=== PATIENT | female | born 1990 | race Caucasian/White ===

== ENCOUNTER 2018-12-12 14:26 | Inpatient (IN) | payer MEDICAID, OTHER ==
[~2018-12-12] VITALS: Ht 162.6 cm; Wt 91.7 kg
[~2018-12-12 14:26] MED LIST: NORG1TAB56 PO; OMEP-84 PO
[2018-12-12] MEDS ORDERED: ondansetron/PF 4mg/2ml inj IV ONE (14:35)
[2018-12-12] MEDS ORDERED: normal saline 1000ML IV soln IV ONE ×2 (14:35→15:45)
[2018-12-12] MEDS ORDERED: morphine 4 MG/ML inj SYRINge IV PRN ×2 (14:35→16:50)
[2018-12-12 15:11] LABS: BASOPHILS % (AUTO) 0.3 % (0-1); EOSINOPHILS % (AUTO) 0 % (0-6); HEMATOCRIT 51.3 % (35.0-45.0); HEMOGLOBIN 17.3 g/dl (12.0-16.0); LYMPHOCYTES # (AUTO) 0.9 X10'3 (1.1-4.8); MEAN CORPUSCULAR HEMOGLOBIN 34.2 PG (27.0-31.0); MEAN CORPUSCULAR HGB CONC 33.7 g/dL (33.0-36.5); MEAN CORPUSCULAR VOLUME 101.5 FL (78-98); MEAN PLATELET VOLUME 8.4 FL (7.4-10.4); MONOCYTES # (AUTO) 1.1 X10'3 (0-0.9); MONOCYTES % (AUTO) 9.3 % (2-12); NEUTROPHILS # (AUTO) 10.1 X10'3 (1.8-7.7); NEUTROPHILS % (AUTO) 83.4 % (42-75); PLATELET COUNT 253 X10'3 (140-440); RED BLOOD COUNT 5.06 X10'6 (4.20-5.60); RED CELL DISTRIBUTION WIDTH 13.9 % (11.5-14.5); WHITE BLOOD COUNT 12.1 X10'3 (4.5-11.0)
[2018-12-12 15:22] LABS: D-DIMER 2.23 MG/L FEU (0-0.50)
[2018-12-12 15:24] LABS: ALANINE AMINOTRANSFERASE 124 U/L (12-78); ALBUMIN/GLOBULIN RATIO 0.6 (1.1-1.5); ALKALINE PHOSPHATASE 102 IU/L (46-116); ANION GAP 31 (8-16); ASPARTATE AMINO TRANSFERASE 129 U/L (10-37); BILIRUBIN,TOTAL 2.3 MG/DL (0.1-1.0); BLOOD UREA NITROGEN 19 MG/DL (7-18); BUN/CREATININE RATIO 14.8 (6.6-38.0); CALCIUM 9.6 MG/DL (8.5-10.1); CHLORIDE 85 MMOL/L (99-107); CREATININE 1.28 MG/DL (0.40-0.90); GLUCOSE 392 MG/DL (70-104); MAGNESIUM 2.4 MG/DL (1.5-2.4); POTASSIUM 3.7 MMOL/L (3.5-5.1); SODIUM 123 MMOL/L (135-145); TOTAL PROTEIN 10.4 G/DL (6.4-8.2); eGFR 49 ML/MIN
[2018-12-12 15:26] LABS: TOTAL CARBON DIOXIDE 7.2 MMOL/L (24-32)
[2018-12-12] MEDS ORDERED: phenobarbital inj 260 MG in normal saline 100ml IV soln 99 ML IV STA (15:53)
[2018-12-12] MEDS ORDERED: thiamine 100mg tablet PO ONE (15:55)
[2018-12-12] MEDS ORDERED: magnesium oxide 400mg tablet PO ONE (15:55)
[2018-12-12] MEDS ORDERED: iohexol 350MG/ML 100ml bottle IV ONE (15:58)
[2018-12-12 16:13] LABS: ETHANOL < 0.010 GM/DL (0.0-0.010)
[2018-12-12 16:15] LABS: ABG BASE EXCESS -25.9 mmol/L (-2.0-3.0); ABG HCO3 2.7 mmol/L (22.0-26.0); ABG OXYGEN SATURATION 98.1 % (95-98); ABG PCO2 (T) 10.6 mmHg (32.0-45.0); ABG PH (T) 7.031 (7.350-7.450); ABG PO2 (T) 134.9 mmHg (83-108); ALLEN'S TEST Positive; FCOHb 0.9 % (0.5-1.5); FMetHb 0.3 % (0.3-1.12); FO2Hb 96.9 % (94-100); RESPIRATORY RATE (OBSERVED) 30 b/min; TOTAL HEMOGLOBIN 15.2 G/dl (12.0-16.0)
[2018-12-12] MEDS ORDERED: sodium bicarbonate (8.4%) inj. 150 MEQ in dextrose 5%-water 1,000 ML IV SCH (16:20)
[2018-12-12] MEDS ORDERED: sodium bicarbonate (8.4%) 1 mEq/ml syringe IV ONE (16:20)
[2018-12-12] MEDS ORDERED: NO HOME MEDS (16:21)
[2018-12-12 16:37] LABS: HEMOGLOBIN A1C 8.6 % (4.5-6.2)
[2018-12-12 16:38] LABS: PARTIAL THROMBOPLASTIN TIME 35 SECONDS (22-32)
[2018-12-12 16:47] LABS: URINE HCG NEGATIVE (NEG)
[2018-12-12] MEDS ORDERED: insulin regular, DKA only 100 UNIT in normal saline 100ml IV soln 99 ML IV SCH ×2 (16:47)
[2018-12-12 16:48] LABS: CLARITY,URINE SLIGHTLY CLOUDY (Clear); COLOR,URINE YELLOW (Yellow); GLUCOSE, URINE 500 mg/dl (Neg); KETONES,URINE >=80 mg/dl (Neg); LEUKOCYTE ESTERASE ,URINE NEGATIVE (Neg); NITRITES, URINE NEGATIVE (Neg); OCCULT BLOOD,URINE MODERATE (Neg); PROTEIN,URINE 100 mg/dl (Neg); UROBILINOGEN,URINE 0.2 E.U/dL (0.2-1.0)
[2018-12-12 16:50] LABS: UA COLLECTION TYPE CLN CATCH MIDSTREAM
[2018-12-12] MEDS ORDERED: acetaminophen 325mg tablet PO PRN ×2 (16:50)
[2018-12-12] MEDS ORDERED: potassium Cl 20 mEq SR tablet PO PRN ×4 (16:50)
[2018-12-12] MEDS ORDERED: potassium Cl 40MEQ/NS 500ml 500 ML IV PRN ×3 (16:50)
[2018-12-12] MEDS ORDERED: HYDROcodone/acetaminophen 10/325mg tab PO PRN (16:50)
[2018-12-12] MEDS ORDERED: ondansetron/PF 4mg/2ml inj IV PRN (16:50)
[2018-12-12 16:55] LABS: SQUAMOUS EPITHELIAL CELL,UR FEW /LPF (FEW)
[2018-12-12 16:57] LABS: BACTERIA,URINE FEW /HPF (Neg); RBC,URINE 0-2 /HPF (0-2); WBC,URINE NONE SEEN /HPF (0-4)
[2018-12-12 16:58] LABS: COARSE GRANULAR CAST 0-3 /LPF (NEGATIVE); YEAST FEW /HPF (NEGATIVE)
[2018-12-12 17:28] LABS: OSMOLALITY 312 MOSM/K (280-300)
[2018-12-12] MEDS ORDERED: chlordiazePOXIDE 25mg capsule PO PRN (17:35)
[2018-12-12] MEDS: multivitamins, therapeutics tablet PO SCH (18:09)
[2018-12-12] MEDS: folic acid 1mg tablet PO SCH (18:09)
[2018-12-12] MEDS: thiamine 100mg tablet PO SCH (19:16)
[2018-12-12] MEDS: normal saline 1000ml 1,000 ML IV SCH (19:16)
[2018-12-12] MEDS: morphine 2 MG/ML inj. syringe IV PRN (20:24)
[2018-12-12] MEDS: docusate sod 100mg capsule PO SCH (20:25)
[2018-12-12] MEDS: heparin, porcine 5000 units/ml vial SQ SCH (20:26)
--- NOTE | 2018-12-12 21:10 | NUR ---
I have received report from Jose LAMBERT in ED, and had the opportunity to ask questions and assume patient care.
[2018-12-12 21:44] LABS: ALBUMIN 3.5 G/DL (3.4-5.0); BLOOD UREA NITROGEN 13 MG/DL (7-18); BUN/CREATININE RATIO 15.3 (6.6-38.0); CALCIUM 7.9 MG/DL (8.5-10.1); CHLORIDE 95 MMOL/L (99-107); CREATININE 0.85 MG/DL (0.40-0.90); GLUCOSE 204 MG/DL (70-104); POTASSIUM 3.3 MMOL/L (3.5-5.1); SODIUM 129 MMOL/L (135-145); eGFR 79 ML/MIN
[2018-12-12 21:50] LABS: ANION GAP 26 (8-16)
[2018-12-12 21:52] LABS: TOTAL CARBON DIOXIDE 8.3 MMOL/L (24-32)
[2018-12-12 22:00] VITALS: BP 173/91
--- NOTE | 2018-12-12 22:00 | NUR ---
PT arrived ER via gurney. PT transferred self to bed. Connected to bedside monitor.VSS. NS is running @ 125ml/hr. PT is on DKA protocol. Insulin gtt running @ 5units/hr, blood sugars trending down. PT denies pain at this time. Bed is locked and low. Call light is within reach. Will continue to monitor.
[2018-12-12] MEDS: potassium CL 20mEq in D5-1/2NS 1,000 ML IV PRN (22:57)
[2018-12-12 23:00] VITALS: BP 164/80
--- NOTE | 2018-12-12 23:00 | NUR ---
IVF switched from NS to D5 1/2NS with 20meq of K based on blood sugars and protocol. Will continue to monitor.
[2018-12-13] VITALS (24 sets, daily range): BP systolic 138–178; BP diastolic 74–122
[2018-12-13] MEDS: normal saline 1000ml 1,000 ML IV SCH ×3 (00:47→20:13)
--- NOTE | 2018-12-13 03:00 | NUR ---
PT resting with no s/s of distress noted at this time. VSS. Bed is locked and low. Call light is within reach. Will continue to monitor.
[2018-12-13] MEDS: potassium CL 20mEq in D5-1/2NS 1,000 ML IV PRN (03:08)
[2018-12-13] MEDS: morphine 2 MG/ML inj. syringe IV PRN ×3 (05:25→18:52)
[2018-12-13 05:50] LABS: BASOPHILS % (AUTO) 0.3 % (0-1); EOSINOPHILS % (AUTO) 0 % (0-6); HEMATOCRIT 43.3 % (35.0-45.0); LYMPHOCYTES % (AUTO) 12.4 % (21-51); MEAN CORPUSCULAR HGB CONC 34.8 g/dL (33.0-36.5); MEAN CORPUSCULAR VOLUME 100.6 FL (78-98); MEAN PLATELET VOLUME 8.3 FL (7.4-10.4); MONOCYTES # (AUTO) 0.8 X10'3 (0-0.9); MONOCYTES % (AUTO) 9.9 % (2-12); NEUTROPHILS # (AUTO) 6.3 X10'3 (1.8-7.7); NEUTROPHILS % (AUTO) 77.4 % (42-75); PLATELET COUNT 142 X10'3 (140-440); RED CELL DISTRIBUTION WIDTH 13.6 % (11.5-14.5); WHITE BLOOD COUNT 8.1 X10'3 (4.5-11.0)
[2018-12-13 05:52] LABS: ALANINE AMINOTRANSFERASE 97 U/L (12-78); ALBUMIN/GLOBULIN RATIO 0.6 (1.1-1.5); ALKALINE PHOSPHATASE 66 IU/L (46-116); ANION GAP 21 (8-16); ASPARTATE AMINO TRANSFERASE 126 U/L (10-37); BILIRUBIN,TOTAL 1.7 MG/DL (0.1-1.0); BLOOD UREA NITROGEN 12 MG/DL (7-18); BUN/CREATININE RATIO 14.5 (6.6-38.0); CALCIUM 7.7 MG/DL (8.5-10.1); CHLORIDE 100 MMOL/L (99-107); CREATININE 0.83 MG/DL (0.40-0.90); GLUCOSE 111 MG/DL (70-104); MAGNESIUM 1.7 MG/DL (1.5-2.4); SODIUM 131 MMOL/L (135-145); TOTAL PROTEIN 7.7 G/DL (6.4-8.2); eGFR 81 ML/MIN
[2018-12-13] MEDS: Potassium Cl inj 20 MEQ in DEXTROSE 10 % AND 0.45 % NACL 990 ML IV SCH ×3 (06:00→20:44)
--- NOTE | 2018-12-13 06:00 | NUR ---
IVF changed to D10 1/2NS with 20meq K based on blood sugars and protocol. Will continue to monitor.
[2018-12-13 06:14] LABS: PHOSPHORUS 0.8 MG/DL (2.3-4.5)
[2018-12-13] MEDS ORDERED: sodium phosphate inj. 15 MMOL in dextrose 5%-water 150 ML IV PRN (06:15)
[2018-12-13] MEDS ORDERED: Neutra Phos packet PO PRN (06:15)
--- NOTE | 2018-12-13 06:35 | NUR ---
Problems reprioritized. Patient report given, questions answered & plan of care reviewed with Tamela LAMBERT.
[2018-12-13] MEDS: potassium Cl 40MEQ/NS 500ml 500 ML IV PRN ×4 (07:54→23:28)
[2018-12-13] MEDS: sodium phosphate inj. 30 MMOL in dextrose 5%-water 250 ML IV PRN ×2 (07:55→08:08)
[2018-12-13] MEDS: K and/or MAG REPLACEMENT MC SCH (08:00)
[2018-12-13] MEDS: docusate sod 100mg capsule PO SCH ×2 (08:00→20:00)
[2018-12-13] MEDS: multivitamins, therapeutics tablet PO SCH (08:08)
[2018-12-13] MEDS: folic acid 1mg tablet PO SCH (08:08)
[2018-12-13] MEDS: thiamine 100mg tablet PO SCH (08:08)
[2018-12-13 09:54] LABS: AMYLASE 277 U/L (25-115)
[2018-12-13 10:03] LABS: LIPASE 3272 U/L (73-393)
[2018-12-13] MEDS ORDERED: NO HOME MEDS (10:15)
[2018-12-13] MEDS ORDERED: dextrose 50%-water 50ml dispensing syringe IV PRN (10:45)
[2018-12-13] MEDS: heparin, porcine 5000 units/ml vial SQ SCH ×2 (11:18→20:15)
--- NOTE | 2018-12-13 11:48 | NUR ---
DM Consult: A1C 8.6. Pt admit w/ abdominal pain hx etoh drinks 8 shots of whiskey daily but stopped past 3 days. DX DKA new DM and pancreatitis w/ lipase 4031 likely r/t etoh hx. On thiamin/MVI/folic for etoh. Pending specific DM labs workup per CDE recs to determine which type DM pt has per RN. On insulin drip w/ electrolyte replacements running; Phos .8. Pt resting/tired and not appropriate for ed at this time. Will need DM ed once stable prior to d/c. Advanced to carb controlled diet. Rec: 1. continue carb controlled diet 2. monitor for ONS needs 3. wt per rx 4. DM ed once clinically stable prior to d/c Addendum: 12/13/18 at [address] Amended: Links added.
[2018-12-13] MEDS: insulin regular, human 100 UNIT in normal saline 100ml IV soln 99 ML IV SCH ×4 (12:21→23:29)
[2018-12-13 12:22] LABS: ALBUMIN 2.6 G/DL (3.4-5.0); AMYLASE 257 U/L (25-115); ANION GAP 17 (8-16); BLOOD UREA NITROGEN 9 MG/DL (7-18); BUN/CREATININE RATIO 11.4 (6.6-38.0); CALCIUM 7.8 MG/DL (8.5-10.1); CHLORIDE 103 MMOL/L (99-107); CREATININE 0.79 MG/DL (0.40-0.90); GLUCOSE 197 MG/DL (70-104); POTASSIUM 3.2 MMOL/L (3.5-5.1); SODIUM 129 MMOL/L (135-145); eGFR 85 ML/MIN
[2018-12-13 12:37] LABS: LIPASE 2499 U/L (73-393); TOTAL CARBON DIOXIDE 9.5 MMOL/L (24-32)
--- NOTE | 2018-12-13 18:42 | NUR ---
Patient in room CICU 2008. I have received report from FAUSTO Rapp, and had the opportunity to ask questions and assume patient care.
--- NOTE | 2018-12-13 18:52 | NUR ---
Pt sitting up in chair, c/o 7/10 upper ABD pain. Given 2 mg morphine and served dinner tray. Pt's mother arrived to visit at bedside. BG assessed, 185. Insulin gtt increased (see IV spreadsheet). Orders placed for pt to receive lab draw.
[2018-12-13 20:08] LABS: ALBUMIN 2.8 G/DL (3.4-5.0); AMYLASE 230 U/L (25-115); ANION GAP 13 (8-16); BLOOD UREA NITROGEN 7 MG/DL (7-18); BUN/CREATININE RATIO 9.2 (6.6-38.0); CALCIUM 8.7 MG/DL (8.5-10.1); CHLORIDE 105 MMOL/L (99-107); CREATININE 0.76 MG/DL (0.40-0.90); GLUCOSE 149 MG/DL (70-104); SODIUM 133 MMOL/L (135-145); eGFR 89 ML/MIN
[2018-12-13 20:11] LABS: POTASSIUM 2.7 MMOL/L (3.5-5.1)
[2018-12-13 20:12] LABS: TOTAL CARBON DIOXIDE 14.8 MMOL/L (24-32)
[2018-12-13 20:13] LABS: PHOSPHORUS 0.5 MG/DL (2.3-4.5)
[2018-12-13] MEDS: lisinopril 5mg tablet PO SCH (20:14)
[2018-12-13 20:15] LABS: LIPASE 1681 U/L (73-393)
[2018-12-13] MEDS ORDERED: sodium phosphate inj. 30 MMOL in dextrose 5%-water 250 ML IV ONE (20:50)
[2018-12-14] VITALS (24 sets, daily range): BP systolic 107–181; BP diastolic 67–130
[2018-12-14] MEDS: normal saline 1000ml 1,000 ML IV SCH ×4 (00:33→23:51)
[2018-12-14] MEDS: Potassium Cl inj 20 MEQ in DEXTROSE 10 % AND 0.45 % NACL 990 ML IV SCH ×3 (01:53→10:57)
[2018-12-14] MEDS: morphine 2 MG/ML inj. syringe IV PRN ×3 (01:53→21:29)
[2018-12-14 02:14] LABS: BASOPHILS % (AUTO) 0.7 % (0-1); EOSINOPHILS % (AUTO) 0.6 % (0-6); HEMATOCRIT 46.1 % (35.0-45.0); HEMOGLOBIN 16.3 g/dl (12.0-16.0); LYMPHOCYTES # (AUTO) 0.8 X10'3 (1.1-4.8); LYMPHOCYTES % (AUTO) 18.8 % (21-51); MEAN CORPUSCULAR HEMOGLOBIN 34.6 PG (27.0-31.0); MEAN CORPUSCULAR HGB CONC 35.3 g/dL (33.0-36.5); MEAN PLATELET VOLUME 8.3 FL (7.4-10.4); MONOCYTES # (AUTO) 0.4 X10'3 (0-0.9); MONOCYTES % (AUTO) 8.3 % (2-12); NEUTROPHILS # (AUTO) 3.2 X10'3 (1.8-7.7); NEUTROPHILS % (AUTO) 71.6 % (42-75); PLATELET COUNT 179 X10'3 (140-440); RED CELL DISTRIBUTION WIDTH 13.8 % (11.5-14.5); WHITE BLOOD COUNT 4.4 X10'3 (4.5-11.0)
[2018-12-14 02:30] LABS: ALANINE AMINOTRANSFERASE 120 U/L (12-78); ALBUMIN 3.2 G/DL (3.4-5.0); ALBUMIN/GLOBULIN RATIO 0.6 (1.1-1.5); ALKALINE PHOSPHATASE 82 IU/L (46-116); AMYLASE 221 U/L (25-115); ANION GAP 17 (8-16); ASPARTATE AMINO TRANSFERASE 164 U/L (10-37); BLOOD UREA NITROGEN 6 MG/DL (7-18); BUN/CREATININE RATIO 7.9 (6.6-38.0); CALCIUM 9.1 MG/DL (8.5-10.1); CHLORIDE 104 MMOL/L (99-107); CREATININE 0.76 MG/DL (0.40-0.90); GLUCOSE 152 MG/DL (70-104); MAGNESIUM 1.8 MG/DL (1.5-2.4); SODIUM 136 MMOL/L (135-145); TOTAL CARBON DIOXIDE 15.1 MMOL/L (24-32); TOTAL PROTEIN 8.6 G/DL (6.4-8.2); eGFR 89 ML/MIN
[2018-12-14 02:36] LABS: LIPASE 2016 U/L (73-393)
[2018-12-14 02:42] LABS: PHOSPHORUS 0.7 MG/DL (2.3-4.5); POTASSIUM 2.3 MMOL/L (3.5-5.1)
--- NOTE | 2018-12-14 04:46 | NUR ---
Pt standing in room, occasionally leaning over bed. States ABD pain is radiating to back, currently 8/10. Pt declining Alba, states that it makes her "dizzy without relieving the pain". Next dose of morphine available in one hour. JEFFERSON Davis, notified, one-time order received for morphine to give now.
[2018-12-14] MEDS ORDERED: morphine 2 MG/ML inj. syringe IV ONE (04:50)
--- NOTE | 2018-12-14 06:25 | NUR ---
Problems reprioritized. Patient report given, questions answered & plan of care reviewed with FAUSTO Rapp.
--- NOTE | 2018-12-14 06:30 | NUR ---
Patient in room CICU 2007. I have received report from Nolvia shift coordinator nurse and had the opportunity to ask questions and assume patient care.
[2018-12-14] MEDS: insulin regular, human 100 UNIT in normal saline 100ml IV soln 99 ML IV SCH ×4 (06:34→16:33)
[2018-12-14] MEDS: K and/or MAG REPLACEMENT MC SCH (08:00)
--- NOTE | 2018-12-14 08:00 | NUR ---
doing better today, states feels better, up with minimal assist to chair, review of plan of care, and goals with patient , review of insulin and managment of blood sugars done. questions answered.
[2018-12-14] MEDS: thiamine 100mg tablet PO SCH (08:45)
[2018-12-14] MEDS: lisinopril 5mg tablet PO SCH (08:45)
[2018-12-14] MEDS: multivitamins, therapeutics tablet PO SCH (08:45)
[2018-12-14] MEDS: heparin, porcine 5000 units/ml vial SQ SCH ×2 (08:46→19:24)
[2018-12-14] MEDS: docusate sod 100mg capsule PO SCH ×2 (08:46→19:23)
[2018-12-14] MEDS: folic acid 1mg tablet PO SCH (08:49)
[2018-12-14 08:55] LABS: ALBUMIN 2.6 G/DL (3.4-5.0); AMYLASE 132 U/L (25-115); ANION GAP 16 (8-16); BLOOD UREA NITROGEN 5 MG/DL (7-18); BUN/CREATININE RATIO 7.1 (6.6-38.0); CALCIUM 8.6 MG/DL (8.5-10.1); CHLORIDE 105 MMOL/L (99-107); GLUCOSE 131 MG/DL (70-104); LIPASE 1207 U/L (73-393); SODIUM 137 MMOL/L (135-145); TOTAL CARBON DIOXIDE 16.1 MMOL/L (24-32); eGFR > 90 ML/MIN
[2018-12-14 08:58] LABS: POTASSIUM 2.6 MMOL/L (3.5-5.1)
[2018-12-14] MEDS: potassium Cl 40MEQ/NS 500ml 500 ML IV PRN ×2 (10:57→15:08)
[2018-12-14 11:26] LABS: MAGNESIUM 1.5 MG/DL (1.5-2.4)
[2018-12-14 11:31] LABS: PHOSPHORUS 0.9 MG/DL (2.3-4.5)
[2018-12-14] MEDS: sodium phosphate inj. 30 MMOL in dextrose 5%-water 250 ML IV PRN (12:18)
[2018-12-14 15:34] LABS: ALBUMIN 2.5 G/DL (3.4-5.0); AMYLASE 106 U/L (25-115); ANION GAP 15 (8-16); BLOOD UREA NITROGEN 4 MG/DL (7-18); CALCIUM 8.8 MG/DL (8.5-10.1); CHLORIDE 105 MMOL/L (99-107); CREATININE 0.67 MG/DL (0.40-0.90); GLUCOSE 169 MG/DL (70-104); LIPASE 1228 U/L (73-393); MAGNESIUM 1.5 MG/DL (1.5-2.4); PHOSPHORUS 1.4 MG/DL (2.3-4.5); SODIUM 134 MMOL/L (135-145); eGFR > 90 ML/MIN
[2018-12-14 15:40] LABS: POTASSIUM 2.9 MMOL/L (3.5-5.1)
--- NOTE | 2018-12-14 16:43 | NUR ---
F/u for DM consult: Pt seen at bedside with SO present given written and verbal DM ed with referral to outpatient DM class and RD contact information. Pt was able to perform teachback method and appeared to have a good understanding of nutrition therapy for DM by the end of education considering this is a new dx this visit. RD encouraged pt to attend outpatient class with CDEs and look into finding an research administrator. Malnutrition consult received. Pt reports losing 15# over several months with UBW of 200#, current documented wt is 198# using bed scale. Pt with no edema or documented decrease in muscle strength. No visible fat/muscle wasting noted at the time of RD visit. Pt currently does not meet criteria for malnutrition. Pt reports poor PO intake r/t pain however states family will be bringing in some food to her later, RN approved of food. Pt states she will get an itchy throat if consumes pineapple, dietary informed. Will continue to follow. Rec: 1. continue carb controlled diet 2. monitor for ONS needs 3. Continue Thiamine, Folic acid, and MVI given Etoh abuse 4. wt per rx Addendum: 12/14/18 at [address] Amended: Links added.
--- NOTE | 2018-12-14 18:30 | NUR ---
Patient in room CICU 2008. I have received report from FAUSTO Rapp, and had the opportunity to ask questions and assume patient care.
[2018-12-14 20:21] LABS: ALBUMIN 2.4 G/DL (3.4-5.0); AMYLASE 101 U/L (25-115); ANION GAP 13 (8-16); BLOOD UREA NITROGEN 4 MG/DL (7-18); BUN/CREATININE RATIO 6.8 (6.6-38.0); CALCIUM 8.5 MG/DL (8.5-10.1); CHLORIDE 106 MMOL/L (99-107); CREATININE 0.59 MG/DL (0.40-0.90); GLUCOSE 132 MG/DL (70-104); LIPASE 1215 U/L (73-393); MAGNESIUM 1.4 MG/DL (1.5-2.4); PHOSPHORUS 1.9 MG/DL (2.3-4.5); POTASSIUM 3.2 MMOL/L (3.5-5.1); SODIUM 136 MMOL/L (135-145); TOTAL CARBON DIOXIDE 17.1 MMOL/L (24-32); eGFR > 90 ML/MIN
--- NOTE | 2018-12-14 20:45 | NUR ---
Pt ambulated steadily in halls with 2-person standby assist. Pt tolerated activity well, no dizziness or changes in VS's. Returned to room and assisted with evening care.
--- NOTE | 2018-12-14 21:30 | NUR ---
Pt assisted back to bed. Pt states that something "feels wet" around LAC IV site. Scant leaking noted around LAC IV site, able to flush and draw back blood. Area reinforced and water wing in place.
--- NOTE | 2018-12-14 23:45 | NUR ---
Pt states that IV is leaking. Increased leaking from IV site without tenderness or swelling. 20 g placed to right wrist x2 attempts, able to flush with NS and aspirate blood. Site secured with tegaderm and plastic tape. IVF infusing through this site. Old IV dc'ed, cannula intact. Site covered with sterile gauze and coban.
[2018-12-15] VITALS (18 sets, daily range): BP systolic 103–155; BP diastolic 69–104
[2018-12-15] MEDS ORDERED: LIDOcaine 1% 30ml vial 5 ML in potassium Cl 40MEQ/NS 500ml 500 ML IV ONE (00:05)
[2018-12-15] MEDS: Potassium Cl inj 20 MEQ in DEXTROSE 10 % AND 0.45 % NACL 990 ML IV SCH ×2 (01:42→10:17)
[2018-12-15] MEDS: morphine 2 MG/ML inj. syringe IV PRN ×5 (02:20→23:15)
[2018-12-15] MEDS: insulin regular, human 100 UNIT in normal saline 100ml IV soln 99 ML IV SCH ×2 (02:26)
[2018-12-15 02:54] LABS: BASOPHILS # (AUTO) 0.1 X10'3 (0-0.2); BASOPHILS % (AUTO) 1.1 % (0-1); EOSINOPHILS # (AUTO) 0.1 X10'3 (0-0.9); EOSINOPHILS % (AUTO) 1.8 % (0-6); HEMATOCRIT 40.1 % (35.0-45.0); LYMPHOCYTES # (AUTO) 1.7 X10'3 (1.1-4.8); LYMPHOCYTES % (AUTO) 34.3 % (21-51); MEAN CORPUSCULAR HGB CONC 34.8 g/dL (33.0-36.5); MEAN CORPUSCULAR VOLUME 97.7 FL (78-98); MEAN PLATELET VOLUME 8.7 FL (7.4-10.4); MONOCYTES # (AUTO) 0.5 X10'3 (0-0.9); MONOCYTES % (AUTO) 9.4 % (2-12); NEUTROPHILS # (AUTO) 2.6 X10'3 (1.8-7.7); NEUTROPHILS % (AUTO) 53.4 % (42-75); PLATELET COUNT 212 X10'3 (140-440); RED BLOOD COUNT 4.11 X10'6 (4.20-5.60); RED CELL DISTRIBUTION WIDTH 13.8 % (11.5-14.5); WHITE BLOOD COUNT 4.8 X10'3 (4.5-11.0)
[2018-12-15 03:03] LABS: ALANINE AMINOTRANSFERASE 194 U/L (12-78); ALBUMIN 2.6 G/DL (3.4-5.0); ALBUMIN/GLOBULIN RATIO 0.6 (1.1-1.5); ALKALINE PHOSPHATASE 89 IU/L (46-116); AMYLASE 95 U/L (25-115); ANION GAP 16 (8-16); ASPARTATE AMINO TRANSFERASE 311 U/L (10-37); BLOOD UREA NITROGEN 4 MG/DL (7-18); CALCIUM 9.2 MG/DL (8.5-10.1); CHLORIDE 107 MMOL/L (99-107); CREATININE 0.57 MG/DL (0.40-0.90); GLUCOSE 122 MG/DL (70-104); LIPASE 1195 U/L (73-393); MAGNESIUM 1.5 MG/DL (1.5-2.4); PHOSPHORUS 2.1 MG/DL (2.3-4.5); SODIUM 141 MMOL/L (135-145); TOTAL CARBON DIOXIDE 17.7 MMOL/L (24-32); eGFR > 90 ML/MIN
[2018-12-15 03:09] LABS: POTASSIUM 2.9 MMOL/L (3.5-5.1)
--- NOTE | 2018-12-15 06:30 | NUR ---
Patient in room CICU 2008. I have received report from rico peralta rn and had the opportunity to ask questions and assume patient care.
[2018-12-15] MEDS: lisinopril 5mg tablet PO SCH (07:42)
[2018-12-15] MEDS: thiamine 100mg tablet PO SCH (07:43)
[2018-12-15] MEDS: folic acid 1mg tablet PO SCH (07:43)
[2018-12-15] MEDS: docusate sod 100mg capsule PO SCH ×2 (07:43→19:46)
[2018-12-15] MEDS: multivitamins, therapeutics tablet PO SCH (07:43)
[2018-12-15] MEDS: heparin, porcine 5000 units/ml vial SQ SCH ×2 (07:44→19:45)
[2018-12-15] MEDS: K and/or MAG REPLACEMENT MC SCH (08:00)
[2018-12-15 08:29] LABS: ALBUMIN 2.4 G/DL (3.4-5.0); ANION GAP 15 (8-16); BLOOD UREA NITROGEN 3 MG/DL (7-18); BUN/CREATININE RATIO 5.3 (6.6-38.0); CALCIUM 8.7 MG/DL (8.5-10.1); CHLORIDE 107 MMOL/L (99-107); CREATININE 0.57 MG/DL (0.40-0.90); GLUCOSE 110 MG/DL (70-104); SODIUM 140 MMOL/L (135-145); eGFR > 90 ML/MIN
[2018-12-15 08:30] LABS: AMYLASE 73 U/L (25-115); LIPASE 1100 U/L (73-393)
[2018-12-15 08:32] LABS: POTASSIUM 2.9 MMOL/L (3.5-5.1)
[2018-12-15] MEDS: potassium Cl oral solution 20 MEQ/15 ML PO PRN ×2 (08:37→14:32)
--- NOTE | 2018-12-15 09:00 | NUR ---
up to chair for am care and breakfast, goals of plan of care reviewed with patient, blood sugar conrol with insulin gtt continues, possible plan to move to sub cutaneous pending discussion with MD. 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
[2018-12-15] MEDS ORDERED: pneumococcal 23-VAL P-sac vacc 25 mcg/0.5ml vial IMVAC ONE (10:00)
[2018-12-15] MEDS ORDERED: dextrose ORAL solution 15 GM/59 ML bottle PO PRN ×2 (12:35)
[2018-12-15] MEDS ORDERED: dextrose 50%-water 50ml dispensing syringe IV PRN ×2 (12:35)
[2018-12-15] MEDS ORDERED: glucagon, human recombinant 1mg kit SUBCUT PRN (12:35)
[2018-12-15 13:32] LABS: ALBUMIN 2.2 G/DL (3.4-5.0); ANION GAP 10 (8-16); BLOOD UREA NITROGEN 3 MG/DL (7-18); BUN/CREATININE RATIO 4.9 (6.6-38.0); CALCIUM 8.9 MG/DL (8.5-10.1); CHLORIDE 109 MMOL/L (99-107); CREATININE 0.61 MG/DL (0.40-0.90); GLUCOSE 100 MG/DL (70-104); POTASSIUM 3.2 MMOL/L (3.5-5.1); SODIUM 141 MMOL/L (135-145); TOTAL CARBON DIOXIDE 22.1 MMOL/L (24-32); eGFR > 90 ML/MIN
[2018-12-15] MEDS: insulin Lispro (HumaLOG) vial - multi-dose SQ SCH ×2 (13:51→19:40)
--- NOTE | 2018-12-15 14:15 | NUR ---
insulin ggt off, sub cutaneous insulin started, pt education given for diabetes survival skills, sign and symptoms reviewed with patient of low blood sugar and high blood sugar.
--- NOTE | 2018-12-15 16:01 | NUR ---
transfered to pcu with all belonging, ambulated 400 ft plus without problems.
[2018-12-15 19:09] LABS: ALBUMIN 2.6 G/DL (3.4-5.0); ANION GAP 12 (8-16); BLOOD UREA NITROGEN 4 MG/DL (7-18); BUN/CREATININE RATIO 6.2 (6.6-38.0); CALCIUM 8.9 MG/DL (8.5-10.1); CHLORIDE 103 MMOL/L (99-107); CREATININE 0.65 MG/DL (0.40-0.90); GLUCOSE 268 MG/DL (70-104); POTASSIUM 3.8 MMOL/L (3.5-5.1); SODIUM 133 MMOL/L (135-145); TOTAL CARBON DIOXIDE 18.4 MMOL/L (24-32); eGFR > 90 ML/MIN
--- NOTE | 2018-12-15 19:25 | NUR ---
Patient in room PCU 3021. I have received report from FAUSTO New and had the opportunity to ask questions and assume patient care.
[2018-12-15] MEDS: insulin glargine (Lantus) pen - multi-dose SQ SCH (21:50)
[2018-12-16 03:00] VITALS: BP 150/96
[2018-12-16] MEDS: morphine 2 MG/ML inj. syringe IV PRN ×3 (05:54→18:52)
[2018-12-16 06:00] VITALS: BP 147/111
[2018-12-16 06:08] LABS: BASOPHILS # (AUTO) 0.1 X10'3 (0-0.2); BASOPHILS % (AUTO) 1.6 % (0-1); EOSINOPHILS # (AUTO) 0.1 X10'3 (0-0.9); EOSINOPHILS % (AUTO) 2.3 % (0-6); HEMATOCRIT 37.5 % (35.0-45.0); HEMOGLOBIN 13.2 g/dl (12.0-16.0); LYMPHOCYTES # (AUTO) 1.4 X10'3 (1.1-4.8); LYMPHOCYTES % (AUTO) 33.2 % (21-51); MEAN CORPUSCULAR HEMOGLOBIN 34.7 PG (27.0-31.0); MEAN CORPUSCULAR HGB CONC 35.1 g/dL (33.0-36.5); MEAN CORPUSCULAR VOLUME 98.8 FL (78-98); MEAN PLATELET VOLUME 8.4 FL (7.4-10.4); MONOCYTES # (AUTO) 0.5 X10'3 (0-0.9); MONOCYTES % (AUTO) 11.7 % (2-12); NEUTROPHILS # (AUTO) 2.1 X10'3 (1.8-7.7); NEUTROPHILS % (AUTO) 51.2 % (42-75); PLATELET COUNT 231 X10'3 (140-440); RED CELL DISTRIBUTION WIDTH 13.9 % (11.5-14.5); WHITE BLOOD COUNT 4.2 X10'3 (4.5-11.0)
[2018-12-16 06:33] LABS: ALANINE AMINOTRANSFERASE 204 U/L (12-78); ALBUMIN 2.4 G/DL (3.4-5.0); ALBUMIN/GLOBULIN RATIO 0.6 (1.1-1.5); ALKALINE PHOSPHATASE 88 IU/L (46-116); AMYLASE 96 U/L (25-115); ANION GAP 9 (8-16); ASPARTATE AMINO TRANSFERASE 159 U/L (10-37); BILIRUBIN,TOTAL 1.6 MG/DL (0.1-1.0); BLOOD UREA NITROGEN 5 MG/DL (7-18); BUN/CREATININE RATIO 7.7 (6.6-38.0); CHLORIDE 104 MMOL/L (99-107); CREATININE 0.65 MG/DL (0.40-0.90); GLUCOSE 213 MG/DL (70-104); MAGNESIUM 1.6 MG/DL (1.5-2.4); PHOSPHORUS 3.5 MG/DL (2.3-4.5); POTASSIUM 3.3 MMOL/L (3.5-5.1); SODIUM 138 MMOL/L (135-145); TOTAL CARBON DIOXIDE 24.9 MMOL/L (24-32); TOTAL PROTEIN 6.5 G/DL (6.4-8.2); eGFR > 90 ML/MIN
--- NOTE | 2018-12-16 06:45 | NUR ---
Problems reprioritized. Patient report given, questions answered & plan of care reviewed with FAUSTO Iglesias.
[2018-12-16 06:48] LABS: CALCIUM 9.6 MG/DL (8.5-10.1)
[2018-12-16 06:52] LABS: LIPASE 2141 U/L (73-393)
--- NOTE | 2018-12-16 07:23 | NUR ---
Patient in room PCU 3021. I have received report from Komal LAMBERT and had the opportunity to ask questions and assume patient care. Addendum: 12/16/18 at 7124 by Kelsie Gil RN Amended: Links added.
[2018-12-16] MEDS: K and/or MAG REPLACEMENT MC SCH (07:49)
[2018-12-16] MEDS: lisinopril 5mg tablet PO SCH ×2 (07:51→19:59)
[2018-12-16] MEDS: folic acid 1mg tablet PO SCH (07:51)
[2018-12-16] MEDS: thiamine 100mg tablet PO SCH (07:51)
[2018-12-16] MEDS: docusate sod 100mg capsule PO SCH ×2 (07:51→20:00)
[2018-12-16] MEDS: multivitamins, therapeutics tablet PO SCH (07:51)
[2018-12-16] MEDS: heparin, porcine 5000 units/ml vial SQ SCH ×2 (07:52→20:00)
[2018-12-16] MEDS: insulin Lispro (HumaLOG) vial - multi-dose SQ SCH ×3 (08:33→18:57)
[2018-12-16 11:00] VITALS: BP 141/100
[2018-12-16 12:20] LABS: ALBUMIN 2.5 G/DL (3.4-5.0); AMYLASE 102 U/L (25-115); ANION GAP 11 (8-16); BLOOD UREA NITROGEN 6 MG/DL (7-18); BUN/CREATININE RATIO 9.4 (6.6-38.0); CALCIUM 9.8 MG/DL (8.5-10.1); CHLORIDE 102 MMOL/L (99-107); CREATININE 0.64 MG/DL (0.40-0.90); GLUCOSE 256 MG/DL (70-104); POTASSIUM 3.3 MMOL/L (3.5-5.1); SODIUM 136 MMOL/L (135-145); TOTAL CARBON DIOXIDE 23.5 MMOL/L (24-32); eGFR > 90 ML/MIN
[2018-12-16 12:31] LABS: LIPASE 2962 U/L (73-393)
[2018-12-16 15:00] VITALS: BP 139/92
[2018-12-16 18:00] VITALS: BP 130/95
--- NOTE | 2018-12-16 18:18 | NUR ---
Problems reprioritized. Patient report given, questions answered & plan of care reviewed with Haley Saldana RN.
--- NOTE | 2018-12-16 18:30 | NUR ---
Patient in room PCU 3021. I have received report from Kelsie LAMBERT and had the opportunity to ask questions and assume patient care.
[2018-12-16 18:50] LABS: ALBUMIN 2.6 G/DL (3.4-5.0); ANION GAP 11 (8-16); BLOOD UREA NITROGEN 6 MG/DL (7-18); BUN/CREATININE RATIO 9.7 (6.6-38.0); CHLORIDE 100 MMOL/L (99-107); CREATININE 0.62 MG/DL (0.40-0.90); GLUCOSE 218 MG/DL (70-104); POTASSIUM 3.5 MMOL/L (3.5-5.1); SODIUM 136 MMOL/L (135-145); TOTAL CARBON DIOXIDE 24.8 MMOL/L (24-32); eGFR > 90 ML/MIN
[2018-12-16] MEDS: insulin glargine (Lantus) pen - multi-dose SQ SCH (21:19)
[2018-12-16 22:00] VITALS: BP 132/88
[2018-12-17] VITALS (7 sets, daily range): BP systolic 119–148; BP diastolic 80–96
[2018-12-17] MEDS: morphine 2 MG/ML inj. syringe IV PRN ×4 (01:16→16:45)
[2018-12-17 05:24] LABS: BASOPHILS # (AUTO) 0.1 X10'3 (0-0.2); EOSINOPHILS # (AUTO) 0.1 X10'3 (0-0.9); EOSINOPHILS % (AUTO) 2.6 % (0-6); HEMATOCRIT 36.7 % (35.0-45.0); HEMOGLOBIN 12.8 g/dl (12.0-16.0); LYMPHOCYTES # (AUTO) 1.7 X10'3 (1.1-4.8); LYMPHOCYTES % (AUTO) 30.7 % (21-51); MEAN CORPUSCULAR HEMOGLOBIN 34.3 PG (27.0-31.0); MEAN CORPUSCULAR HGB CONC 34.8 g/dL (33.0-36.5); MEAN CORPUSCULAR VOLUME 98.6 FL (78-98); MEAN PLATELET VOLUME 8.3 FL (7.4-10.4); MONOCYTES # (AUTO) 0.7 X10'3 (0-0.9); MONOCYTES % (AUTO) 12.3 % (2-12); NEUTROPHILS # (AUTO) 2.9 X10'3 (1.8-7.7); NEUTROPHILS % (AUTO) 53.4 % (42-75); PLATELET COUNT 265 X10'3 (140-440); RED BLOOD COUNT 3.72 X10'6 (4.20-5.60); RED CELL DISTRIBUTION WIDTH 13.7 % (11.5-14.5); WHITE BLOOD COUNT 5.4 X10'3 (4.5-11.0)
[2018-12-17 05:42] LABS: ALANINE AMINOTRANSFERASE 176 U/L (12-78); ALBUMIN 2.5 G/DL (3.4-5.0); ALBUMIN/GLOBULIN RATIO 0.6 (1.1-1.5); ALKALINE PHOSPHATASE 95 IU/L (46-116); AMYLASE 81 U/L (25-115); ANION GAP 13 (8-16); ASPARTATE AMINO TRANSFERASE 107 U/L (10-37); BILIRUBIN,TOTAL 1.5 MG/DL (0.1-1.0); BLOOD UREA NITROGEN 6 MG/DL (7-18); BUN/CREATININE RATIO 9.2 (6.6-38.0); CALCIUM 9.8 MG/DL (8.5-10.1); CHLORIDE 101 MMOL/L (99-107); CREATININE 0.65 MG/DL (0.40-0.90); GLUCOSE 203 MG/DL (70-104); MAGNESIUM 1.8 MG/DL (1.5-2.4); PHOSPHORUS 4.8 MG/DL (2.3-4.5); SODIUM 139 MMOL/L (135-145); TOTAL CARBON DIOXIDE 25.3 MMOL/L (24-32); TOTAL PROTEIN 6.8 G/DL (6.4-8.2); eGFR > 90 ML/MIN
[2018-12-17] MEDS: potassium Cl oral solution 20 MEQ/15 ML PO PRN ×3 (05:49→14:02)
--- NOTE | 2018-12-17 06:24 | NUR ---
Problems reprioritized. Patient report given, questions answered & plan of care reviewed with Dennis RN.
[2018-12-17 06:28] LABS: LIPASE 1933 U/L (73-393)
--- NOTE | 2018-12-17 06:48 | NUR ---
Patient in room PCU 3021. I have received report from FAUSTO GONZALEZ and had the opportunity to ask questions and assume patient care.
[2018-12-17] MEDS: docusate sod 100mg capsule PO SCH ×2 (07:27→21:00)
[2018-12-17] MEDS: folic acid 1mg tablet PO SCH (07:27)
[2018-12-17] MEDS: thiamine 100mg tablet PO SCH (07:28)
[2018-12-17] MEDS: multivitamins, therapeutics tablet PO SCH (07:28)
[2018-12-17] MEDS: lisinopril 5mg tablet PO SCH (07:29)
[2018-12-17] MEDS: heparin, porcine 5000 units/ml vial SQ SCH ×2 (07:30→21:00)
[2018-12-17] MEDS: K and/or MAG REPLACEMENT MC SCH (08:00)
[2018-12-17] MEDS: insulin Lispro (HumaLOG) vial - multi-dose SQ SCH ×3 (08:54→19:07)
[2018-12-17] MEDS ORDERED: lisinopril 10 MG tablet PO SCH (09:15)
[2018-12-17] MEDS ORDERED: lisinopril 5mg tablet PO ONE (09:40)
--- NOTE | 2018-12-17 12:11 | NUR ---
reassessment: Pt PO 75-100% meals meeting needs. Lipase down to 1933 down from 2962 previous. GLU 220 on protocol. Will need insulin home use ed prior to d/c per note. LBM 12/15. Will continue to monitor. Rec: 1. continue carb controlled diet 2. Continue Thiamine, Folic acid, and MVI given Etoh abuse 3. wt per rx Addendum: 12/17/18 at [address] Amended: Links added.
--- NOTE | 2018-12-17 14:17 | NUR ---
ALLERGIC TO PINEAPPLE.RECEIVED PINEAPPLE WITH LUNCH. DID NOT EAT. CALL TO PALLAVI IN DIETARY, STATES "I WILL TALK TO J LUIS PRIETO ABOUT IT AND DO EVERYTHING I CAN TO HIGHLIGHT THAT ALLERGY".
--- NOTE | 2018-12-17 16:21 | NUR ---
CHANDAN MARTE IN FOR DIABETIC EDUCATION. STATES "NEED TO ASK DR. HENRIQUEZ TO PRESCRIBE FREESTYLE LITE GLUCOMETER, 200 STRIPS FOR FREESTYLE LITE GLUCOMETER, 200 LANCETS FOR FREESTYLE LITE. NEED RX FOR INSURANCE". Addendum: 12/17/18 at 1628 by Raj Neri RN DR. HENRIQUEZ NOTIFIED OF ABOVE.
--- NOTE | 2018-12-17 18:37 | NUR ---
Problems reprioritized. Patient report given, questions answered & plan of care reviewed with phyllis dupont.
--- NOTE | 2018-12-17 18:41 | NUR ---
Patient in room PCU 3021. I have received report from FREDA LAMBERT and had the opportunity to ask questions and assume patient care.
[2018-12-17] MEDS ORDERED: insulin glargine (Lantus) pen - multi-dose SQ SCH (21:00)
[2018-12-17] MEDS: acetaminophen w/codeine (30MG) #3 tablet PO PRN (21:01)
[2018-12-18 03:00] VITALS: BP 108/75
[2018-12-18 05:25] LABS: BASOPHILS # (AUTO) 0.1 X10'3 (0-0.2); BASOPHILS % (AUTO) 1.9 % (0-1); EOSINOPHILS # (AUTO) 0.2 X10'3 (0-0.9); EOSINOPHILS % (AUTO) 3.7 % (0-6); HEMATOCRIT 39.5 % (35.0-45.0); HEMOGLOBIN 13.6 g/dl (12.0-16.0); LYMPHOCYTES # (AUTO) 1.6 X10'3 (1.1-4.8); LYMPHOCYTES % (AUTO) 36.3 % (21-51); MEAN CORPUSCULAR HEMOGLOBIN 34.7 PG (27.0-31.0); MEAN CORPUSCULAR HGB CONC 34.4 g/dL (33.0-36.5); MEAN CORPUSCULAR VOLUME 100.9 FL (78-98); MEAN PLATELET VOLUME 8.5 FL (7.4-10.4); MONOCYTES # (AUTO) 0.6 X10'3 (0-0.9); MONOCYTES % (AUTO) 14.5 % (2-12); NEUTROPHILS # (AUTO) 1.9 X10'3 (1.8-7.7); NEUTROPHILS % (AUTO) 43.6 % (42-75); PLATELET COUNT 296 X10'3 (140-440); RED BLOOD COUNT 3.91 X10'6 (4.20-5.60); RED CELL DISTRIBUTION WIDTH 14.1 % (11.5-14.5); WHITE BLOOD COUNT 4.4 X10'3 (4.5-11.0)
[2018-12-18 05:35] LABS: ALANINE AMINOTRANSFERASE 166 U/L (12-78); ALBUMIN 2.5 G/DL (3.4-5.0); ALBUMIN/GLOBULIN RATIO 0.5 (1.1-1.5); ALKALINE PHOSPHATASE 117 IU/L (46-116); ANION GAP 7 (8-16); ASPARTATE AMINO TRANSFERASE 142 U/L (10-37); BILIRUBIN,TOTAL 1.3 MG/DL (0.1-1.0); BLOOD UREA NITROGEN 4 MG/DL (7-18); BUN/CREATININE RATIO 5.8 (6.6-38.0); CHLORIDE 101 MMOL/L (99-107); CREATININE 0.69 MG/DL (0.40-0.90); GLUCOSE 174 MG/DL (70-104); MAGNESIUM 1.9 MG/DL (1.5-2.4); PHOSPHORUS 6.1 MG/DL (2.3-4.5); POTASSIUM 3.9 MMOL/L (3.5-5.1); SODIUM 136 MMOL/L (135-145); TOTAL CARBON DIOXIDE 28.1 MMOL/L (24-32); TOTAL PROTEIN 7.1 G/DL (6.4-8.2); eGFR > 90 ML/MIN
[2018-12-18 06:00] VITALS: BP 118/81
--- NOTE | 2018-12-18 06:14 | NUR ---
Problems reprioritized. Patient report given, questions answered & plan of care reviewed with FREDA RN.
--- NOTE | 2018-12-18 06:18 | NUR ---
Patient in room PCU 3021. I have received report from phyllis dupont and had the opportunity to ask questions and assume patient care.
[2018-12-18] MEDS: acetaminophen w/codeine (30MG) #3 tablet PO PRN (07:22)
[2018-12-18] MEDS: docusate sod 100mg capsule PO SCH (07:30)
[2018-12-18] MEDS: folic acid 1mg tablet PO SCH (07:30)
[2018-12-18] MEDS: thiamine 100mg tablet PO SCH (07:31)
[2018-12-18] MEDS: multivitamins, therapeutics tablet PO SCH (07:31)
[2018-12-18] MEDS: heparin, porcine 5000 units/ml vial SQ SCH (07:32)
[2018-12-18] MEDS ORDERED: lisinopril 10 MG tablet PO SCH (08:00)
[2018-12-18] MEDS: K and/or MAG REPLACEMENT MC SCH (08:00)
[2018-12-18] MEDS: insulin Lispro (HumaLOG) vial - multi-dose SQ SCH ×2 (09:04→12:47)
[2018-12-18] MEDS ORDERED: INSU100I31 SQ (13:47)
[2018-12-18] MEDS ORDERED: lancet (13:47)
[2018-12-18] MEDS ORDERED: ACET-1 PO (13:47)
[2018-12-18] MEDS ORDERED: LISI10TA4 PO (13:47)
[2018-12-18] MEDS ORDERED: INSU200I SQ (13:47)
[2018-12-18] MEDS ORDERED: BLOO-1084 TOP (13:47)
[2018-12-18] MEDS ORDERED: FREESTYLE (13:47)
[2018-12-18 13:49] LABS: GAD-65 AUTOANTIBODY <5.0 U/mL (0.0-5.0)
[2018-12-18 15:00] VITALS: BP 115/69
[2018-12-19 13:11] LABS: C-PEPTIDE, SERUM 0.7 ng/mL (1.1-4.4)
[2018-12-19 17:09] LABS: INSULIN 6.6 uIU/mL (2.6-24.9)
== END 2018-12-18 16:30 | disposition home or self-care (01) | DRG 469 ==
LOC: ER 14:26 → ICU 2S 16:54 → EDBEDREQ 21:17 → CICU 2S 21:25 → CMPBEDREQ 12-13 01:49 → PCU 3S 12-15 16:00
PROVIDERS: ADMIT Internal Medicine Critical Care Medicine; ATTEND Internal Medicine Critical Care Medicine
PROC: BW201ZZ Computerized Tomography (CT Scan) of Abdomen using Low Osmolar Contrast (ICD-10-PCS; 2018-12-12)
PROC: 3E02340 Introduction of Influenza Vaccine into Muscle, Percutaneous Approach (ICD-10-PCS; principal; 2018-12-15)
PROC: 3E0234Z Introduction of Serum, Toxoid and Vaccine into Muscle, Percutaneous Approach (ICD-10-PCS; 2018-12-15)
DX: N17.9 Acute kidney failure, unspecified (principal); K85.20 Alcohol induced acute pancreatitis without necrosis or infection; E10.10 Type 1 diabetes mellitus with ketoacidosis without coma; E87.1 Hypo-osmolality and hyponatremia; D25.9 Leiomyoma of uterus, unspecified; K76.0 Fatty (change of) liver, not elsewhere classified; E66.9 Obesity, unspecified; F10.20 Alcohol dependence, uncomplicated; I10 Essential (primary) hypertension; Z79.4 Long term (current) use of insulin; Z90.49 Acquired absence of other specified parts of digestive tract; Z23 Encounter for immunization
CPT/HCPCS: 36415; 36600; 71045; 71275; 74177; 80048; 80053; 80320; 81001; 81025; 82140; 82150; 82803; 82948; 83036; 83525; 83605; 83690; 83735; 83930; 84100; 84132; 84145; 84443; 84681; 85018; 85025; 85379; 85610; 85730; 87040; 87070; 93005; 96361; 96374; 96375; 97116; 97161; 97530; 99291; G0378; J1644; J1815; J2270; J2405; J2560; J3480; J3490; J7030; J7060; Q9967

== ENCOUNTER 2019-01-09 01:25 | Outpatient (CLI) | payer MEDICAID ==
[~2019-01-09 01:25] MED LIST changes: +ACET-1 PO; +BLOO-1084 TOP; +FREESTYLE; +INSU100I31 SQ; +INSU200I SQ; +LISI10TA4 PO; +NO HOME MEDS; -NORG1TAB56 PO; -OMEP-84 PO; +lancet
== END 2019-01-09 23:59 | disposition home or self-care (01) ==
LOC: DIABETIC 01:25
PROVIDERS: ATTEND Family Medicine
DX: E11.9 Type 2 diabetes mellitus without complications (principal); Z79.4 Long term (current) use of insulin; Z79.899 Other long term (current) drug therapy
CPT/HCPCS: G0108

== ENCOUNTER 2019-05-07 02:00 | Outpatient (CLI) | payer MEDICAID | END 2019-05-07 23:59 | disposition home or self-care (01) | LOC: DIABETIC 02:00 | PROVIDERS: ATTEND Family Medicine | DX: E11.9 Type 2 diabetes mellitus without complications (principal); Z79.4 Long term (current) use of insulin; Z79.84 Long term (current) use of oral hypoglycemic drugs; Z79.899 Other long term (current) drug therapy | CPT/HCPCS: G0108 ==

== ENCOUNTER 2019-09-26 00:45 | Outpatient (CLI) | payer OTHER, MEDICAID | END 2019-09-26 23:59 | disposition home or self-care (01) | LOC: DIABETIC 00:45 | PROVIDERS: ATTEND Family Medicine | DX: E11.9 Type 2 diabetes mellitus without complications (principal) | CPT/HCPCS: G0108 ==

== ENCOUNTER 2020-08-10 07:57 | Inpatient (IN) | payer BC, MEDICAID, OTHER ==
[2020-08-10] VITALS (15 sets, daily range): BP systolic 129–178; BP diastolic 82–111
[~2020-08-10] VITALS: Ht 160 cm; Wt 100.0 kg
[2020-08-10] MEDS ORDERED: normal saline 1000ML IV soln IVB ONE ×2 (08:20→09:50)
[2020-08-10] MEDS ORDERED: ondansetron/PF 4mg/2ml inj IV ONE (08:20)
[2020-08-10] MEDS: morphine 4 MG/ML inj SYRINge IV PRN ×4 (09:09→23:31)
--- NOTE | 2020-08-10 09:23 | NUR ---
PAIN HAS GONE FROM AN 8 TO A 4/10 AFTER RECEIVING PAIN MEDICATION.
[2020-08-10 09:27] LABS: BASOPHILS # (AUTO) 0.1 X10'3 (0-0.2); BASOPHILS % (AUTO) 0.8 % (0-1); EOSINOPHILS % (AUTO) 0.7 % (0-6); HEMATOCRIT 42.2 % (35.0-45.0); LYMPHOCYTES # (AUTO) 1.1 X10'3 (1.1-4.8); LYMPHOCYTES % (AUTO) 15.7 % (21-51); MEAN CORPUSCULAR HEMOGLOBIN 36.6 PG (27.0-31.0); MEAN CORPUSCULAR HGB CONC 35.5 g/dL (33.0-36.5); MEAN CORPUSCULAR VOLUME 103.2 FL (78-98); MEAN PLATELET VOLUME 8.6 FL (7.4-10.4); MONOCYTES # (AUTO) 0.5 X10'3 (0-0.9); MONOCYTES % (AUTO) 7.3 % (2-12); NEUTROPHILS # (AUTO) 5.5 X10'3 (1.8-7.7); NEUTROPHILS % (AUTO) 75.5 % (42-75); PLATELET COUNT 175 X10'3 (140-440); RED BLOOD COUNT 4.09 X10'6 (4.20-5.60); RED CELL DISTRIBUTION WIDTH 12.7 % (11.5-14.5); WHITE BLOOD COUNT 7.3 X10'3 (4.5-11.0)
[2020-08-10 09:36] LABS: ALANINE AMINOTRANSFERASE 192 U/L (12-78); ALBUMIN 3.6 G/DL (3.4-5.0); ALBUMIN/GLOBULIN RATIO 0.9 (1.1-1.5); ALKALINE PHOSPHATASE 43 IU/L (46-116); ANION GAP 14 (8-16); ASPARTATE AMINO TRANSFERASE 161 U/L (10-37); BILIRUBIN,TOTAL 2.6 MG/DL (0.1-1.0); BLOOD UREA NITROGEN 6 MG/DL (7-18); BUN/CREATININE RATIO 5.6 (6.6-38.0); CALCIUM 9.5 MG/DL (8.5-10.1); CHLORIDE 98 MMOL/L (99-107); CREATININE 1.08 MG/DL (0.40-0.90); GLUCOSE 199 MG/DL (70-104); POTASSIUM 3.3 MMOL/L (3.5-5.1); SODIUM 137 MMOL/L (135-145); TOTAL PROTEIN 7.4 G/DL (6.4-8.2); eGFR 59 ML/MIN
[2020-08-10 09:37] LABS: LIPASE 1758 U/L (73-393)
[2020-08-10] MEDS ORDERED: ketorolac trometh. 30mg/ml inj. IV ONE (09:50)
[2020-08-10 09:56] LABS: HCG SERUM QL NEGATIVE
[2020-08-10] MEDS ORDERED: metoclopramide 5 mg/ml inj IV PRN (10:15)
[2020-08-10] MEDS ORDERED: magnesium 2GM in 50ml NS 50 ML IV PRN (10:15)
[2020-08-10] MEDS ORDERED: acetaminophen 325mg tablet PO PRN ×2 (10:15)
[2020-08-10] MEDS ORDERED: bisacodyl 10mg suppository rectal RC PRN (10:15)
[2020-08-10] MEDS ORDERED: potassium CL 10mEq/100ml bag 100 ML IV PRN ×2 (10:15)
[2020-08-10] MEDS ORDERED: potassium Cl 20 mEq SR tablet PO PRN ×2 (10:15)
[2020-08-10] MEDS ORDERED: ondansetron/PF 4mg/2ml inj IV PRN ×2 (10:15→16:40)
[2020-08-10] MEDS ORDERED: magnesium 4gm in 100ml NS 100 ML IV PRN (10:15)
[2020-08-10] MEDS ORDERED: HYDROmorphone inj. 0.5 MG/0.5 ML DISP.SYRIN IV PRN (10:15)
[2020-08-10] MEDS ORDERED: magnesium Cl slow-release 64mg tablet PO PRN (10:15)
[2020-08-10] MEDS ORDERED: HYDROcodone/acetaminophen 5mg/325mg tablet PO PRN (10:15)
[2020-08-10] MEDS ORDERED: mag hydrox/Alum hydrox/simeth 30ml oral suspension PO PRN (10:15)
[2020-08-10 10:25] LABS: PARTIAL THROMBOPLASTIN TIME 22 SECONDS (22-32)
--- NOTE | 2020-08-10 10:34 | NUR ---
PT REPORTS PAIN IS COMING BACK. ADMIN PAIN MEDS ORDERED.
[2020-08-10] MEDS ORDERED: LEVO100C4 PO (10:38)
[2020-08-10] MEDS ORDERED: MULT-1085 PO (10:38)
[2020-08-10] MEDS ORDERED: METF-436 PO (10:38)
--- NOTE | 2020-08-10 10:49 | NUR ---
CALLED TO GIVE REPORT, EMILIANO ON PHONE WITH DOCTOR, WILL CALL BACK.
--- NOTE | 2020-08-10 11:26 | NUR ---
VERIFY WITH PT THAT SHE TAKES METFORMIN ER 1500MG ONCE DAILY.
[2020-08-10] MEDS: normal saline 1000ml 1,000 ML IV SCH ×2 (11:32→19:12)
--- NOTE | 2020-08-10 11:39 | NUR ---
BS 148. PT TAKEN TO THE FLOOR VIA W/C BY TECH
--- NOTE | 2020-08-10 12:30 | NUR ---
Patient in room [facility]DR[facility] 349. I have received report from Mel LAMBERT and had the opportunity to ask questions and assume patient care.
[2020-08-10] MEDS ORDERED: morphine 4 MG/ML inj SYRINge IV ONE (15:05)
[2020-08-10] MEDS ORDERED: sevoflurane 250ml liquid IH ONE (15:20)
[2020-08-10] MEDS ORDERED: BUPIVAcaine/PF 2.5 mg/ml (0.25%) 30ml vial ONE (15:21)
[2020-08-10] MEDS ORDERED: famotidine/PF 10 mg/ml inj IV ONE (15:27)
[2020-08-10] MEDS ORDERED: midazolam 2 mg/2 ml injection ONE (15:29)
[2020-08-10] MEDS ORDERED: LIDOcaine 2% 5ml jelly ONE (15:32)
[2020-08-10] MEDS ORDERED: fentaNYL /PF 50mcg/ml 5ml ampule ONE (15:32)
[2020-08-10] MEDS ORDERED: rocuronium 10mg/ml inj IV ONE (15:49)
[2020-08-10] MEDS ORDERED: labetalol 20mg/4ml (5mg/ml) syringe IV ONE (15:49)
[2020-08-10] MEDS ORDERED: LIDOcaine 2% (20mg/ml) 5ml vial ONE (15:49)
[2020-08-10] MEDS ORDERED: propofol inj 20 ML IV ONE (15:49)
[2020-08-10] MEDS ORDERED: ondansetron/PF 4mg/2ml inj ONE (15:49)
[2020-08-10] MEDS ORDERED: dexamethasone sod phosphate 4mg/ml inj. ONE (15:49)
[2020-08-10] MEDS ORDERED: ceFOXitin 1000 MG inj ONE ×2 (15:49)
[2020-08-10] MEDS ORDERED: neostigmine methylsulfate 1 MG/ML 10ml vial ONE (16:28)
[2020-08-10] MEDS ORDERED: glycopyrrolate 0.2mg/ml inj ONE (16:28)
--- NOTE | 2020-08-10 16:33 | NUR ---
Received from OR via , accompanied by Anesthesiologist DR ANTONIO and report given by Anesthesiolgist.AWAKENS TO VOICE. VITALS STABLE. DRESSINGS DI. CORY PAIN. ABD SOFT.
[2020-08-10] MEDS ORDERED: morphine 2 MG/ML inj. syringe IV PRN (16:40)
[2020-08-10] MEDS ORDERED: meperidine/PF 25mg/ml syringe IV PRN ×3 (16:40)
[2020-08-10] MEDS ORDERED: morphine 4 MG/ML inj SYRINge IV PRN (16:40)
[2020-08-10] MEDS ORDERED: hydrALAZINE 20mg/ml inj. IV PRN (16:40)
[2020-08-10] MEDS ORDERED: ringers solution, lacted 1,000 ML IV SCH (16:40)
[2020-08-10] MEDS ORDERED: proCHLORperazine 10 MG/2 ml inj IV PRN (16:40)
[2020-08-10] MEDS ORDERED: labetalol 20mg/4ml (5mg/ml) syringe IV PRN (16:40)
[2020-08-10] MEDS ORDERED: acetaminophen 1,000mg/100ml IV 100 ML IV PRN (16:40)
--- NOTE | 2020-08-10 17:10 | NUR ---
Patient in room MAHENDRA 349. I have received report from Johnathan LAMBERT and had the opportunity to ask questions and assume patient care.
--- NOTE | 2020-08-10 17:23 | NUR ---
Report called to receiving nurse. Transferred via [facility]ongings . Special Issues communicated to receiving nurse. AWAKE AND ORIENTED. VITALS STABLE. DRESSINGS DI. CORY PIN. TO SURGICAL RM 349A AT THIS TIME.
--- NOTE | 2020-08-10 18:44 | NUR ---
Problems reprioritized. Patient report given, questions answered & plan of care reviewed with Regina.
[2020-08-10] MEDS: K and/or MAG REPLACEMENT MC SCH (19:58)
[2020-08-10] MEDS: temazepam 15mg capsule PO PRN (20:49)
[2020-08-10] MEDS: HYDROcodone/acetaminophen 10/325mg tab PO PRN (20:50)
[2020-08-10] MEDS ORDERED: enalaprilat dihydrate 2.5mg/2ml vial IV SCH (22:57)
[2020-08-10] MEDS: enalaprilat dihydrate 2.5mg/2ml vial IV PRN (23:30)
[2020-08-11] VITALS: BP 167/113
[2020-08-11] MEDS: morphine 4 MG/ML inj SYRINge IV PRN ×5 (03:29→21:21)
[2020-08-11] MEDS: normal saline 1000ml 1,000 ML IV SCH ×3 (03:33→19:30)
[2020-08-11 04:45] VITALS: BP 177/102
[2020-08-11] MEDS: enalaprilat dihydrate 2.5mg/2ml vial IV PRN (05:32)
--- NOTE | 2020-08-11 06:45 | NUR ---
Problems reprioritized. Patient report given, questions answered & plan of care reviewed with FAUSTO Lema.
[2020-08-11 07:09] LABS: BASOPHILS % (AUTO) 0.2 % (0-1); EOSINOPHILS % (AUTO) 0.1 % (0-6); HEMATOCRIT 42.6 % (35.0-45.0); LYMPHOCYTES # (AUTO) 0.8 X10'3 (1.1-4.8); LYMPHOCYTES % (AUTO) 10.1 % (21-51); MEAN CORPUSCULAR HEMOGLOBIN 37.3 PG (27.0-31.0); MEAN CORPUSCULAR HGB CONC 35.2 g/dL (33.0-36.5); MEAN CORPUSCULAR VOLUME 106.1 FL (78-98); MEAN PLATELET VOLUME 9.2 FL (7.4-10.4); MONOCYTES # (AUTO) 0.8 X10'3 (0-0.9); MONOCYTES % (AUTO) 9.3 % (2-12); NEUTROPHILS # (AUTO) 6.7 X10'3 (1.8-7.7); NEUTROPHILS % (AUTO) 80.3 % (42-75); PLATELET COUNT 168 X10'3 (140-440); RED BLOOD COUNT 4.02 X10'6 (4.20-5.60); RED CELL DISTRIBUTION WIDTH 12.8 % (11.5-14.5); WHITE BLOOD COUNT 8.3 X10'3 (4.5-11.0)
[2020-08-11 07:12] LABS: PARTIAL THROMBOPLASTIN TIME 23 SECONDS (22-32)
[2020-08-11] MEDS: levoTHYROXINE 100mcg tablet PO SCH (07:25)
[2020-08-11] MEDS: K and/or MAG REPLACEMENT MC SCH ×2 (07:30→20:00)
[2020-08-11 07:46] LABS: ALANINE AMINOTRANSFERASE 283 U/L (12-78); ALBUMIN 3.5 G/DL (3.4-5.0); ALBUMIN/GLOBULIN RATIO 0.9 (1.1-1.5); ALKALINE PHOSPHATASE 53 IU/L (46-116); ANION GAP 16 (8-16); ASPARTATE AMINO TRANSFERASE 273 U/L (10-37); BILIRUBIN,TOTAL 3.9 MG/DL (0.1-1.0); BLOOD UREA NITROGEN 5 MG/DL (7-18); BUN/CREATININE RATIO 6.2 (6.6-38.0); CALCIUM 8.3 MG/DL (8.5-10.1); CHLORIDE 97 MMOL/L (99-107); CREATININE 0.81 MG/DL (0.40-0.90); GLUCOSE 239 MG/DL (70-104); POTASSIUM 3.6 MMOL/L (3.5-5.1); SODIUM 135 MMOL/L (135-145); TOTAL CARBON DIOXIDE 22.3 MMOL/L (24-32); TOTAL PROTEIN 7.6 G/DL (6.4-8.2); eGFR 82 ML/MIN
[2020-08-11 07:50] VITALS: BP 178/97
[2020-08-11 07:52] LABS: MAGNESIUM 0.9 MG/DL (1.5-2.4)
[2020-08-11 08:14] LABS: HEMOGLOBIN A1C 6.2 % (4.5-6.2)
--- NOTE | 2020-08-11 08:17 | NUR ---
PAGER ID: [phone] MESSAGE: Amanuel MccollumA: NATHALY critical magnesium level 0.9. protocol started. thanks, nidhi! [id number]
[2020-08-11 09:01] LABS: LIPASE 6362 U/L (73-393)
--- NOTE | 2020-08-11 09:25 | NUR ---
reported lipase 8295 and bili 3[address] Dalton
[2020-08-11] MEDS: ketorolac tromethamine 15mg/ml inj. IV PRN ×3 (09:27→23:23)
[2020-08-11] MEDS: HYDROcodone/acetaminophen 10/325mg tab PO PRN ×3 (09:31→19:27)
[2020-08-11] MEDS ORDERED: dextrose ORAL solution 15 GM/59 ML bottle PO PRN ×2 (10:30)
[2020-08-11] MEDS ORDERED: dextrose 50%-water 50ml dispensing syringe IV PRN ×2 (10:30)
[2020-08-11] MEDS ORDERED: MESSAGE TO PHARMACY PO ONE (10:30)
[2020-08-11] MEDS ORDERED: glucagon, human recombinant 1mg kit SUBCUT PRN (10:30)
[2020-08-11 12:41] VITALS: BP 134/100
[2020-08-11] MEDS: insulin Lispro (HumaLOG) vial - multi-dose SQ SCH (13:56)
--- NOTE | 2020-08-11 15:52 | NUR ---
Nutrition consult re: no new A1c however A1c from this admission 6.2%. Pt s/p cholecystectomy. Will follow per policy. Addendum: 08/11/20 at [address] Amended: Links added.
--- NOTE | 2020-08-11 18:00 | NUR ---
Patient in room MAHENDRA 351. I have received report from Tamara LAMBERT and had the opportunity to ask questions and assume patient care.
--- NOTE | 2020-08-11 18:20 | NUR ---
Problems reprioritized. Patient report given, questions answered & plan of care reviewed with FAUSTO Hawkins.
--- NOTE | 2020-08-11 19:09 | NUR ---
Patient in room MAH[facility]DRA 351. I have received report from Pita LAMBERT and had the opportunity to ask questions and assume patient care.
[2020-08-11 20:00] VITALS: BP 152/102
[2020-08-11] MEDS: insulin glargine (Lantus) pen - multi-dose SQ SCH (21:50)
[2020-08-12] VITALS: BP 145/81
[2020-08-12] MEDS: HYDROcodone/acetaminophen 10/325mg tab PO PRN ×4 (00:46→23:07)
[2020-08-12] MEDS: morphine 4 MG/ML inj SYRINge IV PRN ×5 (02:34→21:10)
[2020-08-12] MEDS: ketorolac tromethamine 15mg/ml inj. IV PRN ×3 (05:48→19:26)
--- NOTE | 2020-08-12 06:33 | NUR ---
Problems reprioritized. Patient report given, questions answered & plan of care reviewed with Pita LAMBERT.
[2020-08-12 06:51] LABS: BASOPHILS % (AUTO) 0.1 % (0-1); EOSINOPHILS % (AUTO) 0.3 % (0-6); HEMATOCRIT 41.5 % (35.0-45.0); HEMOGLOBIN 14.5 g/dl (12.0-16.0); LYMPHOCYTES # (AUTO) 0.7 X10'3 (1.1-4.8); LYMPHOCYTES % (AUTO) 7.9 % (21-51); MEAN CORPUSCULAR HEMOGLOBIN 37.1 PG (27.0-31.0); MEAN CORPUSCULAR VOLUME 105.9 FL (78-98); MEAN PLATELET VOLUME 9.1 FL (7.4-10.4); NEUTROPHILS # (AUTO) 7.2 X10'3 (1.8-7.7); NEUTROPHILS % (AUTO) 80.7 % (42-75); PLATELET COUNT 130 X10'3 (140-440); RED BLOOD COUNT 3.92 X10'6 (4.20-5.60); RED CELL DISTRIBUTION WIDTH 12.7 % (11.5-14.5); WHITE BLOOD COUNT 8.9 X10'3 (4.5-11.0)
[2020-08-12 06:56] LABS: PARTIAL THROMBOPLASTIN TIME 24 SECONDS (22-32)
[2020-08-12 07:12] LABS: ALANINE AMINOTRANSFERASE 216 U/L (12-78); ALBUMIN 2.7 G/DL (3.4-5.0); ALKALINE PHOSPHATASE 54 IU/L (46-116); ANION GAP 12 (8-16); ASPARTATE AMINO TRANSFERASE 223 U/L (10-37); BILIRUBIN,TOTAL 4.4 MG/DL (0.1-1.0); BLOOD UREA NITROGEN 5 MG/DL (7-18); BUN/CREATININE RATIO 7.5 (6.6-38.0); CALCIUM 7.5 MG/DL (8.5-10.1); CHLORIDE 100 MMOL/L (99-107); CREATININE 0.67 MG/DL (0.40-0.90); GLUCOSE 193 MG/DL (70-104); MAGNESIUM 2.1 MG/DL (1.5-2.4); POTASSIUM 3.5 MMOL/L (3.5-5.1); SODIUM 137 MMOL/L (135-145); TOTAL CARBON DIOXIDE 24.8 MMOL/L (24-32); eGFR > 90 ML/MIN
[2020-08-12] MEDS: levoTHYROXINE 100mcg tablet PO SCH (07:21)
[2020-08-12] MEDS: insulin Lispro (HumaLOG) vial - multi-dose SQ SCH ×3 (07:30→18:50)
[2020-08-12 07:32] LABS: ALBUMIN/GLOBULIN RATIO 0.7 (1.1-1.5); TOTAL PROTEIN 6.6 G/DL (6.4-8.2)
[2020-08-12 07:33] LABS: LIPASE 2053 U/L (73-393)
[2020-08-12 07:35] VITALS: BP 103/76
[2020-08-12] MEDS: K and/or MAG REPLACEMENT MC SCH ×2 (08:00→20:00)
[2020-08-12 12:00] VITALS: BP 138/83
[2020-08-12] MEDS: normal saline 1000ml 1,000 ML IV SCH ×2 (12:15→16:02)
[2020-08-12 18:00] VITALS: BP 147/87
--- NOTE | 2020-08-12 18:00 | NUR ---
Patient in room MAHENDRA 351. I have received report from Tamara LAMBERT and had the opportunity to ask questions and assume patient care.
--- NOTE | 2020-08-12 18:02 | NUR ---
Problems reprioritized. Patient report given, questions answered & plan of care reviewed with FAUSTO Hawkins.
--- NOTE | 2020-08-12 18:44 | NUR ---
Patient in room MAH[facility]DRA 351. I have received report from Pita LAMBERT and had the opportunity to ask questions and assume patient care.
[2020-08-12] MEDS: insulin glargine (Lantus) pen - multi-dose SQ SCH (21:23)
[2020-08-12 23:18] VITALS: BP 132/69
[2020-08-13] VITALS (14 sets, daily range): BP systolic 114–175; BP diastolic 79–114
[2020-08-13] MEDS: morphine 4 MG/ML inj SYRINge IV PRN ×5 (01:31→23:47)
[2020-08-13] MEDS: ketorolac tromethamine 15mg/ml inj. IV PRN ×2 (04:21→10:32)
[2020-08-13] MEDS: HYDROcodone/acetaminophen 10/325mg tab PO PRN ×2 (05:22→14:18)
[2020-08-13 06:30] LABS: BASOPHILS % (AUTO) 0.4 % (0-1); EOSINOPHILS # (AUTO) 0.2 X10'3 (0-0.9); EOSINOPHILS % (AUTO) 1.9 % (0-6); HEMATOCRIT 36.8 % (35.0-45.0); HEMOGLOBIN 12.7 g/dl (12.0-16.0); LYMPHOCYTES # (AUTO) 1.1 X10'3 (1.1-4.8); LYMPHOCYTES % (AUTO) 14.1 % (21-51); MEAN CORPUSCULAR HEMOGLOBIN 36.9 PG (27.0-31.0); MEAN CORPUSCULAR HGB CONC 34.5 g/dL (33.0-36.5); MEAN CORPUSCULAR VOLUME 107.1 FL (78-98); MEAN PLATELET VOLUME 9.2 FL (7.4-10.4); MONOCYTES % (AUTO) 12.8 % (2-12); NEUTROPHILS # (AUTO) 5.6 X10'3 (1.8-7.7); NEUTROPHILS % (AUTO) 70.8 % (42-75); PLATELET COUNT 138 X10'3 (140-440); RED BLOOD COUNT 3.44 X10'6 (4.20-5.60); RED CELL DISTRIBUTION WIDTH 12.9 % (11.5-14.5)
--- NOTE | 2020-08-13 06:30 | NUR ---
Problems reprioritized. Patient report given, questions answered & plan of care reviewed with MUSTAPHA LAMBERT.
--- NOTE | 2020-08-13 06:33 | NUR ---
Problems reprioritized. Patient report given, questions answered & plan of care reviewed with Basil LAMBERT.
[2020-08-13 06:38] LABS: PARTIAL THROMBOPLASTIN TIME 26 SECONDS (22-32)
--- NOTE | 2020-08-13 06:38 | NUR ---
Patient in room MAEHNDRA 351. I have received report from FAUSTO Hawkins and Camille LAMBERT and had the opportunity to ask questions and assume patient care.
[2020-08-13 06:57] LABS: ALANINE AMINOTRANSFERASE 276 U/L (12-78); ALBUMIN 2.3 G/DL (3.4-5.0); ALKALINE PHOSPHATASE 96 IU/L (46-116); ANION GAP 12 (8-16); ASPARTATE AMINO TRANSFERASE 272 U/L (10-37); BILIRUBIN,TOTAL 5.4 MG/DL (0.1-1.0); BLOOD UREA NITROGEN 10 MG/DL (7-18); BUN/CREATININE RATIO 14.7 (6.6-38.0); CALCIUM 7.4 MG/DL (8.5-10.1); CHLORIDE 102 MMOL/L (99-107); CREATININE 0.68 MG/DL (0.40-0.90); GLUCOSE 107 MG/DL (70-104); LIPASE 396 U/L (73-393); MAGNESIUM 1.9 MG/DL (1.5-2.4); POTASSIUM 3.2 MMOL/L (3.5-5.1); SODIUM 138 MMOL/L (135-145); TOTAL CARBON DIOXIDE 23.9 MMOL/L (24-32); eGFR > 90 ML/MIN
[2020-08-13 06:59] LABS: ALBUMIN/GLOBULIN RATIO 0.6 (1.1-1.5)
[2020-08-13] MEDS: levoTHYROXINE 100mcg tablet PO SCH (07:44)
[2020-08-13] MEDS: K and/or MAG REPLACEMENT MC SCH ×3 (08:00→20:03)
[2020-08-13] MEDS ORDERED: POTASSIUM BICARB 20meq eff tab 20 MEQ TABLET.EFF PO PRN ×3 (08:03→11:48)
[2020-08-13] MEDS: normal saline 1000ml 1,000 ML IV SCH ×2 (08:15→11:52)
[2020-08-13] MEDS ORDERED: magnesium 4gm in 100ml NS 100 ML IV PRN (11:45)
[2020-08-13] MEDS ORDERED: potassium Cl 20 mEq SR tablet PO PRN ×2 (11:45)
[2020-08-13] MEDS ORDERED: potassium Cl 40MEQ/1/2NS 520ml 520 ML IV PRN (11:45)
[2020-08-13] MEDS ORDERED: magnesium Cl slow-release 64mg tablet PO PRN (11:45)
--- NOTE | 2020-08-13 15:34 | NUR ---
Patient down to GI lab.
[2020-08-13] MEDS ORDERED: fentaNYL/PF 50MCG/1 ML 2ML syringe ONE ×2 (15:41→17:25)
[2020-08-13] MEDS ORDERED: levoFLOXACIN-Levaquin 500mg/D5 100 ML IV ONE (15:42)
[2020-08-13] MEDS ORDERED: glucagon, human recombinant 1mg kit ONE (15:42)
[2020-08-13] MEDS ORDERED: diphenhydrAMINE 50 mg/ml inj ONE (15:42)
[2020-08-13] MEDS ORDERED: MIDAZolam 5mg/5ml vial ONE (15:42)
[2020-08-13] MEDS ORDERED: LIDOcaine Viscous 15ml cup ONE (15:42)
[2020-08-13] MEDS ORDERED: iohexol 300 MG/1 ML 50ml polymer ONE (15:43)
--- NOTE | 2020-08-13 18:23 | NUR ---
Problems reprioritized. Patient report given, questions answered & plan of care reviewed with FAUSTO Johnson.
[2020-08-13] MEDS ORDERED: sincalide inj 2 MCG in normal saline 50ml IV soln 50 ML IV PRN (19:25)
[2020-08-13] MEDS: POTASSIUM BICARB 20meq eff tab 20 MEQ TABLET.EFF PO PRN (20:01)
[2020-08-13] MEDS: insulin glargine (Lantus) pen - multi-dose SQ SCH (21:00)
[2020-08-14] VITALS: BP 185/103
[2020-08-14] MEDS: ketorolac tromethamine 15mg/ml inj. IV PRN ×2 (00:52→07:17)
[2020-08-14 04:00] VITALS: BP 146/87
[2020-08-14] MEDS: normal saline 1000ml 1,000 ML IV SCH ×2 (04:15→15:03)
--- NOTE | 2020-08-14 06:49 | NUR ---
Patient in room [facility]DRA 351. I have received report from FAUSTO Johnson and had the opportunity to ask questions and assume patient care.
[2020-08-14] MEDS ORDERED: LORazepam 1 MG tablet PO ONE (07:35)
[2020-08-14 07:50] LABS: BASOPHILS % (AUTO) 0.7 % (0-1); EOSINOPHILS # (AUTO) 0.2 X10'3 (0-0.9); EOSINOPHILS % (AUTO) 2.2 % (0-6); HEMATOCRIT 38.9 % (35.0-45.0); HEMOGLOBIN 13.4 g/dl (12.0-16.0); LYMPHOCYTES # (AUTO) 1.1 X10'3 (1.1-4.8); LYMPHOCYTES % (AUTO) 15.7 % (21-51); MEAN CORPUSCULAR HEMOGLOBIN 36.8 PG (27.0-31.0); MEAN CORPUSCULAR HGB CONC 34.3 g/dL (33.0-36.5); MEAN CORPUSCULAR VOLUME 107.2 FL (78-98); MEAN PLATELET VOLUME 9.1 FL (7.4-10.4); MONOCYTES # (AUTO) 0.7 X10'3 (0-0.9); MONOCYTES % (AUTO) 10.1 % (2-12); NEUTROPHILS % (AUTO) 71.3 % (42-75); PLATELET COUNT 194 X10'3 (140-440); RED BLOOD COUNT 3.63 X10'6 (4.20-5.60); RED CELL DISTRIBUTION WIDTH 12.6 % (11.5-14.5)
[2020-08-14 08:00] VITALS: BP 164/87
[2020-08-14] MEDS: K and/or MAG REPLACEMENT MC SCH ×2 (08:00→20:00)
[2020-08-14] MEDS: levoTHYROXINE 100mcg tablet PO SCH (08:00)
[2020-08-14 08:10] LABS: ALANINE AMINOTRANSFERASE 221 U/L (12-78); ALBUMIN 2.1 G/DL (3.4-5.0); ALKALINE PHOSPHATASE 110 IU/L (46-116); ANION GAP 17 (8-16); ASPARTATE AMINO TRANSFERASE 132 U/L (10-37); BILIRUBIN,TOTAL 4.2 MG/DL (0.1-1.0); BLOOD UREA NITROGEN 7 MG/DL (7-18); BUN/CREATININE RATIO 11.7 (6.6-38.0); CALCIUM 7.3 MG/DL (8.5-10.1); CHLORIDE 102 MMOL/L (99-107); GLUCOSE 111 MG/DL (70-104); LIPASE 437 U/L (73-393); MAGNESIUM 1.6 MG/DL (1.5-2.4); POTASSIUM 3.7 MMOL/L (3.5-5.1); SODIUM 138 MMOL/L (135-145); TOTAL CARBON DIOXIDE 18.7 MMOL/L (24-32); eGFR > 90 ML/MIN
[2020-08-14 08:14] LABS: ALBUMIN/GLOBULIN RATIO 0.5 (1.1-1.5); TOTAL PROTEIN 6.2 G/DL (6.4-8.2)
[2020-08-14] MEDS ORDERED: famotidine/PF 10 mg/ml inj IV ONE (08:20)
--- NOTE | 2020-08-14 10:28 | NUR ---
Called GI Lab. OK to give morphine for pain to pt.
[2020-08-14] MEDS: morphine 4 MG/ML inj SYRINge IV PRN ×3 (10:33→18:49)
[2020-08-14] MEDS ORDERED: iohexol 300mg/ml 100ml inj. ONE (11:53)
[2020-08-14 12:00] VITALS: BP 160/90
[2020-08-14] MEDS: diatr meglu/diatrizoate 30ml oral sol.-(3 dose) bottle PO SCH ×3 (12:00→18:00)
[2020-08-14] MEDS: HYDROcodone/acetaminophen 10/325mg tab PO PRN ×2 (13:07→19:58)
--- NOTE | 2020-08-14 13:16 | NUR ---
Radiology office call wanting to talk to Dr. Kolb. PAGER ID: [phone] MESSAGE: Swathi Med/surg. [id number]. Pt: Chun. 351. Pls call Dr. You, Radiologist . thanks
[2020-08-14 15:09] VITALS: BP 160/98
--- NOTE | 2020-08-14 16:59 | NUR ---
GI Lab called. Pt will have the procedure Monday morning at 0800 instead of this afternoon as planned.
[2020-08-14] MEDS ORDERED: hydrALAZINE 20mg/ml inj. IV PRN (18:25)
--- NOTE | 2020-08-14 18:27 | NUR ---
Problems reprioritized. Patient report given, questions answered & plan of care reviewed with FAUSTO Johnson.
[2020-08-14] MEDS: insulin glargine (Lantus) pen - multi-dose SQ SCH (21:55)
[2020-08-14] MEDS ORDERED: morphine 4 MG/ML inj SYRINge IV PRN (23:00)
[2020-08-14] MEDS: morphine 10mg/ml inj. IV PRN (23:10)
[2020-08-15 00:11] VITALS: BP 180/89
[2020-08-15] MEDS: morphine 10mg/ml inj. IV PRN ×5 (01:03→09:47)
[2020-08-15] MEDS: normal saline 1000ml 1,000 ML IV SCH (01:05)
[2020-08-15 06:22] LABS: BASOPHILS # (AUTO) 0.1 X10'3 (0-0.2); EOSINOPHILS # (AUTO) 0.1 X10'3 (0-0.9); EOSINOPHILS % (AUTO) 1.3 % (0-6); HEMOGLOBIN 13.3 g/dl (12.0-16.0); LYMPHOCYTES # (AUTO) 0.9 X10'3 (1.1-4.8); LYMPHOCYTES % (AUTO) 11.5 % (21-51); MEAN CORPUSCULAR HEMOGLOBIN 36.7 PG (27.0-31.0); MEAN CORPUSCULAR HGB CONC 34.2 g/dL (33.0-36.5); MEAN CORPUSCULAR VOLUME 107.2 FL (78-98); MEAN PLATELET VOLUME 8.6 FL (7.4-10.4); MONOCYTES # (AUTO) 0.9 X10'3 (0-0.9); MONOCYTES % (AUTO) 11.8 % (2-12); NEUTROPHILS # (AUTO) 5.5 X10'3 (1.8-7.7); NEUTROPHILS % (AUTO) 74.4 % (42-75); PLATELET COUNT 236 X10'3 (140-440); RED BLOOD COUNT 3.64 X10'6 (4.20-5.60); RED CELL DISTRIBUTION WIDTH 12.5 % (11.5-14.5); WHITE BLOOD COUNT 7.4 X10'3 (4.5-11.0)
--- NOTE | 2020-08-15 07:00 | NUR ---
Patient in room [facility]HENDRA 351. I have received report from amanda ferguson and had the opportunity to ask questions and assume patient care.
[2020-08-15 07:06] LABS: ALANINE AMINOTRANSFERASE 137 U/L (12-78); ALBUMIN/GLOBULIN RATIO 0.5 (1.1-1.5); ALKALINE PHOSPHATASE 113 IU/L (46-116); ANION GAP 20 (8-16); ASPARTATE AMINO TRANSFERASE 52 U/L (10-37); BILIRUBIN,TOTAL 3.8 MG/DL (0.1-1.0); BLOOD UREA NITROGEN 5 MG/DL (7-18); BUN/CREATININE RATIO 7.5 (6.6-38.0); CALCIUM 7.4 MG/DL (8.5-10.1); CHLORIDE 103 MMOL/L (99-107); CREATININE 0.67 MG/DL (0.40-0.90); GLUCOSE 143 MG/DL (70-104); LIPASE 282 U/L (73-393); MAGNESIUM 1.5 MG/DL (1.5-2.4); POTASSIUM 3.4 MMOL/L (3.5-5.1); SODIUM 135 MMOL/L (135-145); eGFR > 90 ML/MIN
[2020-08-15 07:17] LABS: TOTAL CARBON DIOXIDE 12.2 MMOL/L (24-32)
--- NOTE | 2020-08-15 07:23 | NUR ---
PAGED DESI RE: PAGER ID: [phone] MESSAGE: ADITYA BRAY. CRITICAL C02 12.2 BP 177/96. SURGICAL CHELSEA [id number]
[2020-08-15] MEDS: levoTHYROXINE 100mcg tablet PO SCH (07:43)
[2020-08-15] MEDS: POTASSIUM BICARB 20meq eff tab 20 MEQ TABLET.EFF PO PRN ×3 (07:43→21:29)
[2020-08-15] MEDS: K and/or MAG REPLACEMENT MC SCH ×2 (07:43→20:00)
[2020-08-15 08:00] VITALS: BP 177/96
[2020-08-15] MEDS ORDERED: morphine/NS 5 mg/ml CADD 50 ML IV SCH ×3 (08:05→13:35)
[2020-08-15] MEDS: HYDROcodone/acetaminophen 10/325mg tab PO PRN ×2 (08:22→09:48)
[2020-08-15] MEDS ORDERED: CADD PCA waste documentation MC PRN ×2 (09:25→13:35)
[2020-08-15] MEDS ORDERED: naloxone 0.4 mg/ml inj IV PRN ×2 (09:25→13:35)
[2020-08-15] MEDS: sodium bicarbonate (8.4%) inj. 100 MEQ in dextrose 5%-water 1,000 ML IV SCH ×2 (09:29→21:29)
[2020-08-15 09:30] VITALS: BP 108/68
[2020-08-15] MEDS: atenolol 50mg tablet PO SCH (09:31)
[2020-08-15 12:06] VITALS: BP 134/75
[2020-08-15] MEDS: simethicone 80mg chew tab PO SCH ×2 (13:04→21:28)
[2020-08-15] MEDS: insulin Lispro (HumaLOG) vial - multi-dose SQ SCH ×2 (13:09→19:24)
[2020-08-15 14:40] LABS: ALANINE AMINOTRANSFERASE 124 U/L (12-78); ALBUMIN 2.1 G/DL (3.4-5.0); ALBUMIN/GLOBULIN RATIO 0.5 (1.1-1.5); ALKALINE PHOSPHATASE 128 IU/L (46-116); ANION GAP 12 (8-16); ASPARTATE AMINO TRANSFERASE 48 U/L (10-37); BILIRUBIN,TOTAL 4.1 MG/DL (0.1-1.0); BLOOD UREA NITROGEN 3 MG/DL (7-18); BUN/CREATININE RATIO 4.5 (6.6-38.0); CALCIUM 7.4 MG/DL (8.5-10.1); CHLORIDE 102 MMOL/L (99-107); CREATININE 0.66 MG/DL (0.40-0.90); GLUCOSE 188 MG/DL (70-104); POTASSIUM 3.4 MMOL/L (3.5-5.1); SODIUM 132 MMOL/L (135-145); TOTAL CARBON DIOXIDE 17.7 MMOL/L (24-32); TOTAL PROTEIN 6.4 G/DL (6.4-8.2); eGFR > 90 ML/MIN
--- NOTE | 2020-08-15 15:18 | NUR ---
Initial: Pt admit for acute cholecystitis and mild pancreatitis. Pt now s/p lap cholecystectomy POD # 5. Pt continues with c/o abdominal pain. CT scan of the abdomen and pelvis demonstrated acute necrotizing pancreatitis per physician notes. Pending ERCP tomorrow (08/16) to assess for choledocholithiasis per physician note. Lipase WNL today. Patient's diet has just been advanced to clear liquids from NPO. LBM 08/10. Constipation may also be contributing to abdominal pain. Pt with multiple PRN bowel care medications available. Limited nutrition interventions at this time given current diet order. Will continue to follow closely. Recommendations: 1) Advance to low fat diet as medically indicated 2) Monitor need for ONS 3) Routine bowel care 4) Scaled weights per rx Addendum: 08/15/20 at [address] Amended: Links added.
--- NOTE | 2020-08-15 18:19 | NUR ---
Problems reprioritized. Patient report given, questions answered & plan of care reviewed with ADITYA LAMBERT.
--- NOTE | 2020-08-15 18:56 | NUR ---
I have received report from Leia LAMBERT and had the opportunity to ask questions and assume patient care.
[2020-08-15] MEDS: morphine/NS 5 mg/ml CADD 50 ML IV SCH ×3 (19:00→23:00)
[2020-08-15 20:00] VITALS: BP 146/82
[2020-08-15] MEDS: insulin glargine (Lantus) pen - multi-dose SQ SCH (21:26)
[2020-08-16] VITALS (21 sets, daily range): BP systolic 112–147; BP diastolic 63–96
[2020-08-16] MEDS: morphine/NS 5 mg/ml CADD 50 ML IV SCH ×12 (01:00→23:00)
[2020-08-16] MEDS: sodium bicarbonate (8.4%) inj. 100 MEQ in dextrose 5%-water 1,000 ML IV SCH ×3 (05:55→23:11)
--- NOTE | 2020-08-16 06:33 | NUR ---
Problems reprioritized. Patient report given, questions answered & plan of care reviewed with Kyara LAMBERT
--- NOTE | 2020-08-16 06:50 | NUR ---
Patient in room MAHENDRA 351. I have received report from vladimir LAMBERT and had the opportunity to ask questions and assume patient care.
[2020-08-16 07:01] LABS: MAGNESIUM 1.7 MG/DL (1.5-2.4); POTASSIUM 3.4 MMOL/L (3.5-5.1)
[2020-08-16] MEDS ORDERED: iohexol 300 MG/1 ML 50ml polymer ONE (07:03)
[2020-08-16] MEDS ORDERED: glucagon, human recombinant 1mg kit ONE (07:03)
--- NOTE | 2020-08-16 07:36 | NUR ---
patient prepared for ERCP in OR. Taken for procedure 0730hrs.
[2020-08-16] MEDS ORDERED: levoFLOXACIN-Levaquin 500mg/D5 100 ML IV ONE (07:47)
[2020-08-16] MEDS: K and/or MAG REPLACEMENT MC SCH ×2 (08:00→20:00)
[2020-08-16] MEDS ORDERED: midazolam 2 mg/2 ml injection ONE (08:07)
[2020-08-16] MEDS ORDERED: fentaNYL/PF 50MCG/1 ML 2ML syringe ONE (08:07)
[2020-08-16] MEDS ORDERED: ondansetron/PF 4mg/2ml inj ONE (08:41)
[2020-08-16] MEDS ORDERED: LIDOcaine 2% (20mg/ml) 5ml vial ONE (08:52)
[2020-08-16] MEDS ORDERED: propofol inj 20 ML IV ONE (08:52)
[2020-08-16] MEDS ORDERED: morphine 4 MG/ML inj SYRINge IV PRN (09:00)
[2020-08-16] MEDS ORDERED: proCHLORperazine 10 MG/2 ml inj IV PRN (09:00)
[2020-08-16] MEDS ORDERED: morphine 2 MG/ML inj. syringe IV PRN (09:00)
[2020-08-16] MEDS ORDERED: meperidine/PF 25mg/ml syringe IV PRN ×2 (09:00)
[2020-08-16] MEDS ORDERED: ringers solution, lacted 1,000 ML IV SCH (09:00)
[2020-08-16] MEDS ORDERED: ondansetron/PF 4mg/2ml inj IV PRN (09:00)
--- NOTE | 2020-08-16 09:00 | NUR ---
Received from OR via , accompanied by Anesthesiologist DR DUENAS and report given by Anesthesiolgist. PT ARRIVED IN THE PACU WAKING TO VOICE, SKIN WARM AND PINK, VSS, NO C/O PAIN, MOVING EXT X 4.
--- NOTE | 2020-08-16 09:33 | NUR ---
Report called to receiving nurse. Transferred via [facility] . Special Issues communicated to receiving nurse DONA LAMBERT. PT IS AWAKE, ALERT, MOVING EXT, NO C/O PAIN, REQUIRED NC TO MAINTAIN O2 SATS ABOVE 93%. PT MEETS DISCHARGE CRITERA.
[2020-08-16] MEDS: meperidine/PF 25mg/ml syringe IV PRN ×2 (09:44→09:55)
--- NOTE | 2020-08-16 10:00 | NUR ---
patient arrived back on floor CBI in place reddish urine observed. will monitor. Addendum: 08/16/20 at 1324 by Kyara New RN wrong patient
[2020-08-16] MEDS: levoTHYROXINE 100mcg tablet PO SCH (11:29)
[2020-08-16] MEDS: atenolol 50mg tablet PO SCH (11:30)
[2020-08-16] MEDS: simethicone 80mg chew tab PO SCH ×3 (11:30→21:29)
[2020-08-16 14:10] LABS: ALANINE AMINOTRANSFERASE 93 U/L (12-78); ALBUMIN 2.4 G/DL (3.4-5.0); ALKALINE PHOSPHATASE 175 IU/L (46-116); ANION GAP 14 (8-16); ASPARTATE AMINO TRANSFERASE 32 U/L (10-37); BILIRUBIN,TOTAL 4.3 MG/DL (0.1-1.0); BLOOD UREA NITROGEN 3 MG/DL (7-18); BUN/CREATININE RATIO 4.9 (6.6-38.0); CALCIUM 8.2 MG/DL (8.5-10.1); CHLORIDE 99 MMOL/L (99-107); CREATININE 0.61 MG/DL (0.40-0.90); GLUCOSE 246 MG/DL (70-104); POTASSIUM 3.8 MMOL/L (3.5-5.1); SODIUM 134 MMOL/L (135-145); TOTAL CARBON DIOXIDE 20.8 MMOL/L (24-32); eGFR > 90 ML/MIN
[2020-08-16 14:11] LABS: ALBUMIN/GLOBULIN RATIO 0.5 (1.1-1.5); TOTAL PROTEIN 7.3 G/DL (6.4-8.2)
[2020-08-16] MEDS: insulin Lispro (HumaLOG) vial - multi-dose SQ SCH ×2 (14:19→19:59)
--- NOTE | 2020-08-16 16:59 | NUR ---
I have received report from Kyara LAMBERT and had the opportunity to ask questions and assume patient care.
--- NOTE | 2020-08-16 17:32 | NUR ---
Patient returned from ERCP in stable condition. Yessenia LAMBERT gave report. No Stone observed see chart. VSS, still using morphine Cadd with effect. seen by Dr crow. diet advanced to full lqd, carb count , low fat. kitchen notified. Tolerated well. Mother present in room. patient ambulated x4 in hallway. Report given to Shruthi LAMBERT
[2020-08-16] MEDS: magnesium hydroxide 30ml (MOM) UD suspension PO PRN (19:57)
[2020-08-16] MEDS: insulin glargine (Lantus) pen - multi-dose SQ SCH (21:28)
[2020-08-17] VITALS: BP 117/75
[2020-08-17 00:53] VITALS: BP 117/75
[2020-08-17] MEDS: morphine/NS 5 mg/ml CADD 50 ML IV SCH ×6 (01:00→10:20)
--- NOTE | 2020-08-17 06:35 | NUR ---
Patient in room MAHENDRA 351. I have received report from FAUSTO Buchanan and had the opportunity to ask questions and assume patient care.
--- NOTE | 2020-08-17 06:35 | NUR ---
Problems reprioritized. Patient report given, questions answered & plan of care reviewed with Carmen LAMBERT
[2020-08-17 07:00] VITALS: BP 105/61
[2020-08-17 07:01] LABS: ALANINE AMINOTRANSFERASE 71 U/L (12-78); ALBUMIN 2.2 G/DL (3.4-5.0); ALBUMIN/GLOBULIN RATIO 0.5 (1.1-1.5); ALKALINE PHOSPHATASE 163 IU/L (46-116); ANION GAP 6 (8-16); ASPARTATE AMINO TRANSFERASE 22 U/L (10-37); BILIRUBIN,TOTAL 2.6 MG/DL (0.1-1.0); BLOOD UREA NITROGEN 3 MG/DL (7-18); BUN/CREATININE RATIO 4.8 (6.6-38.0); CALCIUM 8.7 MG/DL (8.5-10.1); CHLORIDE 102 MMOL/L (99-107); CREATININE 0.62 MG/DL (0.40-0.90); GLUCOSE 155 MG/DL (70-104); MAGNESIUM 1.8 MG/DL (1.5-2.4); SODIUM 139 MMOL/L (135-145); TOTAL CARBON DIOXIDE 30.9 MMOL/L (24-32); TOTAL PROTEIN 6.8 G/DL (6.4-8.2); eGFR > 90 ML/MIN
[2020-08-17 07:02] LABS: BASOPHILS # (AUTO) 0.1 X10'3 (0-0.2); EOSINOPHILS # (AUTO) 0.1 X10'3 (0-0.9); EOSINOPHILS % (AUTO) 0.9 % (0-6); HEMATOCRIT 40.7 % (35.0-45.0); HEMOGLOBIN 14.1 g/dl (12.0-16.0); LYMPHOCYTES % (AUTO) 30.4 % (21-51); MEAN CORPUSCULAR HEMOGLOBIN 36.6 PG (27.0-31.0); MEAN CORPUSCULAR HGB CONC 34.5 g/dL (33.0-36.5); MEAN CORPUSCULAR VOLUME 105.9 FL (78-98); MEAN PLATELET VOLUME 9.1 FL (7.4-10.4); MONOCYTES # (AUTO) 0.6 X10'3 (0-0.9); MONOCYTES % (AUTO) 9.3 % (2-12); NEUTROPHILS # (AUTO) 3.9 X10'3 (1.8-7.7); NEUTROPHILS % (AUTO) 58.4 % (42-75); PLATELET COUNT 328 X10'3 (140-440); RED BLOOD COUNT 3.85 X10'6 (4.20-5.60); RED CELL DISTRIBUTION WIDTH 12.8 % (11.5-14.5); WHITE BLOOD COUNT 6.7 X10'3 (4.5-11.0)
[2020-08-17] MEDS: simethicone 80mg chew tab PO SCH ×3 (07:45→21:00)
[2020-08-17] MEDS: levoTHYROXINE 100mcg tablet PO SCH (07:45)
[2020-08-17] MEDS: magnesium hydroxide 30ml (MOM) UD suspension PO PRN (07:51)
[2020-08-17] MEDS: K and/or MAG REPLACEMENT MC SCH ×2 (08:00→20:00)
[2020-08-17] MEDS: atenolol 50mg tablet PO SCH (08:00)
[2020-08-17] MEDS ORDERED: magnesium 2GM in 50ml NS 50 ML IV PRN (08:20)
[2020-08-17] MEDS ORDERED: potassium Cl 40MEQ/1/2NS 520ml 520 ML IV PRN (08:20)
[2020-08-17] MEDS ORDERED: magnesium 4gm in 100ml NS 100 ML IV PRN (08:20)
[2020-08-17] MEDS ORDERED: potassium Cl 20 mEq SR tablet PO PRN ×2 (08:20)
[2020-08-17] MEDS ORDERED: magnesium Cl slow-release 64mg tablet PO PRN (08:20)
[2020-08-17] MEDS ORDERED: HYDROmorphone inj. 0.5 MG/0.5 ML DISP.SYRIN IV PRN (08:45)
[2020-08-17] MEDS ORDERED: HYDROmorphone 1 mg/ml syringe IV PRN (08:45)
[2020-08-17] MEDS: insulin Lispro (HumaLOG) vial - multi-dose SQ SCH ×3 (09:11→19:11)
[2020-08-17] MEDS ORDERED: POTASSIUM BICARB 20meq eff tab 20 MEQ TABLET.EFF PO PRN (09:12)
[2020-08-17] MEDS: POTASSIUM BICARB 20meq eff tab 20 MEQ TABLET.EFF PO PRN ×2 (10:09→14:23)
[2020-08-17] MEDS: oxyCODONE IR 5mg (immed. release) tablet PO PRN ×4 (10:13→23:00)
[2020-08-17] MEDS: sodium bicarbonate (8.4%) inj. 100 MEQ in dextrose 5%-water 1,000 ML IV SCH (10:14)
[2020-08-17 11:00] VITALS: BP 118/62
[2020-08-17] MEDS ORDERED: morphine 2 MG/ML inj. syringe IV PRN (11:15)
[2020-08-17] MEDS ORDERED: morphine 4 MG/ML inj SYRINge IV PRN (11:15)
[2020-08-17 18:00] VITALS: BP 143/86
--- NOTE | 2020-08-17 18:20 | NUR ---
Problems reprioritized. Patient report given, questions answered & plan of care reviewed with FAUSTO Loya.
--- NOTE | 2020-08-17 18:23 | NUR ---
Patient in room MAHENDRA 351. I have received report from LELO LAMBERT and had the opportunity to ask questions and assume patient care. Addendum: 08/17/20 at 1824 by Shalini Medel RN Amended: Links added.
--- NOTE | 2020-08-17 19:00 | NUR ---
pt up ambulating in the villavicencio. tolerated well.
--- NOTE | 2020-08-17 21:00 | NUR ---
pt blood sugar covered had c/o pain after oxy ir given and medicated with iv morphine. had been up to brp and had 2 bm's loose. pt stated 5 in total for the day. she feels better ambulated in the villavicencio 3 more times. tolerated well. bowel sounds active,
--- NOTE | 2020-08-17 21:10 | NUR ---
noticed later that medications given at this time did not save in the computer including the morphine, noted computer was acting up and later when trying to give the restoril it shut down and updated itself.
[2020-08-17] MEDS: insulin glargine (Lantus) pen - multi-dose SQ SCH (22:25)
--- NOTE | 2020-08-17 22:40 | NUR ---
pt requested restoril and medicated for sleep per request.
[2020-08-17] MEDS: temazepam 15mg capsule PO PRN (22:53)
[2020-08-18] VITALS: BP 130/83
--- NOTE | 2020-08-18 | NUR ---
resting without changes.
--- NOTE | 2020-08-18 02:00 | NUR ---
pt resting without s&s of distress at this time.
[2020-08-18] MEDS: oxyCODONE IR 5mg (immed. release) tablet PO PRN ×3 (03:47→13:50)
--- NOTE | 2020-08-18 04:00 | NUR ---
resting without changes at this time.
[2020-08-18 06:03] LABS: BASOPHILS % (AUTO) 0.6 % (0-1); EOSINOPHILS # (AUTO) 0.1 X10'3 (0-0.9); EOSINOPHILS % (AUTO) 1.3 % (0-6); HEMATOCRIT 37.8 % (35.0-45.0); HEMOGLOBIN 13.2 g/dl (12.0-16.0); LYMPHOCYTES # (AUTO) 1.5 X10'3 (1.1-4.8); LYMPHOCYTES % (AUTO) 23.8 % (21-51); MEAN CORPUSCULAR HEMOGLOBIN 37.2 PG (27.0-31.0); MEAN CORPUSCULAR VOLUME 106.1 FL (78-98); MEAN PLATELET VOLUME 8.5 FL (7.4-10.4); MONOCYTES # (AUTO) 0.5 X10'3 (0-0.9); MONOCYTES % (AUTO) 8.5 % (2-12); NEUTROPHILS # (AUTO) 4.3 X10'3 (1.8-7.7); NEUTROPHILS % (AUTO) 65.8 % (42-75); PLATELET COUNT 317 X10'3 (140-440); RED BLOOD COUNT 3.56 X10'6 (4.20-5.60); WHITE BLOOD COUNT 6.5 X10'3 (4.5-11.0)
--- NOTE | 2020-08-18 06:05 | NUR ---
Problems reprioritized. Patient report given, questions answered & plan of care reviewed with BHUPINDER LAMBERT. Addendum: 08/18/20 at 0606 by Shalini Medel RN Amended: Links added.
--- NOTE | 2020-08-18 06:13 | NUR ---
Problems reprioritized. Patient report given, questions answered & plan of care reviewed with BHUPINDER LAMBERT. Addendum: 08/18/20 at 0613 by Shalini Medel RN Amended: Links added.
[2020-08-18 06:20] LABS: ALANINE AMINOTRANSFERASE 52 U/L (12-78); ALBUMIN 2.1 G/DL (3.4-5.0); ALBUMIN/GLOBULIN RATIO 0.5 (1.1-1.5); ALKALINE PHOSPHATASE 142 IU/L (46-116); ANION GAP 5 (8-16); ASPARTATE AMINO TRANSFERASE 19 U/L (10-37); BILIRUBIN,TOTAL 1.8 MG/DL (0.1-1.0); BLOOD UREA NITROGEN 3 MG/DL (7-18); BUN/CREATININE RATIO 4.5 (6.6-38.0); CALCIUM 9.3 MG/DL (8.5-10.1); CHLORIDE 102 MMOL/L (99-107); CREATININE 0.66 MG/DL (0.40-0.90); GLUCOSE 162 MG/DL (70-104); POTASSIUM 3.9 MMOL/L (3.5-5.1); SODIUM 139 MMOL/L (135-145); TOTAL CARBON DIOXIDE 31.7 MMOL/L (24-32); TOTAL PROTEIN 6.3 G/DL (6.4-8.2); eGFR > 90 ML/MIN
--- NOTE | 2020-08-18 06:29 | NUR ---
Patient in room MAHENDRA 351. I have received report from Shalini LAMBERT and had the opportunity to ask questions and assume patient care.
--- NOTE | 2020-08-18 06:41 | NUR ---
Problems reprioritized. Patient report given, questions answered & plan of care reviewed with KARY LAMBERT. Addendum: 08/18/20 at 0641 by Shalini Medel RN Amended: Links added. Addendum: 08/18/20 at 0642 by Shalini Medel RN REPOORT TO BHUPINDER PRESTON
[2020-08-18 07:00] VITALS: BP 140/80
[2020-08-18] MEDS: K and/or MAG REPLACEMENT MC SCH (08:00)
[2020-08-18] MEDS: levoTHYROXINE 100mcg tablet PO SCH (08:58)
[2020-08-18] MEDS: simethicone 80mg chew tab PO SCH ×2 (08:58→13:46)
[2020-08-18] MEDS: insulin Lispro (HumaLOG) vial - multi-dose SQ SCH ×2 (09:05→13:56)
--- NOTE | 2020-08-18 11:43 | NUR ---
PAGER ID: [phone] MESSAGE: re: 351, Shruthi Lopez pt states she was told by Dr Dalton that he does not want her going home on Metformin because it's hard on the liver. Other d/c med? thank you, Shannon Med/Surg [phone]
[2020-08-18] MEDS ORDERED: OXYC10TA47 PO (11:45)
[2020-08-18] MEDS ORDERED: POTA20TA34 PO (11:45)
[2020-08-18 12:00] VITALS: BP 134/90
--- NOTE | 2020-08-18 13:03 | NUR ---
PAGER ID: [phone] MESSAGE: RE: 351, Shruthi Lopez 2nd page Pt states she was told by Dr Dalton that he doesnt want her going home on Metformin due to hard on the liver. Other d/c med? Also pt states she needs supplies. Please call Shannon [phone] thank you, Shannon
--- NOTE | 2020-08-18 14:30 | NUR ---
Pt stable and appropriate for d/c. PIV d/c'd, cannula intact. Reviewed with pt all d/c instructions/meds and incision care, post op restrictions, s/sx infection, with pt given opportunity to ask questions, answers provided and pt verbalizing understanding. Prescriptions escripted to pharmacy of choice with triplicate given to pt. Pt to call MD/surgeon with any questions/concerns or s/sx of complications or return to nearest ED. Pt escorted to front lobby by staff member via w/c with all personal belongings. D/c'd home in private vehicle driven by friend.
--- NOTE | 2020-08-19 10:59 | NUR ---
CASE MANAGEMENT DISCHARGE FOLLOW UP: Telephoned pt, no answer, left voicemail requesting call back.
== END 2020-08-18 16:25 | disposition home or self-care (01) | DRG 417 ==
LOC: ER 07:58 → ED HOLD 10:15 → SUR 3N 11:40 → PACU 15:44 → SUR 3N 17:27
PROVIDERS: ADMIT Family Medicine; ATTEND Family Medicine
PROC: 0FT44ZZ Resection of Gallbladder, Percutaneous Endoscopic Approach (ICD-10-PCS; principal; 2020-08-10 15:26)
PROC: 0F7D8DZ Dilation of Pancreatic Duct with Intraluminal Device, Via Natural or Artificial Opening Endoscopic (ICD-10-PCS; 2020-08-14)
PROC: BF111ZZ Fluoroscopy of Biliary and Pancreatic Ducts using Low Osmolar Contrast (ICD-10-PCS; 2020-08-14)
DX: K80.01 Calculus of gallbladder with acute cholecystitis with obstruction (principal); K85.11 Biliary acute pancreatitis with uninfected necrosis; E87.2 Acidosis; E03.9 Hypothyroidism, unspecified; E11.9 Type 2 diabetes mellitus without complications; F41.1 Generalized anxiety disorder; I10 Essential (primary) hypertension; Z20.828 Contact with and (suspected) exposure to other viral communicable diseases; E87.6 Hypokalemia; F17.210 Nicotine dependence, cigarettes, uncomplicated; Z97.5 Presence of (intrauterine) contraceptive device
CPT/HCPCS: 43262; 43274; 96374; 99285; Z7506; Z7508; 36415; 74177; 74181; 76700; 78226; 80053; 82948; 83036; 83690; 83735; 84132; 84443; 84703; 85025; 85610; 85730; 87081; 87635; 99152; 99153; A4215; A4618; A4620; A7000; A9537; C1769; C2617; G0378; J0694; J1100; J1170; J1200; J1610; J1815; J1885; J1956; J2001; J2175; J2250; J2270; J2405; J2704; J2710; J3010; J3475; J3490; J7030; J7040; J7120; Q9963; Q9967

== ENCOUNTER 2020-08-25 06:21 | Day surgery (SDC) | payer BC ==
[~2020-08-25] VITALS: Ht 160 cm; Wt 87.3 kg
[~2020-08-25 06:21] MED LIST changes: -ACET-1 PO; -BLOO-1084 TOP; -FREESTYLE; -INSU100I31 SQ; -INSU200I SQ; +LEVO100C4 PO; -LISI10TA4 PO; +METF-436 PO; +MULT-1085 PO; -NO HOME MEDS; +OXYC10TA47 PO; +POTA20TA34 PO; -lancet
[2020-08-25 06:30] VITALS: BP 115/85
[2020-08-25] MEDS ORDERED: OXYC10TA47 PO (06:35)
[2020-08-25] MEDS ORDERED: POTA-82 PO (06:35)
[2020-08-25] MEDS ORDERED: diphenhydrAMINE 50 mg/ml inj ONE (06:50)
[2020-08-25] MEDS ORDERED: fentaNYL/PF 50MCG/1 ML 2ML syringe ONE (06:50)
[2020-08-25] MEDS ORDERED: LIDOcaine Viscous 15ml cup ONE (06:50)
[2020-08-25] MEDS ORDERED: MIDAZolam 5mg/5ml vial ONE (06:50)
[2020-08-25 08:15] VITALS: BP 138/76
[2020-08-25 08:24] VITALS: BP 122/75
[2020-08-25 08:34] VITALS: BP 116/63
[2020-08-25 08:44] VITALS: BP 134/65
[2020-08-31 14:59] LABS: ABG BASE EXCESS -6.5 mmol/L (-2.0-2.0); ABG HCO3 15.9 mmol/L (22.0-26.0); ABG OXYGEN SATURATION 94.3 % (94-97); ABG PCO2 (T) 23.6 mmHg (32.0-45.0); ABG PO2 (T) 71.5 mmHg (75.0-100.0); FCOHb 0.9 % (0.0-3.9); FMetHb 0.1 % (0.0-1.5); FO2Hb 93.4 % (94-97); TOTAL HEMOGLOBIN 12.2 G/dl (12.0-16.0)
== END 2020-08-25 08:50 | disposition home or self-care (01) ==
LOC: GI LAB 06:21
PROVIDERS: ATTEND Internal Medicine Gastroenterology
DX: Z46.59 Encounter for fitting and adjustment of other gastrointestinal appliance and device (principal); K83.1 Obstruction of bile duct; F17.200 Nicotine dependence, unspecified, uncomplicated
CPT/HCPCS: 43247; J1200; J2250; J3010; J7040; 36600; 82803; 85018; 99152; A4620

== ENCOUNTER 2020-08-28 20:07 | Inpatient (IN) | payer BC ==
[~2020-08-28] VITALS: Ht 160 cm; Wt 87.3 kg
[~2020-08-28 20:07] MED LIST changes: +POTA-82 PO; -POTA20TA34 PO
[2020-08-28 21:33] LABS: COLOR,URINE YELLOW (Yellow); GLUCOSE, URINE 500 mg/dl (Neg); KETONES,URINE >=80 mg/dl (Neg); LEUKOCYTE ESTERASE ,URINE NEGATIVE (Neg); OCCULT BLOOD,URINE TRACE-INTACT (Neg); PH,URINE 5.5 (4.8-8.0); PROTEIN,URINE >=300 mg/dl (Neg)
[2020-08-28 21:35] LABS: BASOPHILS % (AUTO) 0.3 % (0-1); EOSINOPHILS % (AUTO) 0.1 % (0-6); HEMATOCRIT 37.5 % (35.0-45.0); LYMPHOCYTES # (AUTO) 0.9 X10'3 (1.1-4.8); LYMPHOCYTES % (AUTO) 8.2 % (21-51); MEAN CORPUSCULAR HEMOGLOBIN 35.5 PG (27.0-31.0); MEAN CORPUSCULAR HGB CONC 34.8 g/dL (33.0-36.5); MEAN PLATELET VOLUME 8.7 FL (7.4-10.4); MONOCYTES # (AUTO) 0.7 X10'3 (0-0.9); MONOCYTES % (AUTO) 7.1 % (2-12); NEUTROPHILS # (AUTO) 8.7 X10'3 (1.8-7.7); NEUTROPHILS % (AUTO) 84.3 % (42-75); PLATELET COUNT 451 X10'3 (140-440); RED BLOOD COUNT 3.67 X10'6 (4.20-5.60); RED CELL DISTRIBUTION WIDTH 14.4 % (11.5-14.5); WHITE BLOOD COUNT 10.4 X10'3 (4.5-11.0)
[2020-08-28 21:47] LABS: NITRITES, URINE NEGATIVE (Neg); UA COLLECTION TYPE CLN CATCH MIDSTREAM
[2020-08-28 21:48] LABS: BACTERIA,URINE FEW /HPF (Neg); CLARITY,URINE Slightly Cloudy (Clear); MUCUS STRANDS MODERATE /LPF (Neg); RBC,URINE 0-2 /HPF (0-2); SQUAMOUS EPITHELIAL CELL,UR FEW /LPF (FEW); WBC,URINE 0-4 /HPF (0-4)
[2020-08-28 21:50] LABS: ALANINE AMINOTRANSFERASE 55 U/L (12-78); ALBUMIN 2.6 G/DL (3.4-5.0); ALBUMIN/GLOBULIN RATIO 0.4 (1.1-1.5); ALKALINE PHOSPHATASE 198 IU/L (46-116); ANION GAP 17 (8-16); ASPARTATE AMINO TRANSFERASE 36 U/L (10-37); BILIRUBIN,TOTAL 2.7 MG/DL (0.1-1.0); BLOOD UREA NITROGEN 8 MG/DL (7-18); BUN/CREATININE RATIO 9.6 (6.6-38.0); CALCIUM 10.4 MG/DL (8.5-10.1); CHLORIDE 90 MMOL/L (99-107); CREATININE 0.83 MG/DL (0.40-0.90); GLUCOSE 356 MG/DL (70-104); LIPASE 341 U/L (73-393); SODIUM 129 MMOL/L (135-145); TOTAL CARBON DIOXIDE 22.1 MMOL/L (24-32); TOTAL PROTEIN 9.7 G/DL (6.4-8.2); eGFR 80 ML/MIN
[2020-08-28] MEDS ORDERED: normal saline 1000ML IV soln IVB ONE (22:30)
[2020-08-28] MEDS ORDERED: insulin regular, human 10 units/0.1 ml syringe IV ONE (22:30)
[2020-08-28] MEDS ORDERED: ondansetron/PF 4mg/2ml inj IV ONE (22:30)
[2020-08-28] MEDS ORDERED: morphine 4 MG/ML inj SYRINge IV ONE (22:30)
[2020-08-28 23:10] LABS: URINE HCG NEGATIVE (NEG)
[2020-08-29] MEDS ORDERED: iohexol 300mg/ml 100ml inj. ONE (00:17)
[2020-08-29] MEDS ORDERED: piperacillin/tazo 4.5gm/100ml 100 ML IV ONE (01:25)
[2020-08-29] MEDS ORDERED: magnesium 4gm in 100ml NS 100 ML IV PRN (01:30)
[2020-08-29] MEDS ORDERED: magnesium hydroxide 30ml (MOM) UD suspension PO PRN (01:30)
[2020-08-29] MEDS ORDERED: potassium Cl 20 mEq SR tablet PO PRN ×2 (01:30)
[2020-08-29] MEDS ORDERED: magnesium 2GM in 50ml NS 50 ML IV PRN (01:30)
[2020-08-29] MEDS ORDERED: potassium Cl 40MEQ/1/2NS 520ml 520 ML IV PRN ×2 (01:30)
[2020-08-29] MEDS ORDERED: mag hydrox/Alum hydrox/simeth 30ml oral suspension PO PRN (01:30)
[2020-08-29] MEDS ORDERED: magnesium Cl slow-release 64mg tablet PO PRN (01:30)
[2020-08-29] MEDS ORDERED: LANTUS SQ (01:43)
[2020-08-29] MEDS ORDERED: PIOG15TA67 PO (01:43)
[2020-08-29] MEDS: morphine 2 MG/ML inj. syringe IV PRN ×6 (03:21→23:45)
[2020-08-29] MEDS: normal saline 1000ml 1,000 ML IV SCH ×3 (04:05→14:34)
[2020-08-29] MEDS ORDERED: dextrose ORAL solution 15 GM/59 ML bottle PO PRN ×2 (06:30)
[2020-08-29] MEDS ORDERED: glucagon, human recombinant 1mg kit SUBCUT PRN (06:30)
[2020-08-29] MEDS ORDERED: dextrose 50%-water 50ml dispensing syringe IV PRN ×2 (06:30)
[2020-08-29] MEDS ORDERED: MESSAGE TO PHARMACY PO ONE (06:30)
[2020-08-29] MEDS ORDERED: levoTHYROXINE 100mcg tablet PO SCH (07:00)
[2020-08-29] MEDS: K and/or MAG REPLACEMENT MC SCH ×2 (08:00→20:00)
[2020-08-29] MEDS ORDERED: levoTHYROXINE sod inj. 100mcg/5 ml vial IV SCH (08:55)
[2020-08-29] MEDS: piperacillin/tazo 4.5gm/100ml 100 ML IV SCH ×3 (09:04→23:11)
[2020-08-29] MEDS: insulin Lispro (HumaLOG) vial - multi-dose SQ SCH ×2 (10:00→21:00)
[2020-08-29] MEDS: levoTHYROXINE sod inj. 100mcg/5 ml vial IV SCH (10:04)
--- NOTE | 2020-08-29 13:52 | NUR ---
CALLED FOR REPORT, RN UNAVAILABLE AT THIS TIME
--- NOTE | 2020-08-29 14:02 | NUR ---
Patient in room ED 6. I have received report from KATH LAMBERT and had the opportunity to ask questions and assume patient care.
[2020-08-29] MEDS: acetaminophen 325mg tablet PO PRN (16:00)
[2020-08-29 16:12] VITALS: BP 140/71
--- NOTE | 2020-08-29 16:49 | NUR ---
IR NOTE: Per Dr Robles, angio will drain abscess tomorrow as discussed with Mike. Pending rapid covid test results. Primary RN Leia notified.
[2020-08-29 18:00] VITALS: BP 127/77
--- NOTE | 2020-08-29 18:00 | NUR ---
Patient in room PCU 3022. I have received report from Leia LAMBERT and had the opportunity to ask questions and assume patient care.
--- NOTE | 2020-08-29 18:29 | NUR ---
Problems reprioritized. Patient report given, questions answered & plan of care reviewed with KEVIN LAMBERT.
--- NOTE | 2020-08-29 19:22 | NUR ---
PAGER ID: [phone] MESSAGE: [phone] Chanel Mccollum: Pt here for pancreatitis with fluid and abscess in abdomen. Morphine 2mg Q4h and patient states it is not enough, can we give her something more or something else on top? Avani LAMBERT [phone]
[2020-08-29] MEDS ORDERED: HYDROmorphone 1 mg/ml syringe IV PRN (19:25)
--- NOTE | 2020-08-29 19:30 | NUR ---
PAGER ID: [phone] MESSAGE: [phone] Shruthi Griffiths: Patient just stated that dilaudid only gives her headaches and nothing for pain, willing to take [place] 10 with Morphine. Can we get that changed? Sorry. Avani LAMBERT [phone]
[2020-08-29] MEDS: insulin glargine (Lantus) pen - multi-dose SQ SCH (20:59)
[2020-08-29] MEDS: HYDROcodone/acetaminophen 10/325mg tab PO PRN (21:16)
[2020-08-29 22:00] VITALS: BP 139/77
[2020-08-30] VITALS (15 sets, daily range): BP systolic 99–145; BP diastolic 50–88
[2020-08-30] MEDS: morphine 2 MG/ML inj. syringe IV PRN ×4 (02:13→21:53)
[2020-08-30] MEDS: HYDROcodone/acetaminophen 10/325mg tab PO PRN ×4 (03:06→23:55)
--- NOTE | 2020-08-30 05:33 | NUR ---
End noc note Patient's pain was better managed tonight with the addition to [place] 10. Patient was swabbed for COVID and is negative. NPO since midnight. Will continue to monitor.
--- NOTE | 2020-08-30 06:18 | NUR ---
Problems reprioritized. Patient report given, questions answered & plan of care reviewed with Gerald RN.
[2020-08-30 07:05] LABS: BASOPHILS % (AUTO) 0.3 % (0-1); EOSINOPHILS % (AUTO) 0.3 % (0-6); HEMATOCRIT 33.6 % (35.0-45.0); HEMOGLOBIN 11.4 g/dl (12.0-16.0); LYMPHOCYTES # (AUTO) 0.9 X10'3 (1.1-4.8); LYMPHOCYTES % (AUTO) 11.1 % (21-51); MEAN CORPUSCULAR HEMOGLOBIN 34.5 PG (27.0-31.0); MEAN CORPUSCULAR HGB CONC 34.1 g/dL (33.0-36.5); MEAN CORPUSCULAR VOLUME 101.2 FL (78-98); MEAN PLATELET VOLUME 8.9 FL (7.4-10.4); MONOCYTES # (AUTO) 0.6 X10'3 (0-0.9); MONOCYTES % (AUTO) 6.8 % (2-12); NEUTROPHILS # (AUTO) 6.7 X10'3 (1.8-7.7); NEUTROPHILS % (AUTO) 81.5 % (42-75); PLATELET COUNT 377 X10'3 (140-440); RED BLOOD COUNT 3.32 X10'6 (4.20-5.60); RED CELL DISTRIBUTION WIDTH 14.5 % (11.5-14.5); WHITE BLOOD COUNT 8.3 X10'3 (4.5-11.0)
[2020-08-30 07:19] LABS: ALANINE AMINOTRANSFERASE 79 U/L (12-78); ALBUMIN 1.9 G/DL (3.4-5.0); ALBUMIN/GLOBULIN RATIO 0.3 (1.1-1.5); ALKALINE PHOSPHATASE 182 IU/L (46-116); ANION GAP 12 (8-16); ASPARTATE AMINO TRANSFERASE 82 U/L (10-37); BILIRUBIN,TOTAL 2.5 MG/DL (0.1-1.0); BLOOD UREA NITROGEN 3 MG/DL (7-18); CALCIUM 9.2 MG/DL (8.5-10.1); CHLORIDE 98 MMOL/L (99-107); CREATININE 0.75 MG/DL (0.40-0.90); GLUCOSE 248 MG/DL (70-104); MAGNESIUM 1.6 MG/DL (1.5-2.4); POTASSIUM 3.6 MMOL/L (3.5-5.1); SODIUM 133 MMOL/L (135-145); TOTAL CARBON DIOXIDE 23.2 MMOL/L (24-32); TOTAL PROTEIN 7.7 G/DL (6.4-8.2); eGFR 90 ML/MIN
[2020-08-30] MEDS: K and/or MAG REPLACEMENT MC SCH ×2 (08:00→19:54)
[2020-08-30] MEDS: piperacillin/tazo 4.5gm/100ml 100 ML IV SCH ×3 (08:01→23:00)
[2020-08-30] MEDS: normal saline 1000ml 1,000 ML IV SCH ×2 (08:01→16:33)
[2020-08-30] MEDS ORDERED: fentaNYL/PF 50MCG/1 ML 2ML syringe ONE ×2 (09:07→09:37)
[2020-08-30] MEDS ORDERED: midazolam 2 mg/2 ml injection ONE ×2 (09:07→09:37)
[2020-08-30] MEDS: levoTHYROXINE sod inj. 100mcg/5 ml vial IV SCH (10:56)
[2020-08-30] MEDS: ondansetron/PF 4mg/2ml inj IV PRN ×2 (11:14→16:49)
[2020-08-30] MEDS: acetaminophen 325mg tablet PO PRN (12:26)
[2020-08-30 13:27] LABS: BASOPHILS % (AUTO) 0.1 % (0-1); EOSINOPHILS % (AUTO) 0.2 % (0-6); HEMATOCRIT 34.7 % (35.0-45.0); HEMOGLOBIN 11.7 g/dl (12.0-16.0); LYMPHOCYTES # (AUTO) 0.2 X10'3 (1.1-4.8); MEAN CORPUSCULAR HEMOGLOBIN 34.1 PG (27.0-31.0); MEAN CORPUSCULAR HGB CONC 33.6 g/dL (33.0-36.5); MEAN CORPUSCULAR VOLUME 101.7 FL (78-98); MEAN PLATELET VOLUME 8.6 FL (7.4-10.4); MONOCYTES # (AUTO) 0.1 X10'3 (0-0.9); NEUTROPHILS # (AUTO) 6.1 X10'3 (1.8-7.7); NEUTROPHILS % (AUTO) 95.7 % (42-75); PLATELET COUNT 328 X10'3 (140-440); RED BLOOD COUNT 3.41 X10'6 (4.20-5.60); RED CELL DISTRIBUTION WIDTH 15.3 % (11.5-14.5); WHITE BLOOD COUNT 6.4 X10'3 (4.5-11.0)
--- NOTE | 2020-08-30 14:17 | NUR ---
DM Consult: Pt admit DX biloma vs abscess following recent cholecystectomy 08/10 admit as well as mild persistent pancreatitis per MD note. A1C less than 7 08/10 admit w/ updated A1C 7.1 at this time. 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 Takes 1500 metformin BID at home per ER note. 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 Pt currently NPO; to f/u 09/03 for initial assessment. Addendum: 08/30/20 at [address] Amended: Links added.
--- NOTE | 2020-08-30 15:14 | NUR ---
LAB VALUE TAKEN FROM LAB, REPORTED TO PRIMARY RN, MESSAGE PAGED TO .
--- NOTE | 2020-08-30 15:14 | NUR ---
PAGER ID: [phone] MESSAGE: Hay yanes nurse in pcu at [phone], lab results for 22A MAY WHITE BLOOD CELL, GRAM +, rods, grams _ rods, gram + cocci clusters. thx
[2020-08-30 15:29] LABS: LIPASE 180 U/L (73-393)
--- NOTE | 2020-08-30 18:26 | NUR ---
Patient in room PCU 3022. I have received report from Elaine LAMBERT and had the opportunity to ask questions and assume patient care.
--- NOTE | 2020-08-30 19:18 | NUR ---
RECEIVED REPORT FROM SILVER SOLUTION MIXER RN. PATIENT ALERT AN D ORIENTED. REQUESTED PAIN MEDICATION FOR ABDOMINAL PAIN. MEDICATION GIVEN. AFTER PROCUDURE DONE SBP PRESSURE DROPS 250 ML OF BOLUS GIVEN. BLOOD PRESSURE GET BETTER. KUB ORDERED. AND LABS. PATIENT REFUSED TO EAT DURING DAY, REFUSED INSULIN. MD AWARE O0
--- NOTE | 2020-08-30 19:23 | NUR ---
PAGED WITH RESULT OF CULTURE
[2020-08-30] MEDS: lactobacillus rhamnosus 10,000 MMU CELLS/CAPSULE PO SCH (19:54)
[2020-08-30] MEDS: insulin glargine (Lantus) pen - multi-dose SQ SCH (20:57)
[2020-08-31] MEDS: morphine 2 MG/ML inj. syringe IV PRN ×5 (01:57→20:46)
[2020-08-31] MEDS: normal saline 1000ml 1,000 ML IV SCH ×3 (03:24→23:51)
[2020-08-31] MEDS: HYDROcodone/acetaminophen 10/325mg tab PO PRN ×5 (03:49→22:55)
--- NOTE | 2020-08-31 05:30 | NUR ---
END NOC NOTE Patient has had some relief with pain medication tonight, blood pressure has been stable. Patient had a sudden attack of shivers and sweating, Temperature was normal at 98.5 and Blood sugar was stable at 306. MD Santana was notified and was ordered to draw Lactic Acid this morning; 1.7 was the result. CHRISTOPHER Drain's had a large output tonight, 200ml. Will continue to monitor.
--- NOTE | 2020-08-31 06:09 | NUR ---
Problems reprioritized. Patient report given, questions answered & plan of care reviewed with Elaine LAMBERT.
[2020-08-31 07:06] LABS: BASOPHILS % (AUTO) 0.3 % (0-1); EOSINOPHILS % (AUTO) 0.2 % (0-6); HEMATOCRIT 30.8 % (35.0-45.0); HEMOGLOBIN 10.2 g/dl (12.0-16.0); LYMPHOCYTES # (AUTO) 1.5 X10'3 (1.1-4.8); LYMPHOCYTES % (AUTO) 8.3 % (21-51); MEAN CORPUSCULAR HEMOGLOBIN 34.1 PG (27.0-31.0); MEAN CORPUSCULAR VOLUME 103.3 FL (78-98); MONOCYTES # (AUTO) 0.5 X10'3 (0-0.9); NEUTROPHILS # (AUTO) 15.8 X10'3 (1.8-7.7); NEUTROPHILS % (AUTO) 88.2 % (42-75); PLATELET COUNT 306 X10'3 (140-440); RED BLOOD COUNT 2.98 X10'6 (4.20-5.60); RED CELL DISTRIBUTION WIDTH 14.7 % (11.5-14.5); WHITE BLOOD COUNT 17.9 X10'3 (4.5-11.0)
[2020-08-31 07:28] LABS: ALANINE AMINOTRANSFERASE 68 U/L (12-78); ALBUMIN 1.6 G/DL (3.4-5.0); ALBUMIN/GLOBULIN RATIO 0.3 (1.1-1.5); ALKALINE PHOSPHATASE 187 IU/L (46-116); ANION GAP 12 (8-16); ASPARTATE AMINO TRANSFERASE 38 U/L (10-37); BILIRUBIN,TOTAL 1.5 MG/DL (0.1-1.0); BLOOD UREA NITROGEN 7 MG/DL (7-18); BUN/CREATININE RATIO 7.5 (6.6-38.0); CALCIUM 8.5 MG/DL (8.5-10.1); CHLORIDE 101 MMOL/L (99-107); CREATININE 0.93 MG/DL (0.40-0.90); GLUCOSE 265 MG/DL (70-104); MAGNESIUM 1.6 MG/DL (1.5-2.4); POTASSIUM 4.1 MMOL/L (3.5-5.1); SODIUM 138 MMOL/L (135-145); TOTAL CARBON DIOXIDE 24.7 MMOL/L (24-32); TOTAL PROTEIN 6.9 G/DL (6.4-8.2); eGFR 70 ML/MIN
[2020-08-31] MEDS: K and/or MAG REPLACEMENT MC SCH ×2 (08:00→20:00)
[2020-08-31] MEDS: levoTHYROXINE sod inj. 100mcg/5 ml vial IV SCH (08:38)
[2020-08-31] MEDS: piperacillin/tazo 4.5gm/100ml 100 ML IV SCH ×2 (08:38→17:15)
[2020-08-31] MEDS: lactobacillus rhamnosus 10,000 MMU CELLS/CAPSULE PO SCH ×2 (08:38→19:46)
[2020-08-31] MEDS: insulin Lispro (HumaLOG) vial - multi-dose SQ SCH (10:55)
[2020-08-31 18:00] VITALS: BP 120/72
--- NOTE | 2020-08-31 18:00 | NUR ---
Patient in room PCU 3022. I have received report from Elaine LAMBERT and had the opportunity to ask questions and assume patient care.
--- NOTE | 2020-08-31 18:47 | NUR ---
report given to night nurse. pt alert and oriented. requested pain medication gor abdominal pain
[2020-08-31] MEDS: insulin glargine (Lantus) pen - multi-dose SQ SCH (20:54)
[2020-08-31 22:00] VITALS: BP 114/69
[2020-09-01] MEDS: piperacillin/tazo 4.5gm/100ml 100 ML IV SCH ×3 (00:13→16:19)
[2020-09-01] MEDS: morphine 2 MG/ML inj. syringe IV PRN ×6 (01:01→22:13)
[2020-09-01 02:00] VITALS: BP 112/65
[2020-09-01] MEDS: HYDROcodone/acetaminophen 10/325mg tab PO PRN ×5 (02:58→20:16)
--- NOTE | 2020-09-01 06:25 | NUR ---
Problems reprioritized. Patient report given, questions answered & plan of care reviewed with Xiomara LAMBERT.
--- NOTE | 2020-09-01 06:30 | NUR ---
Patient in room PCU 3022. I have received report from Shabana LAMBERT and had the opportunity to ask questions and assume patient care. Patient awake in bed and resting. Offers no complaints. Assessed moris drain in place.
[2020-09-01 06:49] LABS: BASOPHILS # (AUTO) 0.1 X10'3 (0-0.2); BASOPHILS % (AUTO) 0.7 % (0-1); EOSINOPHILS # (AUTO) 0.3 X10'3 (0-0.9); EOSINOPHILS % (AUTO) 3.3 % (0-6); HEMATOCRIT 31.3 % (35.0-45.0); HEMOGLOBIN 10.5 g/dl (12.0-16.0); LYMPHOCYTES # (AUTO) 1.7 X10'3 (1.1-4.8); LYMPHOCYTES % (AUTO) 21.5 % (21-51); MEAN CORPUSCULAR HEMOGLOBIN 34.1 PG (27.0-31.0); MEAN CORPUSCULAR HGB CONC 33.6 g/dL (33.0-36.5); MEAN CORPUSCULAR VOLUME 101.5 FL (78-98); MEAN PLATELET VOLUME 8.6 FL (7.4-10.4); MONOCYTES # (AUTO) 0.3 X10'3 (0-0.9); MONOCYTES % (AUTO) 3.4 % (2-12); NEUTROPHILS # (AUTO) 5.5 X10'3 (1.8-7.7); NEUTROPHILS % (AUTO) 71.1 % (42-75); PLATELET COUNT 312 X10'3 (140-440); RED BLOOD COUNT 3.08 X10'6 (4.20-5.60); WHITE BLOOD COUNT 7.8 X10'3 (4.5-11.0)
[2020-09-01 07:00] VITALS: BP 118/76
--- NOTE | 2020-09-01 07:01 | NUR ---
Patient in room PCU 3022. I have received report from Ana LAMBERT and had the opportunity to ask questions and assume patient care.
[2020-09-01 07:10] LABS: ALANINE AMINOTRANSFERASE 42 U/L (12-78); ALBUMIN 1.5 G/DL (3.4-5.0); ALBUMIN/GLOBULIN RATIO 0.3 (1.1-1.5); ALKALINE PHOSPHATASE 143 IU/L (46-116); ANION GAP 7 (8-16); ASPARTATE AMINO TRANSFERASE 17 U/L (10-37); BILIRUBIN,TOTAL 0.8 MG/DL (0.1-1.0); BLOOD UREA NITROGEN 4 MG/DL (7-18); BUN/CREATININE RATIO 5.4 (6.6-38.0); CALCIUM 8.9 MG/DL (8.5-10.1); CHLORIDE 106 MMOL/L (99-107); CREATININE 0.74 MG/DL (0.40-0.90); GLUCOSE 169 MG/DL (70-104); MAGNESIUM 1.8 MG/DL (1.5-2.4); POTASSIUM 3.5 MMOL/L (3.5-5.1); SODIUM 141 MMOL/L (135-145); TOTAL CARBON DIOXIDE 28.1 MMOL/L (24-32); TOTAL PROTEIN 6.6 G/DL (6.4-8.2); eGFR > 90 ML/MIN
[2020-09-01] MEDS: lactobacillus rhamnosus 10,000 MMU CELLS/CAPSULE PO SCH ×2 (07:28→18:44)
[2020-09-01] MEDS: levoTHYROXINE sod inj. 100mcg/5 ml vial IV SCH (07:28)
[2020-09-01] MEDS: K and/or MAG REPLACEMENT MC SCH ×2 (08:00→19:47)
[2020-09-01] MEDS: insulin Lispro (HumaLOG) vial - multi-dose SQ SCH ×2 (09:23→18:45)
[2020-09-01 11:00] VITALS: BP 135/77
[2020-09-01] MEDS: normal saline 1000ml 1,000 ML IV SCH ×2 (11:56→19:30)
[2020-09-01 15:00] VITALS: BP 136/89
[2020-09-01 18:00] VITALS: BP 134/91
--- NOTE | 2020-09-01 18:07 | NUR ---
Problems reprioritized. Patient report given, questions answered & plan of care reviewed with Shabana LAMBERT. Patient stable at transfer of care.
--- NOTE | 2020-09-01 18:08 | NUR ---
Problems reprioritized. Patient report given, questions answered & plan of care reviewed with Sharda LAMBERT.
--- NOTE | 2020-09-01 18:15 | NUR ---
Patient in room PCU 3022. I have received report from Xiomara LAMBERT and Kaylene LAMBERT and had the opportunity to ask questions and assume patient care.
[2020-09-01] MEDS: insulin glargine (Lantus) pen - multi-dose SQ SCH (21:22)
[2020-09-01 22:00] VITALS: BP 140/77
[2020-09-02] MEDS: HYDROcodone/acetaminophen 10/325mg tab PO PRN ×4 (00:21→13:21)
[2020-09-02] MEDS: piperacillin/tazo 4.5gm/100ml 100 ML IV SCH ×2 (00:21→08:17)
[2020-09-02 02:00] VITALS: BP 134/91
[2020-09-02] MEDS: morphine 2 MG/ML inj. syringe IV PRN ×3 (02:08→10:03)
[2020-09-02] MEDS: normal saline 1000ml 1,000 ML IV SCH ×2 (05:38→10:34)
[2020-09-02 06:23] LABS: BASOPHILS # (AUTO) 0.1 X10'3 (0-0.2); BASOPHILS % (AUTO) 1.1 % (0-1); EOSINOPHILS # (AUTO) 0.2 X10'3 (0-0.9); EOSINOPHILS % (AUTO) 3.2 % (0-6); HEMATOCRIT 29.2 % (35.0-45.0); HEMOGLOBIN 10.1 g/dl (12.0-16.0); LYMPHOCYTES # (AUTO) 1.9 X10'3 (1.1-4.8); LYMPHOCYTES % (AUTO) 28.7 % (21-51); MEAN CORPUSCULAR HEMOGLOBIN 34.8 PG (27.0-31.0); MEAN CORPUSCULAR HGB CONC 34.6 g/dL (33.0-36.5); MEAN CORPUSCULAR VOLUME 100.5 FL (78-98); MEAN PLATELET VOLUME 8.1 FL (7.4-10.4); MONOCYTES # (AUTO) 0.3 X10'3 (0-0.9); MONOCYTES % (AUTO) 5.1 % (2-12); NEUTROPHILS % (AUTO) 61.9 % (42-75); PLATELET COUNT 351 X10'3 (140-440); RED BLOOD COUNT 2.91 X10'6 (4.20-5.60); RED CELL DISTRIBUTION WIDTH 14.6 % (11.5-14.5); WHITE BLOOD COUNT 6.5 X10'3 (4.5-11.0)
--- NOTE | 2020-09-02 06:26 | NUR ---
Patient in room PCU 3022. I have received report from FAUSTO Donald and had the opportunity to ask questions and assume patient care. Patient in bed and resting. Offers no complaints. All immediate needs met at this time.
--- NOTE | 2020-09-02 06:27 | NUR ---
Patient in room PCU 3022. I have received report from Sharda LAMBERT and had the opportunity to ask questions and assume patient care.
--- NOTE | 2020-09-02 06:36 | NUR ---
[place]rientee documentation: I have reviewed and agree with all interventions, assessments performed and medication administered and documented by Carmen LAMBERT .
--- NOTE | 2020-09-02 06:36 | NUR ---
Problems reprioritized. Patient report given, questions answered & plan of care reviewed with Xiomara LAMBERT.
[2020-09-02 06:59] LABS: ALANINE AMINOTRANSFERASE 33 U/L (12-78); ALBUMIN 1.5 G/DL (3.4-5.0); ALBUMIN/GLOBULIN RATIO 0.3 (1.1-1.5); ALKALINE PHOSPHATASE 129 IU/L (46-116); ANION GAP 8 (8-16); ASPARTATE AMINO TRANSFERASE 16 U/L (10-37); BILIRUBIN,TOTAL 0.7 MG/DL (0.1-1.0); BLOOD UREA NITROGEN 2 MG/DL (7-18); CALCIUM 9.4 MG/DL (8.5-10.1); CHLORIDE 107 MMOL/L (99-107); CREATININE 0.66 MG/DL (0.40-0.90); GLUCOSE 107 MG/DL (70-104); MAGNESIUM 1.5 MG/DL (1.5-2.4); SODIUM 143 MMOL/L (135-145); TOTAL CARBON DIOXIDE 28.3 MMOL/L (24-32); TOTAL PROTEIN 6.3 G/DL (6.4-8.2); eGFR > 90 ML/MIN
[2020-09-02 07:00] VITALS: BP 110/63
[2020-09-02 07:02] LABS: POTASSIUM 2.9 MMOL/L (3.5-5.1)
[2020-09-02] MEDS: K and/or MAG REPLACEMENT MC SCH (08:00)
--- NOTE | 2020-09-02 08:02 | NUR ---
Paged Dr. Mixon: PAGER ID: [phone] MESSAGE: RE: Chanel Mccollum 3022. Potassium 2.9. No protocol ordered. Thank you. Xiomara [phone]
[2020-09-02] MEDS: levoTHYROXINE sod inj. 100mcg/5 ml vial IV SCH (08:17)
[2020-09-02] MEDS: lactobacillus rhamnosus 10,000 MMU CELLS/CAPSULE PO SCH (08:17)
[2020-09-02] MEDS ORDERED: magnesium 4gm in 100ml NS 100 ML IV PRN (09:25)
[2020-09-02] MEDS ORDERED: magnesium Cl slow-release 64mg tablet PO PRN (09:25)
[2020-09-02] MEDS ORDERED: potassium Cl 20 mEq SR tablet PO PRN ×2 (09:25)
[2020-09-02] MEDS ORDERED: potassium Cl 40MEQ/1/2NS 520ml 520 ML IV PRN (09:25)
[2020-09-02] MEDS: insulin Lispro (HumaLOG) vial - multi-dose SQ SCH (10:05)
--- NOTE | 2020-09-02 10:52 | NUR ---
Paged Dr. Mixon: PAGER ID: [phone] MESSAGE: RE: Chanel Mccollum [phone]. Patient unable to swallow potassium pills. Can I order effer k? Xiomara [phone]
[2020-09-02 11:00] VITALS: BP 146/92
[2020-09-02] MEDS ORDERED: POTASSIUM BICARB 20meq eff tab 20 MEQ TABLET.EFF PO PRN (11:22)
[2020-09-02] MEDS ORDERED: POTASSIUM BICARB 20meq eff tab 20 MEQ TABLET.EFF PO SCH (12:00)
[2020-09-02] MEDS: POTASSIUM BICARB 20meq eff tab 20 MEQ TABLET.EFF PO PRN ×2 (12:16→14:15)
[2020-09-02] MEDS ORDERED: magnesium oxide 400mg tablet PO ONE (14:05)
[2020-09-02] MEDS ORDERED: MAGN400C PO (14:12)
[2020-09-02] MEDS ORDERED: AMOX-580 PO (14:12)
[2020-09-02] MEDS ORDERED: METF-950 PO (14:12)
[2020-09-02] MEDS ORDERED: LACT1CAP26 PO (14:12)
[2020-09-02] MEDS ORDERED: LISI2.5T2 PO (14:12)
[2020-09-02] MEDS ORDERED: HYDR-4353 PO (14:16)
[2020-09-02 15:00] VITALS: BP 138/90
[2020-09-02 15:40] LABS: MAGNESIUM 1.5 MG/DL (1.5-2.4); POTASSIUM 3.7 MMOL/L (3.5-5.1)
--- NOTE | 2020-09-02 15:45 | NUR ---
Paged Dr. Mixon: PAGER ID: [phone] MESSAGE: RE: Chanel Mccollum [phone]. FYI Potassium 3.7 Mag 1.5. Discharging patient now. Thank you. Xiomara [phone]
--- NOTE | 2020-09-02 17:13 | NUR ---
Patient is stable for discharge per MD orders. All discharge instructions reviewed with patient and all questions answered. Educated patient on CHRISTOPHER, CHRISTOPHER drainage, and CHRISTOPHER care and self care with a CHRISTOPHER. PIV discontinued cannula intact. shelter monitor discontinued. Belongings sent with patient. Wheeled to lobby. Left with mother in vehicle.
--- NOTE | 2020-09-02 17:35 | NUR ---
[place]rientee documentation: I have reviewed and agree with all interventions, assessments performed and documented by FAUSTO Staley. [place] Medication Administration: For this medication-pass time frame, all medication were reviewed, dispensed, administered and documented per hospital policy by FAUSTO Staley .
[2020-09-02] MEDS ORDERED: K and/or MAG REPLACEMENT MC SCH (20:00)
== END 2020-09-02 17:03 | disposition home health service (06) | DRG 862 ==
LOC: EEVIPCON 20:11 → ER 20:11 → ED HOLD 08-29 01:27 → PCU 3S 08-29 14:11
PROVIDERS: ADMIT Family Medicine; ATTEND Internal Medicine
DX: T81.41XA Infection following a procedure, superficial incisional surgical site, initial encounter (principal); K85.90 Acute pancreatitis without necrosis or infection, unspecified; L02.211 Cutaneous abscess of abdominal wall; E03.9 Hypothyroidism, unspecified; E11.9 Type 2 diabetes mellitus without complications; F17.210 Nicotine dependence, cigarettes, uncomplicated; I10 Essential (primary) hypertension; Z90.49 Acquired absence of other specified parts of digestive tract; Z20.828 Contact with and (suspected) exposure to other viral communicable diseases
CPT/HCPCS: 36415; 49406; 74018; 74177; 80053; 81001; 81025; 82948; 83036; 83605; 83690; 83735; 84132; 84145; 85025; 87070; 87077; 87081; 87186; 87635; 96374; 96375; 99152; 99153; 99285; G0378; J1815; J2250; J2270; J2405; J2543; J3010; J7030; Q9967

== ENCOUNTER 2020-09-30 11:55 | Day surgery (SDC) | payer BC ==
[2020-09-25 10:32] LABS: BASOPHILS # (AUTO) 0.1 X10'3 (0-0.2); BASOPHILS % (AUTO) 0.8 % (0-1); EOSINOPHILS # (AUTO) 0.2 X10'3 (0-0.9); EOSINOPHILS % (AUTO) 1.9 % (0-6); LYMPHOCYTES # (AUTO) 2.5 X10'3 (1.1-4.8); LYMPHOCYTES % (AUTO) 31.8 % (21-51); MEAN CORPUSCULAR HEMOGLOBIN 33.1 PG (27.0-31.0); MEAN CORPUSCULAR HGB CONC 33.8 g/dL (33.0-36.5); MEAN PLATELET VOLUME 8.4 FL (7.4-10.4); MONOCYTES # (AUTO) 0.5 X10'3 (0-0.9); NEUTROPHILS # (AUTO) 4.7 X10'3 (1.8-7.7); NEUTROPHILS % (AUTO) 59.5 % (42-75); PRE OP HEMATOCRIT 41.4 % (35.0-45.0); PRE OP PLATELET COUNT 252 X10'3 (140-440); RED BLOOD COUNT 4.23 X10'6 (4.20-5.60); RED CELL DISTRIBUTION WIDTH 16.1 % (11.5-14.5)
[2020-09-25 10:54] LABS: ALBUMIN 3.4 G/DL (3.4-5.0); ALBUMIN/GLOBULIN RATIO 0.7 (1.1-1.5); ALKALINE PHOSPHATASE 68 IU/L (46-116); BLOOD UREA NITROGEN 9 MG/DL (7-18); BUN/CREATININE RATIO 10.6 (6.6-38.0); CALCIUM 9.8 MG/DL (8.5-10.1); CHLORIDE 100 MMOL/L (99-107); CREATININE 0.85 MG/DL (0.40-0.90); PRE OP ALT 37 U/L (30-65); PRE OP ANION GAP 6 (8-16); PRE OP AST 25 U/L (10-37); PRE OP BILIRUB, TOTAL 1.2 MG/DL (0.0-1.0); PRE OP SODIUM 133 MMOL/L (135-145); TOTAL CARBON DIOXIDE 26.9 MMOL/L (24-32); eGFR 78 ML/MIN
[2020-09-25 10:57] LABS: PRE OP GLUCOSE 261 MG/DL (70-104)
[2020-09-25 11:03] LABS: HCG SERUM QL NEGATIVE
[2020-09-30] VITALS (7 sets, daily range): BP systolic 123–129; BP diastolic 63–89
[~2020-09-30] VITALS: Ht 160 cm; Wt 81.6 kg
[~2020-09-30 11:55] MED LIST changes: +AMOX-580 PO; +LACT1CAP26 PO; +LANTUS SQ; +LISI2.5T2 PO; +MAGN500C16 PO; -METF-436 PO; +METF-900 PO; -MULT-1085 PO; -OXYC10TA47 PO; -POTA-82 PO; +famotidine 20mg tablet PO ONE; +ringers solution, lacted 1,000 ML IV SCH
--- NOTE | 2020-09-30 15:10 | NUR ---
[facility], accompanied by Anesthesiologist Harjeet and report given by Anesthesiolgist. Pt responsive and answering questions, all VS stable. No pain at this time. IVF LR at 100cc/hr. No surgical sites.
--- NOTE | 2020-09-30 16:28 | NUR ---
Pt discharged to vehicle without incident after IV DC'd. Reviewed all DC instructions with her and mother Nicol LAMBERT on phone both verbalized understanding. Pt states her pain is tolerable at 3/10 and will take tylenol at home if still present in a couple of hours. Her CHRISTOPHER drain remains intact. Dr Dalton visited her room prior to discharge and re-confirmed he would like her to come into the office and have her drain taken out in the office. This was relayed to the mother. All belongings including cell phone returned to patient.
== END 2020-09-30 16:28 | disposition home or self-care (01) ==
LOC: PAS 11:55
PROVIDERS: ATTEND Internal Medicine Gastroenterology
DX: Z46.59 Encounter for fitting and adjustment of other gastrointestinal appliance and device (principal); K86.89 Other specified diseases of pancreas; K82.9 Disease of gallbladder, unspecified; Z20.822 Contact with and (suspected) exposure to COVID-19; Z01.810 Encounter for preprocedural cardiovascular examination; E66.9 Obesity, unspecified; E11.9 Type 2 diabetes mellitus without complications; F17.210 Nicotine dependence, cigarettes, uncomplicated
CPT/HCPCS: 36415; 43262; 80053; 82948; 84703; 85025; 87635; 93005; C1769; C9399; J1100; J1610; J2001; J2250; J2405; J2704; J3010; Q9967; A4618; J7120

== ENCOUNTER 2021-05-27 08:12 | Inpatient (IN) | payer BC, OTHER ==
[~2021-05-27] VITALS: Ht 160 cm; Wt 79.0 kg
[~2021-05-27 08:12] MED LIST changes: +LISI2.5T14 PO; -LISI2.5T2 PO; -famotidine 20mg tablet PO ONE; -ringers solution, lacted 1,000 ML IV SCH; +verapamil SR 120mg (sust. release) tab PO ONE
[2021-05-27 09:17] LABS: BASOPHILS % (AUTO) 0.3 % (0-1); EOSINOPHILS % (AUTO) 0.1 % (0-6); HEMATOCRIT 43.8 % (35.0-45.0); LYMPHOCYTES # (AUTO) 0.5 X10'3 (1.1-4.8); LYMPHOCYTES % (AUTO) 4.2 % (21-51); MEAN CORPUSCULAR HEMOGLOBIN 35.7 PG (27.0-31.0); MEAN CORPUSCULAR HGB CONC 34.3 g/dL (33.0-36.5); MEAN CORPUSCULAR VOLUME 104.2 FL (78-98); MEAN PLATELET VOLUME 7.9 FL (7.4-10.4); MONOCYTES # (AUTO) 0.7 X10'3 (0-0.9); MONOCYTES % (AUTO) 6.7 % (2-12); NEUTROPHILS # (AUTO) 9.7 X10'3 (1.8-7.7); NEUTROPHILS % (AUTO) 88.7 % (42-75); PLATELET COUNT 290 X10'3 (140-440); RED BLOOD COUNT 4.21 X10'6 (4.20-5.60); RED CELL DISTRIBUTION WIDTH 13.9 % (11.5-14.5); WHITE BLOOD COUNT 10.9 X10'3 (4.5-11.0)
[2021-05-27] MEDS ORDERED: HYDROcodone/acetaminophen 5mg/325mg tablet PO ONE (09:25)
[2021-05-27] MEDS ORDERED: ondansetron 4mg/5ml UD cup PO ONE (09:25)
[2021-05-27] MEDS ORDERED: ondansetron 4mg rapidly disintigrating tab PO ONE (09:35)
[2021-05-27 09:41] LABS: ALANINE AMINOTRANSFERASE 92 U/L (12-78); ALBUMIN 3.7 G/DL (3.4-5.0); ALBUMIN/GLOBULIN RATIO 0.8 (1.1-1.5); ALKALINE PHOSPHATASE 100 IU/L (46-116); ANION GAP 24 (8-16); ASPARTATE AMINO TRANSFERASE 84 U/L (10-37); BILIRUBIN,TOTAL 2.3 MG/DL (0.1-1.0); BLOOD UREA NITROGEN 4 MG/DL (7-18); BUN/CREATININE RATIO 5.7 (6.6-38.0); CALCIUM 10.8 MG/DL (8.5-10.1); CHLORIDE 95 MMOL/L (99-107); GLUCOSE 201 MG/DL (70-104); POTASSIUM 4.1 MMOL/L (3.5-5.1); SODIUM 139 MMOL/L (135-145); TOTAL CARBON DIOXIDE 20.3 MMOL/L (24-32); TOTAL PROTEIN 8.4 G/DL (6.4-8.2); eGFR > 90 ML/MIN
[2021-05-27 09:43] LABS: LIPASE 1625 U/L (73-393)
[2021-05-27] MEDS ORDERED: ondansetron/PF 4mg/2ml inj IV ONE ×2 (11:20→13:00)
[2021-05-27] MEDS ORDERED: normal saline 1000ML IV soln IVB ONE ×2 (11:20→13:05)
[2021-05-27] MEDS: morphine 4 MG/ML inj SYRINge IV PRN ×4 (11:45→15:16)
[2021-05-27] MEDS ORDERED: normal saline 1000ml 1,000 ML IV ONE (12:50)
[2021-05-27] MEDS ORDERED: [UNRECOGNIZED DRUG - CODE] PO (13:36)
[2021-05-27] MEDS ORDERED: PANT20TA18 PO (13:36)
[2021-05-27] MEDS ORDERED: LISI-790 PO (13:36)
[2021-05-27] MEDS ORDERED: SERT-433 PO (14:12)
[2021-05-27] MEDS ORDERED: glucagon, human recombinant 1mg kit SUBCUT PRN (14:30)
[2021-05-27] MEDS ORDERED: magnesium hydroxide 30ml (MOM) UD suspension PO PRN (14:30)
[2021-05-27] MEDS ORDERED: HYDROcodone/acetaminophen 10/325mg tab PO PRN (14:30)
[2021-05-27] MEDS ORDERED: insulin Lispro (HumaLOG) vial - multi-dose SQ SCH (14:30)
[2021-05-27] MEDS ORDERED: dextrose 50%-water 50ml dispensing syringe IV PRN ×2 (14:30)
[2021-05-27] MEDS ORDERED: MESSAGE TO PHARMACY PO ONE (14:30)
[2021-05-27] MEDS ORDERED: HYDROmorphone inj. 0.5 MG/0.5 ML DISP.SYRIN IV PRN (14:30)
[2021-05-27] MEDS ORDERED: dextrose ORAL solution 15 GM/59 ML bottle PO PRN ×2 (14:30)
[2021-05-27] MEDS ORDERED: mag hydrox/Alum hydrox/simeth 30ml oral suspension PO PRN (14:30)
[2021-05-27] MEDS ORDERED: acetaminophen 325mg tablet PO PRN ×2 (14:30)
[2021-05-27 14:43] LABS: URINE HCG NEGATIVE (NEG)
[2021-05-27] MEDS ORDERED: iohexol 300mg/ml 100ml inj. ONE (14:53)
[2021-05-27 14:54] LABS: COLOR,URINE YELLOW (Yellow); UA COLLECTION TYPE CLN CATCH MIDSTREAM
[2021-05-27 14:55] LABS: CLARITY,URINE CLEAR (Clear); GLUCOSE, URINE NEGATIVE (Neg); KETONES,URINE >=80 mg/dl (Neg); LEUKOCYTE ESTERASE ,URINE NEGATIVE (Neg); NITRITES, URINE NEGATIVE (Neg); OCCULT BLOOD,URINE NEGATIVE (Neg); PROTEIN,URINE TRACE mg/dl (Neg); UROBILINOGEN,URINE 0.2 E.U/dL (0.2-1.0)
[2021-05-27 14:59] LABS: BACTERIA,URINE 2+ /HPF (Neg); RBC,URINE NONE SEEN /HPF (0-2); SQUAMOUS EPITHELIAL CELL,UR MODERATE /LPF (FEW); WBC,URINE 0-4 /HPF (0-4); YEAST FEW /HPF (NEGATIVE)
[2021-05-27 15:00] LABS: COARSE GRANULAR CAST 0-3 /LPF (NEGATIVE); HYALINE CASTS 0-3 /LPF (NEGATIVE)
[2021-05-27 15:01] LABS: MUCUS STRANDS MODERATE /LPF (Neg)
[2021-05-27 15:11] LABS: HEMOGLOBIN A1C 5.4 % (4.5-6.2)
--- NOTE | 2021-05-27 15:31 | NUR ---
CALLED ER FOR REPORT AWAITING CALL BACK
--- NOTE | 2021-05-27 15:37 | NUR ---
Patient in room . I have received report from WENDI LAMBERT and had the opportunity to ask questions and assume patient care.
[2021-05-27] MEDS: normal saline 1000ml 1,000 ML IV SCH (16:08)
[2021-05-27 16:15] VITALS: BP 150/99
--- NOTE | 2021-05-27 16:17 | NUR ---
PAGER ID: [phone] MESSAGE: YAMIL LAMBERT [phone] RE: ADITYA BRAY 351. PT C/0 06/06 PAIN. REQUESTING MORTASIA LARSON & OXY. THANK YOU
[2021-05-27] MEDS ORDERED: naloxone 0.4 mg/ml inj IV PRN (16:45)
[2021-05-27] MEDS ORDERED: morphine 4 MG/ML inj SYRINge IV ONE (17:35)
[2021-05-27 19:00] VITALS: BP 169/101
[2021-05-27] MEDS: morphine/NS 1 mg/ml 50ml CADD 50 ML IV SCH ×4 (19:00→23:00)
[2021-05-27] MEDS: MESSAGE TO NURSING PO SCH (19:09)
[2021-05-27] MEDS: magnesium oxide 400mg tablet PO SCH (19:57)
[2021-05-27] MEDS: docusate sod 100mg capsule PO SCH (19:58)
[2021-05-27] MEDS ORDERED: insulin glargine (Lantus) pen - multi-dose SQ SCH (21:00)
--- NOTE | 2021-05-27 21:00 | NUR ---
Blood sugar 214, pt just vomited approx 500ml light green and has chosen not to receive Lantus at this time. Pt states that she has woken up shakey and her blood sugar was in the 40s, taking 3 hrs to get to normal. Will continue to monitor and treat as ordered. Addendum: 05/27/21 at 2224 by Rebeka Espitia RN Amended: Links added.
[2021-05-27] MEDS ORDERED: lisinopril 5mg tablet PO ONE (23:45)
[2021-05-28] VITALS: BP 166/105
[2021-05-28] MEDS ORDERED: verapamil SR 120mg (sust. release) tab PO ONE (00:20)
[2021-05-28] MEDS: normal saline 1000ml 1,000 ML IV SCH ×4 (00:30→23:29)
[2021-05-28] MEDS: morphine/NS 1 mg/ml 50ml CADD 50 ML IV SCH ×12 (01:00→23:00)
[2021-05-28] MEDS ORDERED: CefTRIAXone/D5W-Rocephin 1gm 50 ML IV ONE (02:30)
[2021-05-28] MEDS: ondansetron/PF 4mg/2ml inj IV PRN ×2 (05:51→14:20)
[2021-05-28 07:00] LABS: ANION GAP 16 (8-16); BLOOD UREA NITROGEN 2 MG/DL (7-18); BUN/CREATININE RATIO 3.4 (6.6-38.0); CHLORIDE 92 MMOL/L (99-107); CREATININE 0.58 MG/DL (0.40-0.90); GLUCOSE 205 MG/DL (70-104); POTASSIUM 3.7 MMOL/L (3.5-5.1); SODIUM 131 MMOL/L (135-145)
[2021-05-28 07:01] LABS: ALANINE AMINOTRANSFERASE 63 U/L (12-78); ALBUMIN 3.1 G/DL (3.4-5.0); ALBUMIN/GLOBULIN RATIO 0.7 (1.1-1.5); ALKALINE PHOSPHATASE 91 IU/L (46-116); ASPARTATE AMINO TRANSFERASE 42 U/L (10-37); BILIRUBIN,TOTAL 1.4 MG/DL (0.1-1.0); CALCIUM 8.8 MG/DL (8.5-10.1); TOTAL PROTEIN 7.8 G/DL (6.4-8.2); eGFR > 90 ML/MIN
[2021-05-28] MEDS: magnesium oxide 400mg tablet PO SCH ×2 (07:02→22:33)
[2021-05-28] MEDS: docusate sod 100mg capsule PO SCH ×2 (07:02→22:35)
[2021-05-28] MEDS: levoTHYROXINE 100mcg tablet PO SCH (07:02)
[2021-05-28] MEDS: sertraline 50mg tablet PO SCH (07:03)
[2021-05-28] MEDS: pantoprazole 40mg Tablet.DR PO SCH (07:03)
[2021-05-28] MEDS: metoclopramide 5 mg/ml inj IV PRN ×2 (07:59→16:58)
[2021-05-28] MEDS: MESSAGE TO NURSING PO SCH (10:00)
[2021-05-28 10:53] LABS: BASOPHILS % (AUTO) 0.5 % (0-1); EOSINOPHILS % (AUTO) 0.2 % (0-6); HEMATOCRIT 42.8 % (35.0-45.0); HEMOGLOBIN 14.9 g/dl (12.0-16.0); LYMPHOCYTES # (AUTO) 0.7 X10'3 (1.1-4.8); LYMPHOCYTES % (AUTO) 8.9 % (21-51); MEAN CORPUSCULAR HEMOGLOBIN 36.1 PG (27.0-31.0); MEAN CORPUSCULAR HGB CONC 34.9 g/dL (33.0-36.5); MEAN CORPUSCULAR VOLUME 103.5 FL (78-98); MEAN PLATELET VOLUME 7.6 FL (7.4-10.4); MONOCYTES # (AUTO) 0.4 X10'3 (0-0.9); MONOCYTES % (AUTO) 5.7 % (2-12); NEUTROPHILS # (AUTO) 6.5 X10'3 (1.8-7.7); NEUTROPHILS % (AUTO) 84.7 % (42-75); PLATELET COUNT 243 X10'3 (140-440); RED BLOOD COUNT 4.13 X10'6 (4.20-5.60); RED CELL DISTRIBUTION WIDTH 13.7 % (11.5-14.5); WHITE BLOOD COUNT 7.7 X10'3 (4.5-11.0)
[2021-05-28 11:30] VITALS: BP 141/84
[2021-05-28 11:57] VITALS: BP 149/96
[2021-05-28] MEDS: piperacillin/tazo 3.375gm/50ml 50 ML IV SCH (16:58)
[2021-05-28 18:00] VITALS: BP 140/80
[2021-05-28 18:44] LABS: CHOL/HDL RATIO 1.6 (0.00-4.99); CHOLESTEROL 204 MG/DL (0-200); HDL CHOLESTEROL 125 MG/DL (35-60); LDL CHOLESTEROL 48 MG/DL (50-100); LIPASE 988 U/L (73-393); TRIGLYCERIDES 65 MG/DL (20-135)
[2021-05-28] MEDS ORDERED: CefTRIAXone/D5W-Rocephin 1gm 50 ML IV SCH (21:00)
[2021-05-28] MEDS ORDERED: lisinopril 5mg tablet PO SCH (21:00)
[2021-05-28] MEDS: lactobacillus rhamnosus 10,000 MMU CELLS/CAPSULE PO SCH (22:33)
[2021-05-28] MEDS: verapamil SR 120mg (sust. release) tab PO SCH (22:34)
[2021-05-28] MEDS: polyethylene glycol 3350 17gm powd pack PO SCH (22:34)
--- NOTE | 2021-05-28 23:34 | NUR ---
Patient in room MAHENDRA 351. I have received report from Daisy LAMBERT and had the opportunity to ask questions and assume patient care.
[2021-05-29] VITALS: BP 165/113
[2021-05-29] MEDS: piperacillin/tazo 3.375gm/50ml 50 ML IV SCH ×4 (00:56→23:35)
[2021-05-29] MEDS: morphine/NS 1 mg/ml 50ml CADD 50 ML IV SCH ×12 (01:00→23:00)
[2021-05-29] MEDS: normal saline 1000ml 1,000 ML IV SCH ×3 (02:07→14:00)
[2021-05-29 06:10] LABS: BASOPHILS % (AUTO) 0.6 % (0-1); EOSINOPHILS % (AUTO) 0.4 % (0-6); HEMATOCRIT 42.7 % (35.0-45.0); LYMPHOCYTES # (AUTO) 0.8 X10'3 (1.1-4.8); LYMPHOCYTES % (AUTO) 10.2 % (21-51); MEAN CORPUSCULAR HEMOGLOBIN 36.2 PG (27.0-31.0); MEAN CORPUSCULAR VOLUME 103.2 FL (78-98); MEAN PLATELET VOLUME 8.3 FL (7.4-10.4); MONOCYTES # (AUTO) 0.5 X10'3 (0-0.9); MONOCYTES % (AUTO) 6.1 % (2-12); NEUTROPHILS # (AUTO) 6.4 X10'3 (1.8-7.7); NEUTROPHILS % (AUTO) 82.7 % (42-75); PLATELET COUNT 238 X10'3 (140-440); RED BLOOD COUNT 4.14 X10'6 (4.20-5.60); RED CELL DISTRIBUTION WIDTH 13.5 % (11.5-14.5); WHITE BLOOD COUNT 7.7 X10'3 (4.5-11.0)
[2021-05-29 06:19] LABS: ALANINE AMINOTRANSFERASE 60 U/L (12-78); ALBUMIN 2.5 G/DL (3.4-5.0); ALBUMIN/GLOBULIN RATIO 0.5 (1.1-1.5); ALKALINE PHOSPHATASE 103 IU/L (46-116); ANION GAP 15 (8-16); ASPARTATE AMINO TRANSFERASE 81 U/L (10-37); BILIRUBIN,TOTAL 1.2 MG/DL (0.1-1.0); BLOOD UREA NITROGEN 2 MG/DL (7-18); BUN/CREATININE RATIO 3.1 (6.6-38.0); CALCIUM 8.2 MG/DL (8.5-10.1); CHLORIDE 97 MMOL/L (99-107); CREATININE 0.64 MG/DL (0.40-0.90); GLUCOSE 195 MG/DL (70-104); POTASSIUM 3.5 MMOL/L (3.5-5.1); SODIUM 135 MMOL/L (135-145); TOTAL CARBON DIOXIDE 22.7 MMOL/L (24-32); TOTAL PROTEIN 7.2 G/DL (6.4-8.2); eGFR > 90 ML/MIN
--- NOTE | 2021-05-29 06:32 | NUR ---
Problems reprioritized. Patient report given, questions answered & plan of care reviewed with Carlota LAMBERT.
[2021-05-29] MEDS: CADD PCA waste documentation MC PRN (06:41)
[2021-05-29] MEDS: docusate sod 100mg capsule PO SCH ×2 (07:43→20:00)
[2021-05-29] MEDS: pantoprazole 40mg Tablet.DR PO SCH (07:43)
[2021-05-29] MEDS: lactobacillus rhamnosus 10,000 MMU CELLS/CAPSULE PO SCH ×2 (07:43→21:16)
[2021-05-29] MEDS: magnesium oxide 400mg tablet PO SCH ×2 (07:43→21:19)
[2021-05-29] MEDS: levoTHYROXINE 100mcg tablet PO SCH (07:43)
[2021-05-29] MEDS: sertraline 50mg tablet PO SCH (07:45)
[2021-05-29 08:00] VITALS: BP 127/83
[2021-05-29] MEDS: ondansetron/PF 4mg/2ml inj IV PRN (08:57)
[2021-05-29] MEDS ORDERED: lisinopril 10 MG tablet PO SCH (09:25)
[2021-05-29] MEDS: MESSAGE TO NURSING PO SCH (10:00)
[2021-05-29 10:02] LABS: LIPASE 99 U/L (73-393)
[2021-05-29 11:00] VITALS: BP 116/74
[2021-05-29] MEDS ORDERED: furosemide 40mg/4ml inj IV ONE (11:55)
[2021-05-29] MEDS ORDERED: dextrose 50%-water 50ml dispensing syringe IV PRN ×2 (11:55)
[2021-05-29] MEDS ORDERED: MESSAGE TO PHARMACY PO ONE (11:55)
[2021-05-29] MEDS ORDERED: dextrose ORAL solution 15 GM/59 ML bottle PO PRN ×2 (11:55)
[2021-05-29] MEDS ORDERED: glucagon, human recombinant 1mg kit SUBCUT PRN (11:55)
[2021-05-29 12:35] LABS: ABG BASE EXCESS -2.1 mmol/L (-2.0-2.0); ABG HCO3 21.6 mmol/L (22.0-26.0); ABG OXYGEN SATURATION 86.3 % (94-97); ABG PCO2 (T) 34.3 mmHg (32.0-45.0); ABG PO2 (T) 49.9 mmHg (75.0-100.0); ALLEN'S TEST POSITIVE; FCOHb 0.9 % (0.0-3.9); FLOW 3 L/min; FMetHb 0.1 % (0.0-1.5); FO2Hb 85.4 % (94-97)
--- NOTE | 2021-05-29 12:44 | NUR ---
Pt ABG with critical PO2 of 49.9. Dr Saba paged. RT has turned up 02 to 6L for now. Lasix given. No obvious signs of distress. Will continue to monitor oxygen and output. NS turned down to 100ML/HR. CXR pending. Fine crackles on RT assessment noted.
[2021-05-29] MEDS: insulin Lispro (HumaLOG) vial - multi-dose SQ SCH (13:32)
--- NOTE | 2021-05-29 18:00 | NUR ---
Report given to BEATRIZ RN, pt doing well but still requiring oxygen. Less pain for now. JT to resume care
[2021-05-29 19:00] VITALS: BP 128/78
[2021-05-29] MEDS: insulin glargine (Lantus) pen - multi-dose SQ SCH (21:14)
[2021-05-29] MEDS: polyethylene glycol 3350 17gm powd pack PO SCH (21:15)
[2021-05-29] MEDS: lisinopril 5mg tablet PO SCH (21:16)
[2021-05-29] MEDS: verapamil SR 120mg (sust. release) tab PO SCH (21:19)
[2021-05-30] VITALS: BP 118/81
[2021-05-30] MEDS: morphine/NS 1 mg/ml 50ml CADD 50 ML IV SCH ×12 (01:00→23:00)
[2021-05-30] MEDS: normal saline 1000ml 1,000 ML IV SCH ×2 (05:14→16:48)
--- NOTE | 2021-05-30 05:28 | NUR ---
Patient in room MAHENDRA 351. I have received report from Carlota LAMBERT and had the opportunity to ask questions and assume patient care.
--- NOTE | 2021-05-30 06:07 | NUR ---
Problems reprioritized. Patient report given, questions answered & plan of care reviewed with Carlota LAMBERT.
[2021-05-30 06:39] LABS: BASOPHILS % (AUTO) 0.9 % (0-1); EOSINOPHILS # (AUTO) 0.1 X10'3 (0-0.9); HEMATOCRIT 43.2 % (35.0-45.0); HEMOGLOBIN 14.6 g/dl (12.0-16.0); LYMPHOCYTES # (AUTO) 1.1 X10'3 (1.1-4.8); LYMPHOCYTES % (AUTO) 19.1 % (21-51); MEAN CORPUSCULAR HEMOGLOBIN 35.6 PG (27.0-31.0); MEAN CORPUSCULAR HGB CONC 33.9 g/dL (33.0-36.5); MEAN CORPUSCULAR VOLUME 105.1 FL (78-98); MEAN PLATELET VOLUME 8.6 FL (7.4-10.4); MONOCYTES # (AUTO) 0.6 X10'3 (0-0.9); MONOCYTES % (AUTO) 10.1 % (2-12); NEUTROPHILS # (AUTO) 3.8 X10'3 (1.8-7.7); NEUTROPHILS % (AUTO) 67.9 % (42-75); PLATELET COUNT 237 X10'3 (140-440); RED BLOOD COUNT 4.11 X10'6 (4.20-5.60); RED CELL DISTRIBUTION WIDTH 13.6 % (11.5-14.5); WHITE BLOOD COUNT 5.6 X10'3 (4.5-11.0)
[2021-05-30 07:05] LABS: ALANINE AMINOTRANSFERASE 60 U/L (12-78); ALBUMIN 2.6 G/DL (3.4-5.0); ALBUMIN/GLOBULIN RATIO 0.5 (1.1-1.5); ALKALINE PHOSPHATASE 106 IU/L (46-116); ANION GAP 15 (8-16); ASPARTATE AMINO TRANSFERASE 51 U/L (10-37); BILIRUBIN,TOTAL 1.3 MG/DL (0.1-1.0); BLOOD UREA NITROGEN 4 MG/DL (7-18); CHLORIDE 95 MMOL/L (99-107); CREATININE 0.57 MG/DL (0.40-0.90); GLUCOSE 126 MG/DL (70-104); SODIUM 134 MMOL/L (135-145); TOTAL CARBON DIOXIDE 24.2 MMOL/L (24-32); TOTAL PROTEIN 7.6 G/DL (6.4-8.2); eGFR > 90 ML/MIN
[2021-05-30] MEDS: CADD PCA waste documentation MC PRN (07:17)
[2021-05-30] MEDS: piperacillin/tazo 3.375gm/50ml 50 ML IV SCH (07:24)
[2021-05-30 07:30] VITALS: BP 113/87
[2021-05-30] MEDS ORDERED: potassium Cl 20 mEq SR tablet PO PRN ×2 (07:30)
[2021-05-30] MEDS ORDERED: potassium Cl 40MEQ/1/2NS 520ml 520 ML IV PRN (07:30)
[2021-05-30] MEDS ORDERED: magnesium 4gm in 100ml NS 100 ML IV PRN (07:30)
[2021-05-30] MEDS ORDERED: magnesium Cl slow-release 64mg tablet PO PRN (07:30)
[2021-05-30] MEDS: pantoprazole 40mg Tablet.DR PO SCH (07:32)
[2021-05-30] MEDS: lactobacillus rhamnosus 10,000 MMU CELLS/CAPSULE PO SCH ×2 (07:32→20:54)
[2021-05-30] MEDS: levoTHYROXINE 100mcg tablet PO SCH (07:33)
[2021-05-30] MEDS: docusate sod 100mg capsule PO SCH ×2 (07:33→20:00)
[2021-05-30] MEDS: magnesium oxide 400mg tablet PO SCH ×2 (07:34→20:54)
--- NOTE | 2021-05-30 07:43 | NUR ---
POTASSIUM 3.0, DR ALBERT PAGED. WILL REPLACE PER PROTOCOL
[2021-05-30] MEDS ORDERED: POTASSIUM BICARB 20meq eff tab 20 MEQ TABLET.EFF PO PRN (07:45)
[2021-05-30] MEDS: sertraline 50mg tablet PO SCH (08:00)
[2021-05-30] MEDS: K and/or MAG REPLACEMENT MC SCH ×2 (08:44→20:00)
[2021-05-30] MEDS: POTASSIUM BICARB 20meq eff tab 20 MEQ TABLET.EFF PO PRN ×3 (08:45→16:48)
[2021-05-30 11:00] VITALS: BP 130/86
[2021-05-30] MEDS: levoFLOXACIN-Levaquin 500mg/D5 100 ML IV SCH (12:03)
--- NOTE | 2021-05-30 17:54 | NUR ---
Chetna Rn and student to take over this pt. pt awake in bed, doing well, no distress.
--- NOTE | 2021-05-30 18:30 | NUR ---
Patient in room MAHENDRA 351. I have received report from HAWK and had the opportunity to ask questions and assume patient care.
[2021-05-30 19:00] VITALS: BP 127/83
[2021-05-30] MEDS: verapamil SR 120mg (sust. release) tab PO SCH (20:53)
[2021-05-30] MEDS: lisinopril 5mg tablet PO SCH (20:53)
[2021-05-30] MEDS: polyethylene glycol 3350 17gm powd pack PO SCH (20:54)
[2021-05-30] MEDS: insulin glargine (Lantus) pen - multi-dose SQ SCH (20:55)
[2021-05-30 23:00] VITALS: BP 100/59
[2021-05-31] MEDS: normal saline 1000ml 1,000 ML IV SCH ×2 (00:40→10:22)
[2021-05-31] MEDS: morphine/NS 1 mg/ml 50ml CADD 50 ML IV SCH ×6 (01:00→09:58)
[2021-05-31 06:05] LABS: BASOPHILS % (AUTO) 1.1 % (0-1); EOSINOPHILS # (AUTO) 0.1 X10'3 (0-0.9); EOSINOPHILS % (AUTO) 2.1 % (0-6); HEMATOCRIT 38.6 % (35.0-45.0); HEMOGLOBIN 13.3 g/dl (12.0-16.0); LYMPHOCYTES # (AUTO) 0.8 X10'3 (1.1-4.8); LYMPHOCYTES % (AUTO) 20.7 % (21-51); MEAN CORPUSCULAR HEMOGLOBIN 35.8 PG (27.0-31.0); MEAN CORPUSCULAR HGB CONC 34.5 g/dL (33.0-36.5); MEAN CORPUSCULAR VOLUME 103.8 FL (78-98); MEAN PLATELET VOLUME 7.6 FL (7.4-10.4); MONOCYTES # (AUTO) 0.5 X10'3 (0-0.9); MONOCYTES % (AUTO) 12.6 % (2-12); NEUTROPHILS # (AUTO) 2.6 X10'3 (1.8-7.7); NEUTROPHILS % (AUTO) 63.5 % (42-75); PLATELET COUNT 206 X10'3 (140-440); RED BLOOD COUNT 3.72 X10'6 (4.20-5.60); RED CELL DISTRIBUTION WIDTH 13.2 % (11.5-14.5); WHITE BLOOD COUNT 4.1 X10'3 (4.5-11.0)
[2021-05-31 06:33] LABS: ALANINE AMINOTRANSFERASE 50 U/L (12-78); ALBUMIN 2.4 G/DL (3.4-5.0); ALBUMIN/GLOBULIN RATIO 0.5 (1.1-1.5); ALKALINE PHOSPHATASE 102 IU/L (46-116); ANION GAP 13 (8-16); ASPARTATE AMINO TRANSFERASE 45 U/L (10-37); BLOOD UREA NITROGEN 2 MG/DL (7-18); BUN/CREATININE RATIO 3.4 (6.6-38.0); CALCIUM 8.6 MG/DL (8.5-10.1); CHLORIDE 102 MMOL/L (99-107); CREATININE 0.58 MG/DL (0.40-0.90); GLUCOSE 161 MG/DL (70-104); POTASSIUM 4.2 MMOL/L (3.5-5.1); SODIUM 140 MMOL/L (135-145); TOTAL CARBON DIOXIDE 25.4 MMOL/L (24-32); TOTAL PROTEIN 6.9 G/DL (6.4-8.2); eGFR > 90 ML/MIN
--- NOTE | 2021-05-31 06:40 | NUR ---
Problems reprioritized. Patient report given, questions answered & plan of care reviewed with HAO.
--- NOTE | 2021-05-31 06:42 | NUR ---
Patient in room MAHENDRA 351. I have received report from Chetna LAMBERT and had the opportunity to ask questions and assume patient care.
[2021-05-31] MEDS: lactobacillus rhamnosus 10,000 MMU CELLS/CAPSULE PO SCH ×2 (07:26→21:08)
[2021-05-31] MEDS: pantoprazole 40mg Tablet.DR PO SCH (07:26)
[2021-05-31] MEDS: levoTHYROXINE 100mcg tablet PO SCH (07:26)
[2021-05-31] MEDS: docusate sod 100mg capsule PO SCH ×2 (07:27→21:08)
[2021-05-31] MEDS: sertraline 50mg tablet PO SCH (07:27)
[2021-05-31] MEDS: magnesium oxide 400mg tablet PO SCH ×2 (07:27→21:08)
[2021-05-31 08:00] VITALS: BP 118/81
[2021-05-31] MEDS ORDERED: levoFLOXACIN-Levaquin 500mg/D5 100 ML IV SCH (08:00)
[2021-05-31] MEDS: K and/or MAG REPLACEMENT MC SCH ×2 (08:00→20:00)
--- NOTE | 2021-05-31 10:08 | NUR ---
pt CADD morphine was all out, there was nothing to waste, disposed in the sharps container. started a new canister and set up and cosigned with Daisy LAMBERT.
[2021-05-31 11:00] VITALS: BP 135/90
[2021-05-31] MEDS: CADD PCA waste documentation MC PRN (11:14)
--- NOTE | 2021-05-31 11:27 | NUR ---
Page Sent PAGER ID: [phone] MESSAGE: [phone] Carriero, can I advance pts diet to CC, she is stating that she is hungry. thanks corey [phone]
[2021-05-31] MEDS: ipratropium/albuterol 3ml nebule NEB PRN (11:30)
[2021-05-31] MEDS: levoFLOXACIN-Levaquin 500mg/D5 100 ML IV SCH (12:16)
[2021-05-31] MEDS: HYDROcodone/acetaminophen 5mg/325mg tablet PO PRN ×2 (12:50→17:42)
--- NOTE | 2021-05-31 18:35 | NUR ---
Problems reprioritized. Patient report given, questions answered & plan of care reviewed with Chetna Fernandes.
[2021-05-31 19:00] VITALS: BP 163/93
[2021-05-31] MEDS: insulin Lispro (HumaLOG) vial - multi-dose SQ SCH (19:14)
[2021-05-31] MEDS: insulin glargine (Lantus) pen - multi-dose SQ SCH (21:04)
[2021-05-31] MEDS: verapamil SR 120mg (sust. release) tab PO SCH (21:07)
[2021-05-31] MEDS: lisinopril 5mg tablet PO SCH (21:07)
[2021-05-31] MEDS: polyethylene glycol 3350 17gm powd pack PO SCH (21:07)
[2021-05-31] MEDS: oxyCODONE/APAP 5-325mg tablet PO PRN (21:47)
[2021-05-31 23:00] VITALS: BP 134/89
[2021-06-01] MEDS: oxyCODONE/APAP 5-325mg tablet PO PRN ×6 (02:24→23:59)
--- NOTE | 2021-06-01 06:30 | NUR ---
Problems reprioritized. Patient report given, questions answered & plan of care reviewed with
[2021-06-01 06:34] LABS: BASOPHILS % (AUTO) 0.7 % (0-1); EOSINOPHILS # (AUTO) 0.1 X10'3 (0-0.9); EOSINOPHILS % (AUTO) 1.7 % (0-6); HEMATOCRIT 40.1 % (35.0-45.0); HEMOGLOBIN 13.4 g/dl (12.0-16.0); LYMPHOCYTES % (AUTO) 28.2 % (21-51); MEAN CORPUSCULAR HEMOGLOBIN 35.1 PG (27.0-31.0); MEAN CORPUSCULAR HGB CONC 33.5 g/dL (33.0-36.5); MEAN CORPUSCULAR VOLUME 104.8 FL (78-98); MEAN PLATELET VOLUME 8.2 FL (7.4-10.4); MONOCYTES # (AUTO) 0.5 X10'3 (0-0.9); MONOCYTES % (AUTO) 14.5 % (2-12); NEUTROPHILS # (AUTO) 1.9 X10'3 (1.8-7.7); NEUTROPHILS % (AUTO) 54.9 % (42-75); PLATELET COUNT 227 X10'3 (140-440); RED BLOOD COUNT 3.83 X10'6 (4.20-5.60); WHITE BLOOD COUNT 3.5 X10'3 (4.5-11.0)
[2021-06-01 07:00] VITALS: BP 134/80
[2021-06-01 07:00] LABS: ALANINE AMINOTRANSFERASE 52 U/L (12-78); ALBUMIN 2.1 G/DL (3.4-5.0); ALBUMIN/GLOBULIN RATIO 0.5 (1.1-1.5); ALKALINE PHOSPHATASE 98 IU/L (46-116); ANION GAP 11 (8-16); ASPARTATE AMINO TRANSFERASE 48 U/L (10-37); BILIRUBIN,TOTAL 0.7 MG/DL (0.1-1.0); BLOOD UREA NITROGEN 4 MG/DL (7-18); BUN/CREATININE RATIO 7.1 (6.6-38.0); CALCIUM 9.4 MG/DL (8.5-10.1); CHLORIDE 105 MMOL/L (99-107); CREATININE 0.56 MG/DL (0.40-0.90); GLUCOSE 221 MG/DL (70-104); MAGNESIUM 1.5 MG/DL (1.5-2.4); PHOSPHORUS 3.4 MG/DL (2.3-4.5); POTASSIUM 4.2 MMOL/L (3.5-5.1); SODIUM 142 MMOL/L (135-145); TOTAL CARBON DIOXIDE 25.9 MMOL/L (24-32); TOTAL PROTEIN 6.4 G/DL (6.4-8.2); eGFR > 90 ML/MIN
[2021-06-01] MEDS: levoTHYROXINE 100mcg tablet PO SCH (07:02)
[2021-06-01] MEDS: K and/or MAG REPLACEMENT MC SCH ×2 (08:00→20:00)
[2021-06-01] MEDS: sertraline 50mg tablet PO SCH (08:00)
[2021-06-01] MEDS: docusate sod 100mg capsule PO SCH ×2 (08:00→19:49)
[2021-06-01] MEDS: ipratropium/albuterol 3ml nebule NEB PRN (08:52)
[2021-06-01] MEDS ORDERED: FLU VACC QS2021-22(6MOS UP)/PF 60 MCG/0.5 ML SYRINGE IM ONE (10:00)
[2021-06-01] MEDS: insulin Lispro (HumaLOG) vial - multi-dose SQ SCH ×4 (10:01→21:21)
[2021-06-01] MEDS: levoFLOXACIN-Levaquin 500mg/D5 100 ML IV SCH (10:02)
[2021-06-01] MEDS: lactobacillus rhamnosus 10,000 MMU CELLS/CAPSULE PO SCH ×2 (10:03→19:51)
[2021-06-01] MEDS: pantoprazole 40mg Tablet.DR PO SCH (10:06)
[2021-06-01] MEDS: magnesium oxide 400mg tablet PO SCH ×2 (10:06→19:51)
[2021-06-01 11:00] VITALS: BP 141/99
--- NOTE | 2021-06-01 14:42 | NUR ---
Initial: Pt admit for acute pancreatitis. CT abdomen showed signs of chronic splenic vein thrombosis and possible 3.3 cm pseudocyst in the head of the pancreas per MD note. Pt initially NPO and diet was slowly advanced to CHO controlled 05/31. Pt documented with average 50% PO intake not meeting estimated nutrient needs, pending documentation of PO intake for today. Noted pt with c/o 03/06 abdominal pain, possibly interfering with appetite/PO intake. LBM 05/31. Will continue to follow closely and make recommendations as appropriate pending further trends in PO intake. Recommendations: 1) Continue CHO controlled diet; monitor BG levels and possibility for diet advancement to regular or low fat given A1c 5.4% 2) Monitor need for ONS 3) Routine bowel care 4) Scaled weight this admit; weekly scaled weights thereafter Addendum: 06/01/21 at [address] Amended: Links added.
[2021-06-01] MEDS ORDERED: iohexol 350MG/ML 100ml bottle IV ONE (15:41)
--- NOTE | 2021-06-01 18:45 | NUR ---
Patient in room MAHENDRA 351. I have received report from HAWK LAMBERT and had the opportunity to ask questions and assume patient care.
--- NOTE | 2021-06-01 19:00 | NUR ---
Report given to Miriam Pineda RN. All questions answered. Pt still desats at times into high 80's but recovers into 90's quickly. No current concerns at this time.
--- NOTE | 2021-06-01 19:30 | NUR ---
Patient in room MAHENDRA 351. I have received report from FAUSTO Barber and had the opportunity to ask questions and assume patient care.
--- NOTE | 2021-06-01 19:30 | NUR ---
Patient report given, questions answered & plan of care reviewed with ITZEL LAMBERT.
--- NOTE | 2021-06-01 19:32 | NUR ---
Patient in room MAHENDRA 351. I have received report from Miriam Pineda RN and had the opportunity to ask questions and assume patient care.
[2021-06-01 21:12] VITALS: BP 149/107
[2021-06-01] MEDS: verapamil SR 120mg (sust. release) tab PO SCH (21:12)
[2021-06-01] MEDS: polyethylene glycol 3350 17gm powd pack PO SCH (21:19)
[2021-06-01] MEDS: lisinopril 5mg tablet PO SCH (21:19)
[2021-06-01] MEDS: insulin glargine (Lantus) pen - multi-dose SQ SCH (21:26)
[2021-06-02] VITALS: BP 126/79
[2021-06-02] MEDS: oxyCODONE/APAP 5-325mg tablet PO PRN ×2 (04:40→08:39)
--- NOTE | 2021-06-02 06:30 | NUR ---
Patient in room MAHENDRA 351. I have received report from Massiel LAMBERT and had the opportunity to ask questions and assume patient care.
--- NOTE | 2021-06-02 06:51 | NUR ---
Problems reprioritized. Patient report given, questions answered & plan of care reviewed with FAUSTO Medeiros.
--- NOTE | 2021-06-02 06:52 | NUR ---
Problems reprioritized. Patient report given, questions answered & plan of care reviewed with Yazmin LAMBERT.
[2021-06-02 08:00] VITALS: BP 137/95
[2021-06-02] MEDS: K and/or MAG REPLACEMENT MC SCH (08:00)
[2021-06-02 08:12] LABS: MAGNESIUM 1.3 MG/DL (1.5-2.4); PHOSPHORUS 5.3 MG/DL (2.3-4.5)
[2021-06-02] MEDS: sertraline 50mg tablet PO SCH ×2 (08:37→09:01)
[2021-06-02] MEDS: lactobacillus rhamnosus 10,000 MMU CELLS/CAPSULE PO SCH (08:37)
[2021-06-02] MEDS: docusate sod 100mg capsule PO SCH (08:37)
[2021-06-02] MEDS: levoTHYROXINE 100mcg tablet PO SCH (08:38)
[2021-06-02] MEDS: pantoprazole 40mg Tablet.DR PO SCH (08:40)
[2021-06-02] MEDS: magnesium oxide 400mg tablet PO SCH (08:40)
[2021-06-02] MEDS: heparin, porcine 5000 units/ml vial SQ SCH ×2 (08:49)
[2021-06-02] MEDS: insulin Lispro (HumaLOG) vial - multi-dose SQ SCH (09:14)
--- NOTE | 2021-06-02 09:16 | NUR ---
Patient refused sertraline after its been open, meds wasted. Addendum: 06/02/21 at 1325 by Yazmin QUINN RN Rosemarie LAMBERT witness waste
[2021-06-02] MEDS ORDERED: calcium acetate 667mg (PhosLO) capsule PO SCH (10:05)
[2021-06-02] MEDS ORDERED: LISI-790 PO (10:10)
[2021-06-02] MEDS ORDERED: LACT1CAP26 PO (10:10)
[2021-06-02] MEDS ORDERED: LEVO750T46 PO (10:10)
[2021-06-02] MEDS ORDERED: METF-950 PO (10:10)
[2021-06-02] MEDS ORDERED: PHO667C PO (10:10)
[2021-06-02] MEDS ORDERED: HYDR-3965 PO (10:10)
[2021-06-02] MEDS ORDERED: levoFLOXACIN 750MG TABLET PO ONE (10:55)
[2021-06-02 11:00] VITALS: BP 138/97
--- NOTE | 2021-06-02 13:23 | NUR ---
Patient stable at the time of discharge. IV was discontinue, patient belongs given to patient. Discharge instruction given to patient. Patient verbalized understanding of instruction given.Patient taken out of unit at 1305 using a wheelchair, patient left hospital with family member in a private car
== END 2021-06-02 13:00 | disposition home or self-care (01) | DRG 871 ==
LOC: ER 08:12 → ED HOLD 14:31 → SUR 3N 15:47
PROVIDERS: ADMIT Internal Medicine; ATTEND Internal Medicine
PROC: BW211ZZ Computerized Tomography (CT Scan) of Abdomen and Pelvis using Low Osmolar Contrast (ICD-10-PCS; 2021-05-27)
PROC: 3E02340 Introduction of Influenza Vaccine into Muscle, Percutaneous Approach (ICD-10-PCS; principal; 2021-06-01)
PROC: B32T1ZZ Computerized Tomography (CT Scan) of Left Pulmonary Artery using Low Osmolar Contrast (ICD-10-PCS; 2021-06-01)
PROC: B3201ZZ Computerized Tomography (CT Scan) of Thoracic Aorta using Low Osmolar Contrast (ICD-10-PCS; 2021-06-01)
PROC: B32S1ZZ Computerized Tomography (CT Scan) of Right Pulmonary Artery using Low Osmolar Contrast (ICD-10-PCS; 2021-06-01)
DX: A41.59 Other Gram-negative sepsis (principal); J96.00 Acute respiratory failure, unspecified whether with hypoxia or hypercapnia; K85.20 Alcohol induced acute pancreatitis without necrosis or infection; J69.0 Pneumonitis due to inhalation of food and vomit; J90 Pleural effusion, not elsewhere classified; K86.3 Pseudocyst of pancreas; B96.1 Klebsiella pneumoniae [K. pneumoniae] as the cause of diseases classified elsewhere; E83.52 Hypercalcemia; E86.0 Dehydration; D73.5 Infarction of spleen; E11.65 Type 2 diabetes mellitus with hyperglycemia; M54.9 Dorsalgia, unspecified; R74.01 Elevation of levels of liver transaminase levels; E66.9 Obesity, unspecified; F17.210 Nicotine dependence, cigarettes, uncomplicated; F41.8 Other specified anxiety disorders; I10 Essential (primary) hypertension; Z20.822 Contact with and (suspected) exposure to COVID-19; Z83.3 Family history of diabetes mellitus; Z90.49 Acquired absence of other specified parts of digestive tract; Z23 Encounter for immunization; Z91.018 Allergy to other foods; Z79.899 Other long term (current) drug therapy; Z79.4 Long term (current) use of insulin; E87.6 Hypokalemia; Z68.30 Body mass index [BMI] 30.0-30.9, adult; Z72.89 Other problems related to lifestyle; Z71.6 Tobacco abuse counseling
CPT/HCPCS: 36415; 36600; 71045; 71275; 74177; 76856; 80053; 80061; 81001; 81025; 82009; 82800; 82803; 82948; 83036; 83605; 83690; 83735; 83880; 84100; 84132; 84145; 84443; 85018; 85025; 87040; 87077; 87186; 87635; 93976; 94640; 94760; 96361; 96374; 96375; 96376; 99285; G0378; J0696; J1644; J1815; J1940; J1956; J2270; J2405; J2543; J2765; J7030; Q9967

== ENCOUNTER 2021-07-12 03:59 | Emergency (ER) | payer BC ==
[~2021-07-12] VITALS: Ht 157.5 cm; Wt 81.8 kg
[~2021-07-12 03:59] MED LIST changes: -AMOX-580 PO; -LISI2.5T14 PO; +LISI5TAB22 PO; -METF-900 PO; +PANT20TA18 PO; +PHO667C PO; +SERT-433 PO; +VERA120T86 PO; -verapamil SR 120mg (sust. release) tab PO ONE
[2021-07-12] MEDS ORDERED: normal saline 1000ml 1,000 ML IV ONE (04:10)
[2021-07-12] MEDS ORDERED: LORazepam 2 mg/ml vial IV ONE ×2 (04:15→04:55)
[2021-07-12] MEDS ORDERED: ondansetron/PF 4mg/2ml inj IV ONE (04:25)
[2021-07-12 04:32] LABS: BASOPHILS # (AUTO) 0.1 X10'3 (0-0.2); BASOPHILS % (AUTO) 1.1 % (0-1); EOSINOPHILS % (AUTO) 0.5 % (0-6); HEMATOCRIT 44.9 % (35.0-45.0); HEMOGLOBIN 15.9 g/dl (12.0-16.0); LYMPHOCYTES # (AUTO) 1.4 X10'3 (1.1-4.8); LYMPHOCYTES % (AUTO) 24.5 % (21-51); MEAN CORPUSCULAR HEMOGLOBIN 36.3 PG (27.0-31.0); MEAN CORPUSCULAR HGB CONC 35.3 g/dL (33.0-36.5); MEAN CORPUSCULAR VOLUME 102.6 FL (78-98); MEAN PLATELET VOLUME 7.6 FL (7.4-10.4); MONOCYTES # (AUTO) 0.5 X10'3 (0-0.9); MONOCYTES % (AUTO) 8.7 % (2-12); NEUTROPHILS # (AUTO) 3.6 X10'3 (1.8-7.7); NEUTROPHILS % (AUTO) 65.2 % (42-75); PLATELET COUNT 297 X10'3 (140-440); RED BLOOD COUNT 4.38 X10'6 (4.20-5.60); RED CELL DISTRIBUTION WIDTH 14.9 % (11.5-14.5); WHITE BLOOD COUNT 5.5 X10'3 (4.5-11.0)
[2021-07-12 05:05] LABS: ANION GAP 19 (8-16); BLOOD UREA NITROGEN 4 MG/DL (7-18); BUN/CREATININE RATIO 4.7 (6.6-38.0); CHLORIDE 94 MMOL/L (99-107); CREATININE 0.86 MG/DL (0.40-0.90); GLUCOSE 185 MG/DL (70-104); POTASSIUM 3.3 MMOL/L (3.5-5.1); SODIUM 136 MMOL/L (135-145); TOTAL CARBON DIOXIDE 23.5 MMOL/L (24-32)
[2021-07-12 05:06] LABS: ALANINE AMINOTRANSFERASE 106 U/L (12-78); ALBUMIN 3.5 G/DL (3.4-5.0); ALBUMIN/GLOBULIN RATIO 0.9 (1.1-1.5); ALKALINE PHOSPHATASE 60 IU/L (46-116); ASPARTATE AMINO TRANSFERASE 203 U/L (10-37); BILIRUBIN,DIRECT 0.7 MG/DL (0-0.3); CALCIUM 9.3 MG/DL (8.5-10.1); LIPASE 160 U/L (73-393); TOTAL PROTEIN 7.3 G/DL (6.4-8.2); eGFR 76 ML/MIN
[2021-07-12] MEDS ORDERED: CHLO25CA10 PO (05:49)
[2021-07-12 05:55] VITALS: BP 124/72
== END 2021-07-12 06:13 | disposition home or self-care (01) ==
LOC: ER 04:00
DX: F10.239 Alcohol dependence with withdrawal, unspecified (principal); R10.10 Upper abdominal pain, unspecified; R11.0 Nausea; R10.13 Epigastric pain; Z90.89 Acquired absence of other organs; Z72.89 Other problems related to lifestyle; Z91.018 Allergy to other foods; Z79.4 Long term (current) use of insulin; Z79.899 Other long term (current) drug therapy; Y90.9 Presence of alcohol in blood, level not specified
CPT/HCPCS: 36415; 80048; 80076; 83690; 85025; 96361; 96374; 96375; 96376; 99284; J2060; J2405; J7030

== ENCOUNTER 2021-08-06 13:19 | Inpatient (IN) | payer BC ==
[~2021-08-06] VITALS: Ht 160 cm; Wt 82.8 kg
[~2021-08-06 13:19] MED LIST changes: +CHLO25CA10 PO
[2021-08-06] MEDS ORDERED: famotidine/PF 10 mg/ml inj IV ONE (13:45)
[2021-08-06] MEDS ORDERED: normal saline 1000ML IV soln IVB ONE (13:45)
[2021-08-06] MEDS ORDERED: metoclopramide 5 mg/ml inj IV ONE (13:45)
[2021-08-06] MEDS ORDERED: LORazepam 2 mg/ml vial IV ONE (13:45)
[2021-08-06 14:12] LABS: BASOPHILS # (AUTO) 0.1 X10'3 (0-0.2); BASOPHILS % (AUTO) 0.7 % (0-1); EOSINOPHILS % (AUTO) 0 % (0-6); HEMATOCRIT 47.9 % (35.0-45.0); HEMOGLOBIN 15.7 g/dl (12.0-16.0); LYMPHOCYTES # (AUTO) 0.7 X10'3 (1.1-4.8); LYMPHOCYTES % (AUTO) 5.2 % (21-51); MEAN CORPUSCULAR HEMOGLOBIN 36.4 PG (27.0-31.0); MEAN CORPUSCULAR HGB CONC 32.8 g/dL (33.0-36.5); MONOCYTES # (AUTO) 1.3 X10'3 (0-0.9); MONOCYTES % (AUTO) 8.7 % (2-12); NEUTROPHILS # (AUTO) 12.3 X10'3 (1.8-7.7); NEUTROPHILS % (AUTO) 85.4 % (42-75); PLATELET COUNT 326 X10'3 (140-440); RED BLOOD COUNT 4.32 X10'6 (4.20-5.60); RED CELL DISTRIBUTION WIDTH 15.8 % (11.5-14.5); WHITE BLOOD COUNT 14.4 X10'3 (4.5-11.0)
[2021-08-06 14:14] LABS: ABG HCO3 2.5 mmol/L (22.0-26.0); ABG OXYGEN SATURATION 97.4 % (94-97); ABG PCO2 (T) 10.1 mmHg (32.0-45.0); ALLEN'S TEST POSITIVE; FCOHb 0.3 % (0.0-3.9); FMetHb 0.5 % (0.0-1.5); FO2Hb 96.6 % (94-97); PATIENT TEMPERATURE 36.4; TOTAL HEMOGLOBIN 16.1 G/dl (12.0-16.0)
[2021-08-06] MEDS ORDERED: sodium bicarbonate (8.4%) inj. 150 MEQ in dextrose 5%-water 1,000 ML IV SCH ×2 (14:15→21:40)
[2021-08-06] MEDS ORDERED: sodium bicarbonate (8.4%) 1 mEq/ml syringe IV ONE ×2 (14:15)
[2021-08-06 14:33] LABS: ALANINE AMINOTRANSFERASE 94 U/L (12-78); ALBUMIN 4.4 G/DL (3.4-5.0); ALBUMIN/GLOBULIN RATIO 0.8 (1.1-1.5); ALKALINE PHOSPHATASE 83 IU/L (46-116); ANION GAP 37 (8-16); ASPARTATE AMINO TRANSFERASE 253 U/L (10-37); BILIRUBIN,TOTAL 1.4 MG/DL (0.1-1.0); BLOOD UREA NITROGEN 13 MG/DL (7-18); BUN/CREATININE RATIO 4.8 (6.6-38.0); CALCIUM 9.3 MG/DL (8.5-10.1); CHLORIDE 86 MMOL/L (99-107); CREATININE 2.73 MG/DL (0.40-0.90); ETHANOL 0.143 GM/DL (0.0-0.010); GLUCOSE 184 MG/DL (70-104); POTASSIUM 4.4 MMOL/L (3.5-5.1); SODIUM 130 MMOL/L (135-145); TOTAL PROTEIN 9.8 G/DL (6.4-8.2); eGFR 20 ML/MIN
[2021-08-06 14:41] LABS: LIPASE 1418 U/L (73-393)
[2021-08-06 14:44] LABS: TOTAL CARBON DIOXIDE 6.6 MMOL/L (24-32)
[2021-08-06] MEDS ORDERED: magnesium 4gm in 100ml NS 100 ML IV PRN (15:05)
[2021-08-06] MEDS ORDERED: dextrose 50%-water 50ml dispensing syringe IV PRN (15:05)
[2021-08-06] MEDS ORDERED: haloperidol lactate 5mg/ml inj IM PRN (15:05)
[2021-08-06] MEDS ORDERED: sodium phosphate inj. 30 MMOL in dextrose 5%-water 250 ML IV PRN (15:05)
[2021-08-06] MEDS ORDERED: magnesium 2GM in 50ml NS 50 ML IV PRN (15:05)
[2021-08-06] MEDS ORDERED: morphine 2 MG/ML inj. syringe IV PRN (15:05)
[2021-08-06] MEDS ORDERED: haloperidol 5mg tablet PO PRN (15:05)
[2021-08-06] MEDS ORDERED: potassium Cl 20 mEq SR tablet PO PRN ×2 (15:05)
[2021-08-06] MEDS ORDERED: sodium phosphate inj. 15 MMOL in dextrose 5%-water 250 ML IV PRN (15:05)
[2021-08-06] MEDS ORDERED: magnesium hydroxide 30ml (MOM) UD suspension PO PRN (15:05)
[2021-08-06] MEDS ORDERED: Neutra Phos packet PO PRN (15:05)
[2021-08-06] MEDS ORDERED: ipratropium/albuterol 3ml nebule NEB PRN (15:05)
[2021-08-06] MEDS ORDERED: LIDOcaine 2% 10ml TOPICAL JELLY (Urojet) TP ONE (15:05)
[2021-08-06] MEDS ORDERED: acetaminophen 325mg tablet PO PRN (15:05)
[2021-08-06] MEDS ORDERED: CefTRIAXone 2gm/D5W 50ml BAG 50 ML IV ONE (15:15)
[2021-08-06] MEDS ORDERED: FOLI0.4T14 PO (15:16)
[2021-08-06] MEDS ORDERED: PANT-47 PO (15:16)
[2021-08-06] MEDS ORDERED: MECO10005 PO (15:16)
[2021-08-06] MEDS ORDERED: MAGN400T56 PO (15:16)
[2021-08-06] MEDS ORDERED: THIA100T70 PO (15:16)
[2021-08-06 15:17] LABS: NUCLEATED RED BLOOD CELLS 2 /100WBC (0-0); PLATELET ESTIMATE NORMAL; TOTAL CELLS COUNTED 100
[2021-08-06 15:32] LABS: OSMOLALITY 334 MOSM/K (280-300)
[2021-08-06] MEDS: ondansetron/PF 4mg/2ml inj IV PRN ×2 (15:50→22:05)
[2021-08-06 16:24] LABS: ABG BASE EXCESS -22.6 mmol/L (-2.0-2.0); ABG HCO3 3.9 mmol/L (22.0-26.0); ABG OXYGEN SATURATION 97.6 % (94-97); ABG PCO2 (T) 11.6 mmHg (32.0-45.0); ABG PO2 (T) 113.1 mmHg (75.0-100.0); ALLEN'S TEST POSITIVE; FCOHb 0.5 % (0.0-3.9); FMetHb 0.2 % (0.0-1.5); FO2Hb 96.9 % (94-97); TOTAL HEMOGLOBIN 14.4 G/dl (12.0-16.0)
[2021-08-06] MEDS: LORazepam 2 mg/ml vial IV PRN ×2 (16:30→18:27)
[2021-08-06] MEDS ORDERED: dextrose 5%-normal saline 1,000 ML IV SCH (16:55)
[2021-08-06 16:56] LABS: CLARITY,URINE CLOUDY (Clear); COLOR,URINE YELLOW (Yellow); GLUCOSE, URINE 100 mg/dl (Neg); KETONES,URINE 40 mg/dl (Neg); LEUKOCYTE ESTERASE ,URINE NEGATIVE (Neg); NITRITES, URINE NEGATIVE (Neg); OCCULT BLOOD,URINE MODERATE (Neg); PROTEIN,URINE >=300 mg/dl (Neg); UROBILINOGEN,URINE 0.2 E.U/dL (0.2-1.0)
[2021-08-06 16:57] LABS: UA COLLECTION TYPE FOLEY CATH; URINE HCG NEGATIVE (NEG)
[2021-08-06 17:08] LABS: SQUAMOUS EPITHELIAL CELL,UR MANY /LPF (FEW)
[2021-08-06 17:09] LABS: MUCUS STRANDS FEW /LPF (Neg)
[2021-08-06 17:11] LABS: AMORPHOUS URATES 2+; BACTERIA,URINE 2+ /HPF (Neg); RBC,URINE 0-2 /HPF (0-2)
[2021-08-06 17:15] LABS: WBC CLUMPS,URINE FEW /HPF (NEGATIVE); WBC,URINE 30-50 /HPF (0-4)
[2021-08-06 17:20] LABS: CELLULAR CAST 0-4 /LPF (NEGATIVE)
--- NOTE | 2021-08-06 18:31 | NUR ---
RECIEVED CRITICAL RESULT OF LACTIC. DR SUAZO AWARE.
[2021-08-06 18:42] LABS: ALBUMIN 3.1 G/DL (3.4-5.0); ANION GAP 31 (8-16); BLOOD UREA NITROGEN 13 MG/DL (7-18); BUN/CREATININE RATIO 6.8 (6.6-38.0); CALCIUM 7.1 MG/DL (8.5-10.1); CHLORIDE 97 MMOL/L (99-107); CREATININE 1.91 MG/DL (0.40-0.90); GLUCOSE 187 MG/DL (70-104); PHOSPHORUS 6.3 MG/DL (2.3-4.5); POTASSIUM 4.3 MMOL/L (3.5-5.1); SODIUM 139 MMOL/L (135-145); eGFR 30 ML/MIN
[2021-08-06 18:58] LABS: TOTAL CARBON DIOXIDE 10.7 MMOL/L (24-32)
[2021-08-06 20:00] VITALS: BP 129/69
[2021-08-06 21:00] VITALS: BP 129/70
[2021-08-06] MEDS: thiamine 100mg/ml 2ml inj. IV SCH (21:00)
[2021-08-06] MEDS ORDERED: thiamine 100mg/ml 2ml inj. IV SCH (21:00)
[2021-08-06 22:00] VITALS: BP 143/78
[2021-08-06] MEDS: morphine 4 MG/ML inj SYRINge IV PRN (22:08)
[2021-08-06] MEDS: heparin, porcine 5000 units/ml vial SQ SCH (22:40)
[2021-08-06 23:00] VITALS: BP 136/83
[2021-08-06 23:34] LABS: ABG BASE EXCESS -3.5 mmol/L (-2.0-2.0); ABG OXYGEN SATURATION 95.7 % (94-97); ABG PCO2 (T) 28.9 mmHg (32.0-45.0); ABG PO2 (T) 78.4 mmHg (75.0-100.0); FCOHb 0.3 % (0.0-3.9); FMetHb 0.4 % (0.0-1.5); TOTAL HEMOGLOBIN 13.4 G/dl (12.0-16.0)
[2021-08-07] VITALS (18 sets, daily range): BP systolic 109–166; BP diastolic 53–97
[2021-08-07 00:22] LABS: ALANINE AMINOTRANSFERASE 60 U/L (12-78); ALBUMIN 2.8 G/DL (3.4-5.0); ALBUMIN/GLOBULIN RATIO 0.8 (1.1-1.5); ALKALINE PHOSPHATASE 49 IU/L (46-116); ANION GAP 17 (8-16); ASPARTATE AMINO TRANSFERASE 141 U/L (10-37); BILIRUBIN,TOTAL 1.9 MG/DL (0.1-1.0); BLOOD UREA NITROGEN 14 MG/DL (7-18); BUN/CREATININE RATIO 9.5 (6.6-38.0); CHLORIDE 96 MMOL/L (99-107); CREATININE 1.47 MG/DL (0.40-0.90); GLUCOSE 301 MG/DL (70-104); POTASSIUM 4.4 MMOL/L (3.5-5.1); SODIUM 134 MMOL/L (135-145); TOTAL CARBON DIOXIDE 21.2 MMOL/L (24-32); TOTAL PROTEIN 6.5 G/DL (6.4-8.2); eGFR 41 ML/MIN
[2021-08-07 00:29] LABS: BILIRUBIN,DIRECT 0.6 MG/DL (0-0.3); LIPASE 1460 U/L (73-393); MAGNESIUM 1.1 MG/DL (1.5-2.4); PHOSPHORUS 2.3 MG/DL (2.3-4.5)
[2021-08-07] MEDS: morphine 4 MG/ML inj SYRINge IV PRN ×2 (01:57→07:53)
[2021-08-07] MEDS ORDERED: dextrose ORAL solution 15 GM/59 ML bottle PO PRN ×2 (02:50)
[2021-08-07] MEDS ORDERED: glucagon, human recombinant 1mg kit SUBCUT PRN (02:50)
[2021-08-07] MEDS ORDERED: dextrose 50%-water 50ml dispensing syringe IV PRN ×2 (02:50)
[2021-08-07] MEDS ORDERED: MESSAGE TO PHARMACY PO ONE (02:50)
[2021-08-07] MEDS ORDERED: ringers solution, lactated 500ml IV solution IV ONE (02:55)
[2021-08-07] MEDS: insulin Lispro (HumaLOG) vial - multi-dose SQ SCH ×3 (03:59→13:56)
[2021-08-07 04:33] LABS: BASOPHILS % (AUTO) 0.4 % (0-1); EOSINOPHILS % (AUTO) 0.2 % (0-6); HEMATOCRIT 35.7 % (35.0-45.0); HEMOGLOBIN 12.4 g/dl (12.0-16.0); LYMPHOCYTES # (AUTO) 0.7 X10'3 (1.1-4.8); LYMPHOCYTES % (AUTO) 15.2 % (21-51); MEAN CORPUSCULAR HEMOGLOBIN 36.7 PG (27.0-31.0); MEAN CORPUSCULAR HGB CONC 34.8 g/dL (33.0-36.5); MEAN CORPUSCULAR VOLUME 105.5 FL (78-98); MEAN PLATELET VOLUME 7.7 FL (7.4-10.4); MONOCYTES # (AUTO) 0.4 X10'3 (0-0.9); MONOCYTES % (AUTO) 7.9 % (2-12); NEUTROPHILS # (AUTO) 3.7 X10'3 (1.8-7.7); NEUTROPHILS % (AUTO) 76.3 % (42-75); PLATELET COUNT 109 X10'3 (140-440); RED BLOOD COUNT 3.39 X10'6 (4.20-5.60); RED CELL DISTRIBUTION WIDTH 15.7 % (11.5-14.5); WHITE BLOOD COUNT 4.9 X10'3 (4.5-11.0)
[2021-08-07 04:52] LABS: ALANINE AMINOTRANSFERASE 54 U/L (12-78); ALBUMIN 2.8 G/DL (3.4-5.0); ALBUMIN/GLOBULIN RATIO 0.7 (1.1-1.5); ALKALINE PHOSPHATASE 47 IU/L (46-116); ANION GAP 14 (8-16); ASPARTATE AMINO TRANSFERASE 96 U/L (10-37); BILIRUBIN,TOTAL 2.2 MG/DL (0.1-1.0); BLOOD UREA NITROGEN 14 MG/DL (7-18); BUN/CREATININE RATIO 10.7 (6.6-38.0); CALCIUM 6.9 MG/DL (8.5-10.1); CHLORIDE 97 MMOL/L (99-107); CREATININE 1.31 MG/DL (0.40-0.90); GLUCOSE 292 MG/DL (70-104); MAGNESIUM 1.2 MG/DL (1.5-2.4); PHOSPHORUS 1.8 MG/DL (2.3-4.5); POTASSIUM 3.7 MMOL/L (3.5-5.1); SODIUM 137 MMOL/L (135-145); TOTAL CARBON DIOXIDE 25.7 MMOL/L (24-32); TOTAL PROTEIN 6.6 G/DL (6.4-8.2); eGFR 47 ML/MIN
[2021-08-07 05:09] LABS: HEMOGLOBIN A1C 6.3 % (4.5-6.2)
[2021-08-07] MEDS: heparin, porcine 5000 units/ml vial SQ SCH ×2 (07:54→21:21)
[2021-08-07] MEDS: magnesium Cl slow-release 64mg tablet PO PRN ×2 (07:54→21:22)
[2021-08-07] MEDS: multivitamins, therapeutics tablet PO SCH (07:54)
[2021-08-07] MEDS: K and/or MAG REPLACEMENT MC SCH (08:00)
[2021-08-07] MEDS ORDERED: folic acid 1mg/0.2ml inj IV SCH ×2 (08:00)
[2021-08-07] MEDS ORDERED: pantoprazole 40MG/NS 100ML BAG 100 ML IV SCH (08:00)
[2021-08-07] MEDS: thiamine 100mg/ml 2ml inj. IV SCH (08:08)
[2021-08-07 08:59] LABS: ALBUMIN 2.8 G/DL (3.4-5.0); AMYLASE 68 U/L (25-115); ANION GAP 13 (8-16); BLOOD UREA NITROGEN 14 MG/DL (7-18); BUN/CREATININE RATIO 13.2 (6.6-38.0); CALCIUM 7.2 MG/DL (8.5-10.1); CHLORIDE 97 MMOL/L (99-107); CREATININE 1.06 MG/DL (0.40-0.90); GLUCOSE 158 MG/DL (70-104); LIPASE 620 U/L (73-393); PHOSPHORUS 1.4 MG/DL (2.3-4.5); POTASSIUM 3.4 MMOL/L (3.5-5.1); SODIUM 137 MMOL/L (135-145); TOTAL CARBON DIOXIDE 27.4 MMOL/L (24-32); TRIGLYCERIDES 227 MG/DL (20-135); eGFR 60 ML/MIN
--- NOTE | 2021-08-07 09:32 | NUR ---
Pt admit for alcoholic ketoacidosis, dehydration, OANH, hyponatremia, and acute pancreatitis. Currently receiving routine Thiamine, Folic acid, and MVI. Pt with h/o DM, well controlled with A1c 6.3%. DM education not warranted at this time. Will continue to follow and make recommendations as appropriate. Addendum: 08/07/21 at [address] Amended: Links added.
[2021-08-07 12:16] LABS: ALBUMIN 2.7 G/DL (3.4-5.0); ANION GAP 11 (8-16); BLOOD UREA NITROGEN 12 MG/DL (7-18); BUN/CREATININE RATIO 12.6 (6.6-38.0); CALCIUM 7.2 MG/DL (8.5-10.1); CHLORIDE 97 MMOL/L (99-107); CREATININE 0.95 MG/DL (0.40-0.90); GLUCOSE 230 MG/DL (70-104); PHOSPHORUS 1.4 MG/DL (2.3-4.5); POTASSIUM 3.4 MMOL/L (3.5-5.1); SODIUM 135 MMOL/L (135-145); TOTAL CARBON DIOXIDE 27.2 MMOL/L (24-32); eGFR 68 ML/MIN
--- NOTE | 2021-08-07 13:45 | NUR ---
Pt advised she is not ready for carb controlled diet. Wants to go back to full liquid.
[2021-08-07] MEDS: acetaminophen 325mg tablet PO PRN ×2 (13:53→21:23)
--- NOTE | 2021-08-07 14:19 | NUR ---
Problems reprioritized. Patient report given, questions answered & plan of care reviewed with FAUSTO Van.
[2021-08-07] MEDS ORDERED: POTASSIUM BICARB 20meq eff tab 20 MEQ TABLET.EFF PO PRN (14:45)
[2021-08-07] MEDS: POTASSIUM BICARB 20meq eff tab 20 MEQ TABLET.EFF PO PRN ×2 (16:07→21:22)
[2021-08-07] MEDS: chlordiazePOXIDE 25mg capsule PO PRN (17:58)
[2021-08-07 18:17] LABS: ALBUMIN 2.6 G/DL (3.4-5.0); ANION GAP 10 (8-16); BLOOD UREA NITROGEN 10 MG/DL (7-18); BUN/CREATININE RATIO 11.6 (6.6-38.0); CALCIUM 7.4 MG/DL (8.5-10.1); CHLORIDE 98 MMOL/L (99-107); CREATININE 0.86 MG/DL (0.40-0.90); GLUCOSE 95 MG/DL (70-104); PHOSPHORUS 1.3 MG/DL (2.3-4.5); SODIUM 133 MMOL/L (135-145); TOTAL CARBON DIOXIDE 24.6 MMOL/L (24-32); eGFR 76 ML/MIN
[2021-08-07 18:21] LABS: POTASSIUM 3.5 MMOL/L (3.5-5.1)
--- NOTE | 2021-08-07 18:47 | NUR ---
Report given to James LAMBERT. Pt awake in bed, ate some dinner with some increased abdominal pain. James to monitor.
--- NOTE | 2021-08-07 18:58 | NUR ---
Patient in room MED 314. I have received report from Carlota LAMBERT and had the opportunity to ask questions and assume patient care.
[2021-08-07] MEDS: ondansetron/PF 4mg/2ml inj IV PRN (21:21)
[2021-08-07] MEDS: insulin glargine (Lantus) pen - multi-dose SQ SCH (21:47)
[2021-08-08 02:00] VITALS: BP 134/94
[2021-08-08] MEDS: morphine 2 MG/ML inj. syringe IV PRN ×4 (02:15→16:34)
[2021-08-08] MEDS: ondansetron/PF 4mg/2ml inj IV PRN (06:00)
--- NOTE | 2021-08-08 06:15 | NUR ---
Patient in room MED 314. I have received report from James LAMBERT and had the opportunity to ask questions and assume patient care.
[2021-08-08 06:25] LABS: EOSINOPHILS # (AUTO) 0.1 X10'3 (0-0.9); HEMOGLOBIN 12.3 g/dl (12.0-16.0); MEAN CORPUSCULAR VOLUME 104.9 FL (78-98); MONOCYTES # (AUTO) 0.2 X10'3 (0-0.9); RED CELL DISTRIBUTION WIDTH 15.5 % (11.5-14.5)
[2021-08-08 06:27] LABS: BASOPHILS % (AUTO) 0.7 % (0-1); EOSINOPHILS % (AUTO) 2.4 % (0-6); HEMATOCRIT 34.8 % (35.0-45.0); LYMPHOCYTES # (AUTO) 1.6 X10'3 (1.1-4.8); MEAN CORPUSCULAR HGB CONC 35.3 g/dL (33.0-36.5); MEAN PLATELET VOLUME 7.8 FL (7.4-10.4); NEUTROPHILS # (AUTO) 1.6 X10'3 (1.8-7.7); NEUTROPHILS % (AUTO) 45.9 % (42-75); PLATELET COUNT 103 X10'3 (140-440); RED BLOOD COUNT 3.32 X10'6 (4.20-5.60); WHITE BLOOD COUNT 3.6 X10'3 (4.5-11.0)
[2021-08-08 06:37] LABS: ALANINE AMINOTRANSFERASE 49 U/L (12-78); ALBUMIN 2.8 G/DL (3.4-5.0); ALBUMIN/GLOBULIN RATIO 0.7 (1.1-1.5); ALKALINE PHOSPHATASE 50 IU/L (46-116); AMYLASE 35 U/L (25-115); ANION GAP 12 (8-16); ASPARTATE AMINO TRANSFERASE 113 U/L (10-37); BILIRUBIN,TOTAL 1.2 MG/DL (0.1-1.0); BLOOD UREA NITROGEN 8 MG/DL (7-18); BUN/CREATININE RATIO 11.1 (6.6-38.0); CALCIUM 7.5 MG/DL (8.5-10.1); CHLORIDE 97 MMOL/L (99-107); CREATININE 0.72 MG/DL (0.40-0.90); GLUCOSE 167 MG/DL (70-104); LIPASE 312 U/L (73-393); MAGNESIUM 1.5 MG/DL (1.5-2.4); PHOSPHORUS 1.7 MG/DL (2.3-4.5); POTASSIUM 3.3 MMOL/L (3.5-5.1); SODIUM 136 MMOL/L (135-145); TOTAL CARBON DIOXIDE 26.9 MMOL/L (24-32); TOTAL PROTEIN 6.6 G/DL (6.4-8.2); eGFR > 90 ML/MIN
--- NOTE | 2021-08-08 06:49 | NUR ---
Problems reprioritized. Patient report given, questions answered & plan of care reviewed with Angela LAMBERT.
[2021-08-08] MEDS: heparin, porcine 5000 units/ml vial SQ SCH ×2 (07:45→21:55)
[2021-08-08] MEDS: multivitamins, therapeutics tablet PO SCH (07:45)
[2021-08-08] MEDS: K and/or MAG REPLACEMENT MC SCH (08:00)
[2021-08-08 11:00] VITALS: BP 128/84
[2021-08-08 12:44] LABS: ALBUMIN 3.1 G/DL (3.4-5.0); ANION GAP 12 (8-16); BLOOD UREA NITROGEN 7 MG/DL (7-18); BUN/CREATININE RATIO 9.5 (6.6-38.0); CALCIUM 8.1 MG/DL (8.5-10.1); CHLORIDE 95 MMOL/L (99-107); CREATININE 0.74 MG/DL (0.40-0.90); GLUCOSE 238 MG/DL (70-104); PHOSPHORUS 1.8 MG/DL (2.3-4.5); POTASSIUM 3.6 MMOL/L (3.5-5.1); SODIUM 133 MMOL/L (135-145); TOTAL CARBON DIOXIDE 25.8 MMOL/L (24-32); eGFR 90 ML/MIN
[2021-08-08] MEDS: POTASSIUM BICARB 20meq eff tab 20 MEQ TABLET.EFF PO PRN (13:59)
[2021-08-08] MEDS: folic acid 1mg tablet PO SCH (14:01)
[2021-08-08] MEDS: insulin Lispro (HumaLOG) vial - multi-dose SQ SCH (14:06)
[2021-08-08 15:00] VITALS: BP 136/86
[2021-08-08] MEDS ORDERED: LORazepam 2 mg/ml vial IV PRN (15:05)
[2021-08-08] MEDS ORDERED: bisacodyl 10mg suppository rectal RC PRN (15:05)
[2021-08-08] MEDS ORDERED: lactulose 20gm/30ml cup PO PRN (15:05)
[2021-08-08] MEDS ORDERED: LORazepam 1 MG tablet PO PRN (15:05)
[2021-08-08] MEDS: thiamine 100mg tablet PO SCH (16:33)
[2021-08-08 18:00] VITALS: BP 139/99
[2021-08-08 18:25] LABS: ALBUMIN 3.4 G/DL (3.4-5.0); ANION GAP 12 (8-16); BLOOD UREA NITROGEN 7 MG/DL (7-18); BUN/CREATININE RATIO 8.4 (6.6-38.0); CALCIUM 8.8 MG/DL (8.5-10.1); CHLORIDE 97 MMOL/L (99-107); CREATININE 0.83 MG/DL (0.40-0.90); GLUCOSE 127 MG/DL (70-104); PHOSPHORUS 1.5 MG/DL (2.3-4.5); POTASSIUM 3.5 MMOL/L (3.5-5.1); SODIUM 138 MMOL/L (135-145); TOTAL CARBON DIOXIDE 29.2 MMOL/L (24-32); eGFR 79 ML/MIN
--- NOTE | 2021-08-08 18:51 | NUR ---
Problems reprioritized. Patient report given, questions answered & plan of care reviewed with Pamela LAMBERT.
[2021-08-08] MEDS ORDERED: morphine 2 MG/ML inj. syringe IV STA (21:09)
[2021-08-08] MEDS ORDERED: mag hydrox/Alum hydrox/simeth 30ml oral suspension PO ONE (21:10)
[2021-08-08 22:00] VITALS: BP 140/93
[2021-08-08] MEDS: insulin glargine (Lantus) pen - multi-dose SQ SCH (22:09)
[2021-08-08] MEDS: chlordiazePOXIDE 25mg capsule PO PRN (23:56)
[2021-08-09] VITALS (7 sets, daily range): BP systolic 124–152; BP diastolic 70–104
[2021-08-09] MEDS: acetaminophen 325mg tablet PO PRN (05:02)
[2021-08-09 06:45] LABS: EOSINOPHILS # (AUTO) 0.1 X10'3 (0-0.9); MEAN PLATELET VOLUME 8.1 FL (7.4-10.4); MONOCYTES # (AUTO) 0.2 X10'3 (0-0.9); WHITE BLOOD COUNT 2.9 X10'3 (4.5-11.0)
[2021-08-09 06:48] LABS: BASOPHILS % (AUTO) 1.6 % (0-1); EOSINOPHILS % (AUTO) 2.5 % (0-6); HEMATOCRIT 36.2 % (35.0-45.0); LYMPHOCYTES # (AUTO) 1.5 X10'3 (1.1-4.8); MEAN CORPUSCULAR HEMOGLOBIN 37.2 PG (27.0-31.0); MEAN CORPUSCULAR HGB CONC 35.9 g/dL (33.0-36.5); MEAN CORPUSCULAR VOLUME 103.8 FL (78-98); MONOCYTES % (AUTO) 5.7 % (2-12); NEUTROPHILS # (AUTO) 1.1 X10'3 (1.8-7.7); NEUTROPHILS % (AUTO) 38.2 % (42-75); PLATELET COUNT 113 X10'3 (140-440); RED BLOOD COUNT 3.49 X10'6 (4.20-5.60); RED CELL DISTRIBUTION WIDTH 15.4 % (11.5-14.5)
[2021-08-09 06:49] LABS: ALANINE AMINOTRANSFERASE 80 U/L (12-78); ALBUMIN 2.9 G/DL (3.4-5.0); ALBUMIN/GLOBULIN RATIO 0.7 (1.1-1.5); ALKALINE PHOSPHATASE 68 IU/L (46-116); AMYLASE 41 U/L (25-115); ANION GAP 11 (8-16); ASPARTATE AMINO TRANSFERASE 243 U/L (10-37); BILIRUBIN,TOTAL 1.5 MG/DL (0.1-1.0); BLOOD UREA NITROGEN 7 MG/DL (7-18); BUN/CREATININE RATIO 10.8 (6.6-38.0); CALCIUM 8.7 MG/DL (8.5-10.1); CHLORIDE 101 MMOL/L (99-107); CREATININE 0.65 MG/DL (0.40-0.90); GLUCOSE 172 MG/DL (70-104); LIPASE 509 U/L (73-393); MAGNESIUM 1.7 MG/DL (1.5-2.4); PHOSPHORUS 2.6 MG/DL (2.3-4.5); POTASSIUM 3.5 MMOL/L (3.5-5.1); SODIUM 139 MMOL/L (135-145); TOTAL CARBON DIOXIDE 27.2 MMOL/L (24-32); TOTAL PROTEIN 6.9 G/DL (6.4-8.2); eGFR > 90 ML/MIN
--- NOTE | 2021-08-09 06:56 | NUR ---
Patient in room MED 314. I have received report from FAUSTO MIR, and had the opportunity to ask questions and assume patient care.
[2021-08-09] MEDS: K and/or MAG REPLACEMENT MC SCH (07:11)
[2021-08-09] MEDS: multivitamins, therapeutics tablet PO SCH (09:07)
[2021-08-09] MEDS: folic acid 1mg tablet PO SCH (09:07)
[2021-08-09] MEDS: thiamine 100mg tablet PO SCH (09:08)
[2021-08-09] MEDS: heparin, porcine 5000 units/ml vial SQ SCH ×2 (09:08→19:44)
[2021-08-09] MEDS: insulin Lispro (HumaLOG) vial - multi-dose SQ SCH ×3 (09:15→19:41)
[2021-08-09 10:10] LABS: PLATELET ESTIMATE DECREASED; TOTAL CELLS COUNTED 100
--- NOTE | 2021-08-09 11:29 | NUR ---
Met with patient in regards to alcohol use and to see if patient was interested in treatment options. Patient would like to get established with a counselor. Patient has filled out paperwork already for [facility] and is planning on turning them in after she is discharged. Patient is also going to make an appt with her primary doctor and ask for medication to help her with her cravings and withdrawals. I gave patient my card to call me at any time if she decides that she wants to do a inpatient treatment facility.
[2021-08-09] MEDS ORDERED: verapamil SR 120mg (sust. release) tab PO SCH (11:34)
[2021-08-09] MEDS: HYDROcodone/acetaminophen 10/325mg tab PO PRN ×3 (11:58→22:31)
[2021-08-09] MEDS: pantoprazole 40mg Tablet.DR PO SCH (11:58)
[2021-08-09] MEDS: sertraline 50mg tablet PO SCH ×2 (11:59→12:02)
--- NOTE | 2021-08-09 12:02 | NUR ---
PT REPORTS THAT SHE HASN'T TAKEN ZOLOFT AND DOSEN'T WANT TO START TODAY.
[2021-08-09] MEDS: levoTHYROXINE 100mcg tablet PO SCH (14:14)
--- NOTE | 2021-08-09 14:45 | NUR ---
NOTIFIED MD THAT RT RECOMMENDED DISCONTINUING TREATMENTS PT NO LONGER NEEDED TREATMENTS. MD ORDERED A CARB CONTROL DIET.
--- NOTE | 2021-08-09 18:32 | NUR ---
Problems reprioritized. Patient report given, questions answered & plan of care reviewed with FAUSTO JAMES.
[2021-08-09] MEDS: insulin glargine (Lantus) pen - multi-dose SQ SCH (20:58)
[2021-08-09] MEDS: chlordiazePOXIDE 25mg capsule PO PRN (22:31)
[2021-08-10 02:00] VITALS: BP 140/84
[2021-08-10 06:00] VITALS: BP 165/92
[2021-08-10 06:38] LABS: ALANINE AMINOTRANSFERASE 141 U/L (12-78); ALBUMIN 3.2 G/DL (3.4-5.0); ALBUMIN/GLOBULIN RATIO 0.7 (1.1-1.5); ALKALINE PHOSPHATASE 98 IU/L (46-116); AMYLASE 45 U/L (25-115); ANION GAP 13 (8-16); ASPARTATE AMINO TRANSFERASE 286 U/L (10-37); BILIRUBIN,TOTAL 1.4 MG/DL (0.1-1.0); BLOOD UREA NITROGEN 8 MG/DL (7-18); BUN/CREATININE RATIO 11.4 (6.6-38.0); CALCIUM 9.7 MG/DL (8.5-10.1); CHLORIDE 102 MMOL/L (99-107); GLUCOSE 145 MG/DL (70-104); LIPASE 388 U/L (73-393); MAGNESIUM 1.8 MG/DL (1.5-2.4); PHOSPHORUS 4.6 MG/DL (2.3-4.5); POTASSIUM 3.7 MMOL/L (3.5-5.1); SODIUM 142 MMOL/L (135-145); TOTAL CARBON DIOXIDE 26.9 MMOL/L (24-32); TOTAL PROTEIN 7.6 G/DL (6.4-8.2); eGFR > 90 ML/MIN
[2021-08-10] MEDS: levoTHYROXINE 100mcg tablet PO SCH (07:19)
[2021-08-10] MEDS: pantoprazole 40mg Tablet.DR PO SCH (07:19)
[2021-08-10] MEDS: folic acid 1mg tablet PO SCH (07:19)
[2021-08-10] MEDS: thiamine 100mg tablet PO SCH (07:19)
[2021-08-10] MEDS: acetaminophen 325mg tablet PO PRN (07:19)
[2021-08-10] MEDS: multivitamins, therapeutics tablet PO SCH (07:19)
[2021-08-10] MEDS: heparin, porcine 5000 units/ml vial SQ SCH ×2 (07:21→19:37)
[2021-08-10] MEDS: chlordiazePOXIDE 25mg capsule PO PRN ×2 (07:37→21:44)
[2021-08-10] MEDS: insulin Lispro (HumaLOG) vial - multi-dose SQ SCH ×3 (08:25→18:48)
[2021-08-10 09:03] LABS: BASOPHILS % (AUTO) 1.5 % (0-1); EOSINOPHILS # (AUTO) 0.1 X10'3 (0-0.9); EOSINOPHILS % (AUTO) 3.1 % (0-6); HEMATOCRIT 44.5 % (35.0-45.0); HEMOGLOBIN 15.1 g/dl (12.0-16.0); LYMPHOCYTES # (AUTO) 1.2 X10'3 (1.1-4.8); LYMPHOCYTES % (AUTO) 36.6 % (21-51); MEAN CORPUSCULAR HGB CONC 33.9 g/dL (33.0-36.5); MEAN CORPUSCULAR VOLUME 106.1 FL (78-98); MONOCYTES # (AUTO) 0.2 X10'3 (0-0.9); MONOCYTES % (AUTO) 6.6 % (2-12); NEUTROPHILS # (AUTO) 1.7 X10'3 (1.8-7.7); NEUTROPHILS % (AUTO) 52.2 % (42-75); PLATELET COUNT 145 X10'3 (140-440); RED BLOOD COUNT 4.19 X10'6 (4.20-5.60); RED CELL DISTRIBUTION WIDTH 15.3 % (11.5-14.5); WHITE BLOOD COUNT 3.2 X10'3 (4.5-11.0)
[2021-08-10] MEDS: HYDROcodone/acetaminophen 10/325mg tab PO PRN ×2 (11:50→18:45)
[2021-08-10] MEDS ORDERED: LORazepam 1 MG tablet PO PRN (15:05)
[2021-08-10] MEDS ORDERED: LORazepam 2 mg/ml vial IV PRN (15:05)
[2021-08-10 16:10] VITALS: BP 140/91
[2021-08-10 18:00] VITALS: BP 144/91
--- NOTE | 2021-08-10 18:27 | NUR ---
Patient in room MED 314. I have received report from Daisy LAMBERT and had the opportunity to ask questions and assume patient care.
[2021-08-10] MEDS: insulin glargine (Lantus) pen - multi-dose SQ SCH (21:43)
[2021-08-10 22:00] VITALS: BP 180/84
[2021-08-10] MEDS: lisinopril 20mg tablet PO SCH (22:06)
[2021-08-11 02:00] VITALS: BP 149/72
[2021-08-11 06:00] VITALS: BP 120/71
--- NOTE | 2021-08-11 06:05 | NUR ---
Patient in room MED 314. I have received report from Jessica LAMBERT and had the opportunity to ask questions and assume patient care.
[2021-08-11] MEDS: pantoprazole 40mg Tablet.DR PO SCH (07:08)
[2021-08-11] MEDS: folic acid 1mg tablet PO SCH (07:08)
[2021-08-11] MEDS: levoTHYROXINE 100mcg tablet PO SCH (07:09)
[2021-08-11] MEDS: multivitamins, therapeutics tablet PO SCH (07:09)
[2021-08-11] MEDS: thiamine 100mg tablet PO SCH (07:09)
[2021-08-11] MEDS: heparin, porcine 5000 units/ml vial SQ SCH ×2 (07:10→21:33)
[2021-08-11] MEDS: sertraline 50mg tablet PO SCH (07:13)
[2021-08-11] MEDS: chlordiazePOXIDE 25mg capsule PO PRN ×2 (07:13→17:44)
[2021-08-11] MEDS: insulin Lispro (HumaLOG) vial - multi-dose SQ SCH ×3 (08:26→21:38)
[2021-08-11] MEDS: HYDROcodone/acetaminophen 10/325mg tab PO PRN ×3 (08:30→21:50)
[2021-08-11 08:56] LABS: EOSINOPHILS # (AUTO) 0.1 X10'3 (0-0.9); EOSINOPHILS % (AUTO) 3.3 % (0-6); HEMATOCRIT 41.6 % (35.0-45.0); HEMOGLOBIN 14.2 g/dl (12.0-16.0); LYMPHOCYTES # (AUTO) 1.3 X10'3 (1.1-4.8); MEAN CORPUSCULAR HEMOGLOBIN 36.2 PG (27.0-31.0); MEAN CORPUSCULAR HGB CONC 34.1 g/dL (33.0-36.5); MEAN CORPUSCULAR VOLUME 105.9 FL (78-98); MEAN PLATELET VOLUME 8.3 FL (7.4-10.4); MONOCYTES # (AUTO) 0.2 X10'3 (0-0.9); MONOCYTES % (AUTO) 7.9 % (2-12); NEUTROPHILS # (AUTO) 1.4 X10'3 (1.8-7.7); NEUTROPHILS % (AUTO) 45.8 % (42-75); PLATELET COUNT 163 X10'3 (140-440); RED BLOOD COUNT 3.93 X10'6 (4.20-5.60); RED CELL DISTRIBUTION WIDTH 15.5 % (11.5-14.5); WHITE BLOOD COUNT 3.1 X10'3 (4.5-11.0)
[2021-08-11 09:19] LABS: ALANINE AMINOTRANSFERASE 124 U/L (12-78); ALBUMIN/GLOBULIN RATIO 0.7 (1.1-1.5); ALKALINE PHOSPHATASE 92 IU/L (46-116); AMYLASE 55 U/L (25-115); ANION GAP 15 (8-16); ASPARTATE AMINO TRANSFERASE 150 U/L (10-37); BILIRUBIN,TOTAL 1.2 MG/DL (0.1-1.0); BLOOD UREA NITROGEN 10 MG/DL (7-18); BUN/CREATININE RATIO 14.1 (6.6-38.0); CALCIUM 10.7 MG/DL (8.5-10.1); CHLORIDE 102 MMOL/L (99-107); CREATININE 0.71 MG/DL (0.40-0.90); GLUCOSE 218 MG/DL (70-104); LIPASE 371 U/L (73-393); MAGNESIUM 1.4 MG/DL (1.5-2.4); PHOSPHORUS 5.2 MG/DL (2.3-4.5); POTASSIUM 3.8 MMOL/L (3.5-5.1); SODIUM 142 MMOL/L (135-145); TOTAL CARBON DIOXIDE 25.2 MMOL/L (24-32); TOTAL PROTEIN 7.2 G/DL (6.4-8.2); eGFR > 90 ML/MIN
[2021-08-11 10:00] VITALS: BP 114/64
[2021-08-11] MEDS ORDERED: mag hydrox/Alum hydrox/simeth 30ml oral suspension PO PRN (10:15)
--- NOTE | 2021-08-11 10:22 | NUR ---
Initial: Pt admit for alcoholic ketoacidosis, dehydration, OANH, hyponatremia, and acute pancreatitis. Per MD notes most admitting dx are resolved and noted amylase and lipase are WNL though pt continues with c/o abdominal pain. Patient's diet order fluctuates from liquids to solids, currently on a CHO controlled diet and eating well with 75-100% PO intake. Noted PO intake fluctuated with different diet orders. Pt continues receiving routine Thiamine, Folic acid, and MVI for EtOH hx. LB 08/09, with PRN bowel care available. No nutrition intervention implemented at this time. Will continue to follow and make recommendations as appropriate. Recommendations: 1) Continue CHO controlled diet given elevated BG levels; liberalize to regular as medically indicated given T2DM well controlled with A1c 6.3% 2) Continue routine Thiamine, Folic acid, and MVI for EtOH hx 3) Bowel care PRN; consider routine bowel care 4) Weekly scaled weights Addendum: 08/11/21 at [address] Amended: Links added.
[2021-08-11] MEDS ORDERED: hyoscyamine 0.125mg TAB.SUBL SL PRN (13:40)
[2021-08-11] MEDS ORDERED: naltrexone 50mg tablet PO SCH (13:40)
[2021-08-11 15:00] VITALS: BP 137/91
[2021-08-11 18:00] VITALS: BP 153/90
--- NOTE | 2021-08-11 18:54 | NUR ---
Problems reprioritized. Patient report given, questions answered & plan of care reviewed with Bibiana LAMBERT.
[2021-08-11] MEDS: lisinopril 20mg tablet PO SCH (21:32)
[2021-08-11] MEDS: insulin glargine (Lantus) pen - multi-dose SQ SCH (21:48)
[2021-08-11 22:00] VITALS: BP 144/93
[2021-08-12 02:00] VITALS: BP 136/66
[2021-08-12] MEDS: chlordiazePOXIDE 25mg capsule PO PRN (05:50)
[2021-08-12] MEDS: HYDROcodone/acetaminophen 10/325mg tab PO PRN (05:50)
[2021-08-12 05:56] LABS: BASOPHILS # (AUTO) 0.1 X10'3 (0-0.2); EOSINOPHILS # (AUTO) 0.1 X10'3 (0-0.9); LYMPHOCYTES # (AUTO) 1.5 X10'3 (1.1-4.8); MEAN CORPUSCULAR HGB CONC 34.1 g/dL (33.0-36.5); MONOCYTES # (AUTO) 0.4 X10'3 (0-0.9); NEUTROPHILS # (AUTO) 1.5 X10'3 (1.8-7.7); WHITE BLOOD COUNT 3.6 X10'3 (4.5-11.0)
[2021-08-12 05:58] LABS: BASOPHILS % (AUTO) 1.4 % (0-1); EOSINOPHILS % (AUTO) 2.2 % (0-6); HEMOGLOBIN 14.3 g/dl (12.0-16.0); LYMPHOCYTES % (AUTO) 42.9 % (21-51); MEAN CORPUSCULAR HEMOGLOBIN 36.4 PG (27.0-31.0); MONOCYTES % (AUTO) 10.9 % (2-12); NEUTROPHILS % (AUTO) 42.6 % (42-75); PLATELET COUNT 182 X10'3 (140-440); RED BLOOD COUNT 3.92 X10'6 (4.20-5.60); RED CELL DISTRIBUTION WIDTH 15.7 % (11.5-14.5)
[2021-08-12 06:10] LABS: ALANINE AMINOTRANSFERASE 104 U/L (12-78); ALBUMIN 2.8 G/DL (3.4-5.0); ALBUMIN/GLOBULIN RATIO 0.7 (1.1-1.5); ALKALINE PHOSPHATASE 89 IU/L (46-116); AMYLASE 53 U/L (25-115); ANION GAP 13 (8-16); BILIRUBIN,TOTAL 0.9 MG/DL (0.1-1.0); BLOOD UREA NITROGEN 10 MG/DL (7-18); BUN/CREATININE RATIO 14.1 (6.6-38.0); CALCIUM 10.2 MG/DL (8.5-10.1); CHLORIDE 103 MMOL/L (99-107); CREATININE 0.71 MG/DL (0.40-0.90); GLUCOSE 257 MG/DL (70-104); MAGNESIUM 1.4 MG/DL (1.5-2.4); SODIUM 140 MMOL/L (135-145); TOTAL CARBON DIOXIDE 23.9 MMOL/L (24-32); TOTAL PROTEIN 6.9 G/DL (6.4-8.2); eGFR > 90 ML/MIN
[2021-08-12 06:14] LABS: ASPARTATE AMINO TRANSFERASE 100 U/L (10-37); POTASSIUM 4.3 MMOL/L (3.5-5.1)
--- NOTE | 2021-08-12 06:22 | NUR ---
Problems reprioritized. Patient report given, questions answered & plan of care reviewed with Darshan.
--- NOTE | 2021-08-12 06:55 | NUR ---
Patient in room MED 314. I have received report from Bhanu LAMBERT and had the opportunity to ask questions and assume patient care.
[2021-08-12] MEDS ORDERED: CITALOpram 10mg tablet PO SCH (08:00)
[2021-08-12] MEDS: lisinopril 20mg tablet PO SCH (08:00)
[2021-08-12] MEDS: multivitamins, therapeutics tablet PO SCH (08:49)
[2021-08-12] MEDS: thiamine 100mg tablet PO SCH (08:49)
[2021-08-12] MEDS: folic acid 1mg tablet PO SCH (08:49)
[2021-08-12] MEDS: magnesium Cl slow-release 64mg tablet PO PRN (08:49)
[2021-08-12] MEDS: pantoprazole 40mg Tablet.DR PO SCH (08:50)
[2021-08-12] MEDS: levoTHYROXINE 100mcg tablet PO SCH (08:51)
[2021-08-12] MEDS: heparin, porcine 5000 units/ml vial SQ SCH (08:52)
[2021-08-12] MEDS: insulin Lispro (HumaLOG) vial - multi-dose SQ SCH (09:06)
[2021-08-12] MEDS ORDERED: LISI20TA28 PO (11:23)
[2021-08-12] MEDS ORDERED: CHLO25CA10 PO ×4 (11:23→12:23)
[2021-08-12] MEDS ORDERED: ACET-1008 PO (11:23)
[2021-08-12] MEDS ORDERED: MAGN400T56 PO (11:23)
[2021-08-12] MEDS ORDERED: MULT-25 PO (11:23)
[2021-08-12] MEDS ORDERED: LOPE1TAB46 PO (11:23)
--- NOTE | 2021-08-12 12:10 | NUR ---
PAGER ID: [phone] MESSAGE: Josh Acce [phone] re: 314 Carriero Patient needs to have the hardcopy of the Librium Rx, I can call all the other medications in. Thanks josh.
--- NOTE | 2021-08-12 14:59 | NUR ---
IV taken out at the time of discharge, minimal bleeding at this time. Patient left with all belonging at time of discharge and left with resources in the community for [place]. Patient expressed verbal understanding of new medications that were added to home medications. Patient left walked out after discharge teaching.
--- NOTE | 2021-08-12 18:11 | NUR ---
Received a phone call from Dr. Saba to follow up with patient about two medications first being the stoppage of her Verapamil, the medications was meant to stop upon discharge but somehow still showed continued patient expressed verbal understanding of the medication change. 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 Patient expressed verbal understanding of these changes.
== END 2021-08-12 14:00 | disposition home or self-care (01) | DRG 637 ==
LOC: EEVIPCON 13:20 → ER 13:20 → ED HOLD 15:23 → CICU 2S 20:20 → MED 3N 08-07 14:00
PROVIDERS: ADMIT Internal Medicine Critical Care Medicine; ATTEND Internal Medicine Critical Care Medicine
DX: E11.10 Type 2 diabetes mellitus with ketoacidosis without coma (principal); K85.20 Alcohol induced acute pancreatitis without necrosis or infection; E87.1 Hypo-osmolality and hyponatremia; N17.9 Acute kidney failure, unspecified; N39.0 Urinary tract infection, site not specified; E83.42 Hypomagnesemia; R74.01 Elevation of levels of liver transaminase levels; K58.9 Irritable bowel syndrome, unspecified; E86.0 Dehydration; F10.20 Alcohol dependence, uncomplicated; E87.6 Hypokalemia; E83.51 Hypocalcemia; F32.A Depression, unspecified; Z90.49 Acquired absence of other specified parts of digestive tract; Z91.018 Allergy to other foods; Z79.4 Long term (current) use of insulin; Z79.899 Other long term (current) drug therapy
CPT/HCPCS: 36415; 36600; 71045; 74176; 80053; 80069; 80076; 80320; 81001; 81025; 82009; 82150; 82803; 82948; 83036; 83605; 83690; 83735; 83930; 84100; 84145; 84443; 84478; 85007; 85018; 85025; 87040; 87081; 87088; 93005; 94760; 96361; 96374; 96375; 97116; 97161; 99291; C9113; G0378; J0696; J1644; J1815; J2060; J2270; J2405; J2765; J3411; J3490; J7030; J7042; J7070; J7120

== ENCOUNTER 2021-09-12 13:33 | Emergency (ER) | payer BC ==
[~2021-09-12] VITALS: Ht 160 cm; Wt 81.8 kg
[~2021-09-12 13:33] MED LIST changes: +ACET-1008 PO; +FOLI0.4T14 PO; -LACT1CAP26 PO; +LISI20TA28 PO; -LISI5TAB22 PO; +LOPE1TAB46 PO; +MAGN400T56 PO; -MAGN500C16 PO; +MECO10005 PO; +MULT-25 PO; +PANT-47 PO; -PANT20TA18 PO; -PHO667C PO; +THIA100T70 PO; -VERA120T86 PO
[2021-09-12 15:08] LABS: BASOPHILS % (AUTO) 0.6 % (0-1); EOSINOPHILS % (AUTO) 0.1 % (0-6); HEMATOCRIT 42.5 % (35.0-45.0); HEMOGLOBIN 14.9 g/dl (12.0-16.0); LYMPHOCYTES # (AUTO) 0.6 X10'3 (1.1-4.8); LYMPHOCYTES % (AUTO) 10.1 % (21-51); MEAN CORPUSCULAR HGB CONC 35.1 g/dL (33.0-36.5); MEAN CORPUSCULAR VOLUME 105.5 FL (78-98); MEAN PLATELET VOLUME 7.7 FL (7.4-10.4); MONOCYTES # (AUTO) 0.4 X10'3 (0-0.9); MONOCYTES % (AUTO) 6.6 % (2-12); NEUTROPHILS # (AUTO) 4.9 X10'3 (1.8-7.7); NEUTROPHILS % (AUTO) 82.6 % (42-75); PLATELET COUNT 186 X10'3 (140-440); RED BLOOD COUNT 4.03 X10'6 (4.20-5.60)
[2021-09-12 15:16] LABS: HCG SERUM QL NEGATIVE
[2021-09-12 15:22] LABS: ALANINE AMINOTRANSFERASE 114 U/L (12-78); ALBUMIN 3.8 G/DL (3.4-5.0); ALBUMIN/GLOBULIN RATIO 0.8 (1.1-1.5); ALKALINE PHOSPHATASE 82 IU/L (46-116); ANION GAP 19 (8-16); ASPARTATE AMINO TRANSFERASE 116 U/L (10-37); BILIRUBIN,TOTAL 4.1 MG/DL (0.1-1.0); BLOOD UREA NITROGEN 5 MG/DL (7-18); BUN/CREATININE RATIO 6.6 (6.6-38.0); CALCIUM 9.2 MG/DL (8.5-10.1); CHLORIDE 87 MMOL/L (99-107); CREATININE 0.76 MG/DL (0.40-0.90); GLUCOSE 248 MG/DL (70-104); POTASSIUM 4.3 MMOL/L (3.5-5.1); SODIUM 127 MMOL/L (135-145); TOTAL CARBON DIOXIDE 20.8 MMOL/L (24-32); TOTAL PROTEIN 8.4 G/DL (6.4-8.2); eGFR 88 ML/MIN
[2021-09-12] MEDS ORDERED: morphine 4 MG/ML inj SYRINge IV ONE ×2 (15:30→20:20)
[2021-09-12] MEDS ORDERED: ondansetron/PF 4mg/2ml inj IM ONE (15:30)
[2021-09-12] MEDS ORDERED: normal saline 1000ML IV soln IVB ONE (15:30)
[2021-09-12 16:03] LABS: LIPASE 1735 U/L (73-393)
[2021-09-12] MEDS ORDERED: iohexol 300mg/ml 100ml inj. ONE (16:43)
[2021-09-12 17:21] LABS: CLARITY,URINE CLEAR (Clear); COLOR,URINE AMBER (Yellow); GLUCOSE, URINE 250 mg/dl (Neg); KETONES,URINE >=80 mg/dl (Neg); LEUKOCYTE ESTERASE ,URINE NEGATIVE (Neg); NITRITES, URINE NEGATIVE (Neg); OCCULT BLOOD,URINE SMALL (Neg); PROTEIN,URINE >=300 mg/dl (Neg); UA COLLECTION TYPE CLN CATCH MIDSTREAM
[2021-09-12 17:29] LABS: BACTERIA,URINE 1+ /HPF (Neg); MUCUS STRANDS NONE SEEN /LPF (Neg); RENAL CELLS, URINE FEW /HPF; SQUAMOUS EPITHELIAL CELL,UR NONE SEEN /LPF (FEW); WBC,URINE 0-4 /HPF (0-4)
[2021-09-12] MEDS ORDERED: LORazepam 2 mg/ml vial IV ONE (17:55)
[2021-09-12] MEDS ORDERED: ondansetron/PF 4mg/2ml inj IV ONE (18:10)
[2021-09-12] MEDS ORDERED: ketamine 10mg/ml 20ml inj 25 MG in normal saline 100ml IV soln 97.5 ML IV ONE (18:50)
--- NOTE | 2021-09-12 19:00 | NUR ---
patient became upset and reporting 8/10 pain when nurse entered the room. pt reported she never recieved any pain, anxiety and nause medication during day shift despite there being documentation stating that patient recieved zofran, ativan and morphine. JEFFERSON sanders at bedasi
[2021-09-12 19:26] VITALS: BP 186/120
[2021-09-12] MEDS ORDERED: ONDA8TAB13 PO (20:39)
[2021-09-12] MEDS ORDERED: HYDR-3964 PO (20:42)
[2021-09-12] MEDS ORDERED: PER5325T PO (20:48)
== END 2021-09-12 21:04 | disposition home or self-care (01) ==
LOC: ER 13:34
DX: K85.20 Alcohol induced acute pancreatitis without necrosis or infection (principal); R10.12 Left upper quadrant pain; K85.90 Acute pancreatitis without necrosis or infection, unspecified; E11.9 Type 2 diabetes mellitus without complications; Z90.89 Acquired absence of other organs; Z90.49 Acquired absence of other specified parts of digestive tract; Z72.89 Other problems related to lifestyle; Z91.018 Allergy to other foods; Z79.4 Long term (current) use of insulin; Z79.899 Other long term (current) drug therapy
CPT/HCPCS: 36415; 80053; 81001; 82948; 83690; 84703; 85025; 93005; 96361; 96374; 96375; 96376; 99285; J2060; J2270; J2405; J3490; J7030; Q9967

== ENCOUNTER 2021-09-13 20:08 | Emergency (ER) | payer BC ==
[~2021-09-13] VITALS: Ht 160 cm; Wt 81.8 kg
[~2021-09-13 20:08] MED LIST changes: +HYDR-3964 PO; +ONDA8TAB13 PO; +PER5325T PO
[2021-09-13 20:43] LABS: URINE HCG NEGATIVE (NEG)
[2021-09-13 20:45] LABS: CLARITY,URINE SLIGHTLY CLOUDY (Clear); COLOR,URINE YELLOW (Yellow); GLUCOSE, URINE 500 mg/dl (Neg); KETONES,URINE >=80 mg/dl (Neg); LEUKOCYTE ESTERASE ,URINE NEGATIVE (Neg); NITRITES, URINE NEGATIVE (Neg); OCCULT BLOOD,URINE SMALL (Neg); PROTEIN,URINE 100 mg/dl (Neg)
[2021-09-13 20:52] LABS: BASOPHILS # (AUTO) 0.1 X10'3 (0-0.2); BASOPHILS % (AUTO) 0.9 % (0-1); EOSINOPHILS % (AUTO) 0.5 % (0-6); HEMATOCRIT 40.3 % (35.0-45.0); HEMOGLOBIN 14.1 g/dl (12.0-16.0); LYMPHOCYTES # (AUTO) 0.8 X10'3 (1.1-4.8); LYMPHOCYTES % (AUTO) 11.7 % (21-51); MEAN CORPUSCULAR HEMOGLOBIN 37.1 PG (27.0-31.0); MEAN CORPUSCULAR HGB CONC 34.9 g/dL (33.0-36.5); MEAN CORPUSCULAR VOLUME 106.1 FL (78-98); MEAN PLATELET VOLUME 8.2 FL (7.4-10.4); MONOCYTES # (AUTO) 0.4 X10'3 (0-0.9); MONOCYTES % (AUTO) 6.3 % (2-12); NEUTROPHILS # (AUTO) 5.7 X10'3 (1.8-7.7); NEUTROPHILS % (AUTO) 80.6 % (42-75); PLATELET COUNT 162 X10'3 (140-440); RED CELL DISTRIBUTION WIDTH 14.3 % (11.5-14.5)
[2021-09-13 20:55] LABS: UA COLLECTION TYPE CLN CATCH MIDSTREAM
[2021-09-13 20:58] LABS: BACTERIA,URINE FEW /HPF (Neg); MUCUS STRANDS FEW /LPF (Neg); SQUAMOUS EPITHELIAL CELL,UR MANY /LPF (FEW); TRANSITIONAL EPI CELLS,URINE FEW /HPF; WBC,URINE 0-4 /HPF (0-4)
[2021-09-13 21:00] LABS: ALANINE AMINOTRANSFERASE 64 U/L (12-78); ALBUMIN 3.4 G/DL (3.4-5.0); ALBUMIN/GLOBULIN RATIO 0.7 (1.1-1.5); ALKALINE PHOSPHATASE 76 IU/L (46-116); ANION GAP 20 (8-16); ASPARTATE AMINO TRANSFERASE 72 U/L (10-37); BILIRUBIN,TOTAL 3.4 MG/DL (0.1-1.0); BLOOD UREA NITROGEN 5 MG/DL (7-18); BUN/CREATININE RATIO 6.7 (6.6-38.0); CHLORIDE 88 MMOL/L (99-107); CREATININE 0.75 MG/DL (0.40-0.90); GLUCOSE 219 MG/DL (70-104); LIPASE 494 U/L (73-393); POTASSIUM 3.5 MMOL/L (3.5-5.1); SODIUM 129 MMOL/L (135-145); TOTAL CARBON DIOXIDE 20.7 MMOL/L (24-32); TOTAL PROTEIN 8.3 G/DL (6.4-8.2); eGFR 89 ML/MIN
[2021-09-14 01:40] LABS: ETHANOL < 0.010 GM/DL (0.0-0.010); MAGNESIUM 1.5 MG/DL (1.5-2.4)
[2021-09-14] MEDS ORDERED: normal saline 1000ML IV soln IVB ONE ×4 (02:05→08:50)
[2021-09-14] MEDS ORDERED: normal saline 1000ml 1,000 ML IV ONE (02:05)
[2021-09-14] MEDS: morphine 2 MG/ML inj. syringe IV PRN ×5 (02:55→09:38)
[2021-09-14] MEDS ORDERED: D5-1/2NS w/20 mEq potassium per 1000ml IV ONE (03:25)
[2021-09-14] MEDS ORDERED: ondansetron/PF 4mg/2ml inj IV ONE (03:25)
[2021-09-14] MEDS ORDERED: LORazepam 2 mg/ml vial IV ONE (03:25)
[2021-09-14] MEDS ORDERED: magnesium 2GM in 50ml NS 50 ML IV ONE (03:25)
[2021-09-14] MEDS ORDERED: thiamine inj. 100 MG in normal saline 100ml IV soln 100 ML IV ONE (03:25)
[2021-09-14] MEDS ORDERED: iohexol 300mg/ml 100ml inj. ONE (03:35)
[2021-09-14] MEDS ORDERED: thiamine 100mg/ml 2ml inj. IV ONE (03:35)
[2021-09-14 09:56] VITALS: BP 145/95
== END 2021-09-14 10:11 | disposition home or self-care (01) ==
LOC: ER 20:09
DX: K85.20 Alcohol induced acute pancreatitis without necrosis or infection (principal); R10.84 Generalized abdominal pain; E87.1 Hypo-osmolality and hyponatremia; E87.2 Acidosis; E80.6 Other disorders of bilirubin metabolism; F17.200 Nicotine dependence, unspecified, uncomplicated; Z90.89 Acquired absence of other organs; Z90.49 Acquired absence of other specified parts of digestive tract; Z72.89 Other problems related to lifestyle; Z91.018 Allergy to other foods; Z79.4 Long term (current) use of insulin; Z79.899 Other long term (current) drug therapy
CPT/HCPCS: 36415; 74177; 80053; 80320; 81001; 81025; 83690; 83735; 85025; 93005; 96361; 96365; 96366; 96375; 96376; 99285; J2060; J2270; J2405; J3411; J3475; J3480; J7030; Q9967

== ENCOUNTER 2022-03-06 12:27 | Inpatient (IN) | payer BC, MEDICAID ==
[~2022-03-06] VITALS: Ht 160 cm; Wt 79.5 kg
[~2022-03-06 12:27] MED LIST changes: -ACET-1008 PO; -HYDR-3964 PO; -PER5325T PO
[2022-03-06 13:22] LABS: BASOPHILS # (AUTO) 0.1 X10'3 (0-0.2); BASOPHILS % (AUTO) 0.7 % (0-1); EOSINOPHILS % (AUTO) 0.1 % (0-6); HEMATOCRIT 45.9 % (35.0-45.0); HEMOGLOBIN 15.8 g/dl (12.0-16.0); LYMPHOCYTES # (AUTO) 1.5 X10'3 (1.1-4.8); LYMPHOCYTES % (AUTO) 19.1 % (21-51); MEAN CORPUSCULAR HEMOGLOBIN 35.3 PG (27.0-31.0); MEAN CORPUSCULAR HGB CONC 34.5 g/dL (33.0-36.5); MEAN CORPUSCULAR VOLUME 102.1 FL (78-98); MEAN PLATELET VOLUME 7.8 FL (7.4-10.4); MONOCYTES # (AUTO) 0.4 X10'3 (0-0.9); NEUTROPHILS % (AUTO) 75.1 % (42-75); PLATELET COUNT 220 X10'3 (140-440); RED CELL DISTRIBUTION WIDTH 14.6 % (11.5-14.5)
[2022-03-06 13:25] LABS: ALANINE AMINOTRANSFERASE 336 U/L (12-78); ALBUMIN 3.8 G/DL (3.4-5.0); ALBUMIN/GLOBULIN RATIO 0.7 (1.1-1.5); ALKALINE PHOSPHATASE 95 IU/L (46-116); ANION GAP 27 (8-16); ASPARTATE AMINO TRANSFERASE 572 U/L (10-37); BILIRUBIN,TOTAL 2.5 MG/DL (0.1-1.0); BLOOD UREA NITROGEN 8 MG/DL (7-18); BUN/CREATININE RATIO 10.4 (6.6-38.0); CHLORIDE 93 MMOL/L (99-107); CREATININE 0.77 MG/DL (0.40-0.90); GLUCOSE 176 MG/DL (70-104); POTASSIUM 4.3 MMOL/L (3.5-5.1); SODIUM 136 MMOL/L (135-145); TOTAL CARBON DIOXIDE 15.7 MMOL/L (24-32); eGFR 86 ML/MIN
[2022-03-06 13:35] LABS: LIPASE 5140 U/L (73-393)
[2022-03-06] MEDS ORDERED: normal saline 1000ML IV soln IV ONE (14:25)
[2022-03-06] MEDS ORDERED: dextrose 5%-water 1,000 ML IV ONE (14:25)
[2022-03-06] MEDS ORDERED: morphine 4 MG/ML inj SYRINge IV ONE ×3 (14:40→18:40)
[2022-03-06] MEDS ORDERED: LORazepam 2 mg/ml vial IV ONE ×4 (14:50→22:40)
[2022-03-06] MEDS ORDERED: iohexol 300mg/ml 100ml inj. ONE (16:14)
[2022-03-06 16:21] LABS: HCG SERUM QL NEGATIVE
[2022-03-06] MEDS ORDERED: METF-517 PO (17:25)
[2022-03-06] MEDS ORDERED: MULT-1085 PO (17:25)
[2022-03-06] MEDS ORDERED: ALPR-623 PO (17:25)
[2022-03-06] MEDS ORDERED: VERA120T2 PO (17:25)
[2022-03-06] MEDS ORDERED: LISI5TAB22 PO (17:25)
[2022-03-06 17:59] LABS: ABG BASE EXCESS -8.6 mmol/L (-2.0-2.0); ABG HCO3 15.2 mmol/L (22.0-26.0); ABG OXYGEN SATURATION 96.3 % (94-97); ABG PCO2 (T) 27.4 mmHg (32.0-45.0); ALLEN'S TEST POSITIVE; FCOHb 0.8 % (0.0-3.9); FMetHb 0.3 % (0.0-1.5); FO2Hb 95.2 % (94-97); TOTAL HEMOGLOBIN 14.5 G/dl (12.0-16.0)
[2022-03-06] MEDS ORDERED: ondansetron/PF 4mg/2ml inj IV ONE (18:55)
[2022-03-06 19:51] LABS: CLARITY,URINE CLEAR (Clear); COLOR,URINE YELLOW (Yellow); GLUCOSE, URINE >=1000 mg/dl (Neg); KETONES,URINE >=80 mg/dl (Neg); LEUKOCYTE ESTERASE ,URINE NEGATIVE (Neg); NITRITES, URINE NEGATIVE (Neg); OCCULT BLOOD,URINE SMALL (Neg); PH,URINE 5.5 (4.8-8.0); PROTEIN,URINE TRACE mg/dl (Neg); UROBILINOGEN,URINE 0.2 E.U/dL (0.2-1.0)
[2022-03-06 19:58] LABS: UA COLLECTION TYPE FOLEY CATH
[2022-03-06 20:02] LABS: HYALINE CASTS 0-3 /LPF (NEGATIVE)
[2022-03-06 20:03] LABS: BACTERIA,URINE FEW /HPF (Neg); RBC,URINE 0-2 /HPF (0-2); SQUAMOUS EPITHELIAL CELL,UR FEW /LPF (FEW); WBC,URINE 0-4 /HPF (0-4)
[2022-03-06 20:04] LABS: MUCUS STRANDS NONE SEEN /LPF (Neg); YEAST FEW /HPF (NEGATIVE)
[2022-03-06] MEDS: HYDROmorphone 1 mg/ml syringe IV PRN (20:57)
[2022-03-06 23:04] LABS: URINE AMPHETAMINE SCREEN NEGATIVE (Neg); URINE BARBITUATE SCREEN NEGATIVE (Neg); URINE BENZODIAZEPINES SCREEN NEGATIVE (Neg); URINE CANNABINOID SCREEN NEGATIVE (Neg); URINE COCAINE SCREEN NEGATIVE (Neg); URINE METHADONE SCREEN NEGATIVE (Neg); URINE OPIATE SCREEN POSITIVE (Neg); URINE PHENCYCLIDINE SCREEN NEGATIVE (Neg)
[2022-03-07] MEDS ORDERED: HYDROcodone/acetaminophen 5mg/325mg tablet PO PRN (01:00)
[2022-03-07] MEDS ORDERED: acetaminophen 325mg tablet PO PRN ×2 (01:00)
[2022-03-07] MEDS ORDERED: HYDROcodone/acetaminophen 10/325mg tab PO PRN (01:00)
[2022-03-07] MEDS ORDERED: dextrose 50%-water 50ml dispensing syringe IV PRN ×3 (01:00→01:05)
[2022-03-07] MEDS ORDERED: mag hydrox/Alum hydrox/simeth 30ml oral suspension PO PRN (01:00)
[2022-03-07] MEDS ORDERED: haloperidol lactate 5mg/ml inj IM PRN (01:00)
[2022-03-07] MEDS ORDERED: bisacodyl 10mg suppository rectal RC PRN (01:00)
[2022-03-07] MEDS ORDERED: acetaminophen 650mg rectal suppository RC PRN (01:00)
[2022-03-07] MEDS ORDERED: metoclopramide 5 mg/ml inj IV PRN (01:00)
[2022-03-07] MEDS ORDERED: ondansetron 4mg rapidly disintigrating tab PO PRN (01:00)
[2022-03-07] MEDS ORDERED: diphenhydrAMINE 50 mg/ml inj IV PRN (01:00)
[2022-03-07] MEDS ORDERED: diphenhydrAMINE 25mg capsule PO PRN (01:00)
[2022-03-07] MEDS ORDERED: haloperidol 5mg tablet PO PRN (01:00)
[2022-03-07] MEDS ORDERED: HYDROmorphone inj. 0.5 MG/0.5 ML DISP.SYRIN IV PRN (01:00)
[2022-03-07] MEDS ORDERED: ondansetron/PF 4mg/2ml inj IV PRN (01:00)
[2022-03-07] MEDS ORDERED: morphine 2 MG/ML inj. syringe IV PRN (01:00)
[2022-03-07] MEDS ORDERED: glucagon, human recombinant 1mg kit SUBCUT PRN (01:05)
[2022-03-07] MEDS ORDERED: DEXTROSE 15 GM of carb/4 tabs (each vial/BOTTLE has 4 tablets) PO PRN ×2 (01:05)
[2022-03-07] MEDS ORDERED: MESSAGE TO PHARMACY PO ONE (01:05)
[2022-03-07] MEDS: HYDROmorphone 1 mg/ml syringe IV PRN ×5 (01:20→21:07)
[2022-03-07] MEDS: normal saline 1000ml 1,000 ML IV SCH ×3 (02:00→17:00)
[2022-03-07] MEDS: morphine 2 MG/ML inj. syringe IV PRN (03:38)
[2022-03-07] MEDS: LORazepam 2 mg/ml vial IV PRN ×3 (04:25→22:09)
[2022-03-07] MEDS ORDERED: hydrALAZINE 20mg/ml inj. IV PRN (04:50)
[2022-03-07 06:00] VITALS: BP 171/107
--- NOTE | 2022-03-07 07:00 | NUR ---
Problems reprioritized. Patient report given, questions answered & plan of care reviewed with MERLE. Addendum: 03/07/22 at 0700 by Gera Marie RN Amended: Links added.
[2022-03-07 07:19] LABS: APTT 28 SECONDS (22-32)
[2022-03-07 07:30] LABS: CREATINE KINASE 41 U/L (26-192); ETHANOL < 0.010 GM/DL (0.0-0.010); PHOSPHORUS 3.2 MG/DL (2.3-4.5)
[2022-03-07 07:37] LABS: HEMOGLOBIN A1C 6.5 % (4.5-6.2)
--- NOTE | 2022-03-07 07:38 | NUR ---
reported critical lab value to primary RN
--- NOTE | 2022-03-07 07:52 | NUR ---
Diabetes consult: Noted pt w/ hx of DM A1c 6.5 well controlled and appropriate. DM ed not indicated at this time. Will continue to monitor. Addendum: 03/07/22 at [address] Amended: Links added.
[2022-03-07] MEDS: folic acid 1mg/0.2ml inj IV SCH (08:00)
[2022-03-07] MEDS: pantoprazole 40MG/NS 100ML BAG 100 ML IV SCH (09:05)
[2022-03-07] MEDS: thiamine 100mg/ml 2ml inj. IV SCH ×3 (09:05→21:06)
[2022-03-07] MEDS: docusate sod 100mg capsule PO SCH ×2 (09:06→21:07)
[2022-03-07] MEDS: nicotine 21mg patch - 24 hr TD SCH (09:07)
[2022-03-07] MEDS: heparin, porcine 5000 units/ml vial SQ SCH ×2 (09:07→21:13)
[2022-03-07] MEDS: insulin Lispro (HumaLOG) vial - multi-dose SQ SCH ×3 (09:21→19:22)
--- NOTE | 2022-03-07 13:04 | NUR ---
Met with patient in regards to alcohol use and to see if patient wanted resources for treatment options. Patient doesn't want inpatient rehab. I talked to patient about outpatient rehab, AA meetings and getting a sponsor. Patient does have a sponsor and will contact her. I talked to patient about medication for cravings and she isn't interested at this time.
[2022-03-07 15:00] VITALS: BP 142/100
[2022-03-07 15:59] LABS: BASOPHILS % (AUTO) 0.2 % (0-1); EOSINOPHILS % (AUTO) 0.1 % (0-6); HEMATOCRIT 41.4 % (35.0-45.0); HEMOGLOBIN 14.5 g/dl (12.0-16.0); LYMPHOCYTES # (AUTO) 0.6 X10'3 (1.1-4.8); LYMPHOCYTES % (AUTO) 10.3 % (21-51); MEAN CORPUSCULAR HEMOGLOBIN 35.3 PG (27.0-31.0); MEAN CORPUSCULAR HGB CONC 34.9 g/dL (33.0-36.5); MEAN CORPUSCULAR VOLUME 101.2 FL (78-98); MEAN PLATELET VOLUME 8.5 FL (7.4-10.4); MONOCYTES # (AUTO) 0.4 X10'3 (0-0.9); MONOCYTES % (AUTO) 6.8 % (2-12); NEUTROPHILS # (AUTO) 5.1 X10'3 (1.8-7.7); NEUTROPHILS % (AUTO) 82.6 % (42-75); PLATELET COUNT 137 X10'3 (140-440); RED BLOOD COUNT 4.09 X10'6 (4.20-5.60); RED CELL DISTRIBUTION WIDTH 15.1 % (11.5-14.5); WHITE BLOOD COUNT 6.1 X10'3 (4.5-11.0)
[2022-03-07 16:10] LABS: ALANINE AMINOTRANSFERASE 225 U/L (12-78); ALBUMIN 2.9 G/DL (3.4-5.0); ALBUMIN/GLOBULIN RATIO 0.6 (1.1-1.5); ALKALINE PHOSPHATASE 77 IU/L (46-116); ANION GAP 15 (8-16); BLOOD UREA NITROGEN 6 MG/DL (7-18); BUN/CREATININE RATIO 10.3 (6.6-38.0); CALCIUM 8.6 MG/DL (8.5-10.1); CHLORIDE 94 MMOL/L (99-107); CREATININE 0.58 MG/DL (0.40-0.90); GLUCOSE 245 MG/DL (70-104); SODIUM 128 MMOL/L (135-145); TOTAL CARBON DIOXIDE 19.2 MMOL/L (24-32); TOTAL PROTEIN 7.6 G/DL (6.4-8.2); eGFR > 90 ML/MIN
[2022-03-07 16:11] LABS: ASPARTATE AMINO TRANSFERASE 311 U/L (10-37); POTASSIUM 4.3 MMOL/L (3.5-5.1)
[2022-03-07] MEDS ORDERED: CALC667T6 PO (17:48)
[2022-03-07] MEDS ORDERED: FOLI1TAB27 PO (17:48)
[2022-03-07] MEDS ORDERED: LISI10TA27 PO (17:48)
[2022-03-07] MEDS ORDERED: CITA10TA22 PO (17:48)
[2022-03-07 18:30] VITALS: BP 147/104
[2022-03-07] MEDS ORDERED: POTASSIUM BICARB 20meq eff tab 20 MEQ TABLET.EFF PO PRN (19:50)
[2022-03-07] MEDS ORDERED: magnesium 2GM in 50ml NS 50 ML IV PRN (19:50)
[2022-03-07] MEDS ORDERED: magnesium 4gm in 100ml NS 100 ML IV PRN (19:50)
[2022-03-07] MEDS ORDERED: potassium CL 10mEq/100ml bag 100 ML IV PRN (19:50)
[2022-03-07] MEDS: K and/or MAG REPLACEMENT MC SCH (20:00)
[2022-03-07 20:24] LABS: MAGNESIUM 1.1 MG/DL (1.5-2.4); POTASSIUM 3.6 MMOL/L (3.5-5.1)
[2022-03-07] MEDS ORDERED: temazepam 15mg capsule PO PRN (21:00)
[2022-03-07] MEDS: magnesium Cl slow-release 64mg tablet PO PRN (21:08)
[2022-03-07 22:00] VITALS: BP 145/90
[2022-03-07] MEDS: insulin glargine (Lantus) pen - multi-dose SQ SCH (22:12)
[2022-03-08] MEDS: normal saline 1000ml 1,000 ML IV SCH ×2 (01:40→14:37)
[2022-03-08] MEDS: HYDROmorphone 1 mg/ml syringe IV PRN ×5 (01:40→19:37)
[2022-03-08] MEDS: LORazepam 2 mg/ml vial IV PRN ×2 (01:52→07:37)
[2022-03-08 02:00] VITALS: BP 140/90
[2022-03-08 06:00] VITALS: BP 118/80
[2022-03-08 06:59] LABS: ALANINE AMINOTRANSFERASE 170 U/L (12-78); ALBUMIN 2.5 G/DL (3.4-5.0); ALBUMIN/GLOBULIN RATIO 0.5 (1.1-1.5); ALKALINE PHOSPHATASE 75 IU/L (46-116); ANION GAP 20 (8-16); ASPARTATE AMINO TRANSFERASE 170 U/L (10-37); BILIRUBIN,TOTAL 2.4 MG/DL (0.1-1.0); BLOOD UREA NITROGEN 8 MG/DL (7-18); BUN/CREATININE RATIO 12.7 (6.6-38.0); CALCIUM 8.3 MG/DL (8.5-10.1); CHLORIDE 95 MMOL/L (99-107); CHOL/HDL RATIO 2.3 (0.00-4.99); CHOLESTEROL 183 MG/DL (0-200); CREATININE 0.63 MG/DL (0.40-0.90); GLUCOSE 194 MG/DL (70-104); HDL CHOLESTEROL 79 MG/DL (35-60); LDL CHOLESTEROL 46 MG/DL (50-100); LIPASE 349 U/L (73-393); POTASSIUM 3.6 MMOL/L (3.5-5.1); SODIUM 131 MMOL/L (135-145); TOTAL CARBON DIOXIDE 16.3 MMOL/L (24-32); TOTAL PROTEIN 7.1 G/DL (6.4-8.2); TRIGLYCERIDES 86 MG/DL (20-135); eGFR > 90 ML/MIN
[2022-03-08 07:12] LABS: BASOPHILS % (AUTO) 0.3 % (0-1); EOSINOPHILS % (AUTO) 0.8 % (0-6); HEMATOCRIT 39.2 % (35.0-45.0); HEMOGLOBIN 13.7 g/dl (12.0-16.0); LYMPHOCYTES # (AUTO) 0.8 X10'3 (1.1-4.8); LYMPHOCYTES % (AUTO) 16.3 % (21-51); MEAN CORPUSCULAR HEMOGLOBIN 35.8 PG (27.0-31.0); MEAN CORPUSCULAR VOLUME 102.2 FL (78-98); MEAN PLATELET VOLUME 8.5 FL (7.4-10.4); MONOCYTES # (AUTO) 0.4 X10'3 (0-0.9); MONOCYTES % (AUTO) 8.6 % (2-12); NEUTROPHILS # (AUTO) 3.8 X10'3 (1.8-7.7); PLATELET COUNT 98 X10'3 (140-440); RED BLOOD COUNT 3.83 X10'6 (4.20-5.60); RED CELL DISTRIBUTION WIDTH 14.1 % (11.5-14.5); WHITE BLOOD COUNT 5.2 X10'3 (4.5-11.0)
[2022-03-08] MEDS: thiamine 100mg/ml 2ml inj. IV SCH ×3 (07:15→21:04)
[2022-03-08] MEDS: docusate sod 100mg capsule PO SCH ×2 (07:16→19:53)
[2022-03-08] MEDS: heparin, porcine 5000 units/ml vial SQ SCH ×2 (07:16→19:59)
[2022-03-08] MEDS: nicotine 21mg patch - 24 hr TD SCH (07:17)
[2022-03-08] MEDS: folic acid 1mg/0.2ml inj IV SCH (07:37)
[2022-03-08] MEDS: pantoprazole 40MG/NS 100ML BAG 100 ML IV SCH (07:37)
[2022-03-08] MEDS: K and/or MAG REPLACEMENT MC SCH ×2 (08:00→19:52)
--- NOTE | 2022-03-08 08:37 | NUR ---
Patient currently sleeping, breathing normal. Patient was given ativan 2 mg IV not too long ago as per patient request for her hand tremors. Patient's hand was noted shaking when she was holding a cup to drink.
[2022-03-08 10:00] VITALS: BP 142/98
[2022-03-08] MEDS: morphine 2 MG/ML inj. syringe IV PRN (10:15)
[2022-03-08] MEDS: chlordiazePOXIDE 25mg capsule PO PRN ×2 (11:57→19:00)
[2022-03-08] MEDS: insulin Lispro (HumaLOG) vial - multi-dose SQ SCH (14:30)
[2022-03-08 15:00] VITALS: BP 127/80
[2022-03-08 18:30] VITALS: BP_SYST 129; BP_SYST 137; BP_DIAS 80; BP_DIAS 98
[2022-03-08] MEDS: magnesium Cl slow-release 64mg tablet PO PRN (19:53)
[2022-03-08] MEDS ORDERED: insulin glargine (Lantus) pen - multi-dose SQ SCH (21:00)
[2022-03-08] MEDS ORDERED: calcium acetate 667mg (phosLO) tablet PO SCH ×2 (21:00→21:07)
--- NOTE | 2022-03-08 21:00 | NUR ---
PT CHANGED OVER TO LIBRIUM AND DC'D ATIVAN. PT IS STILL QUITE SHAKY BUT PREFERS TO BE LESS SEDATED.
[2022-03-08] MEDS: verapamil SR 120mg (sust. release) tab PO SCH (21:04)
[2022-03-08] MEDS: pantoprazole 40mg Tablet.DR PO SCH (21:05)
[2022-03-08] MEDS: insulin glargine (Lantus) pen - multi-dose SQ SCH (21:10)
[2022-03-08 22:00] VITALS: BP 143/85
[2022-03-09] MEDS: normal saline 1000ml 1,000 ML IV SCH ×3 (00:27→23:00)
[2022-03-09] MEDS: HYDROmorphone 1 mg/ml syringe IV PRN ×6 (00:27→21:08)
[2022-03-09] MEDS ORDERED: LORazepam 2 mg/ml vial IV PRN (01:00)
[2022-03-09] MEDS ORDERED: LORazepam 1 MG tablet PO PRN (01:00)
--- NOTE | 2022-03-09 01:15 | NUR ---
I ASKED PT IF THEY NEEDED THEIR LIBRIUM NOW BUT SHE WAS SLEEPY AND SAID SHE WAS FINE RIGHT NOW.
[2022-03-09 02:00] VITALS: BP 120/81
[2022-03-09 06:00] VITALS: BP 122/89
[2022-03-09 06:04] LABS: BASOPHILS % (AUTO) 0.6 % (0-1); EOSINOPHILS # (AUTO) 0.1 X10'3 (0-0.9); EOSINOPHILS % (AUTO) 2.2 % (0-6); HEMATOCRIT 35.1 % (35.0-45.0); HEMOGLOBIN 12.2 g/dl (12.0-16.0); LYMPHOCYTES # (AUTO) 0.8 X10'3 (1.1-4.8); MEAN CORPUSCULAR HGB CONC 34.8 g/dL (33.0-36.5); MEAN CORPUSCULAR VOLUME 103.6 FL (78-98); MEAN PLATELET VOLUME 7.8 FL (7.4-10.4); MONOCYTES # (AUTO) 0.4 X10'3 (0-0.9); MONOCYTES % (AUTO) 9.6 % (2-12); NEUTROPHILS # (AUTO) 2.6 X10'3 (1.8-7.7); NEUTROPHILS % (AUTO) 67.6 % (42-75); PLATELET COUNT 99 X10'3 (140-440); RED BLOOD COUNT 3.39 X10'6 (4.20-5.60); RED CELL DISTRIBUTION WIDTH 14.2 % (11.5-14.5); WHITE BLOOD COUNT 3.8 X10'3 (4.5-11.0)
[2022-03-09 06:14] LABS: ALANINE AMINOTRANSFERASE 110 U/L (12-78); ALBUMIN 2.2 G/DL (3.4-5.0); ALBUMIN/GLOBULIN RATIO 0.5 (1.1-1.5); ALKALINE PHOSPHATASE 75 IU/L (46-116); ANION GAP 14 (8-16); ASPARTATE AMINO TRANSFERASE 88 U/L (10-37); BILIRUBIN,TOTAL 1.8 MG/DL (0.1-1.0); BLOOD UREA NITROGEN 7 MG/DL (7-18); BUN/CREATININE RATIO 10.3 (6.6-38.0); CALCIUM 8.5 MG/DL (8.5-10.1); CHLORIDE 101 MMOL/L (99-107); CREATININE 0.68 MG/DL (0.40-0.90); GLUCOSE 140 MG/DL (70-104); MAGNESIUM 1.2 MG/DL (1.5-2.4); POTASSIUM 3.5 MMOL/L (3.5-5.1); SODIUM 133 MMOL/L (135-145); TOTAL CARBON DIOXIDE 17.8 MMOL/L (24-32); TOTAL PROTEIN 6.6 G/DL (6.4-8.2); eGFR > 90 ML/MIN
--- NOTE | 2022-03-09 06:35 | NUR ---
Problems reprioritized. Patient report given, questions answered & plan of care reviewed with JOHN. Addendum: 03/09/22 at 0635 by Gera Marie RN Amended: Links added.
[2022-03-09] MEDS ORDERED: CITALOpram 10mg tablet PO SCH (08:00)
[2022-03-09] MEDS: heparin, porcine 5000 units/ml vial SQ SCH ×2 (08:00→20:00)
[2022-03-09] MEDS: K and/or MAG REPLACEMENT MC SCH ×2 (08:00→20:28)
[2022-03-09] MEDS: folic acid 1mg/0.2ml inj IV SCH (08:21)
[2022-03-09] MEDS: pantoprazole 40MG/NS 100ML BAG 100 ML IV SCH (08:21)
[2022-03-09] MEDS: multivitamins, therapeutics tablet PO SCH (08:22)
[2022-03-09] MEDS: magnesium Cl slow-release 64mg tablet PO PRN ×2 (08:22→21:00)
[2022-03-09] MEDS: docusate sod 100mg capsule PO SCH ×2 (08:22→20:59)
[2022-03-09] MEDS: levoTHYROXINE 100mcg tablet PO SCH (08:22)
[2022-03-09] MEDS: thiamine 100mg/ml 2ml inj. IV SCH ×3 (08:23→21:01)
[2022-03-09] MEDS: folic acid 1mg tablet PO SCH (08:23)
[2022-03-09] MEDS: lisinopril 10 MG tablet PO SCH (08:24)
[2022-03-09] MEDS: chlordiazePOXIDE 25mg capsule PO PRN ×3 (08:42→23:28)
[2022-03-09] MEDS: insulin Lispro (HumaLOG) vial - multi-dose SQ SCH ×2 (08:49→19:29)
--- NOTE | 2022-03-09 10:03 | NUR ---
Dr. Jeffers was notified that I held Heparin dose this am due to low platelet count 99. He said its fine.
[2022-03-09] MEDS: nicotine 21mg patch - 24 hr TD SCH (10:14)
--- NOTE | 2022-03-09 10:33 | NUR ---
Paged Physical therapy PCU Malinda LAMBERT ext [phone]. RE: Chanel Mccollum. Dr. Jeffers ordered PT eval, he wants it done today. Thanks!
--- NOTE | 2022-03-09 10:35 | NUR ---
Patient educated about the importance of ambulation in preventing blood clot especially we could not give the Heparin SQ injection due to low platelet count. Encouraged patient to ambulate to the restroom using the front wheel walker provided to her to avoid fall as she has been wobbly. Patient verbalized understanding of instructions given to her. Patient's mother at bedside
[2022-03-09 11:00] VITALS: BP 142/97
[2022-03-09] MEDS: calcium acetate 667mg (PhosLO) capsule PO SCH ×2 (13:09→20:59)
--- NOTE | 2022-03-09 14:35 | NUR ---
Sleeping comfortably at this time, mother at bedside.
[2022-03-09 15:00] VITALS: BP 116/75
[2022-03-09] MEDS: morphine 2 MG/ML inj. syringe IV PRN (15:02)
[2022-03-09 18:00] VITALS: BP 147/100
--- NOTE | 2022-03-09 18:57 | NUR ---
Patient in room PCU 3010. I have received report from FAUSTO Petty and had the opportunity to ask questions and assume patient care.
[2022-03-09] MEDS: pantoprazole 40mg Tablet.DR PO SCH (20:59)
[2022-03-09] MEDS: insulin glargine (Lantus) pen - multi-dose SQ SCH (21:00)
[2022-03-09] MEDS: verapamil SR 120mg (sust. release) tab PO SCH (21:29)
[2022-03-09 22:00] VITALS: BP 141/93
[2022-03-10] MEDS: HYDROmorphone 1 mg/ml syringe IV PRN ×5 (01:36→22:23)
[2022-03-10 02:00] VITALS: BP 135/84
[2022-03-10] MEDS: chlordiazePOXIDE 25mg capsule PO PRN ×3 (05:45→20:49)
--- NOTE | 2022-03-10 06:16 | NUR ---
Problems reprioritized. Patient report given, questions answered & plan of care reviewed with FAUSTO Dupree.
[2022-03-10 07:14] VITALS: BP 129/87
[2022-03-10 07:23] LABS: BASOPHILS % (AUTO) 0.8 % (0-1); HEMATOCRIT 35.5 % (35.0-45.0); HEMOGLOBIN 12.5 g/dl (12.0-16.0); LYMPHOCYTES # (AUTO) 0.4 X10'3 (1.1-4.8); LYMPHOCYTES % (AUTO) 14.1 % (21-51); MEAN CORPUSCULAR HEMOGLOBIN 35.6 PG (27.0-31.0); MEAN CORPUSCULAR HGB CONC 35.3 g/dL (33.0-36.5); MEAN CORPUSCULAR VOLUME 100.7 FL (78-98); MEAN PLATELET VOLUME 7.8 FL (7.4-10.4); MONOCYTES # (AUTO) 0.3 X10'3 (0-0.9); MONOCYTES % (AUTO) 10.9 % (2-12); NEUTROPHILS # (AUTO) 2.2 X10'3 (1.8-7.7); NEUTROPHILS % (AUTO) 73.2 % (42-75); PLATELET COUNT 113 X10'3 (140-440); RED BLOOD COUNT 3.52 X10'6 (4.20-5.60); RED CELL DISTRIBUTION WIDTH 13.8 % (11.5-14.5)
[2022-03-10 07:43] LABS: ALANINE AMINOTRANSFERASE 108 U/L (12-78); ALBUMIN 2.3 G/DL (3.4-5.0); ALBUMIN/GLOBULIN RATIO 0.5 (1.1-1.5); ALKALINE PHOSPHATASE 113 IU/L (46-116); ANION GAP 15 (8-16); ASPARTATE AMINO TRANSFERASE 114 U/L (10-37); BILIRUBIN,TOTAL 1.7 MG/DL (0.1-1.0); BLOOD UREA NITROGEN 3 MG/DL (7-18); CALCIUM 8.7 MG/DL (8.5-10.1); CHLORIDE 99 MMOL/L (99-107); GLUCOSE 160 MG/DL (70-104); POTASSIUM 3.4 MMOL/L (3.5-5.1); SODIUM 133 MMOL/L (135-145); TOTAL CARBON DIOXIDE 18.6 MMOL/L (24-32); TOTAL PROTEIN 6.8 G/DL (6.4-8.2); eGFR > 90 ML/MIN
[2022-03-10] MEDS: K and/or MAG REPLACEMENT MC SCH ×2 (08:00→20:00)
[2022-03-10] MEDS: lisinopril 10 MG tablet PO SCH (08:02)
[2022-03-10] MEDS: levoTHYROXINE 100mcg tablet PO SCH (08:02)
[2022-03-10] MEDS: docusate sod 100mg capsule PO SCH ×2 (08:02→20:35)
[2022-03-10] MEDS: folic acid 1mg tablet PO SCH (08:02)
[2022-03-10] MEDS: multivitamins, therapeutics tablet PO SCH (08:02)
[2022-03-10] MEDS: heparin, porcine 5000 units/ml vial SQ SCH ×2 (08:03→20:39)
[2022-03-10] MEDS: calcium acetate 667mg (PhosLO) capsule PO SCH ×3 (08:03→20:37)
[2022-03-10] MEDS: nicotine 21mg patch - 24 hr TD SCH (08:04)
[2022-03-10] MEDS: pantoprazole 40MG/NS 100ML BAG 100 ML IV SCH (08:05)
[2022-03-10] MEDS: insulin Lispro (HumaLOG) vial - multi-dose SQ SCH ×2 (08:13→13:34)
[2022-03-10 08:43] LABS: NUCLEATED RED BLOOD CELLS 1 /100WBC (0-0); TOTAL CELLS COUNTED 100
[2022-03-10 08:45] LABS: PLATELET ESTIMATE DECREASED
[2022-03-10 11:00] VITALS: BP 161/98
[2022-03-10] MEDS: POTASSIUM BICARB 20meq eff tab 20 MEQ TABLET.EFF PO PRN ×2 (11:38→17:08)
[2022-03-10] MEDS: normal saline 1000ml 1,000 ML IV SCH ×2 (13:15→19:00)
[2022-03-10] MEDS: oxyCODONE IR 5mg (immed. release) tablet PO PRN ×2 (14:17→20:36)
[2022-03-10 15:39] VITALS: BP 139/93
[2022-03-10 18:00] VITALS: BP 159/99
--- NOTE | 2022-03-10 18:23 | NUR ---
Problems reprioritized. Patient report given, questions answered & plan of care reviewed with ZAIN LAMBERT.
--- NOTE | 2022-03-10 18:44 | NUR ---
Patient in room PCU 3010. I have received report from FAUSTO Dupree and had the opportunity to ask questions and assume patient care.
[2022-03-10] MEDS: pantoprazole 40mg Tablet.DR PO SCH (20:35)
[2022-03-10] MEDS: verapamil SR 120mg (sust. release) tab PO SCH (20:35)
[2022-03-10] MEDS: insulin glargine (Lantus) pen - multi-dose SQ SCH (21:42)
[2022-03-10 22:00] VITALS: BP 141/97
[2022-03-11] MEDS ORDERED: LORazepam 2 mg/ml vial IV PRN (01:00)
[2022-03-11] MEDS ORDERED: LORazepam 1 MG tablet PO PRN (01:00)
[2022-03-11] MEDS: normal saline 1000ml 1,000 ML IV SCH ×4 (01:00→21:35)
[2022-03-11 02:00] VITALS: BP 151/101
[2022-03-11] MEDS: oxyCODONE IR 5mg (immed. release) tablet PO PRN ×3 (02:54→17:38)
[2022-03-11] MEDS: HYDROmorphone 1 mg/ml syringe IV PRN ×2 (04:50→09:08)
--- NOTE | 2022-03-11 06:24 | NUR ---
Patient in room PCU 3010. I have received report from sara ferguson and had the opportunity to ask questions and assume patient care.
[2022-03-11 06:41] LABS: BASOPHILS % (AUTO) 0.4 % (0-1); EOSINOPHILS # (AUTO) 0.1 X10'3 (0-0.9); EOSINOPHILS % (AUTO) 1.6 % (0-6); HEMOGLOBIN 11.9 g/dl (12.0-16.0); LYMPHOCYTES # (AUTO) 0.7 X10'3 (1.1-4.8); LYMPHOCYTES % (AUTO) 21.4 % (21-51); MEAN CORPUSCULAR HEMOGLOBIN 35.9 PG (27.0-31.0); MEAN CORPUSCULAR HGB CONC 35.1 g/dL (33.0-36.5); MEAN CORPUSCULAR VOLUME 102.2 FL (78-98); MONOCYTES # (AUTO) 0.6 X10'3 (0-0.9); MONOCYTES % (AUTO) 17.9 % (2-12); NEUTROPHILS # (AUTO) 1.9 X10'3 (1.8-7.7); NEUTROPHILS % (AUTO) 58.7 % (42-75); PLATELET COUNT 132 X10'3 (140-440); RED BLOOD COUNT 3.33 X10'6 (4.20-5.60); RED CELL DISTRIBUTION WIDTH 14.3 % (11.5-14.5); WHITE BLOOD COUNT 3.3 X10'3 (4.5-11.0)
[2022-03-11 06:51] LABS: ALANINE AMINOTRANSFERASE 129 U/L (12-78); ALBUMIN 2.3 G/DL (3.4-5.0); ALBUMIN/GLOBULIN RATIO 0.6 (1.1-1.5); ALKALINE PHOSPHATASE 106 IU/L (46-116); ANION GAP 12 (8-16); ASPARTATE AMINO TRANSFERASE 133 U/L (10-37); BILIRUBIN,TOTAL 1.4 MG/DL (0.1-1.0); BLOOD UREA NITROGEN 2 MG/DL (7-18); BUN/CREATININE RATIO 4.7 (6.6-38.0); CALCIUM 9.1 MG/DL (8.5-10.1); CHLORIDE 102 MMOL/L (99-107); CREATININE 0.43 MG/DL (0.40-0.90); GLUCOSE 174 MG/DL (70-104); POTASSIUM 3.2 MMOL/L (3.5-5.1); SODIUM 136 MMOL/L (135-145); TOTAL CARBON DIOXIDE 22.2 MMOL/L (24-32); TOTAL PROTEIN 6.4 G/DL (6.4-8.2); eGFR > 90 ML/MIN
[2022-03-11 06:53] VITALS: BP 126/86
[2022-03-11] MEDS: multivitamins, therapeutics tablet PO SCH (07:48)
[2022-03-11] MEDS: folic acid 1mg tablet PO SCH ×2 (07:49→08:00)
[2022-03-11] MEDS: levoTHYROXINE 100mcg tablet PO SCH (07:49)
[2022-03-11] MEDS: docusate sod 100mg capsule PO SCH ×2 (07:49→20:33)
[2022-03-11] MEDS: lisinopril 10 MG tablet PO SCH (07:49)
[2022-03-11] MEDS: calcium acetate 667mg (PhosLO) capsule PO SCH ×3 (07:50→20:32)
[2022-03-11] MEDS: heparin, porcine 5000 units/ml vial SQ SCH ×2 (07:50→20:34)
[2022-03-11] MEDS: thiamine 100mg tablet PO SCH (07:50)
[2022-03-11] MEDS: nicotine 21mg patch - 24 hr TD SCH (07:51)
[2022-03-11] MEDS: K and/or MAG REPLACEMENT MC SCH ×2 (08:00→20:00)
[2022-03-11] MEDS: insulin Lispro (HumaLOG) vial - multi-dose SQ SCH ×3 (09:14→21:47)
[2022-03-11] MEDS: magnesium hydroxide 30ml (MOM) UD suspension PO PRN (09:18)
[2022-03-11] MEDS: chlordiazePOXIDE 25mg capsule PO PRN (09:48)
--- NOTE | 2022-03-11 10:04 | NUR ---
PAGED DR WEEKS RE: PAGER ID: [phone] MESSAGE: ITZEL BRAY. Mary Carmen 3.2. NEED REPLACEMENT PROTOCOL. [facility] 1040
[2022-03-11] MEDS ORDERED: magnesium 4gm in 100ml NS 100 ML IV PRN (10:15)
[2022-03-11] MEDS ORDERED: magnesium Cl slow-release 64mg tablet PO PRN (10:15)
[2022-03-11] MEDS ORDERED: potassium Cl 20 mEq SR tablet PO PRN (10:15)
[2022-03-11] MEDS ORDERED: potassium CL 10mEq/100ml bag 100 ML IV PRN (10:15)
[2022-03-11] MEDS ORDERED: OXYC10TA47 PO (10:42)
[2022-03-11] MEDS ORDERED: POTA-207 PO (10:42)
[2022-03-11] MEDS ORDERED: NICO-687 TD (10:42)
[2022-03-11] MEDS ORDERED: CHLO25CA10 PO (10:42)
[2022-03-11 11:00] VITALS: BP 153/97
[2022-03-11] MEDS: potassium Cl 20 mEq SR tablet PO PRN ×2 (12:02→16:26)
[2022-03-11 15:00] VITALS: BP 163/106
--- NOTE | 2022-03-11 15:14 | NUR ---
NOTIFIED DR WEEKS RE: PAGER ID: [phone] MESSAGE: ITZEL BRAY. BP 163/106. STATES SHES IN EXTREME PAIN (NOT TIME FOR ANY MEDS), SHE STATES SHE NEEDS TO SPEAK WITH YOU. [facility] 1942
[2022-03-11] MEDS ORDERED: HYDROmorphone inj. 0.5 MG/0.5 ML DISP.SYRIN IM ONE (15:25)
[2022-03-11] MEDS ORDERED: HYDROmorphone inj. 0.5 MG/0.5 ML DISP.SYRIN IV ONE (15:35)
[2022-03-11] MEDS ORDERED: HYDROmorphone 1 mg/ml syringe IV PRN ×2 (17:00)
--- NOTE | 2022-03-11 17:45 | NUR ---
NOTIFIED DR WEEKS RE: PAGER ID: [phone] MESSAGE: ITZEL BRAY. PT REQ TORADOL. [facility] TELE [phone]
[2022-03-11 18:00] VITALS: BP 156/90
--- NOTE | 2022-03-11 18:15 | NUR ---
Problems reprioritized. Patient report given, questions answered & plan of care reviewed with ZAIN LAMBERT.
--- NOTE | 2022-03-11 18:27 | NUR ---
Patient in room PCU 3010. I have received report from FAUSTO Dupree and had the opportunity to ask questions and assume patient care.
[2022-03-11] MEDS: ketorolac tromethamine 15mg/ml inj. IV PRN (19:01)
[2022-03-11] MEDS: pantoprazole 40mg Tablet.DR PO SCH (20:32)
[2022-03-11] MEDS: verapamil SR 120mg (sust. release) tab PO SCH (20:38)
[2022-03-11] MEDS: insulin glargine (Lantus) pen - multi-dose SQ SCH (21:58)
[2022-03-11 22:00] VITALS: BP 136/87
[2022-03-12] MEDS: ketorolac tromethamine 15mg/ml inj. IV PRN ×2 (01:35→08:04)
[2022-03-12 02:43] VITALS: BP 133/76
[2022-03-12 06:00] VITALS: BP 153/85
--- NOTE | 2022-03-12 06:36 | NUR ---
Problems reprioritized. Patient report given, questions answered & plan of care reviewed with FAUSTO Linton.
[2022-03-12 07:09] LABS: BASOPHILS % (AUTO) 0.8 % (0-1); EOSINOPHILS % (AUTO) 1.1 % (0-6); HEMATOCRIT 44.8 % (35.0-45.0); HEMOGLOBIN 15.5 g/dl (12.0-16.0); LYMPHOCYTES # (AUTO) 0.9 X10'3 (1.1-4.8); LYMPHOCYTES % (AUTO) 25.3 % (21-51); MEAN CORPUSCULAR HEMOGLOBIN 35.7 PG (27.0-31.0); MEAN CORPUSCULAR HGB CONC 34.6 g/dL (33.0-36.5); MEAN PLATELET VOLUME 8.5 FL (7.4-10.4); MONOCYTES # (AUTO) 0.6 X10'3 (0-0.9); MONOCYTES % (AUTO) 18.1 % (2-12); NEUTROPHILS # (AUTO) 1.9 X10'3 (1.8-7.7); NEUTROPHILS % (AUTO) 54.7 % (42-75); PLATELET COUNT 156 X10'3 (140-440); RED BLOOD COUNT 4.35 X10'6 (4.20-5.60); RED CELL DISTRIBUTION WIDTH 14.6 % (11.5-14.5); WHITE BLOOD COUNT 3.5 X10'3 (4.5-11.0)
[2022-03-12 07:46] LABS: ALANINE AMINOTRANSFERASE 130 U/L (12-78); ALBUMIN 2.8 G/DL (3.4-5.0); ALBUMIN/GLOBULIN RATIO 0.5 (1.1-1.5); ALKALINE PHOSPHATASE 130 IU/L (46-116); ANION GAP 12 (8-16); BILIRUBIN,TOTAL 1.9 MG/DL (0.1-1.0); BLOOD UREA NITROGEN 2 MG/DL (7-18); BUN/CREATININE RATIO 3.8 (6.6-38.0); CALCIUM 10.1 MG/DL (8.5-10.1); CHLORIDE 98 MMOL/L (99-107); CREATININE 0.52 MG/DL (0.40-0.90); GLUCOSE 206 MG/DL (70-104); SODIUM 134 MMOL/L (135-145); TOTAL CARBON DIOXIDE 24.5 MMOL/L (24-32); TOTAL PROTEIN 8.5 G/DL (6.4-8.2); eGFR > 90 ML/MIN
[2022-03-12 07:48] LABS: ASPARTATE AMINO TRANSFERASE 94 U/L (10-37); POTASSIUM 4.4 MMOL/L (3.5-5.1)
[2022-03-12] MEDS: folic acid 1mg tablet PO SCH ×2 (08:00→08:05)
[2022-03-12] MEDS: heparin, porcine 5000 units/ml vial SQ SCH (08:05)
[2022-03-12] MEDS: calcium acetate 667mg (PhosLO) capsule PO SCH (08:05)
[2022-03-12] MEDS: magnesium hydroxide 30ml (MOM) UD suspension PO PRN (08:05)
[2022-03-12] MEDS: chlordiazePOXIDE 25mg capsule PO PRN (08:05)
[2022-03-12] MEDS: potassium Cl 20 mEq SR tablet PO PRN (08:06)
[2022-03-12] MEDS: docusate sod 100mg capsule PO SCH (08:06)
[2022-03-12] MEDS: K and/or MAG REPLACEMENT MC SCH (08:15)
[2022-03-12] MEDS: multivitamins, therapeutics tablet PO SCH (08:22)
[2022-03-12] MEDS: lisinopril 10 MG tablet PO SCH (08:22)
[2022-03-12] MEDS: levoTHYROXINE 100mcg tablet PO SCH (08:22)
[2022-03-12] MEDS: thiamine 100mg tablet PO SCH (08:22)
[2022-03-12] MEDS: normal saline 1000ml 1,000 ML IV SCH (08:22)
[2022-03-12] MEDS: nicotine 21mg patch - 24 hr TD SCH (08:24)
[2022-03-12] MEDS ORDERED: IBUP-1986 PO (10:35)
[2022-03-12] MEDS ORDERED: ONDA4TAB12 PO (10:35)
[2022-03-12 11:00] VITALS: BP 127/77
[2022-03-12] MEDS: oxyCODONE IR 5mg (immed. release) tablet PO PRN (12:41)
== END 2022-03-12 12:59 | disposition home or self-care (01) | DRG 282 ==
LOC: ER 12:28 → ED HOLD 03-07 01:04 → PCU 3S 03-07 03:45
PROVIDERS: ADMIT Family Medicine; ATTEND Family Medicine
PROC: BW211ZZ Computerized Tomography (CT Scan) of Abdomen and Pelvis using Low Osmolar Contrast (ICD-10-PCS; principal; 2022-03-06)
DX: K85.20 Alcohol induced acute pancreatitis without necrosis or infection (principal); E87.2 Acidosis; K70.10 Alcoholic hepatitis without ascites; E86.0 Dehydration; K76.0 Fatty (change of) liver, not elsewhere classified; K86.0 Alcohol-induced chronic pancreatitis; F10.239 Alcohol dependence with withdrawal, unspecified; I10 Essential (primary) hypertension; E11.65 Type 2 diabetes mellitus with hyperglycemia; K29.90 Gastroduodenitis, unspecified, without bleeding; R82.4 Acetonuria; E03.9 Hypothyroidism, unspecified; F17.210 Nicotine dependence, cigarettes, uncomplicated; Z79.4 Long term (current) use of insulin; Z79.84 Long term (current) use of oral hypoglycemic drugs; Z90.49 Acquired absence of other specified parts of digestive tract; Z97.5 Presence of (intrauterine) contraceptive device; Z88.8 Allergy status to other drugs, medicaments and biological substances; Z91.018 Allergy to other foods; Z79.899 Other long term (current) drug therapy; Z71.41 Alcohol abuse counseling and surveillance of alcoholic
CPT/HCPCS: 36415; 36600; 74177; 80053; 80061; 80305; 80320; 81001; 82550; 82803; 82948; 83036; 83605; 83690; 83735; 83880; 84100; 84132; 84145; 84443; 84703; 85007; 85018; 85025; 85610; 85730; 87040; 87081; 96361; 96374; 96375; 96376; 97161; 97530; 99285; C9113; G0378; J0360; J1170; J1644; J1815; J1885; J2060; J2270; J2405; J3411; J3490; J7030; J7070; Q9967

== ENCOUNTER 2022-04-21 17:10 | Emergency (ER) | payer MEDICAID ==
[~2022-04-21] VITALS: Ht 162.6 cm; Wt 79.5 kg
[~2022-04-21 17:10] MED LIST changes: +ALPR-623 PO; +CALC667T6 PO; +CITA10TA22 PO; -FOLI0.4T14 PO; +FOLI1TAB27 PO; +IBUP-1986 PO; +LISI10TA27 PO; -LISI20TA28 PO; -LOPE1TAB46 PO; -MAGN400T56 PO; -MECO10005 PO; +MULT-1085 PO; -MULT-25 PO; +NICO-687 TD; +ONDA4TAB12 PO; -ONDA8TAB13 PO; +OXYC10TA47 PO; +POTA-207 PO; -SERT-433 PO; -THIA100T70 PO; +VERA120T2 PO
[2022-04-21 18:37] LABS: BASOPHILS # (AUTO) 0.1 X10'3 (0-0.2); BASOPHILS % (AUTO) 1.2 % (0-1); EOSINOPHILS # (AUTO) 0.1 X10'3 (0-0.9); EOSINOPHILS % (AUTO) 0.7 % (0-6); HEMATOCRIT 43.7 % (35.0-45.0); HEMOGLOBIN 15.2 g/dl (12.0-16.0); LYMPHOCYTES % (AUTO) 54.4 % (21-51); MEAN CORPUSCULAR HEMOGLOBIN 34.6 PG (27.0-31.0); MEAN CORPUSCULAR HGB CONC 34.7 g/dL (33.0-36.5); MEAN CORPUSCULAR VOLUME 99.7 FL (78-98); MEAN PLATELET VOLUME 8.2 FL (7.4-10.4); MONOCYTES # (AUTO) 0.3 X10'3 (0-0.9); MONOCYTES % (AUTO) 4.1 % (2-12); NEUTROPHILS # (AUTO) 2.9 X10'3 (1.8-7.7); NEUTROPHILS % (AUTO) 39.6 % (42-75); PLATELET COUNT 329 X10'3 (140-440); RED BLOOD COUNT 4.38 X10'6 (4.20-5.60); WHITE BLOOD COUNT 7.3 X10'3 (4.5-11.0)
[2022-04-21] MEDS ORDERED: LORazepam 1 MG tablet PO ONE (18:45)
[2022-04-21] MEDS ORDERED: normal saline 1000ml 1,000 ML IV ONE (18:45)
[2022-04-21 18:48] LABS: ALANINE AMINOTRANSFERASE 81 U/L (12-78); ALBUMIN 3.6 G/DL (3.4-5.0); ALBUMIN/GLOBULIN RATIO 0.8 (1.1-1.5); ALKALINE PHOSPHATASE 91 IU/L (46-116); ANION GAP 19 (8-16); ASPARTATE AMINO TRANSFERASE 68 U/L (10-37); BILIRUBIN,TOTAL 0.6 MG/DL (0.1-1.0); BLOOD UREA NITROGEN 9 MG/DL (7-18); BUN/CREATININE RATIO 12.9 (6.6-38.0); CALCIUM 9.2 MG/DL (8.5-10.1); CHLORIDE 104 MMOL/L (99-107); GLUCOSE 316 MG/DL (70-104); LIPASE 234 U/L (73-393); POTASSIUM 3.5 MMOL/L (3.5-5.1); SODIUM 143 MMOL/L (135-145); TOTAL CARBON DIOXIDE 20.4 MMOL/L (24-32); TOTAL PROTEIN 8.1 G/DL (6.4-8.2); eGFR > 90 ML/MIN
[2022-04-21 18:56] LABS: ETHANOL 0.361 GM/DL (0.0-0.010)
[2022-04-21 19:34] LABS: PLATELET ESTIMATE NORMAL; TOTAL CELLS COUNTED 100
[2022-04-21 20:32] LABS: URINE AMPHETAMINE SCREEN NEGATIVE (Neg); URINE BARBITUATE SCREEN NEGATIVE (Neg); URINE BENZODIAZEPINES SCREEN POSITIVE (Neg); URINE CANNABINOID SCREEN NEGATIVE (Neg); URINE COCAINE SCREEN NEGATIVE (Neg); URINE METHADONE SCREEN NEGATIVE (Neg); URINE OPIATE SCREEN NEGATIVE (Neg); URINE PHENCYCLIDINE SCREEN NEGATIVE (Neg)
[2022-04-21 20:57] VITALS: BP 132/67
== END 2022-04-21 20:59 | disposition home or self-care (01) ==
LOC: ER 17:11
DX: F10.129 Alcohol abuse with intoxication, unspecified (principal); Y90.9 Presence of alcohol in blood, level not specified; Z87.19 Personal history of other diseases of the digestive system; E11.9 Type 2 diabetes mellitus without complications; Z90.49 Acquired absence of other specified parts of digestive tract; Z88.8 Allergy status to other drugs, medicaments and biological substances; Z79.899 Other long term (current) drug therapy; Z79.84 Long term (current) use of oral hypoglycemic drugs
CPT/HCPCS: 36415; 80053; 80305; 80320; 83690; 85007; 85025; 96360; 96361; 99284; J7030

== ENCOUNTER 2022-05-31 19:10 | Inpatient (IN) | payer MEDICAID ==
[~2022-05-31] VITALS: Ht 160 cm; Wt 74.3 kg
[2022-05-31 20:01] LABS: BASOPHILS # (AUTO) 0.1 X10'3 (0-0.2); BASOPHILS % (AUTO) 1.5 % (0-1); EOSINOPHILS % (AUTO) 0.1 % (0-6); HEMATOCRIT 41.4 % (35.0-45.0); HEMOGLOBIN 14.2 g/dl (12.0-16.0); LYMPHOCYTES # (AUTO) 1.1 X10'3 (1.1-4.8); LYMPHOCYTES % (AUTO) 15.9 % (21-51); MEAN CORPUSCULAR HEMOGLOBIN 35.1 PG (27.0-31.0); MEAN CORPUSCULAR HGB CONC 34.4 g/dL (33.0-36.5); MEAN CORPUSCULAR VOLUME 102.2 FL (78-98); MEAN PLATELET VOLUME 8.1 FL (7.4-10.4); MONOCYTES # (AUTO) 0.4 X10'3 (0-0.9); MONOCYTES % (AUTO) 6.1 % (2-12); NEUTROPHILS # (AUTO) 5.1 X10'3 (1.8-7.7); NEUTROPHILS % (AUTO) 76.4 % (42-75); PLATELET COUNT 216 X10'3 (140-440); RED BLOOD COUNT 4.06 X10'6 (4.20-5.60); RED CELL DISTRIBUTION WIDTH 16.3 % (11.5-14.5); WHITE BLOOD COUNT 6.7 X10'3 (4.5-11.0)
[2022-05-31 20:19] LABS: ALANINE AMINOTRANSFERASE 427 U/L (12-78); ALBUMIN 3.3 G/DL (3.4-5.0); ALKALINE PHOSPHATASE 276 IU/L (46-116); ANION GAP 30 (8-16); BLOOD UREA NITROGEN 6 MG/DL (7-18); BUN/CREATININE RATIO 8.3 (6.6-38.0); CALCIUM 9.7 MG/DL (8.5-10.1); CHLORIDE 80 MMOL/L (99-107); CREATININE 0.72 MG/DL (0.40-0.90); LIPASE 447 U/L (73-393); SODIUM 124 MMOL/L (135-145); eGFR > 90 ML/MIN
[2022-05-31 20:23] LABS: ALBUMIN/GLOBULIN RATIO 0.6 (1.1-1.5); ASPARTATE AMINO TRANSFERASE 1180 U/L (10-37); GLUCOSE 225 MG/DL (70-104); POTASSIUM 4.1 MMOL/L (3.5-5.1); TOTAL PROTEIN 8.5 G/DL (6.4-8.2)
[2022-06-01] MEDS ORDERED: normal saline 1000ML IV soln IV ONE (01:10)
[2022-06-01 01:22] LABS: ABG BASE EXCESS -8.9 mmol/L (-2.0-2.0); ABG HCO3 11.6 mmol/L (22.0-26.0); ABG OXYGEN SATURATION 97.7 % (94-97); ABG PCO2 (T) 15.4 mmHg (32.0-45.0); ABG PO2 (T) 98.5 mmHg (75.0-100.0); ALLEN'S TEST POSITIVE; FCOHb 0.9 % (0.0-3.9); FMetHb 0.2 % (0.0-1.5); FO2Hb 96.6 % (94-97); PATIENT TEMPERATURE 36.2; TOTAL HEMOGLOBIN 13.9 G/dl (12.0-16.0)
[2022-06-01] MEDS ORDERED: metoclopramide 5 mg/ml inj IV PRN (01:25)
[2022-06-01] MEDS ORDERED: dextrose 50%-water 50ml dispensing syringe IV PRN ×3 (01:25)
[2022-06-01] MEDS ORDERED: acetaminophen 325mg tablet PO PRN ×2 (01:25)
[2022-06-01] MEDS ORDERED: haloperidol lactate 5mg/ml inj IM PRN (01:25)
[2022-06-01] MEDS ORDERED: loperamide 2mg capsule PO PRN ×2 (01:25)
[2022-06-01] MEDS ORDERED: MESSAGE TO PHARMACY PO ONE (01:25)
[2022-06-01] MEDS ORDERED: mag hydrox/Alum hydrox/simeth 30ml oral suspension PO PRN ×2 (01:25)
[2022-06-01] MEDS ORDERED: DEXTROSE 15 GM of carb/4 tabs (each vial/BOTTLE has 4 tablets) PO PRN ×2 (01:25)
[2022-06-01] MEDS ORDERED: HYDROmorphone inj. 0.5 MG/0.5 ML DISP.SYRIN IV PRN (01:25)
[2022-06-01] MEDS ORDERED: HYDROcodone/acetaminophen 5mg/325mg tablet PO PRN (01:25)
[2022-06-01] MEDS ORDERED: glucagon, human recombinant 1mg kit SUBCUT PRN (01:25)
[2022-06-01] MEDS ORDERED: dicyclomine 10 MG capsule PO PRN (01:25)
[2022-06-01] MEDS ORDERED: iohexol 300mg/ml 100ml inj. ONE (01:26)
[2022-06-01] MEDS: diatr meglu/diatrizoate 30ml oral sol.-(3 dose) bottle PO SCH ×3 (01:40→02:50)
[2022-06-01] MEDS: LORazepam 2 mg/ml vial IV PRN ×7 (01:54→21:29)
[2022-06-01 01:59] LABS: HEMOGLOBIN A1C 7.5 % (4.5-6.2)
[2022-06-01 02:27] LABS: ETHANOL < 0.010 GM/DL (0.0-0.010)
[2022-06-01] MEDS: HYDROmorphone/PF 0.2 MG/ML SYRINGE IV PRN ×3 (02:37→15:39)
[2022-06-01] MEDS: normal saline 1000ml 1,000 ML IV SCH ×4 (04:26→16:10)
[2022-06-01] MEDS: docusate sod 100mg capsule PO SCH ×2 (07:19→19:36)
[2022-06-01] MEDS: nicotine 14mg patch - 24hr TD SCH (07:19)
[2022-06-01] MEDS: thiamine 100mg/ml 2ml inj. IV SCH ×3 (07:19→21:21)
[2022-06-01] MEDS: folic acid 1mg/0.2ml inj IV SCH (07:40)
--- NOTE | 2022-06-01 08:39 | NUR ---
PAGED SUBSTANCE USE NAVIGATOR AT THIS TIME .
--- NOTE | 2022-06-01 09:01 | NUR ---
Came to meet with patient in regards to alcohol use. Patient is asleep and won't wake up. I will follow back up in a couple hours.
[2022-06-01 09:08] LABS: ALBUMIN 2.4 G/DL (3.4-5.0); ANION GAP 18 (8-16); BLOOD UREA NITROGEN 4 MG/DL (7-18); BUN/CREATININE RATIO 6.6 (6.6-38.0); CALCIUM 8.3 MG/DL (8.5-10.1); CHLORIDE 94 MMOL/L (99-107); CREATININE 0.61 MG/DL (0.40-0.90); SODIUM 130 MMOL/L (135-145); TOTAL CARBON DIOXIDE 18.1 MMOL/L (24-32); eGFR > 90 ML/MIN
[2022-06-01 09:11] LABS: GLUCOSE 235 MG/DL (70-104); POTASSIUM 3.7 MMOL/L (3.5-5.1)
--- NOTE | 2022-06-01 09:57 | NUR ---
CALLED PCU TO GIVE REPORT BUT PRIMARY RN IS NOT AVAILABLE .AND THEY WILL CALL ME BACK.
--- NOTE | 2022-06-01 11:03 | NUR ---
Met with patient in regards to alcohol use. Talked to patient about starting Naltrexone. Patient would like to start. Spoke with Zeyad and he will start patient.
[2022-06-01 12:05] VITALS: BP 134/94
--- NOTE | 2022-06-01 13:06 | NUR ---
Diabetes consult: Pt w/ hx of DM A1c 7.5 per EMR. Provided pt w/ written and verbal DM ed w/ RD contact info Addendum: 06/01/22 at [address] Amended: Links added.
[2022-06-01] MEDS: HYDROcodone/acetaminophen 10/325mg tab PO PRN ×3 (13:24→23:58)
[2022-06-01 14:29] VITALS: BP 130/88
[2022-06-01] MEDS ORDERED: PANT20TA18 PO (16:46)
[2022-06-01] MEDS ORDERED: METF-900 PO (16:47)
[2022-06-01] MEDS ORDERED: POTA25TA40 PO (16:48)
[2022-06-01 18:00] VITALS: BP 129/85
--- NOTE | 2022-06-01 18:39 | NUR ---
Patient in room PCU 3020. I have received report from ROB LAMBERT and had the opportunity to ask questions and assume patient care.
[2022-06-01] MEDS: insulin Lispro (HumaLOG) vial - multi-dose SQ SCH (20:18)
[2022-06-01] MEDS: insulin glargine (Lantus) pen - multi-dose SQ SCH (21:35)
[2022-06-01 22:00] VITALS: BP 122/85
[2022-06-02] MEDS: LORazepam 2 mg/ml vial IV PRN ×6 (01:05→23:46)
[2022-06-02] MEDS: normal saline 1000ml 1,000 ML IV SCH ×2 (01:08→11:56)
[2022-06-02 02:52] VITALS: BP 136/92
[2022-06-02] MEDS: HYDROmorphone/PF 0.2 MG/ML SYRINGE IV PRN ×4 (05:39→21:38)
--- NOTE | 2022-06-02 06:24 | NUR ---
Problems reprioritized. Patient report given, questions answered & plan of care reviewed with KARY LAMBERT.
[2022-06-02 07:30] VITALS: BP 129/88
[2022-06-02 07:34] LABS: EOSINOPHILS # (AUTO) 0.1 X10'3 (0-0.9); HEMOGLOBIN 11.1 g/dl (12.0-16.0); MONOCYTES # (AUTO) 0.2 X10'3 (0-0.9); RED BLOOD COUNT 3.14 X10'6 (4.20-5.60)
[2022-06-02 07:38] LABS: BASOPHILS # (AUTO) 0.1 X10'3 (0-0.2); BASOPHILS % (AUTO) 1.8 % (0-1); EOSINOPHILS % (AUTO) 2.5 % (0-6); HEMATOCRIT 31.7 % (35.0-45.0); LYMPHOCYTES % (AUTO) 25.9 % (21-51); MEAN CORPUSCULAR HEMOGLOBIN 35.3 PG (27.0-31.0); MEAN PLATELET VOLUME 8.4 FL (7.4-10.4); MONOCYTES % (AUTO) 4.9 % (2-12); NEUTROPHILS # (AUTO) 2.4 X10'3 (1.8-7.7); NEUTROPHILS % (AUTO) 64.9 % (42-75); PLATELET COUNT 126 X10'3 (140-440); RED CELL DISTRIBUTION WIDTH 16.8 % (11.5-14.5); WHITE BLOOD COUNT 3.7 X10'3 (4.5-11.0)
[2022-06-02] MEDS: thiamine 100mg/ml 2ml inj. IV SCH ×3 (07:46→21:38)
[2022-06-02] MEDS: docusate sod 100mg capsule PO SCH ×2 (07:46→19:53)
[2022-06-02] MEDS: nicotine 14mg patch - 24hr TD SCH (07:46)
[2022-06-02] MEDS: folic acid 1mg/0.2ml inj IV SCH (07:46)
[2022-06-02 08:00] LABS: ALANINE AMINOTRANSFERASE 255 U/L (12-78); ALBUMIN 2.3 G/DL (3.4-5.0); ALKALINE PHOSPHATASE 189 IU/L (46-116); ANION GAP 14 (8-16); BILIRUBIN,TOTAL 18.6 MG/DL (0.1-1.0); BLOOD UREA NITROGEN 3 MG/DL (7-18); CALCIUM 8.5 MG/DL (8.5-10.1); CHLORIDE 102 MMOL/L (99-107); SODIUM 137 MMOL/L (135-145); TOTAL CARBON DIOXIDE 21.1 MMOL/L (24-32)
[2022-06-02 08:15] LABS: ALBUMIN/GLOBULIN RATIO 0.6 (1.1-1.5); ASPARTATE AMINO TRANSFERASE 573 U/L (10-37); BUN/CREATININE RATIO 6.8 (6.6-38.0); CREATININE 0.44 MG/DL (0.40-0.90); GLUCOSE 119 MG/DL (70-104); PHOSPHORUS 1.4 MG/DL (2.3-4.5); POTASSIUM 3.1 MMOL/L (3.5-5.1); TOTAL PROTEIN 6.2 G/DL (6.4-8.2); eGFR > 90 ML/MIN
[2022-06-02 10:14] LABS: CLARITY,URINE CLOUDY (Clear)
[2022-06-02] MEDS ORDERED: potassium Cl 20 mEq SR tablet PO PRN ×2 (10:20)
[2022-06-02] MEDS ORDERED: magnesium 2GM in 50ml NS 50 ML IV PRN (10:20)
[2022-06-02] MEDS ORDERED: magnesium 4gm in 100ml NS 100 ML IV PRN (10:20)
[2022-06-02] MEDS ORDERED: potassium CL 10mEq/100ml bag 100 ML IV PRN (10:20)
[2022-06-02 10:21] LABS: UA COLLECTION TYPE CLN CATCH MIDSTREAM
[2022-06-02 10:22] LABS: COLOR,URINE AMBER (Yellow)
[2022-06-02 10:26] LABS: BACTERIA,URINE 3+ /HPF (Neg); MUCUS STRANDS FEW /LPF (Neg); RBC,URINE NONE SEEN /HPF (0-2); SQUAMOUS EPITHELIAL CELL,UR MODERATE /LPF (FEW)
[2022-06-02 10:27] LABS: YEAST FEW /HPF (NEGATIVE)
[2022-06-02 10:28] LABS: RENAL CELLS, URINE FEW /HPF; WBC CLUMPS,URINE FEW /HPF (NEGATIVE)
[2022-06-02 11:35] LABS: MAGNESIUM 1.5 MG/DL (1.5-2.4)
[2022-06-02] MEDS: naltrexone 50mg tablet PO SCH (11:43)
[2022-06-02] MEDS ORDERED: POTASSIUM BICARB 20meq eff tab 20 MEQ TABLET.EFF PO PRN (11:45)
[2022-06-02 12:00] VITALS: BP 136/92
[2022-06-02] MEDS: POTASSIUM BICARB 20meq eff tab 20 MEQ TABLET.EFF PO PRN (13:49)
[2022-06-02] MEDS: insulin Lispro (HumaLOG) vial - multi-dose SQ SCH ×2 (13:57→19:57)
[2022-06-02 15:30] VITALS: BP 123/81
[2022-06-02 18:00] VITALS: BP 122/69
--- NOTE | 2022-06-02 18:06 | NUR ---
Problems reprioritized. Patient report given, questions answered & plan of care reviewed with FAUSTO Cerna.
--- NOTE | 2022-06-02 18:13 | NUR ---
Patient in room PCU 3020. I have received report from KARY LAMBERT and had the opportunity to ask questions and assume patient care.
[2022-06-02] MEDS: HYDROcodone/acetaminophen 10/325mg tab PO PRN (18:51)
[2022-06-02] MEDS: K and/or MAG REPLACEMENT MC SCH (19:36)
[2022-06-02] MEDS: cyclobenzaprine 10mg tablet PO PRN (19:53)
[2022-06-02] MEDS: insulin glargine (Lantus) pen - multi-dose SQ SCH (21:43)
[2022-06-02 22:00] VITALS: BP 136/94
[2022-06-03 02:00] VITALS: BP 132/92
[2022-06-03] MEDS: HYDROmorphone/PF 0.2 MG/ML SYRINGE IV PRN ×6 (02:12→22:49)
[2022-06-03] MEDS: LORazepam 2 mg/ml vial IV PRN ×4 (04:04→20:52)
[2022-06-03] MEDS: normal saline 1000ml 1,000 ML IV SCH ×3 (04:07→22:47)
[2022-06-03 06:00] VITALS: BP 125/91
--- NOTE | 2022-06-03 06:30 | NUR ---
Patient in room PCU 3020. I have received report from FAUSTO Cerna and had the opportunity to ask questions and assume patient care.
--- NOTE | 2022-06-03 06:49 | NUR ---
Problems reprioritized. Patient report given, questions answered & plan of care reviewed with CORY RN.
[2022-06-03 08:16] LABS: HEMOGLOBIN 11.6 g/dl (12.0-16.0); MEAN CORPUSCULAR HEMOGLOBIN 35.7 PG (27.0-31.0); MEAN CORPUSCULAR HGB CONC 35.4 g/dL (33.0-36.5)
[2022-06-03 08:19] LABS: HEMATOCRIT 32.6 % (35.0-45.0); MEAN CORPUSCULAR VOLUME 100.7 FL (78-98); MEAN PLATELET VOLUME 9.1 FL (7.4-10.4); PLATELET COUNT 148 X10'3 (140-440); RED BLOOD COUNT 3.24 X10'6 (4.20-5.60); RED CELL DISTRIBUTION WIDTH 16.4 % (11.5-14.5); WHITE BLOOD COUNT 3.7 X10'3 (4.5-11.0)
[2022-06-03 08:39] LABS: ALANINE AMINOTRANSFERASE 223 U/L (12-78); ALBUMIN 2.2 G/DL (3.4-5.0); ALKALINE PHOSPHATASE 186 IU/L (46-116); ANION GAP 12 (8-16); BLOOD UREA NITROGEN 2 MG/DL (7-18); CALCIUM 9.4 MG/DL (8.5-10.1); CHLORIDE 102 MMOL/L (99-107); MAGNESIUM 1.5 MG/DL (1.5-2.4); SODIUM 137 MMOL/L (135-145)
[2022-06-03 08:41] LABS: ALBUMIN/GLOBULIN RATIO 0.5 (1.1-1.5); ASPARTATE AMINO TRANSFERASE 443 U/L (10-37); BUN/CREATININE RATIO 4.9 (6.6-38.0); CREATININE 0.41 MG/DL (0.40-0.90); GLUCOSE 149 MG/DL (70-104); POTASSIUM 3.2 MMOL/L (3.5-5.1); TOTAL PROTEIN 6.3 G/DL (6.4-8.2); eGFR > 90 ML/MIN
[2022-06-03 09:04] LABS: PHOSPHORUS 1.2 MG/DL (2.3-4.5)
[2022-06-03] MEDS: K and/or MAG REPLACEMENT MC SCH ×2 (09:29→20:46)
[2022-06-03 09:30] LABS: ANISOCYTOSIS 1+; PLATELET ESTIMATE NORMAL; TOTAL CELLS COUNTED 100
[2022-06-03 09:31] LABS: POLYCHROMASIA 1+; STOMATOCYTES 1+; TARGET CELLS 1+
[2022-06-03] MEDS: docusate sod 100mg capsule PO SCH ×2 (09:35→20:00)
[2022-06-03] MEDS: nicotine 14mg patch - 24hr TD SCH (09:38)
[2022-06-03] MEDS: folic acid 1mg/0.2ml inj IV SCH (09:38)
[2022-06-03] MEDS: naltrexone 50mg tablet PO SCH (09:40)
[2022-06-03] MEDS: thiamine 100mg/ml 2ml inj. IV SCH ×3 (09:42→20:51)
[2022-06-03] MEDS: POTASSIUM BICARB 20meq eff tab 20 MEQ TABLET.EFF PO PRN ×3 (09:43→18:04)
[2022-06-03] MEDS: insulin Lispro (HumaLOG) vial - multi-dose SQ SCH (09:54)
[2022-06-03 11:00] VITALS: BP 122/87
[2022-06-03] MEDS: Neutra Phos packet PO SCH ×2 (13:15→20:51)
[2022-06-03 15:00] VITALS: BP 137/96
[2022-06-03 18:00] VITALS: BP 137/98
--- NOTE | 2022-06-03 18:40 | NUR ---
Problems reprioritized. Patient report given, questions answered & plan of care reviewed with FAUSTO Loya.
--- NOTE | 2022-06-03 19:09 | NUR ---
Patient in room PCU 3020. I have received report from FAUSTO SIFUENTES and had the opportunity to ask questions and assume patient care. Addendum: 06/03/22 at 1910 by Shalini Medel RN Amended: Links added.
[2022-06-03] MEDS: cyclobenzaprine 10mg tablet PO PRN (20:51)
[2022-06-03] MEDS: insulin glargine (Lantus) pen - multi-dose SQ SCH (21:04)
[2022-06-03 22:15] VITALS: BP 132/101
--- NOTE | 2022-06-03 22:30 | NUR ---
WENT INTO ROOM TO DO VITALS HANG A NEW IV ON THE PT AND MEDICATED HER PER REQUEST FOR PAIN. pt vitals stable said pain was 7-8/10 and medicated for it. bedside commode at side of bed. Rn left the room at 2245pm.
--- NOTE | 2022-06-03 22:50 | NUR ---
while rn in another pt room pt got up to use the bathroom she moved the commode and went into the bathroom and fell in the bathroom bumped her head. vitals prior to the incident was 132/101 hr 103 97% sat after getting her out of the bathroom phyllis york assisted her back into bed. vitals 149/95 hr 107, then 15 minutes later 133/94, hr 102.
--- NOTE | 2022-06-03 23:15 | NUR ---
Dr Street notified of the fall and vitals said to call if any changes.
--- NOTE | 2022-06-03 23:20 | NUR ---
housekeeper child care Kelsie notified of the incident as well.
--- NOTE | 2022-06-03 23:25 | NUR ---
Pt insistent we not call her Mom rhett to let her know about her fall in the bathroom she said the toilet was too low and she wasn't thinking about using the bedside commode as when she is home she moves her grandfathers to get to the bathroom. She then said she should have just used the commode. then she said her attends are in the bathroom. skin care was done at 2308 and new attends briefs put on the pt. pt hx of urine leakage issues.
[2022-06-04 02:00] VITALS: BP 128/81
--- NOTE | 2022-06-04 02:00 | NUR ---
A/O ANSWERING QUESTIONS APPROPRIATELY. REQUESTING SOMETHING FOR ANXIETY. VSS. NO COMPLAINTS OTHER THAN WANTING MEDICATION FOR ANXIETY.
[2022-06-04] MEDS: LORazepam 2 mg/ml vial IV PRN ×4 (02:31→20:16)
--- NOTE | 2022-06-04 02:33 | NUR ---
AWAKE C/O MARIA C MDICATED WITH 2MG OF ATIVAN FOR THIS NO COMPLAINTS OF PAIN OR DISCOMFORT. DENIED NEED TO USE THE RESTROOM WHEN ASKED
--- NOTE | 2022-06-04 03:23 | NUR ---
resting eyes closed without changes at this time.
[2022-06-04] MEDS: HYDROmorphone/PF 0.2 MG/ML SYRINGE IV PRN ×5 (04:02→21:39)
--- NOTE | 2022-06-04 04:08 | NUR ---
inc of urine and did attempt to get up bed alarm went off and SUPERINTENDENT GENERATING PLANT in to assist pt. skin care done. complete lien change done and after getting her back to bed with new brief on pt given blanket and per request medicated for pain with Dilaudid iv.
--- NOTE | 2022-06-04 05:52 | NUR ---
complaint of feeling ancious shaky & medicated for this.
[2022-06-04 06:00] VITALS: BP 119/76
--- NOTE | 2022-06-04 06:10 | NUR ---
Patient in room PCU 3020. I have received report from FAUSTO Loya and had the opportunity to ask questions and assume patient care.
--- NOTE | 2022-06-04 06:22 | NUR ---
Problems reprioritized. Patient report given, questions answered & plan of care reviewed with FAUSTO RAY. Addendum: 06/04/22 at 0623 by Shalini Medel RN Amended: Links added.
[2022-06-04 07:32] LABS: ALANINE AMINOTRANSFERASE 172 U/L (12-78); ALBUMIN 1.9 G/DL (3.4-5.0); ALKALINE PHOSPHATASE 157 IU/L (46-116); ANION GAP 9 (8-16); BILIRUBIN,TOTAL 17.3 MG/DL (0.1-1.0); BLOOD UREA NITROGEN 2 MG/DL (7-18); CALCIUM 9.1 MG/DL (8.5-10.1); CHLORIDE 104 MMOL/L (99-107); MAGNESIUM 1.3 MG/DL (1.5-2.4); SODIUM 139 MMOL/L (135-145)
[2022-06-04 07:34] LABS: HEMOGLOBIN 10.7 g/dl (12.0-16.0); RED BLOOD COUNT 2.97 X10'6 (4.20-5.60)
[2022-06-04 07:36] LABS: HEMATOCRIT 30.1 % (35.0-45.0); MEAN CORPUSCULAR HEMOGLOBIN 35.8 PG (27.0-31.0); MEAN CORPUSCULAR HGB CONC 35.4 g/dL (33.0-36.5); MEAN CORPUSCULAR VOLUME 101.1 FL (78-98); MEAN PLATELET VOLUME 8.4 FL (7.4-10.4); PLATELET COUNT 145 X10'3 (140-440); RED CELL DISTRIBUTION WIDTH 17.2 % (11.5-14.5); WHITE BLOOD COUNT 3.5 X10'3 (4.5-11.0)
[2022-06-04 07:36] LABS: ALBUMIN/GLOBULIN RATIO 0.5 (1.1-1.5); ASPARTATE AMINO TRANSFERASE 309 U/L (10-37); BUN/CREATININE RATIO 6.5 (6.6-38.0); CREATININE 0.31 MG/DL (0.40-0.90); GLUCOSE 122 MG/DL (70-104); PHOSPHORUS 2.2 MG/DL (2.3-4.5); POTASSIUM 3.2 MMOL/L (3.5-5.1); TOTAL PROTEIN 5.7 G/DL (6.4-8.2); eGFR > 90 ML/MIN
[2022-06-04] MEDS: POTASSIUM BICARB 20meq eff tab 20 MEQ TABLET.EFF PO PRN ×3 (08:23→16:48)
[2022-06-04] MEDS: nicotine 14mg patch - 24hr TD SCH (08:23)
[2022-06-04] MEDS: magnesium Cl slow-release 64mg tablet PO PRN ×2 (08:24→16:48)
[2022-06-04] MEDS: docusate sod 100mg capsule PO SCH ×2 (08:24→20:19)
[2022-06-04] MEDS: naltrexone 50mg tablet PO SCH (08:24)
[2022-06-04] MEDS: Neutra Phos packet PO SCH (08:24)
[2022-06-04 08:46] LABS: ANISOCYTOSIS 1+; PLATELET ESTIMATE NORMAL; TOTAL CELLS COUNTED 100
[2022-06-04 08:47] LABS: POLYCHROMASIA 1+; STOMATOCYTES 1+; TARGET CELLS 1+
[2022-06-04] MEDS: insulin Lispro (HumaLOG) vial - multi-dose SQ SCH ×2 (09:42→14:31)
[2022-06-04] MEDS: K and/or MAG REPLACEMENT MC SCH ×2 (10:01→20:00)
[2022-06-04 11:00] VITALS: BP 121/89
[2022-06-04] MEDS: normal saline 1000ml 1,000 ML IV SCH (12:14)
[2022-06-04 15:00] VITALS: BP 127/89
[2022-06-04 18:00] VITALS: BP 118/84
--- NOTE | 2022-06-04 18:30 | NUR ---
Problems reprioritized. Patient report given, questions answered & plan of care reviewed with FAUSTO Loya.
--- NOTE | 2022-06-04 18:39 | NUR ---
Patient in room PCU 3020. I have received report from Dom Iglesias and had the opportunity to ask questions and assume patient care. Addendum: 06/04/22 at 1840 by Shalini Medel RN Amended: Links added.
[2022-06-04] MEDS: insulin glargine (Lantus) pen - multi-dose SQ SCH (20:30)
[2022-06-04] MEDS: verapamil SR 120mg (sust. release) tab PO SCH (20:32)
--- NOTE | 2022-06-04 21:35 | NUR ---
MEDICATED FOR C/O PAIN WITH DILADID IV. LIGHTS OUT PER REQUEST DENIED NEEDING TO USE BSC SHE HAD DONE IT PRIOR TO BEING MEDICATED BY AUTOMOTIVE WINDOW TINTER. BED ALARM ON.
[2022-06-04 22:30] VITALS: BP 144/104
[2022-06-05] MEDS: LORazepam 2 mg/ml vial IV PRN ×5 (00:50→21:00)
[2022-06-05] MEDS: normal saline 1000ml 1,000 ML IV SCH ×2 (00:53→15:26)
[2022-06-05] MEDS: HYDROmorphone/PF 0.2 MG/ML SYRINGE IV PRN ×5 (01:45→20:30)
--- NOTE | 2022-06-05 01:45 | NUR ---
medicated for c/o pain 05/07 and vitals done at this time.
[2022-06-05 06:00] VITALS: BP 117/89
--- NOTE | 2022-06-05 06:40 | NUR ---
Patient in room PCU 3020. I have received report from FAUSTO Loya and had the opportunity to ask questions and assume patient care.
[2022-06-05 07:01] LABS: MEAN PLATELET VOLUME 8.6 FL (7.4-10.4); WHITE BLOOD COUNT 3.5 X10'3 (4.5-11.0)
[2022-06-05 07:03] LABS: HEMATOCRIT 35.5 % (35.0-45.0); HEMOGLOBIN 12.4 g/dl (12.0-16.0); MEAN CORPUSCULAR HEMOGLOBIN 36.1 PG (27.0-31.0); MEAN CORPUSCULAR HGB CONC 34.9 g/dL (33.0-36.5); MEAN CORPUSCULAR VOLUME 103.5 FL (78-98); PLATELET COUNT 169 X10'3 (140-440); RED BLOOD COUNT 3.43 X10'6 (4.20-5.60)
--- NOTE | 2022-06-05 07:06 | NUR ---
Problems reprioritized. Patient report given, questions answered & plan of care reviewed with FAUSTO RAY. Addendum: 06/05/22 at 0706 by Shalini Medel RN Amended: Links added.
[2022-06-05 07:33] LABS: ALANINE AMINOTRANSFERASE 177 U/L (12-78); ALBUMIN 2.3 G/DL (3.4-5.0); ALKALINE PHOSPHATASE 183 IU/L (46-116); ANION GAP 11 (8-16); BILIRUBIN,TOTAL 20.3 MG/DL (0.1-1.0); BLOOD UREA NITROGEN 2 MG/DL (7-18); CALCIUM 10.1 MG/DL (8.5-10.1); CHLORIDE 103 MMOL/L (99-107); MAGNESIUM 1.4 MG/DL (1.5-2.4); SODIUM 140 MMOL/L (135-145)
[2022-06-05 07:35] LABS: ALBUMIN/GLOBULIN RATIO 0.5 (1.1-1.5); ASPARTATE AMINO TRANSFERASE 293 U/L (10-37); BUN/CREATININE RATIO 5.6 (6.6-38.0); CREATININE 0.36 MG/DL (0.40-0.90); GLUCOSE 122 MG/DL (70-104); POTASSIUM 3.8 MMOL/L (3.5-5.1); TOTAL PROTEIN 6.9 G/DL (6.4-8.2); eGFR > 90 ML/MIN
[2022-06-05] MEDS ORDERED: naltrexone 50mg tablet PO SCH (08:00)
[2022-06-05 08:03] LABS: NUCLEATED RED BLOOD CELLS 1 /100WBC (0-0); TOTAL CELLS COUNTED 100
[2022-06-05 08:04] LABS: ANISOCYTOSIS 2+; LARGE PLATELETS FEW; PLATELET ESTIMATE NORMAL; POLYCHROMASIA FEW
[2022-06-05] MEDS: folic acid 1mg tablet PO SCH (10:19)
[2022-06-05] MEDS: levoTHYROXINE 100mcg tablet PO SCH (10:19)
[2022-06-05] MEDS: thiamine 100mg tablet PO SCH (10:19)
[2022-06-05] MEDS: lisinopril 10 MG tablet PO SCH (10:19)
[2022-06-05] MEDS: docusate sod 100mg capsule PO SCH ×2 (10:19→20:00)
[2022-06-05] MEDS: magnesium Cl slow-release 64mg tablet PO PRN ×2 (10:19→17:23)
[2022-06-05] MEDS: nicotine 14mg patch - 24hr TD SCH (10:20)
[2022-06-05] MEDS: lansoprazole 15mg solutab PO SCH (10:20)
[2022-06-05] MEDS: naltrexone 50mg tablet PO SCH (10:20)
[2022-06-05] MEDS: magnesium hydroxide 30ml (MOM) UD suspension PO PRN (10:20)
[2022-06-05] MEDS: insulin Lispro (HumaLOG) vial - multi-dose SQ SCH ×2 (10:31→13:56)
[2022-06-05] MEDS: K and/or MAG REPLACEMENT MC SCH ×2 (10:32→20:32)
[2022-06-05 11:00] VITALS: BP 123/86
[2022-06-05] MEDS: Neutra Phos packet PO SCH ×2 (12:29→20:30)
[2022-06-05 15:00] VITALS: BP 122/81
[2022-06-05] MEDS ORDERED: potassium CL 10mEq/100ml bag 100 ML IV PRN (17:20)
[2022-06-05] MEDS ORDERED: magnesium 4gm in 100ml NS 100 ML IV PRN (17:20)
[2022-06-05] MEDS ORDERED: magnesium 2GM in 50ml NS 50 ML IV PRN (17:20)
[2022-06-05] MEDS ORDERED: POTASSIUM BICARB 20meq eff tab 20 MEQ TABLET.EFF PO PRN ×2 (17:20)
[2022-06-05 18:00] VITALS: BP 126/88
--- NOTE | 2022-06-05 18:30 | NUR ---
Problems reprioritized. Patient report given, questions answered & plan of care reviewed with FAUSTO Loya.
--- NOTE | 2022-06-05 18:38 | NUR ---
Patient in room PCU 3020. I have received report from FAUSTO RAY and had the opportunity to ask questions and assume patient care. Addendum: 06/05/22 at 1839 by Shalini Medel RN Amended: Links added.
[2022-06-05] MEDS: verapamil SR 120mg (sust. release) tab PO SCH (20:29)
[2022-06-05] MEDS: insulin glargine (Lantus) pen - multi-dose SQ SCH (20:44)
[2022-06-05 22:30] VITALS: BP 110/68
--- NOTE | 2022-06-06 00:10 | NUR ---
pt medicated for pain per request was upset she was inc of urine and had wet the bed & floor going to the bedside commode. explained that for her safety due to her urgency it was important to have the bed alarm on so she would not slip & fall in urine using the commode.
[2022-06-06] MEDS: HYDROmorphone/PF 0.2 MG/ML SYRINGE IV PRN ×2 (00:16→05:28)
[2022-06-06] MEDS: LORazepam 2 mg/ml vial IV PRN ×2 (01:58→08:19)
[2022-06-06 02:07] VITALS: BP 128/92
--- NOTE | 2022-06-06 02:25 | NUR ---
medicated with ativan for anxiety and up to bedside commode to void tolerated well. pt stated hungry given yogurt for it.
[2022-06-06] MEDS: normal saline 1000ml 1,000 ML IV SCH ×2 (05:29→21:00)
--- NOTE | 2022-06-06 05:40 | NUR ---
MEDICATED FOR PAIN WITH DILADID PT JUST GOT OFF BEDSIDE COMMODE AFTER BEING INC OF URINE.
[2022-06-06 06:00] VITALS: BP 114/79
[2022-06-06 06:25] LABS: WHITE BLOOD COUNT 3.3 X10'3 (4.5-11.0)
[2022-06-06 06:29] LABS: HEMATOCRIT 33.9 % (35.0-45.0); HEMOGLOBIN 11.5 g/dl (12.0-16.0); MEAN CORPUSCULAR HEMOGLOBIN 35.6 PG (27.0-31.0); MEAN CORPUSCULAR VOLUME 104.7 FL (78-98); MEAN PLATELET VOLUME 8.9 FL (7.4-10.4); PLATELET COUNT 177 X10'3 (140-440); RED BLOOD COUNT 3.24 X10'6 (4.20-5.60)
[2022-06-06 06:52] LABS: ALANINE AMINOTRANSFERASE 137 U/L (12-78); ALKALINE PHOSPHATASE 173 IU/L (46-116); ANION GAP 12 (8-16); BLOOD UREA NITROGEN 2 MG/DL (7-18); CALCIUM 9.9 MG/DL (8.5-10.1); CHLORIDE 102 MMOL/L (99-107); MAGNESIUM 1.4 MG/DL (1.5-2.4); SODIUM 138 MMOL/L (135-145); TOTAL CARBON DIOXIDE 23.8 MMOL/L (24-32)
[2022-06-06 06:53] LABS: ALBUMIN/GLOBULIN RATIO 0.5 (1.1-1.5); ASPARTATE AMINO TRANSFERASE 201 U/L (10-37); BUN/CREATININE RATIO 4.7 (6.6-38.0); CREATININE 0.43 MG/DL (0.40-0.90); GLUCOSE 207 MG/DL (70-104); PHOSPHORUS 4.9 MG/DL (2.3-4.5); POTASSIUM 3.9 MMOL/L (3.5-5.1); TOTAL PROTEIN 6.3 G/DL (6.4-8.2); eGFR > 90 ML/MIN
--- NOTE | 2022-06-06 07:13 | NUR ---
Problems reprioritized. Patient report given, questions answered & plan of care reviewed with FAUSTO CR. Addendum: 06/06/22 at 0714 by Shalini Medel RN Amended: Links added.
[2022-06-06] MEDS: docusate sod 100mg capsule PO SCH ×2 (08:00→20:50)
[2022-06-06] MEDS: K and/or MAG REPLACEMENT MC SCH ×2 (08:00→20:00)
[2022-06-06] MEDS: cyclobenzaprine 10mg tablet PO PRN ×2 (08:17→19:35)
[2022-06-06] MEDS: lisinopril 10 MG tablet PO SCH (08:18)
[2022-06-06] MEDS: thiamine 100mg tablet PO SCH (08:18)
[2022-06-06] MEDS: lansoprazole 15mg solutab PO SCH (08:18)
[2022-06-06] MEDS: levoTHYROXINE 100mcg tablet PO SCH (08:18)
[2022-06-06] MEDS: folic acid 1mg tablet PO SCH (08:18)
[2022-06-06] MEDS: potassium bicarbonate/cit acid 25mEq tablet.effervescent PO SCH (08:19)
[2022-06-06] MEDS: nicotine 14mg patch - 24hr TD SCH (08:19)
[2022-06-06] MEDS: Neutra Phos packet PO SCH ×3 (08:20→20:50)
[2022-06-06 08:31] LABS: TOTAL CELLS COUNTED 100
[2022-06-06 08:32] LABS: ANISOCYTOSIS 2+; PLATELET ESTIMATE NORMAL
[2022-06-06] MEDS: magnesium Cl slow-release 64mg tablet PO PRN ×2 (08:38→19:35)
--- NOTE | 2022-06-06 09:04 | NUR ---
Initial: Pt admitted w/ alcoholic hepatitis, alcohol withdrawal, and metabolic acidosis per EMR. Pt has been on Full liquid diet most of admit, avg intake 50% of meals not meeting needs. Diet was just advanced to Carb control 06/05, pending further PO trends. Will monitor need for ONS. LBM 06/05 receiving routine and PRN bowel care. Will continue to follow. Recs; 1. Continue Carb control diet as tolerated 2. Monitor need for ONS 3. Bowel care per rx 4. Weekly wts Addendum: 06/06/22 at [address] Amended: Links added.
[2022-06-06] MEDS: insulin Lispro (HumaLOG) vial - multi-dose SQ SCH ×2 (09:54→19:04)
[2022-06-06] MEDS ORDERED: oxyCODONE/APAP 5-325mg tablet PO PRN (11:35)
[2022-06-06 14:18] LABS: ANTINUCLEAR ANTIBODIES Negative (Negative)
[2022-06-06 15:00] VITALS: BP 126/90
[2022-06-06 18:00] VITALS: BP 117/77
--- NOTE | 2022-06-06 18:13 | NUR ---
Problems reprioritized. Patient report given, questions answered & plan of care reviewed with FAUSTO SANCHES.
[2022-06-06] MEDS: chlordiazePOXIDE 5mg capsule PO PRN (19:35)
[2022-06-06] MEDS: verapamil SR 120mg (sust. release) tab PO SCH (20:50)
[2022-06-06] MEDS: insulin glargine (Lantus) pen - multi-dose SQ SCH (20:59)
[2022-06-06] MEDS: oxyCODONE IR 5mg (immed. release) tablet PO PRN (21:08)
[2022-06-06 22:00] VITALS: BP 119/79
[2022-06-07] MEDS: oxyCODONE IR 5mg (immed. release) tablet PO PRN ×4 (01:26→21:05)
[2022-06-07 02:00] VITALS: BP 125/87
[2022-06-07 06:00] VITALS: BP 103/69
--- NOTE | 2022-06-07 06:09 | NUR ---
Problems reprioritized. Patient report given, questions answered & plan of care reviewed with FAUSTO BOYLE.
--- NOTE | 2022-06-07 06:36 | NUR ---
Patient in room PCU 3020. I have received report from FAUSTO SANCHES and had the opportunity to ask questions and assume patient care.
[2022-06-07] MEDS: K and/or MAG REPLACEMENT MC SCH ×2 (08:00→20:00)
[2022-06-07] MEDS: Neutra Phos packet PO SCH ×3 (08:01→21:01)
[2022-06-07] MEDS: lisinopril 10 MG tablet PO SCH (08:02)
[2022-06-07] MEDS: docusate sod 100mg capsule PO SCH ×2 (08:02→21:01)
[2022-06-07] MEDS: lansoprazole 15mg solutab PO SCH (08:02)
[2022-06-07] MEDS: thiamine 100mg tablet PO SCH (08:02)
[2022-06-07] MEDS: levoTHYROXINE 100mcg tablet PO SCH (08:02)
[2022-06-07] MEDS: nicotine 14mg patch - 24hr TD SCH (08:03)
[2022-06-07] MEDS: folic acid 1mg tablet PO SCH (08:03)
[2022-06-07] MEDS: chlordiazePOXIDE 5mg capsule PO PRN ×2 (08:18→17:18)
[2022-06-07] MEDS: insulin Lispro (HumaLOG) vial - multi-dose SQ SCH ×2 (09:57→18:56)
[2022-06-07 10:00] VITALS: BP 102/51
[2022-06-07 10:36] LABS: WHITE BLOOD COUNT 2.6 X10'3 (4.5-11.0)
[2022-06-07 10:37] LABS: HEMATOCRIT 32.3 % (35.0-45.0); HEMOGLOBIN 11.1 g/dl (12.0-16.0); MEAN CORPUSCULAR HEMOGLOBIN 35.7 PG (27.0-31.0); MEAN CORPUSCULAR HGB CONC 34.5 g/dL (33.0-36.5); MEAN CORPUSCULAR VOLUME 103.4 FL (78-98); MEAN PLATELET VOLUME 8.5 FL (7.4-10.4); PLATELET COUNT 169 X10'3 (140-440); RED CELL DISTRIBUTION WIDTH 19.8 % (11.5-14.5)
[2022-06-07 10:52] LABS: ALANINE AMINOTRANSFERASE 120 U/L (12-78); ALBUMIN 1.9 G/DL (3.4-5.0); ALKALINE PHOSPHATASE 151 IU/L (46-116); ANION GAP 9 (8-16); BILIRUBIN,TOTAL 15.5 MG/DL (0.1-1.0); BLOOD UREA NITROGEN 3 MG/DL (7-18); CALCIUM 9.4 MG/DL (8.5-10.1); CHLORIDE 98 MMOL/L (99-107); CREATININE 0.43 MG/DL (0.40-0.90); SODIUM 134 MMOL/L (135-145); TOTAL CARBON DIOXIDE 27.5 MMOL/L (24-32); eGFR > 90 ML/MIN
[2022-06-07 10:54] LABS: ALBUMIN/GLOBULIN RATIO 0.5 (1.1-1.5); ASPARTATE AMINO TRANSFERASE 173 U/L (10-37); GLUCOSE 255 MG/DL (70-104); POTASSIUM 4.2 MMOL/L (3.5-5.1); TOTAL PROTEIN 6.1 G/DL (6.4-8.2)
[2022-06-07 10:57] LABS: RED BLOOD COUNT 3.13 X10'6 (4.20-5.60)
[2022-06-07] MEDS ORDERED: OXYC-658 PO ×2 (11:23→11:25)
[2022-06-07] MEDS ORDERED: NICO-631 TD (11:23)
[2022-06-07] MEDS ORDERED: CHLO5CAP3 PO (11:23)
[2022-06-07] MEDS ORDERED: CHLO25CA10 PO (11:25)
[2022-06-07 11:38] LABS: TOTAL CELLS COUNTED 100
[2022-06-07 11:39] LABS: ANISOCYTOSIS 2+; PLATELET ESTIMATE NORMAL
[2022-06-07 13:14] LABS: HBSAG SCREEN Negative (Negative)
[2022-06-07 13:14] LABS: HBSAG SCREEN Negative (Negative); HEP A AB, IGM Negative (Negative)
[2022-06-07 15:00] VITALS: BP 96/49
[2022-06-07] MEDS: ondansetron/PF 4mg/2ml inj IV PRN ×2 (16:42→23:41)
[2022-06-07 18:00] VITALS: BP 113/63
--- NOTE | 2022-06-07 19:32 | NUR ---
Problems reprioritized. Patient report given, questions answered & plan of care reviewed with FAUSTO SANCHES.
[2022-06-07] MEDS: insulin glargine (Lantus) pen - multi-dose SQ SCH (21:00)
[2022-06-07] MEDS: verapamil SR 120mg (sust. release) tab PO SCH (21:01)
[2022-06-07 22:00] VITALS: BP 94/46
[2022-06-07] MEDS ORDERED: normal saline 1000ml 1,000 ML IVB ONE (22:40)
[2022-06-07] MEDS ORDERED: acetaminophen 325mg tablet PO PRN ×2 (22:40→23:00)
[2022-06-07 23:54] LABS: URINE HCG NEGATIVE (NEG)
[2022-06-07 23:58] LABS: GLUCOSE, URINE 100 mg/dl (Neg); KETONES,URINE TRACE mg/dl (Neg); LEUKOCYTE ESTERASE ,URINE TRACE (Neg); NITRITES, URINE NEGATIVE (Neg); OCCULT BLOOD,URINE NEGATIVE (Neg); PH,URINE 8.5 (4.8-8.0); PROTEIN,URINE 30 mg/dl (Neg); UROBILINOGEN,URINE >=8.0 E.U/dL (0.2-1.0)
[2022-06-07] MEDS: normal saline 1000ml 1,000 ML IV SCH (23:58)
--- NOTE | 2022-06-07 23:59 | NUR ---
PT TEMP 103. CONTACTED DR. MCKEON. RECEIVED ORDER FOR 1L NS BOLUS AND 150CC/HR AFTER. BLOOD CULTURE, UA AND TYLENOL 1000MG PO Q6HR BUT DOSAGE AVAILABILITY 975MG PER PHARMACY. I MENTIONED ABOUT PT'S LIVER FUNCTION. STILL WANTS TO GIVE TYLENOL.
[2022-06-08 00:05] LABS: COLOR,URINE AMBER (Yellow); UA COLLECTION TYPE CLN CATCH MIDSTREAM
[2022-06-08 00:09] LABS: CLARITY,URINE CLOUDY (Clear)
[2022-06-08 00:10] LABS: URINE AMPHETAMINE SCREEN NEGATIVE (Neg); URINE BARBITUATE SCREEN NEGATIVE (Neg); URINE BENZODIAZEPINES SCREEN POSITIVE (Neg); URINE CANNABINOID SCREEN NEGATIVE (Neg); URINE COCAINE SCREEN NEGATIVE (Neg); URINE METHADONE SCREEN NEGATIVE (Neg); URINE OPIATE SCREEN NEGATIVE (Neg); URINE PHENCYCLIDINE SCREEN NEGATIVE (Neg)
[2022-06-08 00:11] LABS: BACTERIA,URINE 2+ /HPF (Neg); RBC,URINE 0-2 /HPF (0-2); SQUAMOUS EPITHELIAL CELL,UR MODERATE /LPF (FEW); TRANSITIONAL EPI CELLS,URINE FEW /HPF; WBC CLUMPS,URINE FEW /HPF (NEGATIVE)
[2022-06-08 00:14] LABS: MUCUS STRANDS FEW /LPF (Neg); YEAST FEW /HPF (NEGATIVE)
[2022-06-08] MEDS: chlordiazePOXIDE 5mg capsule PO PRN ×2 (01:43→13:15)
[2022-06-08 06:00] VITALS: BP 83/48
--- NOTE | 2022-06-08 06:10 | NUR ---
received report from phyllis hankins
[2022-06-08] MEDS: normal saline 1000ml 1,000 ML IV SCH ×3 (06:18→12:05)
[2022-06-08] MEDS: oxyCODONE IR 5mg (immed. release) tablet PO PRN ×4 (06:18→20:36)
--- NOTE | 2022-06-08 06:34 | NUR ---
Problems reprioritized. Patient report given, questions answered & plan of care reviewed with FAUSTO MAYER.
[2022-06-08] MEDS: nicotine 14mg patch - 24hr TD SCH (08:00)
[2022-06-08] MEDS: K and/or MAG REPLACEMENT MC SCH ×2 (08:00→18:46)
[2022-06-08] MEDS: lisinopril 10 MG tablet PO SCH (08:00)
[2022-06-08] MEDS: folic acid 1mg tablet PO SCH (08:10)
[2022-06-08] MEDS: docusate sod 100mg capsule PO SCH ×2 (08:10→20:36)
[2022-06-08] MEDS: cyclobenzaprine 10mg tablet PO PRN (08:10)
[2022-06-08] MEDS: Neutra Phos packet PO SCH ×3 (08:11→20:36)
[2022-06-08] MEDS: potassium bicarbonate/cit acid 25mEq tablet.effervescent PO SCH (08:11)
[2022-06-08] MEDS: lansoprazole 15mg solutab PO SCH (08:11)
[2022-06-08] MEDS: levoTHYROXINE 100mcg tablet PO SCH (08:12)
[2022-06-08] MEDS: thiamine 100mg tablet PO SCH (08:12)
--- NOTE | 2022-06-08 09:35 | NUR ---
pt bg is 89 this morning and she is telling me that she would like wait to take her insulin at this time and to recheck her bg around lunch
[2022-06-08 10:30] VITALS: BP 90/42
[2022-06-08] MEDS: insulin Lispro (HumaLOG) vial - multi-dose SQ SCH (13:43)
--- NOTE | 2022-06-08 14:00 | NUR ---
pt refusing to have vs taken at this time and tells me that she would like to rest
[2022-06-08] MEDS: magnesium hydroxide 30ml (MOM) UD suspension PO PRN (15:57)
[2022-06-08 18:00] VITALS: BP 87/42
--- NOTE | 2022-06-08 18:11 | NUR ---
gave report to carson gonzalez
--- NOTE | 2022-06-08 18:30 | NUR ---
Patient in room PCU 3020. I have received report from tejal and had the opportunity to ask questions and assume patient care.
[2022-06-08] MEDS: verapamil SR 120mg (sust. release) tab PO SCH (19:26)
[2022-06-08] MEDS: insulin glargine (Lantus) pen - multi-dose SQ SCH (20:32)
--- NOTE | 2022-06-09 02:46 | NUR ---
Agree with Bryce PAGE assessment except where I added my assessment findings. She is alert and orientated and does not need to wear a TABS. She is jaundiced to chest and face more than any other area of body except her sclera where it is very jaundiced.
[2022-06-09 06:00] VITALS: BP 94/51
--- NOTE | 2022-06-09 06:15 | NUR ---
Problems reprioritized. Patient report given, questions answered & plan of care reviewed with velasquez.
--- NOTE | 2022-06-09 06:31 | NUR ---
Patient in room PCU 3020. I have received report from FAUSTO Wu and had the opportunity to ask questions and assume patient care.
[2022-06-09 07:44] LABS: PHOSPHORUS 2.6 MG/DL (2.3-4.5)
[2022-06-09] MEDS: nicotine 14mg patch - 24hr TD SCH (08:00)
[2022-06-09] MEDS: K and/or MAG REPLACEMENT MC SCH (08:00)
[2022-06-09] MEDS: lisinopril 10 MG tablet PO SCH (08:00)
[2022-06-09] MEDS: docusate sod 100mg capsule PO SCH (08:43)
[2022-06-09] MEDS: lansoprazole 15mg solutab PO SCH (08:43)
[2022-06-09] MEDS: folic acid 1mg tablet PO SCH (08:44)
[2022-06-09] MEDS: levoTHYROXINE 100mcg tablet PO SCH (08:44)
[2022-06-09] MEDS: thiamine 100mg tablet PO SCH (08:44)
[2022-06-09] MEDS: Neutra Phos packet PO SCH (08:45)
[2022-06-09] MEDS: oxyCODONE IR 5mg (immed. release) tablet PO PRN ×2 (08:45→12:31)
[2022-06-09] MEDS: insulin Lispro (HumaLOG) vial - multi-dose SQ SCH (08:57)
[2022-06-09] MEDS: chlordiazePOXIDE 5mg capsule PO PRN (10:24)
[2022-06-09] MEDS ORDERED: CHLO25CA10 PO (10:51)
[2022-06-09] MEDS ORDERED: OXYC-658 PO (10:51)
[2022-06-09 11:00] VITALS: BP 103/63
--- NOTE | 2022-06-09 11:31 | NUR ---
PAGER ID: [phone] MESSAGE: Dai [phone] RE: Chanel Mccollum room 3020A - can I pickling machine operator the scripts for Librium and Oxy? Thank you.
[2022-06-09 11:40] LABS: HEMATOCRIT 31.5 % (35.0-45.0); MEAN CORPUSCULAR HEMOGLOBIN 36.3 PG (27.0-31.0); MEAN CORPUSCULAR VOLUME 106.5 FL (78-98); RED BLOOD COUNT 2.96 X10'6 (4.20-5.60)
[2022-06-09 11:42] LABS: HEMOGLOBIN 10.7 g/dl (12.0-16.0); MEAN PLATELET VOLUME 9.9 FL (7.4-10.4); PLATELET COUNT 160 X10'3 (140-440); RED CELL DISTRIBUTION WIDTH 19.7 % (11.5-14.5)
[2022-06-09 11:53] LABS: ALANINE AMINOTRANSFERASE 87 U/L (12-78); ALBUMIN 1.7 G/DL (3.4-5.0); ALKALINE PHOSPHATASE 117 IU/L (46-116); ANION GAP 10 (8-16); BILIRUBIN,TOTAL 11.4 MG/DL (0.1-1.0); BLOOD UREA NITROGEN 5 MG/DL (7-18); BUN/CREATININE RATIO 10.9 (6.6-38.0); CALCIUM 8.6 MG/DL (8.5-10.1); CHLORIDE 103 MMOL/L (99-107); CREATININE 0.46 MG/DL (0.40-0.90); GLUCOSE 231 MG/DL (70-104); SODIUM 135 MMOL/L (135-145); eGFR > 90 ML/MIN
[2022-06-09 12:10] LABS: ALBUMIN/GLOBULIN RATIO 0.4 (1.1-1.5); ASPARTATE AMINO TRANSFERASE 151 U/L (10-37); POTASSIUM 4.4 MMOL/L (3.5-5.1); TOTAL PROTEIN 5.6 G/DL (6.4-8.2)
[2022-06-09 12:11] LABS: TOTAL CELLS COUNTED 100
[2022-06-09 12:12] LABS: ANISOCYTOSIS 2+; PLATELET ESTIMATE NORMAL
[2022-06-09 12:13] LABS: POLYCHROMASIA FEW
--- NOTE | 2022-06-09 13:52 | NUR ---
Patient was discharged at 1300 with instructions and verbalizing understanding of instructions, in wheelchair accompanied by family and nursing staff going home via private vehicle. All lines and tubes including PIV with cannula intact and tele monitor have been removed. Education has been provided at bedside about diabetes, smoking cessation, and alcohol cessation. Prescription has been given to patient to take to pharmacy. Patient will make her own appointment with her primary provider. Patient is stable and appropriate for discharge.
== END 2022-06-09 13:49 | disposition home or self-care (01) | DRG 280 ==
LOC: ER 19:11 → ED HOLD 06-01 01:29 → EEVIPCON 06-01 01:29 → PCU 3S 06-01 12:20
PROVIDERS: ADMIT Internal Medicine; ATTEND Family Medicine
PROC: BW211ZZ Computerized Tomography (CT Scan) of Abdomen and Pelvis using Low Osmolar Contrast (ICD-10-PCS; principal; 2022-06-01)
DX: K70.10 Alcoholic hepatitis without ascites (principal); K85.20 Alcohol induced acute pancreatitis without necrosis or infection; E87.20 Acidosis, unspecified; E87.1 Hypo-osmolality and hyponatremia; F10.29 Alcohol dependence with unspecified alcohol-induced disorder; I10 Essential (primary) hypertension; R50.9 Fever, unspecified; F41.1 Generalized anxiety disorder; E03.9 Hypothyroidism, unspecified; E87.6 Hypokalemia; F17.210 Nicotine dependence, cigarettes, uncomplicated; K86.1 Other chronic pancreatitis; F32.A Depression, unspecified; K80.20 Calculus of gallbladder without cholecystitis without obstruction; Z90.49 Acquired absence of other specified parts of digestive tract; Z88.8 Allergy status to other drugs, medicaments and biological substances; Z79.899 Other long term (current) drug therapy; Z79.890 Hormone replacement therapy
CPT/HCPCS: 36415; 36600; 71045; 74178; 80048; 80053; 80074; 80305; 80320; 81001; 81003; 81025; 82390; 82803; 82948; 83036; 83605; 83690; 83735; 84100; 85007; 85018; 85025; 85610; 86038; 86706; 87040; 87081; 87088; 87340; 93005; 97116; 97161; 97530; 99285; A4349; A6258; G0378; J1170; J1815; J2060; J2405; J3411; J3490; J7030; Q9963; Q9967

== ENCOUNTER 2022-08-04 22:59 | Inpatient (IN) | payer MEDICAID ==
[~2022-08-04] VITALS: Ht 160 cm; Wt 70.5 kg
[~2022-08-04 22:59] MED LIST changes: -ALPR-623 PO; -CALC667T6 PO; -CITA10TA22 PO; -IBUP-1986 PO; -LANTUS SQ; +METF-900 PO; +NICO-631 TD; -NICO-687 TD; -ONDA4TAB12 PO; -OXYC10TA47 PO; -PANT-47 PO; +PANT20TA18 PO; -POTA-207 PO; +POTA25TA40 PO
[2022-08-04 23:35] LABS: BASOPHILS % (AUTO) 0.4 % (0-1); EOSINOPHILS % (AUTO) 0 % (0-6); HEMATOCRIT 45.8 % (35.0-45.0); HEMOGLOBIN 15.7 g/dl (12.0-16.0); LYMPHOCYTES # (AUTO) 0.6 X10'3 (1.1-4.8); LYMPHOCYTES % (AUTO) 6.1 % (21-51); MEAN CORPUSCULAR HEMOGLOBIN 34.4 PG (27.0-31.0); MEAN CORPUSCULAR HGB CONC 34.2 g/dL (33.0-36.5); MEAN CORPUSCULAR VOLUME 100.6 FL (78-98); MEAN PLATELET VOLUME 7.7 FL (7.4-10.4); MONOCYTES # (AUTO) 0.8 X10'3 (0-0.9); MONOCYTES % (AUTO) 8.8 % (2-12); NEUTROPHILS # (AUTO) 7.7 X10'3 (1.8-7.7); NEUTROPHILS % (AUTO) 84.7 % (42-75); PLATELET COUNT 215 X10'3 (140-440); RED BLOOD COUNT 4.55 X10'6 (4.20-5.60); RED CELL DISTRIBUTION WIDTH 12.9 % (11.5-14.5); WHITE BLOOD COUNT 9.1 X10'3 (4.5-11.0)
[2022-08-04] MEDS ORDERED: chlordiazePOXIDE 25mg capsule PO ONE (23:40)
[2022-08-04] MEDS ORDERED: ondansetron/PF 4mg/2ml inj IV ONE (23:40)
[2022-08-04] MEDS ORDERED: normal saline 1000ML IV soln IVB ONE ×2 (23:40→23:55)
[2022-08-04] MEDS ORDERED: thiamine 100mg/ml 2ml inj. IV ONE (23:40)
[2022-08-04 23:42] LABS: ALANINE AMINOTRANSFERASE 295 U/L (12-78); ALKALINE PHOSPHATASE 248 IU/L (46-116); ANION GAP 33 (8-16); BILIRUBIN,TOTAL 9.8 MG/DL (0.1-1.0); BLOOD UREA NITROGEN 10 MG/DL (7-18); BUN/CREATININE RATIO 11.1 (6.6-38.0); CALCIUM 10.1 MG/DL (8.5-10.1); CHLORIDE 80 MMOL/L (99-107); GLUCOSE 274 MG/DL (70-104); MAGNESIUM 1.4 MG/DL (1.5-2.4); SODIUM 125 MMOL/L (135-145); eGFR 72 ML/MIN
[2022-08-04 23:53] LABS: TOTAL CARBON DIOXIDE 12.1 MMOL/L (24-32)
[2022-08-05] VITALS (10 sets, daily range): BP systolic 107–123; BP diastolic 71–79
[2022-08-05 00:05] LABS: ALBUMIN/GLOBULIN RATIO 0.8 (1.1-1.5); ASPARTATE AMINO TRANSFERASE 611 U/L (10-37); POTASSIUM 3.2 MMOL/L (3.5-5.1); TOTAL PROTEIN 9.3 G/DL (6.4-8.2)
[2022-08-05] MEDS ORDERED: mag hydrox/Alum hydrox/simeth 30ml oral suspension PO ONE (00:20)
[2022-08-05] MEDS ORDERED: LIDOcaine Viscous 15ml cup MM PRN (00:20)
[2022-08-05 00:23] LABS: LIPASE 2887 U/L (73-393)
[2022-08-05 00:25] LABS: OSMOLALITY 299 MOSM/K (280-300)
[2022-08-05] MEDS ORDERED: morphine 4 MG/ML inj SYRINge IV ONE (00:35)
[2022-08-05 02:00] LABS: GLUCOSE, URINE 100 mg/dl (Neg); KETONES,URINE >=80 mg/dl (Neg); LEUKOCYTE ESTERASE ,URINE NEGATIVE (Neg); NITRITES, URINE NEGATIVE (Neg); OCCULT BLOOD,URINE MODERATE (Neg); PH,URINE 5.5 (4.8-8.0); PROTEIN,URINE 100 mg/dl (Neg)
[2022-08-05 02:11] LABS: COLOR,URINE DARK YELLOW (Yellow); UA COLLECTION TYPE NON-SPECIFIED
[2022-08-05 02:13] LABS: BACTERIA,URINE 2+ /HPF (Neg); CLARITY,URINE SLIGHTLY CLOUDY (Clear); SQUAMOUS EPITHELIAL CELL,UR FEW /LPF (FEW); WBC,URINE 0-4 /HPF (0-4)
[2022-08-05 02:14] LABS: HYALINE CASTS >30 /LPF (NEGATIVE)
[2022-08-05] MEDS ORDERED: dextrose 5%-1/2 normal saline 1,000 ML IV ONE (02:35)
[2022-08-05] MEDS ORDERED: insulin regular, human 10 units/0.1 ml syringe SQ ONE (02:40)
[2022-08-05] MEDS ORDERED: normal saline 1000ml 1,000 ML IV ONE (02:40)
[2022-08-05 03:10] LABS: ALBUMIN 3.5 G/DL (3.4-5.0); ANION GAP 33 (8-16); BLOOD UREA NITROGEN 9 MG/DL (7-18); BUN/CREATININE RATIO 11.5 (6.6-38.0); CALCIUM 8.7 MG/DL (8.5-10.1); CHLORIDE 87 MMOL/L (99-107); CREATININE 0.78 MG/DL (0.40-0.90); GLUCOSE 243 MG/DL (70-104); SODIUM 127 MMOL/L (135-145); eGFR 85 ML/MIN
[2022-08-05 03:15] LABS: TOTAL CARBON DIOXIDE 7.3 MMOL/L (24-32)
[2022-08-05 03:16] LABS: POTASSIUM 3.2 MMOL/L (3.5-5.1)
[2022-08-05] MEDS: sodium bicarbonate (8.4%) inj. 50 MEQ in dextrose 5%-water 1,000 ML IV SCH ×2 (03:23→13:05)
[2022-08-05] MEDS ORDERED: HYDROmorphone 1 mg/ml syringe IV PRN (05:05)
[2022-08-05] MEDS: HYDROmorphone 1 mg/ml syringe IV PRN ×4 (05:30→19:08)
[2022-08-05 10:22] LABS: ALBUMIN 3.1 G/DL (3.4-5.0); ANION GAP 27 (8-16); BLOOD UREA NITROGEN 6 MG/DL (7-18); CALCIUM 8.4 MG/DL (8.5-10.1); CHLORIDE 86 MMOL/L (99-107); GLUCOSE 287 MG/DL (70-104); SODIUM 125 MMOL/L (135-145); eGFR 63 ML/MIN
[2022-08-05 10:26] LABS: POTASSIUM 3.2 MMOL/L (3.5-5.1)
[2022-08-05 10:30] LABS: TOTAL CARBON DIOXIDE 12.4 MMOL/L (24-32)
--- NOTE | 2022-08-05 11:26 | NUR ---
talked to Dr. Spring about the pts labs and how the pt was doing
[2022-08-05] MEDS ORDERED: dextrose 50%-water 50ml dispensing syringe IV PRN (12:05)
[2022-08-05] MEDS ORDERED: haloperidol lactate 5mg/ml inj IM PRN (12:05)
[2022-08-05] MEDS ORDERED: haloperidol 5mg tablet PO PRN (12:05)
[2022-08-05] MEDS ORDERED: morphine 4 MG/ML inj SYRINge IV PRN (12:05)
[2022-08-05] MEDS ORDERED: magnesium hydroxide 30ml (MOM) UD suspension PO PRN (12:05)
[2022-08-05] MEDS ORDERED: LIDOcaine 2% 10ml TOPICAL JELLY (Urojet) TP ONE (12:05)
[2022-08-05] MEDS ORDERED: sodium phosphate inj. 30 MMOL in dextrose 5%-water 250 ML IV PRN ×2 (12:05→13:25)
[2022-08-05] MEDS ORDERED: sodium phosphate inj. 15 MMOL in dextrose 5%-water 250 ML IV PRN ×2 (12:05→13:25)
[2022-08-05] MEDS ORDERED: ondansetron/PF 4mg/2ml inj IV PRN (12:05)
[2022-08-05] MEDS ORDERED: morphine 2 MG/ML inj. syringe IV PRN (12:05)
[2022-08-05] MEDS ORDERED: POTASSIUM BICARB 20meq eff tab 20 MEQ TABLET.EFF PO PRN (12:05)
[2022-08-05] MEDS ORDERED: Neutra Phos packet PO PRN (12:05)
[2022-08-05] MEDS ORDERED: acetaminophen 325mg tablet PO PRN ×2 (12:05)
[2022-08-05] MEDS ORDERED: ringers solution, lacted 1,000 ML IV ONE (13:25)
[2022-08-05] MEDS ORDERED: potassium Cl 20 mEq SR tablet PO PRN ×2 (13:25)
[2022-08-05] MEDS ORDERED: potassium Cl 40MEQ/1/2NS 520ml 520 ML IV PRN ×2 (13:25)
[2022-08-05 13:56] LABS: ABG BASE EXCESS -11.1 mmol/L (-2.0-2.0); ABG HCO3 11.7 mmol/L (22.0-26.0); ABG OXYGEN SATURATION 96.9 % (94-97); ABG PCO2 (T) 19.8 mmHg (32.0-45.0); ABG PO2 (T) 83.3 mmHg (75.0-100.0); ALLEN'S TEST POSITIVE; FCOHb 0.2 % (0.0-3.9); FMetHb 0.2 % (0.0-1.5); FO2Hb 96.5 % (94-97); PATIENT TEMPERATURE 36.2; TOTAL HEMOGLOBIN 14.3 G/dl (12.0-16.0)
[2022-08-05] MEDS ORDERED: potassium Cl 20 mEq SR tablet PO STA (14:05)
[2022-08-05] MEDS: POTASSIUM BICARB 20meq eff tab 20 MEQ TABLET.EFF PO PRN (14:21)
[2022-08-05] MEDS: Insulin Reg/NS 100units/100mL 100 ML IV SCH ×3 (14:35→21:12)
[2022-08-05] MEDS: potassium CL 20mEq in D5-1/2NS 1,000 ML IV PRN ×2 (15:12→20:21)
[2022-08-05] MEDS: thiamine 100mg/ml 2ml inj. IV SCH ×2 (15:16→20:16)
[2022-08-05 15:28] LABS: ALBUMIN 2.7 G/DL (3.4-5.0); BLOOD UREA NITROGEN 4 MG/DL (7-18); BUN/CREATININE RATIO 4.2 (6.6-38.0); CALCIUM 8.2 MG/DL (8.5-10.1); CREATININE 0.96 MG/DL (0.40-0.90); GLUCOSE 259 MG/DL (70-104); TOTAL CARBON DIOXIDE 15.5 MMOL/L (24-32); eGFR 67 ML/MIN
--- NOTE | 2022-08-05 15:30 | NUR ---
Patient arrived to floor from ED and transferred self to bed with stable gait. Placed on bedside monitor with stable vital signs. Patient alert and oriented but drowsy. Oriented to room with call light in reach.
[2022-08-05 15:46] LABS: ANION GAP 22 (8-16); CHLORIDE 90 MMOL/L (99-107); SODIUM 127 MMOL/L (135-145)
[2022-08-05 15:50] LABS: PHOSPHORUS 0.7 MG/DL (2.3-4.5); POTASSIUM 2.6 MMOL/L (3.5-5.1)
[2022-08-05] MEDS ORDERED: POTASSIUM BICARB 20meq eff tab 20 MEQ TABLET.EFF PO ONE (16:09)
--- NOTE | 2022-08-05 16:12 | NUR ---
Critical potassium 2.6 and Phos of 0.7; Dr. Draper notified. Orders to replace via 40meq PO potassium, 44meq K / 30mmol Phosph via Potassium Phosphorous IV. Hold IV Insulin gtt and IV D5 1/2NS maintenance fluid. Addendum: 08/05/22 at 1646 by Torin Kraus RN Restart Insulin/D51/2NS medications once Potassium levels resolve >3.3
[2022-08-05] MEDS ORDERED: potassium phosphate inj 30 MMOL in normal saline 500ml IV soln 500 ML IV ONE (16:16)
[2022-08-05] MEDS ORDERED: sodium phosphate inj. 30 MMOL in dextrose 5%-water 250 ML IV ONE (16:30)
--- NOTE | 2022-08-05 18:27 | NUR ---
Problems reprioritized. Patient report given, questions answered & plan of care reviewed with Carlota LAMBERT.
[2022-08-05] MEDS: famotidine/PF 10 mg/ml inj IV SCH (19:07)
[2022-08-05 19:40] LABS: ALBUMIN 2.8 G/DL (3.4-5.0); ANION GAP 21 (8-16); BLOOD UREA NITROGEN 4 MG/DL (7-18); BUN/CREATININE RATIO 4.5 (6.6-38.0); CALCIUM 8.3 MG/DL (8.5-10.1); CHLORIDE 91 MMOL/L (99-107); CREATININE 0.88 MG/DL (0.40-0.90); GLUCOSE 226 MG/DL (70-104); POTASSIUM 4.4 MMOL/L (3.5-5.1); SODIUM 127 MMOL/L (135-145); TOTAL CARBON DIOXIDE 15.2 MMOL/L (24-32); eGFR 74 ML/MIN
[2022-08-05] MEDS ORDERED: K and/or MAG REPLACEMENT MC SCH (20:00)
[2022-08-05 20:06] LABS: PHOSPHORUS 1.1 MG/DL (2.3-4.5)
[2022-08-05] MEDS: sennosides/docusate sodium tablet PO SCH (20:16)
[2022-08-05] MEDS ORDERED: insulin regular, human U-100 3ml vial - multi-dose IV PRN (20:25)
[2022-08-05] MEDS: LORazepam 2 mg/ml vial IV PRN (20:33)
[2022-08-06] VITALS (22 sets, daily range): BP systolic 107–139; BP diastolic 62–98
[2022-08-06 00:41] LABS: ALBUMIN 2.6 G/DL (3.4-5.0); ANION GAP 12 (8-16); BLOOD UREA NITROGEN 4 MG/DL (7-18); BUN/CREATININE RATIO 4.5 (6.6-38.0); CALCIUM 8.3 MG/DL (8.5-10.1); CHLORIDE 97 MMOL/L (99-107); CREATININE 0.89 MG/DL (0.40-0.90); GLUCOSE 138 MG/DL (70-104); POTASSIUM 3.6 MMOL/L (3.5-5.1); SODIUM 130 MMOL/L (135-145); TOTAL CARBON DIOXIDE 20.7 MMOL/L (24-32); eGFR 73 ML/MIN
[2022-08-06 01:05] LABS: PHOSPHORUS 0.8 MG/DL (2.3-4.5)
[2022-08-06] MEDS ORDERED: insulin glargine (Lantus) pen - multi-dose SQ ONE (01:05)
[2022-08-06] MEDS: Potassium Cl inj 40 MEQ in normal saline 250ml IV soln 250 ML IV ONE ×2 (01:15→02:03)
[2022-08-06] MEDS: LORazepam 2 mg/ml vial IV PRN ×4 (01:22→20:51)
[2022-08-06] MEDS ORDERED: glucagon, human recombinant 1mg kit SUBCUT PRN (02:55)
[2022-08-06] MEDS ORDERED: MESSAGE TO PHARMACY PO ONE (02:55)
[2022-08-06] MEDS ORDERED: DEXTROSE 15 GM of carb/4 tabs (each vial/BOTTLE has 4 tablets) PO PRN ×2 (02:55)
[2022-08-06] MEDS ORDERED: POTASSIUM BICARB 20meq eff tab 20 MEQ TABLET.EFF PO SCH (02:55)
[2022-08-06] MEDS ORDERED: POTASSIUM BICARB 20meq eff tab 20 MEQ TABLET.EFF PO ONE (02:55)
[2022-08-06] MEDS: HYDROmorphone 1 mg/ml syringe IV PRN ×4 (03:30→19:55)
[2022-08-06 06:34] LABS: BASOPHILS % (AUTO) 0.5 % (0-1); EOSINOPHILS # (AUTO) 0.1 X10'3 (0-0.9); EOSINOPHILS % (AUTO) 2.7 % (0-6); HEMATOCRIT 36.6 % (35.0-45.0); HEMOGLOBIN 12.6 g/dl (12.0-16.0); LYMPHOCYTES # (AUTO) 1.1 X10'3 (1.1-4.8); LYMPHOCYTES % (AUTO) 25.8 % (21-51); MEAN CORPUSCULAR HEMOGLOBIN 34.7 PG (27.0-31.0); MEAN CORPUSCULAR HGB CONC 34.6 g/dL (33.0-36.5); MEAN CORPUSCULAR VOLUME 100.4 FL (78-98); MEAN PLATELET VOLUME 8.2 FL (7.4-10.4); MONOCYTES # (AUTO) 0.3 X10'3 (0-0.9); NEUTROPHILS # (AUTO) 2.8 X10'3 (1.8-7.7); PLATELET COUNT 97 X10'3 (140-440); RED BLOOD COUNT 3.64 X10'6 (4.20-5.60); RED CELL DISTRIBUTION WIDTH 13.1 % (11.5-14.5); WHITE BLOOD COUNT 4.4 X10'3 (4.5-11.0)
[2022-08-06 06:50] LABS: ALBUMIN 2.6 G/DL (3.4-5.0); BLOOD UREA NITROGEN 4 MG/DL (7-18); BUN/CREATININE RATIO 4.7 (6.6-38.0); CALCIUM 8.4 MG/DL (8.5-10.1); CREATININE 0.86 MG/DL (0.40-0.90); GLUCOSE 231 MG/DL (70-104); MAGNESIUM 1.5 MG/DL (1.5-2.4); PHOSPHORUS 1.8 MG/DL (2.3-4.5); TOTAL CARBON DIOXIDE 20.6 MMOL/L (24-32); eGFR 76 ML/MIN
[2022-08-06] MEDS: famotidine/PF 10 mg/ml inj IV SCH ×2 (07:37→19:55)
[2022-08-06] MEDS: thiamine 100mg/ml 2ml inj. IV SCH ×3 (07:38→20:08)
[2022-08-06] MEDS: enoxaparin 40mg/0.4ml syringe SUBCUT SCH (07:39)
[2022-08-06 07:54] LABS: CHLORIDE 95 MMOL/L (99-107)
[2022-08-06] MEDS: K and/or MAG REPLACEMENT MC SCH (08:00)
[2022-08-06] MEDS ORDERED: folic acid 1mg/0.2ml inj IV SCH (08:00)
[2022-08-06] MEDS: insulin Lispro (HumaLOG) vial - multi-dose SQ SCH ×3 (08:48→18:00)
[2022-08-06] MEDS: Neutra Phos packet PO PRN ×2 (09:42→12:46)
[2022-08-06] MEDS ORDERED: chlordiazePOXIDE 25mg capsule PO PRN (09:55)
[2022-08-06 10:37] LABS: ANION GAP 17 (8-16); SODIUM 133 MMOL/L (135-145)
--- NOTE | 2022-08-06 18:11 | NUR ---
Problems reprioritized. Patient report given, questions answered & plan of care reviewed with Sarah LAMBERT.
[2022-08-06] MEDS ORDERED: ALPR0.255 PO (18:22)
--- NOTE | 2022-08-06 18:26 | NUR ---
Patient in room CICU 2009. I have received report from Torin LAMBERT and had the opportunity to ask questions and assume patient care.
--- NOTE | 2022-08-06 20:00 | NUR ---
Pt transferred to 2008. Report given to Damaris
[2022-08-06] MEDS: sennosides/docusate sodium tablet PO SCH (20:08)
[2022-08-06] MEDS: verapamil SR 120mg (sust. release) tab PO SCH (20:51)
[2022-08-06] MEDS ORDERED: insulin glargine (Lantus) pen - multi-dose SQ SCH (21:00)
[2022-08-06] MEDS: insulin glargine (Lantus) pen - multi-dose SQ SCH (21:18)
[2022-08-07] MEDS: HYDROmorphone 1 mg/ml syringe IV PRN ×5 (00:05→19:54)
[2022-08-07] MEDS: LORazepam 2 mg/ml vial IV PRN ×4 (01:43→19:53)
[2022-08-07 01:56] VITALS: BP 106/64
[2022-08-07 06:00] VITALS: BP 118/83
[2022-08-07] MEDS: levoTHYROXINE 100mcg tablet PO SCH (06:03)
[2022-08-07 06:36] LABS: BASOPHILS % (AUTO) 1.2 % (0-1); EOSINOPHILS # (AUTO) 0.1 X10'3 (0-0.9); EOSINOPHILS % (AUTO) 3.2 % (0-6); HEMATOCRIT 37.1 % (35.0-45.0); LYMPHOCYTES # (AUTO) 1.3 X10'3 (1.1-4.8); LYMPHOCYTES % (AUTO) 36.7 % (21-51); MEAN CORPUSCULAR HEMOGLOBIN 34.8 PG (27.0-31.0); MEAN CORPUSCULAR HGB CONC 34.9 g/dL (33.0-36.5); MEAN CORPUSCULAR VOLUME 99.7 FL (78-98); MEAN PLATELET VOLUME 8.7 FL (7.4-10.4); MONOCYTES # (AUTO) 0.2 X10'3 (0-0.9); MONOCYTES % (AUTO) 7.2 % (2-12); NEUTROPHILS # (AUTO) 1.8 X10'3 (1.8-7.7); NEUTROPHILS % (AUTO) 51.7 % (42-75); PLATELET COUNT 118 X10'3 (140-440); RED BLOOD COUNT 3.72 X10'6 (4.20-5.60); RED CELL DISTRIBUTION WIDTH 13.2 % (11.5-14.5); WHITE BLOOD COUNT 3.5 X10'3 (4.5-11.0)
[2022-08-07 06:41] LABS: MAGNESIUM 1.5 MG/DL (1.5-2.4)
[2022-08-07 06:43] LABS: POTASSIUM 2.9 MMOL/L (3.5-5.1)
--- NOTE | 2022-08-07 07:09 | NUR ---
709 -- RN notified Dr. Jeffers of critical K level.
[2022-08-07] MEDS ORDERED: nicotine 14mg patch - 24hr TD SCH (08:00)
[2022-08-07] MEDS: K and/or MAG REPLACEMENT MC SCH (08:00)
--- NOTE | 2022-08-07 08:14 | NUR ---
Malnutrition consult: Pt admitted w/ DKA and chronic alcoholism, A1c 7.2. Pt was seen by ARACELY on 06/01 and was provided w/ written and verbal DM ed though this apparently did not stick. Provided pt w/ written and verbal DM again this admit. Her alcohol use may be impacting her nutritional status though did not seem overtly malnourished based on criteria. On carb control diet. Will continue to monitor. Recs; 1. Continue Carb control diet as tolerated 2. Monitor need for ONS 3. Bowel care per rx 4. Scaled wts Addendum: 08/07/22 at [address] Amended: Links added.
[2022-08-07] MEDS: famotidine/PF 10 mg/ml inj IV SCH ×2 (08:24→19:53)
[2022-08-07] MEDS: thiamine 100mg/ml 2ml inj. IV SCH ×3 (08:24→19:53)
[2022-08-07] MEDS: pantoprazole 40mg Tablet.DR PO SCH (08:25)
[2022-08-07] MEDS: enoxaparin 40mg/0.4ml syringe SUBCUT SCH (08:25)
[2022-08-07] MEDS: folic acid 1mg tablet PO SCH (08:25)
[2022-08-07] MEDS: lisinopril 10 MG tablet PO SCH (08:25)
[2022-08-07] MEDS: POTASSIUM BICARB 20meq eff tab 20 MEQ TABLET.EFF PO PRN ×3 (08:40→17:00)
[2022-08-07 09:42] LABS: ALBUMIN 2.7 G/DL (3.4-5.0); ANION GAP 11 (8-16); BLOOD UREA NITROGEN 6 MG/DL (7-18); BUN/CREATININE RATIO 8.5 (6.6-38.0); CALCIUM 9.7 MG/DL (8.5-10.1); CHLORIDE 97 MMOL/L (99-107); CREATININE 0.71 MG/DL (0.40-0.90); GLUCOSE 123 MG/DL (70-104); POTASSIUM 3.2 MMOL/L (3.5-5.1); SODIUM 134 MMOL/L (135-145); TOTAL CARBON DIOXIDE 25.8 MMOL/L (24-32); eGFR > 90 ML/MIN
[2022-08-07 11:00] VITALS: BP 126/87
[2022-08-07] MEDS ORDERED: LORazepam 1 MG tablet PO PRN (12:05)
[2022-08-07] MEDS ORDERED: polyethylene glycol 3350 17gm powd pack PO PRN (12:05)
[2022-08-07 16:34] VITALS: BP 115/79
--- NOTE | 2022-08-07 16:44 | NUR ---
Pt oriented x4. JOSEPH. Pt visibly shakes. Ativan alleviating w/d symptoms. Dilauded given prn for back pain. Pt uses bedside commode. AM critical K communicated to provider. Replaced per prn order. Redraw ordered for the evening. Pt bg stable. Pt Appetite diminished. Mother at bedside and updated on POC. IV patent. RN will continue to monitor pt status.
[2022-08-07 18:00] VITALS: BP 128/90
[2022-08-07] MEDS: insulin Lispro (HumaLOG) vial - multi-dose SQ SCH (19:15)
[2022-08-07] MEDS: sennosides/docusate sodium tablet PO SCH (19:51)
[2022-08-07] MEDS: verapamil SR 120mg (sust. release) tab PO SCH (19:52)
[2022-08-07 22:00] VITALS: BP 115/79
[2022-08-07] MEDS: insulin glargine (Lantus) pen - multi-dose SQ SCH (22:51)
[2022-08-08] MEDS: LORazepam 2 mg/ml vial IV PRN ×2 (01:56→08:17)
[2022-08-08] MEDS: HYDROmorphone 1 mg/ml syringe IV PRN ×5 (01:57→20:51)
[2022-08-08 02:00] VITALS: BP 109/79
[2022-08-08 06:00] VITALS: BP 117/72
[2022-08-08 07:02] LABS: BASOPHILS # (AUTO) 0.1 X10'3 (0-0.2); EOSINOPHILS # (AUTO) 0.1 X10'3 (0-0.9); HEMOGLOBIN 13.9 g/dl (12.0-16.0); LYMPHOCYTES # (AUTO) 1.1 X10'3 (1.1-4.8); MONOCYTES # (AUTO) 0.3 X10'3 (0-0.9); MONOCYTES % (AUTO) 10.6 % (2-12); WHITE BLOOD COUNT 2.7 X10'3 (4.5-11.0)
[2022-08-08 07:06] LABS: BASOPHILS % (AUTO) 1.9 % (0-1); EOSINOPHILS % (AUTO) 2.6 % (0-6); HEMATOCRIT 40.2 % (35.0-45.0); LYMPHOCYTES % (AUTO) 39.3 % (21-51); MEAN CORPUSCULAR HGB CONC 34.5 g/dL (33.0-36.5); MEAN CORPUSCULAR VOLUME 101.5 FL (78-98); MEAN PLATELET VOLUME 8.6 FL (7.4-10.4); NEUTROPHILS # (AUTO) 1.2 X10'3 (1.8-7.7); NEUTROPHILS % (AUTO) 45.6 % (42-75); PLATELET COUNT 150 X10'3 (140-440); RED BLOOD COUNT 3.97 X10'6 (4.20-5.60); RED CELL DISTRIBUTION WIDTH 13.3 % (11.5-14.5)
[2022-08-08] MEDS: K and/or MAG REPLACEMENT MC SCH (08:00)
[2022-08-08] MEDS: enoxaparin 40mg/0.4ml syringe SUBCUT SCH (08:17)
[2022-08-08] MEDS: potassium bicarbonate/cit acid 25mEq tablet.effervescent PO SCH (08:17)
[2022-08-08 08:18] LABS: ALBUMIN 2.7 G/DL (3.4-5.0); ANION GAP 6 (8-16); BLOOD UREA NITROGEN 5 MG/DL (7-18); BUN/CREATININE RATIO 7.2 (6.6-38.0); CALCIUM 10.5 MG/DL (8.5-10.1); CHLORIDE 100 MMOL/L (99-107); CREATININE 0.69 MG/DL (0.40-0.90); GLUCOSE 219 MG/DL (70-104); MAGNESIUM 1.4 MG/DL (1.5-2.4); POTASSIUM 4.2 MMOL/L (3.5-5.1); SODIUM 136 MMOL/L (135-145); TOTAL CARBON DIOXIDE 29.8 MMOL/L (24-32); eGFR > 90 ML/MIN
[2022-08-08] MEDS: thiamine 100mg/ml 2ml inj. IV SCH (08:18)
[2022-08-08] MEDS: folic acid 1mg tablet PO SCH (08:18)
[2022-08-08] MEDS: famotidine/PF 10 mg/ml inj IV SCH ×2 (08:18→20:28)
[2022-08-08] MEDS: lisinopril 10 MG tablet PO SCH (08:18)
[2022-08-08] MEDS: pantoprazole 40mg Tablet.DR PO SCH (08:18)
[2022-08-08 08:25] LABS: TOTAL CELLS COUNTED 100
[2022-08-08 08:26] LABS: PLATELET ESTIMATE NORMAL
[2022-08-08] MEDS: levoTHYROXINE 100mcg tablet PO SCH (08:28)
[2022-08-08] MEDS: insulin Lispro (HumaLOG) vial - multi-dose SQ SCH ×2 (08:44→19:03)
[2022-08-08 11:00] VITALS: BP 118/85
[2022-08-08] MEDS: chlordiazePOXIDE 25mg capsule PO PRN (16:51)
--- NOTE | 2022-08-08 17:34 | NUR ---
PT aox4. OPAL. RAFI. Uses call light appropriately. VSS. RA. Bedside commode, standby assist. ACHS DFS. LVL 2 insulin. PRN ativan and dilauded given per order. Mom at bedside during the afternoon and requested dietary to come by so pt can pick from a "special menu" as previously has been allowed during other admissions. RN reached out to dietary and they informed the RN that this job no longer exists and there is no other menu for her to pick meals from. Pt also requested chocolate glucerna shakes be added to her meal trays. According to dietary, this needs to be specially ordered. RN paged provider w request. Pending new orders. Pt able to position themselves q2h. Bilateral IVs patent. RN will continue to monitor pt status.
[2022-08-08 18:00] VITALS: BP 121/82
[2022-08-08] MEDS: sennosides/docusate sodium tablet PO SCH (20:29)
[2022-08-08] MEDS: verapamil SR 120mg (sust. release) tab PO SCH (20:29)
[2022-08-08 22:00] VITALS: BP 107/75
[2022-08-08] MEDS: insulin glargine (Lantus) pen - multi-dose SQ SCH (22:10)
[2022-08-09] MEDS: HYDROmorphone 1 mg/ml syringe IV PRN ×5 (01:12→20:18)
[2022-08-09] MEDS: chlordiazePOXIDE 25mg capsule PO PRN ×3 (01:12→15:46)
[2022-08-09 02:00] VITALS: BP 148/95
--- NOTE | 2022-08-09 05:19 | NUR ---
Pt HR dropped to 40+ for a couple times but not consecutively, primary nurse checked her V/S before gave pain med Dilaudid and Librium, it was 98.1 80, 17, 148/95, SaO2 98 % RA, will continue to closely monitor her any change of condition, and will report to AM nurse for this Noc HR dropped to 40+.
[2022-08-09 07:00] VITALS: BP 120/81
[2022-08-09 07:19] LABS: WHITE BLOOD COUNT 3.6 X10'3 (4.5-11.0)
[2022-08-09 07:20] LABS: BASOPHILS # (AUTO) 0.1 X10'3 (0-0.2); EOSINOPHILS # (AUTO) 0.1 X10'3 (0-0.9); EOSINOPHILS % (AUTO) 2.4 % (0-6); HEMATOCRIT 38.6 % (35.0-45.0); HEMOGLOBIN 13.3 g/dl (12.0-16.0); LYMPHOCYTES # (AUTO) 1.2 X10'3 (1.1-4.8); LYMPHOCYTES % (AUTO) 34.2 % (21-51); MEAN CORPUSCULAR HEMOGLOBIN 34.6 PG (27.0-31.0); MEAN CORPUSCULAR HGB CONC 34.3 g/dL (33.0-36.5); MEAN CORPUSCULAR VOLUME 100.7 FL (78-98); MEAN PLATELET VOLUME 8.3 FL (7.4-10.4); MONOCYTES # (AUTO) 0.5 X10'3 (0-0.9); MONOCYTES % (AUTO) 13.1 % (2-12); NEUTROPHILS # (AUTO) 1.7 X10'3 (1.8-7.7); NEUTROPHILS % (AUTO) 48.2 % (42-75); PLATELET COUNT 158 X10'3 (140-440); RED BLOOD COUNT 3.83 X10'6 (4.20-5.60); RED CELL DISTRIBUTION WIDTH 13.1 % (11.5-14.5)
[2022-08-09 07:21] LABS: BASOPHILS % (AUTO) 1.7 % (0-1)
[2022-08-09 07:43] LABS: MAGNESIUM 1.5 MG/DL (1.5-2.4); POTASSIUM 3.8 MMOL/L (3.5-5.1)
[2022-08-09] MEDS: thiamine 100mg tablet PO SCH (07:59)
[2022-08-09] MEDS: lisinopril 10 MG tablet PO SCH (07:59)
[2022-08-09] MEDS: pantoprazole 40mg Tablet.DR PO SCH (07:59)
[2022-08-09] MEDS: levoTHYROXINE 100mcg tablet PO SCH (07:59)
[2022-08-09] MEDS: famotidine/PF 10 mg/ml inj IV SCH ×2 (07:59→22:05)
[2022-08-09] MEDS: folic acid 1mg tablet PO SCH (07:59)
[2022-08-09] MEDS: enoxaparin 40mg/0.4ml syringe SUBCUT SCH (08:00)
[2022-08-09] MEDS: insulin Lispro (HumaLOG) vial - multi-dose SQ SCH (08:13)
[2022-08-09] MEDS: oxyCODONE IR 5mg (immed. release) tablet PO PRN (09:50)
[2022-08-09] MEDS ORDERED: LORazepam 2 mg/ml vial IV PRN (12:05)
[2022-08-09] MEDS ORDERED: LORazepam 1 MG tablet PO PRN (12:05)
[2022-08-09 18:00] VITALS: BP 110/79
--- NOTE | 2022-08-09 18:13 | NUR ---
Problems reprioritized. Patient report given, questions answered & plan of care reviewed with Bryce LAMBERT.
--- NOTE | 2022-08-09 18:30 | NUR ---
Patient in room PCU 3009. I have received report from cyrus and had the opportunity to ask questions and assume patient care.
[2022-08-09] MEDS: insulin glargine (Lantus) pen - multi-dose SQ SCH (20:20)
[2022-08-09] MEDS: verapamil SR 120mg (sust. release) tab PO SCH (20:22)
[2022-08-09] MEDS: sennosides/docusate sodium tablet PO SCH (20:22)
[2022-08-10] MEDS: HYDROmorphone 1 mg/ml syringe IV PRN ×5 (00:42→20:18)
[2022-08-10 02:00] VITALS: BP 113/75
[2022-08-10] MEDS: oxyCODONE IR 5mg (immed. release) tablet PO PRN (05:05)
[2022-08-10] MEDS: pantoprazole 40mg Tablet.DR PO SCH (06:51)
[2022-08-10] MEDS: levoTHYROXINE 100mcg tablet PO SCH (06:51)
[2022-08-10] MEDS: chlordiazePOXIDE 25mg capsule PO PRN (06:51)
[2022-08-10 07:00] VITALS: BP 121/89
[2022-08-10 07:06] LABS: BASOPHILS # (AUTO) 0.1 X10'3 (0-0.2); BASOPHILS % (AUTO) 1.3 % (0-1); EOSINOPHILS # (AUTO) 0.1 X10'3 (0-0.9); EOSINOPHILS % (AUTO) 2.5 % (0-6); HEMATOCRIT 40.1 % (35.0-45.0); LYMPHOCYTES # (AUTO) 1.4 X10'3 (1.1-4.8); LYMPHOCYTES % (AUTO) 31.7 % (21-51); MEAN CORPUSCULAR HEMOGLOBIN 35.3 PG (27.0-31.0); MEAN CORPUSCULAR HGB CONC 34.8 g/dL (33.0-36.5); MEAN CORPUSCULAR VOLUME 101.2 FL (78-98); MEAN PLATELET VOLUME 8.6 FL (7.4-10.4); MONOCYTES # (AUTO) 0.6 X10'3 (0-0.9); MONOCYTES % (AUTO) 14.1 % (2-12); NEUTROPHILS # (AUTO) 2.3 X10'3 (1.8-7.7); NEUTROPHILS % (AUTO) 50.4 % (42-75); PLATELET COUNT 180 X10'3 (140-440); RED BLOOD COUNT 3.96 X10'6 (4.20-5.60); RED CELL DISTRIBUTION WIDTH 13.4 % (11.5-14.5); WHITE BLOOD COUNT 4.5 X10'3 (4.5-11.0)
[2022-08-10] MEDS ORDERED: folic acid 1mg tablet PO SCH (08:00)
[2022-08-10] MEDS: insulin Lispro (HumaLOG) vial - multi-dose SQ SCH ×2 (08:52→13:21)
[2022-08-10] MEDS: lisinopril 10 MG tablet PO SCH (08:53)
[2022-08-10] MEDS: potassium bicarbonate/cit acid 25mEq tablet.effervescent PO SCH (08:53)
[2022-08-10] MEDS: thiamine 100mg tablet PO SCH (08:53)
[2022-08-10] MEDS: famotidine/PF 10 mg/ml inj IV SCH ×2 (08:54→20:17)
[2022-08-10] MEDS: enoxaparin 40mg/0.4ml syringe SUBCUT SCH (08:54)
[2022-08-10] MEDS: folic acid 1mg tablet PO SCH (08:54)
[2022-08-10 09:01] LABS: ALANINE AMINOTRANSFERASE 86 U/L (12-78); ALBUMIN 2.8 G/DL (3.4-5.0); ALBUMIN/GLOBULIN RATIO 0.6 (1.1-1.5); ALKALINE PHOSPHATASE 158 IU/L (46-116); ANION GAP 11 (8-16); ASPARTATE AMINO TRANSFERASE 102 U/L (10-37); BILIRUBIN,TOTAL 1.6 MG/DL (0.1-1.0); BLOOD UREA NITROGEN 10 MG/DL (7-18); BUN/CREATININE RATIO 17.5 (6.6-38.0); CALCIUM 11.2 MG/DL (8.5-10.1); CHLORIDE 97 MMOL/L (99-107); CREATININE 0.57 MG/DL (0.40-0.90); GLUCOSE 238 MG/DL (70-104); MAGNESIUM 1.4 MG/DL (1.5-2.4); POTASSIUM 3.9 MMOL/L (3.5-5.1); SODIUM 135 MMOL/L (135-145); TOTAL CARBON DIOXIDE 26.8 MMOL/L (24-32); TOTAL PROTEIN 7.6 G/DL (6.4-8.2); eGFR > 90 ML/MIN
[2022-08-10 11:00] VITALS: BP 105/73
[2022-08-10 15:00] VITALS: BP 102/71
[2022-08-10 18:00] VITALS: BP 92/62
[2022-08-10] MEDS: verapamil SR 120mg (sust. release) tab PO SCH (20:13)
[2022-08-10] MEDS: insulin glargine (Lantus) pen - multi-dose SQ SCH (20:13)
[2022-08-10] MEDS: sennosides/docusate sodium tablet PO SCH (20:13)
[2022-08-11] MEDS: HYDROmorphone 1 mg/ml syringe IV PRN ×4 (00:16→12:41)
[2022-08-11 02:00] VITALS: BP 90/52
[2022-08-11 06:00] VITALS: BP_SYST 101; BP_SYST 109; BP_DIAS 44; BP_DIAS 62
--- NOTE | 2022-08-11 06:37 | NUR ---
Problems reprioritized. Patient report given, questions answered & plan of care reviewed with
[2022-08-11 07:05] LABS: EOSINOPHILS # (AUTO) 0.1 X10'3 (0-0.9); HEMOGLOBIN 14.1 g/dl (12.0-16.0); LYMPHOCYTES # (AUTO) 1.3 X10'3 (1.1-4.8); MEAN CORPUSCULAR HGB CONC 34.2 g/dL (33.0-36.5); MONOCYTES # (AUTO) 0.7 X10'3 (0-0.9)
[2022-08-11 07:09] LABS: BASOPHILS % (AUTO) 1.1 % (0-1); HEMATOCRIT 41.3 % (35.0-45.0); LYMPHOCYTES % (AUTO) 31.4 % (21-51); MEAN CORPUSCULAR VOLUME 102.2 FL (78-98); MEAN PLATELET VOLUME 8.9 FL (7.4-10.4); MONOCYTES % (AUTO) 15.8 % (2-12); NEUTROPHILS # (AUTO) 2.1 X10'3 (1.8-7.7); NEUTROPHILS % (AUTO) 49.7 % (42-75); PLATELET COUNT 231 X10'3 (140-440); RED BLOOD COUNT 4.04 X10'6 (4.20-5.60); RED CELL DISTRIBUTION WIDTH 13.4 % (11.5-14.5); WHITE BLOOD COUNT 4.2 X10'3 (4.5-11.0)
--- NOTE | 2022-08-11 07:17 | NUR ---
Patient in room PCU 3009. I have received report from Bryce and had the opportunity to ask questions and assume patient care.
[2022-08-11] MEDS: famotidine/PF 10 mg/ml inj IV SCH (07:29)
--- NOTE | 2022-08-11 07:48 | NUR ---
Reassessment: Pt continue on Carb control diet w/ avg intake 43% of meals partially meeting needs. Pt has been having stomach pains per documentation. Pt is agreeable to try Glucerna once daily. [facility] 08/10 receiving routine and PRN bowel care. Will continue to monitor. Recs; 1. Continue Carb control diet as tolerated 2. Glucerna Once daily 3. Bowel care per rx 4. Scaled wts Addendum: 08/11/22 at [address] Amended: Links added.
[2022-08-11] MEDS: enoxaparin 40mg/0.4ml syringe SUBCUT SCH (08:08)
[2022-08-11] MEDS: thiamine 100mg tablet PO SCH (08:09)
[2022-08-11] MEDS: levoTHYROXINE 100mcg tablet PO SCH (08:09)
[2022-08-11] MEDS: pantoprazole 40mg Tablet.DR PO SCH (08:09)
[2022-08-11] MEDS: folic acid 1mg tablet PO SCH (08:09)
[2022-08-11] MEDS: chlordiazePOXIDE 25mg capsule PO PRN (08:16)
[2022-08-11] MEDS: lisinopril 10 MG tablet PO SCH (08:16)
[2022-08-11 08:17] VITALS: BP 110/81
[2022-08-11] MEDS: insulin Lispro (HumaLOG) vial - multi-dose SQ SCH (08:44)
[2022-08-11] MEDS ORDERED: CHLO25CA10 PO ×2 (11:05→16:19)
[2022-08-11] MEDS ORDERED: OXYC10TA47 PO ×2 (11:05→16:19)
--- NOTE | 2022-08-11 12:40 | NUR ---
MESSAGE: 3009 PT KINSEY BRAY SHARON [id number] SPOKE W/ YOU YESTERDAY ABOUT NALTREXONE, CAN YOU ORDER. [place] [id number]
[2022-08-11] MEDS ORDERED: NALT50TA PO (13:42)
[2022-08-12] MEDS ORDERED: NUT.TX.GLUC.INTOLER,LAC-FR,SOY (GLUCERNA) 237 ML PO SCH (07:30)
== END 2022-08-11 15:01 | disposition home or self-care (01) | DRG 420 ==
LOC: ER 22:59 → ED HOLD 08-05 12:10 → EDBEDREQ 08-05 12:30 → CICU 2S 08-05 13:34 → PCU 3S 08-06 20:24
PROVIDERS: ADMIT Psychiatry & Neurology Neurocritical Care; ATTEND Psychiatry & Neurology Neurocritical Care
DX: E11.10 Type 2 diabetes mellitus with ketoacidosis without coma (principal); K85.90 Acute pancreatitis without necrosis or infection, unspecified; K72.90 Hepatic failure, unspecified without coma; E03.9 Hypothyroidism, unspecified; E87.6 Hypokalemia; K21.9 Gastro-esophageal reflux disease without esophagitis; F10.239 Alcohol dependence with withdrawal, unspecified; G89.4 Chronic pain syndrome; K86.1 Other chronic pancreatitis; F32.A Depression, unspecified; F41.9 Anxiety disorder, unspecified; Z90.49 Acquired absence of other specified parts of digestive tract; Z88.8 Allergy status to other drugs, medicaments and biological substances; Z79.899 Other long term (current) drug therapy
CPT/HCPCS: 36415; 36600; 71045; 80048; 80053; 81001; 82009; 82803; 82948; 83036; 83690; 83735; 83880; 83930; 84100; 84132; 84443; 84484; 85007; 85018; 85025; 85610; 87081; 93005; 97110; 97116; 97161; 97530; 99291; A6213; G0378; J1170; J1650; J1815; J2060; J2270; J2405; J3411; J3480; J3490; J7030; J7040; J7050; J7060; J7070; J7120

== ENCOUNTER 2022-12-12 23:48 | Inpatient (IN) | payer MEDICAID ==
[~2022-12-12] VITALS: Ht 160 cm; Wt 70.5 kg
[~2022-12-12 23:48] MED LIST changes: +ALPR0.255 PO; +NALT50TA PO; -NICO-631 TD
[2022-12-13 00:07] LABS: BASOPHILS % (AUTO) 0.4 % (0-1); EOSINOPHILS % (AUTO) 0 % (0-6); HEMATOCRIT 44.6 % (35.0-45.0); HEMOGLOBIN 15.7 g/dl (12.0-16.0); LYMPHOCYTES # (AUTO) 0.7 X10'3 (1.1-4.8); LYMPHOCYTES % (AUTO) 11.2 % (21-51); MEAN CORPUSCULAR HEMOGLOBIN 34.2 PG (27.0-31.0); MEAN CORPUSCULAR HGB CONC 35.3 g/dL (33.0-36.5); MEAN PLATELET VOLUME 8.1 FL (7.4-10.4); MONOCYTES # (AUTO) 0.7 X10'3 (0-0.9); MONOCYTES % (AUTO) 10.1 % (2-12); NEUTROPHILS # (AUTO) 5.2 X10'3 (1.8-7.7); NEUTROPHILS % (AUTO) 78.3 % (42-75); PLATELET COUNT 172 X10'3 (140-440); RED BLOOD COUNT 4.59 X10'6 (4.20-5.60); RED CELL DISTRIBUTION WIDTH 17.9 % (11.5-14.5); WHITE BLOOD COUNT 6.7 X10'3 (4.5-11.0)
[2022-12-13 00:23] LABS: ALANINE AMINOTRANSFERASE 254 U/L (12-78); ALBUMIN 3.8 G/DL (3.4-5.0); ALKALINE PHOSPHATASE 225 IU/L (46-116); ANION GAP 24 (8-16); BLOOD UREA NITROGEN 9 MG/DL (7-18); CALCIUM 9.2 MG/DL (8.5-10.1); CHLORIDE 86 MMOL/L (99-107); CREATININE 0.82 MG/DL (0.40-0.90); GLUCOSE 205 MG/DL (70-104); POTASSIUM 3.2 MMOL/L (3.5-5.1); SODIUM 131 MMOL/L (135-145); TOTAL CARBON DIOXIDE 20.9 MMOL/L (24-32); eGFR 80 ML/MIN
[2022-12-13 00:25] LABS: MAGNESIUM 1.2 MG/DL (1.5-2.4)
[2022-12-13 00:27] LABS: ALBUMIN/GLOBULIN RATIO 0.9 (1.1-1.5); ASPARTATE AMINO TRANSFERASE 1171 U/L (10-37); TOTAL PROTEIN 8.1 G/DL (6.4-8.2)
[2022-12-13 02:00] VITALS: BP 108/63
[2022-12-13] MEDS ORDERED: normal saline 1000ML IV soln IVB ONE (03:30)
[2022-12-13] MEDS ORDERED: ondansetron/PF 4mg/2ml inj IV ONE (03:45)
[2022-12-13] MEDS ORDERED: thiamine 100mg/ml 2ml inj. IV ONE (03:45)
[2022-12-13 04:20] LABS: OSMOLALITY 307 MOSM/K (280-300)
[2022-12-13] MEDS ORDERED: LORazepam 2 mg/ml vial IV ONE ×4 (04:20→08:15)
[2022-12-13 04:33] LABS: ALANINE AMINOTRANSFERASE 260 U/L (12-78); ALBUMIN 3.7 G/DL (3.4-5.0); ALKALINE PHOSPHATASE 223 IU/L (46-116); ANION GAP 26 (8-16); BILIRUBIN,TOTAL 7.3 MG/DL (0.1-1.0); BLOOD UREA NITROGEN 10 MG/DL (7-18); BUN/CREATININE RATIO 13.9 (10.0-20.0); CALCIUM 9.2 MG/DL (8.5-10.1); CHLORIDE 87 MMOL/L (99-107); CREATININE 0.72 MG/DL (0.40-0.90); ETHANOL 0.087 GM/DL (0.0-0.010); GLUCOSE 131 MG/DL (70-104); SODIUM 132 MMOL/L (135-145); TOTAL CARBON DIOXIDE 18.9 MMOL/L (24-32); eGFR > 90 ML/MIN
[2022-12-13 04:35] LABS: ALBUMIN/GLOBULIN RATIO 0.9 (1.1-1.5); PHOSPHORUS 4.1 MG/DL (2.3-4.5)
[2022-12-13 04:36] LABS: ASPARTATE AMINO TRANSFERASE 1212 U/L (10-37)
[2022-12-13 04:39] LABS: POTASSIUM 2.9 MMOL/L (3.5-5.1)
[2022-12-13] MEDS ORDERED: potassium CL 10mEq/100ml bag 100 ML IV SCH (04:40)
[2022-12-13] MEDS ORDERED: dextrose 5%-normal saline 1,000 ML IV SCH (04:45)
[2022-12-13] MEDS ORDERED: potassium Cl 40MEQ/1/2NS 520ml 520 ML IV ONE (04:50)
[2022-12-13] MEDS ORDERED: insulin regular, human 10 units/0.1 ml syringe SQ ONE (05:25)
[2022-12-13] MEDS: normal saline 1000ml 1,000 ML IV SCH ×3 (08:45→22:16)
[2022-12-13] MEDS ORDERED: ondansetron/PF 4mg/2ml inj IV PRN (08:45)
[2022-12-13] MEDS ORDERED: magnesium 4gm in 100ml NS 100 ML IV PRN (08:45)
[2022-12-13] MEDS ORDERED: magnesium 2GM in 50ml NS 50 ML IV PRN (08:45)
[2022-12-13] MEDS ORDERED: potassium Cl 40MEQ/1/2NS 520ml 520 ML IV PRN (08:45)
[2022-12-13] MEDS ORDERED: magnesium Cl slow-release 64mg tablet PO PRN (08:45)
--- NOTE | 2022-12-13 11:10 | NUR ---
Received order for consult. Tried to meet with patient. Patient is busy with RN. I will follow up when patient is moved to the floor.
[2022-12-13] MEDS: acetaminophen 325mg tablet PO PRN ×2 (11:24→11:54)
[2022-12-13] MEDS: LORazepam 2 mg/ml vial IV PRN ×4 (11:25→22:10)
[2022-12-13] MEDS ORDERED: CITA10TA22 PO (11:35)
[2022-12-13] MEDS ORDERED: LANTUS SQ (11:35)
[2022-12-13] MEDS ORDERED: HYDROmorphone inj. 0.5 MG/0.5 ML DISP.SYRIN IV PRN (12:25)
[2022-12-13] MEDS ORDERED: acetaminophen 325mg tablet PO PRN (12:25)
[2022-12-13] MEDS ORDERED: HYDROmorphone/PF 0.2 MG/ML SYRINGE IV PRN (12:25)
[2022-12-13 13:40] VITALS: BP 105/58
[2022-12-13] MEDS: HYDROcodone/acetaminophen 10/325mg tab PO PRN ×3 (14:00→22:33)
[2022-12-13] MEDS: thiamine 100mg/ml 2ml inj. IV SCH ×2 (14:01→22:15)
[2022-12-13 14:15] VITALS: BP 114/67
--- NOTE | 2022-12-13 17:15 | NUR ---
sent to [place] [id number] [place]: Pt has dm2. not on protocol. bg is 53. Orders please? thank you.
[2022-12-13] MEDS ORDERED: insulin Lispro (HumaLOG) vial - multi-dose SQ SCH (17:20)
[2022-12-13] MEDS ORDERED: MESSAGE TO PHARMACY PO ONE (17:20)
[2022-12-13] MEDS ORDERED: DEXTROSE 15 GM of carb/4 tabs (each vial/BOTTLE has 4 tablets) PO PRN ×2 (17:20)
[2022-12-13] MEDS ORDERED: glucagon, human recombinant 1mg kit SUBCUT PRN (17:20)
[2022-12-13] MEDS ORDERED: dextrose 50%-water 50ml dispensing syringe IV PRN ×2 (17:20)
[2022-12-13 18:00] VITALS: BP 120/72
[2022-12-13] MEDS ORDERED: enoxaparin 40mg/0.4ml syringe SQ SCH (20:00)
--- NOTE | 2022-12-13 20:02 | NUR ---
Notified Dr. PALACIOS of gram Neg rods in pts blood anerobic , orderes received for abx.
[2022-12-13] MEDS ORDERED: CefTRIAXone/D5W-Rocephin 1gm 50 ML IV SCH (20:49)
[2022-12-13 22:00] VITALS: BP 101/57
[2022-12-13] MEDS: insulin glargine (Lantus) pen - multi-dose SQ SCH (22:28)
[2022-12-13 22:40] LABS: GLUCOSE, URINE NEGATIVE (Neg); KETONES,URINE NEGATIVE (Neg); LEUKOCYTE ESTERASE ,URINE NEGATIVE (Neg); NITRITES, URINE NEGATIVE (Neg); OCCULT BLOOD,URINE TRACE-INTACT (Neg); PROTEIN,URINE NEGATIVE (Neg)
[2022-12-13 22:42] LABS: UA COLLECTION TYPE CLN CATCH MIDSTREAM
[2022-12-13 22:43] LABS: CLARITY,URINE SLIGHTLY CLOUDY (Clear); COLOR,URINE DARK YELLOW (Yellow)
[2022-12-13 22:45] LABS: RBC,URINE 0-2 /HPF (0-2)
[2022-12-13 22:50] LABS: BACTERIA,URINE 1+ /HPF (Neg); MUCUS STRANDS NONE SEEN /LPF (Neg); SQUAMOUS EPITHELIAL CELL,UR MODERATE /LPF (FEW)
[2022-12-14] MEDS: LORazepam 2 mg/ml vial IV PRN ×4 (02:13→22:20)
[2022-12-14] MEDS: acetaminophen 325mg tablet PO PRN (02:13)
[2022-12-14] MEDS: HYDROcodone/acetaminophen 10/325mg tab PO PRN ×3 (03:20→21:01)
[2022-12-14 05:57] LABS: EOSINOPHILS # (AUTO) 0.1 X10'3 (0-0.9); HEMOGLOBIN 12.6 g/dl (12.0-16.0); MEAN CORPUSCULAR HGB CONC 34.2 g/dL (33.0-36.5); MEAN PLATELET VOLUME 8.8 FL (7.4-10.4); MONOCYTES # (AUTO) 0.2 X10'3 (0-0.9)
[2022-12-14 05:59] LABS: BASOPHILS % (AUTO) 0.8 % (0-1); EOSINOPHILS % (AUTO) 1.2 % (0-6); HEMATOCRIT 36.8 % (35.0-45.0); LYMPHOCYTES # (AUTO) 0.7 X10'3 (1.1-4.8); LYMPHOCYTES % (AUTO) 13.3 % (21-51); MEAN CORPUSCULAR HEMOGLOBIN 33.7 PG (27.0-31.0); MEAN CORPUSCULAR VOLUME 98.6 FL (78-98); MONOCYTES % (AUTO) 4.4 % (2-12); NEUTROPHILS % (AUTO) 80.3 % (42-75); PLATELET COUNT 72 X10'3 (140-440); RED BLOOD COUNT 3.74 X10'6 (4.20-5.60); RED CELL DISTRIBUTION WIDTH 18.9 % (11.5-14.5)
[2022-12-14 06:00] VITALS: BP 111/69
[2022-12-14 06:12] LABS: ALANINE AMINOTRANSFERASE 136 U/L (12-78); ALBUMIN 2.6 G/DL (3.4-5.0); ALKALINE PHOSPHATASE 151 IU/L (46-116); ANION GAP 8 (8-16); ASPARTATE AMINO TRANSFERASE 417 U/L (10-37); BILIRUBIN,TOTAL 8.1 MG/DL (0.1-1.0); BLOOD UREA NITROGEN 8 MG/DL (7-18); BUN/CREATININE RATIO 11.3 (10.0-20.0); CALCIUM 8.4 MG/DL (8.5-10.1); CHLORIDE 97 MMOL/L (99-107); CREATININE 0.71 MG/DL (0.40-0.90); GLUCOSE 100 MG/DL (70-104); LIPASE < 50 U/L (73-393); MAGNESIUM 2.5 MG/DL (1.5-2.4); POTASSIUM 3.1 MMOL/L (3.5-5.1); SODIUM 133 MMOL/L (135-145); TOTAL CARBON DIOXIDE 27.9 MMOL/L (24-32); eGFR > 90 ML/MIN
[2022-12-14 06:14] LABS: ALBUMIN/GLOBULIN RATIO 0.8 (1.1-1.5); PHOSPHORUS 2.3 MG/DL (2.3-4.5); TOTAL PROTEIN 5.9 G/DL (6.4-8.2)
[2022-12-14 06:27] LABS: HEMOGLOBIN A1C 7.6 % (4.5-6.2)
--- NOTE | 2022-12-14 06:30 | NUR ---
Patient in room ORTHO 4018. I have received report from FAUSTO Mancilla and had the opportunity to ask questions and assume patient care.
[2022-12-14 06:41] LABS: ANISOCYTOSIS 2+; LARGE PLATELETS FEW; PLATELET ESTIMATE DECREASED
--- NOTE | 2022-12-14 06:43 | NUR ---
Report to Kesha Shah.
[2022-12-14] MEDS: thiamine 100mg/ml 2ml inj. IV SCH ×3 (07:29→19:39)
[2022-12-14] MEDS ORDERED: ALPRAZolam 0.25mg tablet PO PRN (08:20)
[2022-12-14] MEDS: normal saline 1000ml 1,000 ML IV SCH ×2 (09:18→19:40)
[2022-12-14 10:00] VITALS: BP 108/65
[2022-12-14] MEDS: pantoprazole 40mg Tablet.DR PO SCH ×2 (11:45→19:39)
[2022-12-14] MEDS ORDERED: piperacillin/tazo 3.375gm/50ml 50 ML IV SCH (11:49)
--- NOTE | 2022-12-14 11:49 | NUR ---
DM Consult: Pt hx T2DM on metformin and Lantus at home A1C 7.6% though currently on regular diet s/p D5 yesterday w/ Glu 53-62mg/dl this AM s/p first Lantus dose last night per EMR. Written DM diet ed w/ RD contact information placed in pt chart. Rec: 1. continue regular diet until Glu consistently normalizes Addendum: 12/14/22 at [address] Amended: Links added.
[2022-12-14] MEDS: piperacillin/tazo 3.375gm/50ml 50 ML IV SCH ×2 (12:00→20:13)
[2022-12-14] MEDS: folic acid 1mg/0.2ml inj IV SCH (12:29)
[2022-12-14 18:00] VITALS: BP 115/77
--- NOTE | 2022-12-14 18:20 | NUR ---
OLAP DEVELOPER documentation: I have reviewed and agree with all interventions, assessments performed and documented by Juan Bauman LVN .
--- NOTE | 2022-12-14 18:30 | NUR ---
Problems reprioritized. Patient report given, questions answered & plan of care reviewed with FAUSTO Lara.
[2022-12-14] MEDS: insulin glargine (Lantus) pen - multi-dose SQ SCH (20:58)
[2022-12-14] MEDS: potassium Cl 20 mEq SR tablet PO PRN (20:59)
[2022-12-14] MEDS: verapamil SR 120mg (sust. release) tab PO SCH (20:59)
--- NOTE | 2022-12-14 21:23 | NUR ---
Student documentation: I have reviewed interventions, assessments performed and documented by [facility].
[2022-12-14 22:00] VITALS: BP 116/73
--- NOTE | 2022-12-14 23:10 | NUR ---
notified primary nurse of positive blood cultures from lab
[2022-12-15] VITALS (7 sets, daily range): BP systolic 99–130; BP diastolic 53–95
[2022-12-15] MEDS: potassium Cl 20 mEq SR tablet PO PRN ×5 (01:10→17:24)
[2022-12-15] MEDS: HYDROcodone/acetaminophen 10/325mg tab PO PRN ×2 (01:10→07:55)
[2022-12-15] MEDS: piperacillin/tazo 3.375gm/50ml 50 ML IV SCH (04:29)
[2022-12-15] MEDS: LORazepam 2 mg/ml vial IV PRN (05:02)
[2022-12-15 06:16] LABS: BASOPHILS % (AUTO) 0.6 % (0-1); EOSINOPHILS # (AUTO) 0.1 X10'3 (0-0.9); EOSINOPHILS % (AUTO) 2.8 % (0-6); HEMATOCRIT 38.3 % (35.0-45.0); HEMOGLOBIN 13.2 g/dl (12.0-16.0); LYMPHOCYTES # (AUTO) 0.7 X10'3 (1.1-4.8); LYMPHOCYTES % (AUTO) 18.6 % (21-51); MEAN CORPUSCULAR HEMOGLOBIN 34.5 PG (27.0-31.0); MEAN CORPUSCULAR HGB CONC 34.6 g/dL (33.0-36.5); MEAN CORPUSCULAR VOLUME 99.9 FL (78-98); MONOCYTES # (AUTO) 0.2 X10'3 (0-0.9); MONOCYTES % (AUTO) 6.5 % (2-12); NEUTROPHILS # (AUTO) 2.6 X10'3 (1.8-7.7); NEUTROPHILS % (AUTO) 71.5 % (42-75); PLATELET COUNT 78 X10'3 (140-440); RED BLOOD COUNT 3.83 X10'6 (4.20-5.60); WHITE BLOOD COUNT 3.6 X10'3 (4.5-11.0)
[2022-12-15 06:24] LABS: ALANINE AMINOTRANSFERASE 89 U/L (12-78); ALBUMIN 2.6 G/DL (3.4-5.0); ALKALINE PHOSPHATASE 163 IU/L (46-116); ANION GAP 8 (8-16); ASPARTATE AMINO TRANSFERASE 188 U/L (10-37); BILIRUBIN,TOTAL 9.7 MG/DL (0.1-1.0); BLOOD UREA NITROGEN 5 MG/DL (7-18); BUN/CREATININE RATIO 8.3 (10.0-20.0); CALCIUM 8.8 MG/DL (8.5-10.1); CHLORIDE 99 MMOL/L (99-107); GLUCOSE 84 MG/DL (70-104); LIPASE < 50 U/L (73-393); MAGNESIUM 2.2 MG/DL (1.5-2.4); SODIUM 135 MMOL/L (135-145); TOTAL CARBON DIOXIDE 27.9 MMOL/L (24-32); eGFR > 90 ML/MIN
[2022-12-15 06:29] LABS: ALBUMIN/GLOBULIN RATIO 0.7 (1.1-1.5); PHOSPHORUS 1.7 MG/DL (2.3-4.5); TOTAL PROTEIN 6.4 G/DL (6.4-8.2)
[2022-12-15] MEDS: CITALOpram 10mg tablet PO SCH (07:55)
[2022-12-15] MEDS: pantoprazole 40mg Tablet.DR PO SCH ×2 (07:56→21:00)
[2022-12-15] MEDS: levoTHYROXINE 100mcg tablet PO SCH (07:56)
[2022-12-15] MEDS: folic acid 1mg tablet PO SCH (07:56)
[2022-12-15] MEDS: thiamine 100mg/ml 2ml inj. IV SCH ×2 (07:57→13:16)
[2022-12-15] MEDS: folic acid 1mg/0.2ml inj IV SCH (07:59)
[2022-12-15] MEDS: lisinopril 10 MG tablet PO SCH (08:00)
[2022-12-15] MEDS ORDERED: pantoprazole 40mg Tablet.DR PO SCH (08:00)
--- NOTE | 2022-12-15 11:24 | NUR ---
sent flu swab to lab
[2022-12-15] MEDS: levoFLOXACIN-Levaquin 500mg/D5 100 ML IV SCH (11:31)
[2022-12-15] MEDS: LORazepam 1 MG tablet PO PRN ×3 (11:45→23:32)
[2022-12-15] MEDS: normal saline 1000ml 1,000 ML IV SCH ×2 (11:58→17:32)
[2022-12-15] MEDS ORDERED: iohexol 300mg/ml 100ml inj. ONE (19:06)
[2022-12-15] MEDS: MESSAGE TO NURSING PO NR (19:40)
[2022-12-15] MEDS: insulin glargine (Lantus) pen - multi-dose SQ SCH (21:00)
[2022-12-15] MEDS: thiamine 100mg tablet PO SCH (21:00)
[2022-12-15] MEDS: verapamil SR 120mg (sust. release) tab PO SCH (21:01)
[2022-12-15] MEDS: HYDROcodone/acetaminophen 5mg/325mg tablet PO PRN (21:13)
[2022-12-16 02:00] VITALS: BP 113/78
[2022-12-16] MEDS: HYDROcodone/acetaminophen 5mg/325mg tablet PO PRN ×3 (02:40→16:57)
[2022-12-16 07:07] LABS: BASOPHILS % (AUTO) 0.9 % (0-1); EOSINOPHILS # (AUTO) 0.1 X10'3 (0-0.9); EOSINOPHILS % (AUTO) 3.3 % (0-6); HEMATOCRIT 38.8 % (35.0-45.0); HEMOGLOBIN 13.3 g/dl (12.0-16.0); MEAN CORPUSCULAR HEMOGLOBIN 34.4 PG (27.0-31.0); MEAN CORPUSCULAR HGB CONC 34.3 g/dL (33.0-36.5); MEAN CORPUSCULAR VOLUME 100.3 FL (78-98); MEAN PLATELET VOLUME 8.7 FL (7.4-10.4); MONOCYTES # (AUTO) 0.5 X10'3 (0-0.9); MONOCYTES % (AUTO) 13.8 % (2-12); NEUTROPHILS # (AUTO) 2.2 X10'3 (1.8-7.7); PLATELET COUNT 96 X10'3 (140-440); RED BLOOD COUNT 3.87 X10'6 (4.20-5.60); RED CELL DISTRIBUTION WIDTH 18.7 % (11.5-14.5); WHITE BLOOD COUNT 3.9 X10'3 (4.5-11.0)
--- NOTE | 2022-12-16 07:12 | NUR ---
Patient in room ORTHO 4018. I have received report from Kanchan LAMBERT and had the opportunity to ask questions and assume patient care.
[2022-12-16 07:13] VITALS: BP 109/75
[2022-12-16 07:19] LABS: ALANINE AMINOTRANSFERASE 71 U/L (12-78); ALBUMIN 2.7 G/DL (3.4-5.0); ALKALINE PHOSPHATASE 175 IU/L (46-116); ANION GAP 12 (8-16); ASPARTATE AMINO TRANSFERASE 86 U/L (10-37); BLOOD UREA NITROGEN 5 MG/DL (7-18); BUN/CREATININE RATIO 12.2 (10.0-20.0); CALCIUM 9.8 MG/DL (8.5-10.1); CHLORIDE 99 MMOL/L (99-107); CREATININE 0.41 MG/DL (0.40-0.90); GLUCOSE 178 MG/DL (70-104); SODIUM 132 MMOL/L (135-145); TOTAL CARBON DIOXIDE 21.5 MMOL/L (24-32); eGFR > 90 ML/MIN
[2022-12-16 07:28] LABS: ALBUMIN/GLOBULIN RATIO 0.7 (1.1-1.5); POTASSIUM 4.6 MMOL/L (3.5-5.1); TOTAL PROTEIN 6.7 G/DL (6.4-8.2)
[2022-12-16] MEDS: LORazepam 1 MG tablet PO PRN ×4 (08:00→20:05)
[2022-12-16] MEDS: pantoprazole 40mg Tablet.DR PO SCH ×2 (08:00→20:04)
[2022-12-16] MEDS: folic acid 1mg tablet PO SCH (08:00)
[2022-12-16] MEDS: thiamine 100mg tablet PO SCH ×2 (08:01→20:04)
[2022-12-16] MEDS: levoTHYROXINE 100mcg tablet PO SCH (08:01)
[2022-12-16] MEDS: lisinopril 10 MG tablet PO SCH (08:06)
[2022-12-16] MEDS: levoFLOXACIN-Levaquin 500mg/D5 100 ML IV SCH (08:07)
[2022-12-16 10:00] VITALS: BP 119/77
[2022-12-16] MEDS: folic acid 1mg/0.2ml inj IV SCH (12:58)
[2022-12-16] MEDS: LORazepam 2 mg/ml vial IV PRN ×2 (12:58→16:58)
[2022-12-16 14:00] VITALS: BP 130/86
[2022-12-16] MEDS: normal saline 1000ml 1,000 ML IV SCH (16:57)
[2022-12-16 18:00] VITALS: BP 108/66
--- NOTE | 2022-12-16 18:30 | NUR ---
Patient in room ORTHO 4018. I have received report from Maribel LAMBERT and had the opportunity to ask questions and assume patient care.
--- NOTE | 2022-12-16 19:47 | NUR ---
patient is on day three of ETOH withdraw. assessing patient about every 2 hours. md made some changes to medication schedule. put new Iv in patient.
[2022-12-16] MEDS: oxyCODONE IR 5mg (immed. release) tablet PO PRN (20:05)
[2022-12-16] MEDS: insulin glargine (Lantus) pen - multi-dose SQ SCH (21:00)
[2022-12-16] MEDS: verapamil SR 120mg (sust. release) tab PO SCH (21:39)
[2022-12-16 22:00] VITALS: BP 102/81
[2022-12-17] MEDS: oxyCODONE IR 5mg (immed. release) tablet PO PRN ×4 (01:01→13:59)
[2022-12-17] MEDS: LORazepam 1 MG tablet PO PRN ×3 (01:01→13:59)
[2022-12-17] MEDS: MESSAGE TO NURSING PO NR (01:02)
[2022-12-17] MEDS: CITALOpram 10mg tablet PO SCH ×2 (01:03→08:00)
[2022-12-17 02:00] VITALS: BP 140/97
[2022-12-17 06:00] VITALS: BP 121/85
[2022-12-17 06:15] LABS: BASOPHILS % (AUTO) 1.4 % (0-1); EOSINOPHILS # (AUTO) 0.1 X10'3 (0-0.9); EOSINOPHILS % (AUTO) 2.8 % (0-6); HEMATOCRIT 37.8 % (35.0-45.0); HEMOGLOBIN 12.9 g/dl (12.0-16.0); LYMPHOCYTES # (AUTO) 1.1 X10'3 (1.1-4.8); LYMPHOCYTES % (AUTO) 35.2 % (21-51); MEAN CORPUSCULAR HEMOGLOBIN 34.3 PG (27.0-31.0); MEAN CORPUSCULAR HGB CONC 34.1 g/dL (33.0-36.5); MEAN CORPUSCULAR VOLUME 100.5 FL (78-98); MONOCYTES # (AUTO) 0.5 X10'3 (0-0.9); MONOCYTES % (AUTO) 15.6 % (2-12); NEUTROPHILS # (AUTO) 1.4 X10'3 (1.8-7.7); PLATELET COUNT 109 X10'3 (140-440); RED BLOOD COUNT 3.76 X10'6 (4.20-5.60); RED CELL DISTRIBUTION WIDTH 19.2 % (11.5-14.5); WHITE BLOOD COUNT 3.2 X10'3 (4.5-11.0)
[2022-12-17 06:33] LABS: ALANINE AMINOTRANSFERASE 53 U/L (12-78); ALBUMIN 2.4 G/DL (3.4-5.0); ALKALINE PHOSPHATASE 166 IU/L (46-116); ANION GAP 10 (8-16); ASPARTATE AMINO TRANSFERASE 67 U/L (10-37); BILIRUBIN,TOTAL 10.2 MG/DL (0.1-1.0); BLOOD UREA NITROGEN 6 MG/DL (7-18); BUN/CREATININE RATIO 12.8 (10.0-20.0); CHLORIDE 99 MMOL/L (99-107); CREATININE 0.47 MG/DL (0.40-0.90); GLUCOSE 190 MG/DL (70-104); POTASSIUM 4.2 MMOL/L (3.5-5.1); SODIUM 134 MMOL/L (135-145); TOTAL CARBON DIOXIDE 24.8 MMOL/L (24-32); eGFR > 90 ML/MIN
[2022-12-17 06:35] LABS: ALBUMIN/GLOBULIN RATIO 0.6 (1.1-1.5); TOTAL PROTEIN 6.4 G/DL (6.4-8.2)
--- NOTE | 2022-12-17 06:35 | NUR ---
Problems reprioritized. Patient report given, questions answered & plan of care reviewed with Maribel LAMBERT.
--- NOTE | 2022-12-17 07:24 | NUR ---
Patient in room ORTHO 4018. I have received report from Gisselle LAMBERT and had the opportunity to ask questions and assume patient care.
[2022-12-17] MEDS: lisinopril 10 MG tablet PO SCH (08:00)
[2022-12-17] MEDS: thiamine 100mg tablet PO SCH (08:50)
[2022-12-17] MEDS: pantoprazole 40mg Tablet.DR PO SCH (08:50)
[2022-12-17] MEDS: folic acid 1mg tablet PO SCH (08:50)
[2022-12-17] MEDS: levoFLOXACIN-Levaquin 500mg/D5 100 ML IV SCH (08:51)
[2022-12-17] MEDS: LORazepam 2 mg/ml vial IV PRN (08:51)
[2022-12-17] MEDS: levoTHYROXINE 100mcg tablet PO SCH (08:51)
[2022-12-17 10:00] VITALS: BP 148/93
[2022-12-17] MEDS ORDERED: PANT40TA54 PO (14:16)
[2022-12-17] MEDS ORDERED: thiamine tablet PO (14:16)
[2022-12-17] MEDS ORDERED: LEVO-65 PO (14:18)
[2022-12-17] MEDS ORDERED: CHLO25CA10 PO (14:18)
--- NOTE | 2022-12-17 14:23 | NUR ---
patient went to reach for bedside commode and commode tipped and patient fell. fall was witnessed by WELDING ROD COATER. technology recruiter states patient fell but did not hit head, or shoulder. patient stated she did hit head, left knee, and left shoulder. notified md and md ordered xray of left knee, left shoulder and ct of the head. all scans came back negitive. patient is able to be discharged. family wanted pharm changed I tried calling twice to [facility] on [address] but no answer. md transmitted one prescription but was able to print out hard copy prescriptions.
--- NOTE | 2022-12-17 14:57 | NUR ---
patient was discharged. gave prescriptions to mother at bedside. i printed discharge instructions and went over with patient. discussed with patient and mother patient should go to AA. patient stated she is in AA and had a slip, she does have a sponsor. took IV out and monitor off. COMMERCIAL CREDIT PORTFOLIO MANAGER took patient in wheelchair to lobby for her ride.
--- NOTE | 2022-12-17 15:02 | NUR ---
patient refused to get insulin. for her elevated blood sugars
--- NOTE | 2022-12-17 19:50 | NUR ---
per packing house laborer day shift. she will fill out an incident report for the fall
[2022-12-19] MEDS ORDERED: CHLO25CA10 PO ×2 (15:10→15:59)
== END 2022-12-17 14:50 | disposition home or self-care (01) | DRG 720 ==
LOC: ER 23:49 → ED HOLD 12-13 08:35 → ORTHO 4S 12-13 13:32
PROVIDERS: ADMIT Internal Medicine; ATTEND Internal Medicine
PROC: BW251ZZ Computerized Tomography (CT Scan) of Chest, Abdomen and Pelvis using Low Osmolar Contrast (ICD-10-PCS; principal; 2022-12-15)
DX: A41.59 Other Gram-negative sepsis (principal); K85.90 Acute pancreatitis without necrosis or infection, unspecified; E87.29 Other acidosis; K92.0 Hematemesis; R17 Unspecified jaundice; R74.01 Elevation of levels of liver transaminase levels; D69.59 Other secondary thrombocytopenia; B96.1 Klebsiella pneumoniae [K. pneumoniae] as the cause of diseases classified elsewhere; E11.9 Type 2 diabetes mellitus without complications; E87.6 Hypokalemia; F10.239 Alcohol dependence with withdrawal, unspecified; F32.A Depression, unspecified; F41.9 Anxiety disorder, unspecified; K86.1 Other chronic pancreatitis; Z79.4 Long term (current) use of insulin; Z90.49 Acquired absence of other specified parts of digestive tract; Z88.8 Allergy status to other drugs, medicaments and biological substances; Z79.899 Other long term (current) drug therapy; Z71.41 Alcohol abuse counseling and surveillance of alcoholic
CPT/HCPCS: 36415; 70450; 71045; 71260; 73030; 73564; 74177; 80053; 80320; 81001; 82009; 82948; 83036; 83605; 83690; 83735; 83880; 83930; 84100; 84132; 84145; 84484; 85008; 85025; 85651; 87040; 87077; 87081; 87088; 87186; 87502; 87503; 93005; 96374; 96375; 97116; 97161; 97530; 99285; G0378; J0696; J1650; J1815; J1956; J2060; J2405; J2543; J3411; J3475; J3480; J3490; J7030; J7040; J7042; Q9967

== ENCOUNTER 2023-04-05 18:34 | Inpatient (IN) | payer MEDICAID ==
[~2023-04-05] VITALS: Ht 160 cm; Wt 70.0 kg
[~2023-04-05 18:34] MED LIST changes: +CITA10TA22 PO; +LANTUS SQ; -METF-900 PO; -NALT50TA PO; -PANT20TA18 PO; +PANT40TA54 PO; -POTA25TA40 PO; +thiamine tablet PO
[2023-04-05] MEDS ORDERED: normal saline 1000ML IV soln IVB ONE (18:45)
[2023-04-05] MEDS ORDERED: normal saline 1000ml 1,000 ML IV ONE (18:45)
[2023-04-05] MEDS ORDERED: insulin regular, human 10 units/0.1 ml syringe IV ONE ×2 (18:55→19:50)
[2023-04-05 19:18] LABS: BASOPHILS # (AUTO) 0.1 X10'3 (0-0.2); BASOPHILS % (AUTO) 1.5 % (0-1); EOSINOPHILS % (AUTO) 0.4 % (0-6); HEMATOCRIT 45.3 % (35.0-45.0); HEMOGLOBIN 15.1 g/dl (12.0-16.0); LYMPHOCYTES # (AUTO) 0.8 X10'3 (1.1-4.8); LYMPHOCYTES % (AUTO) 13.7 % (21-51); MEAN CORPUSCULAR HGB CONC 33.3 g/dL (33.0-36.5); MEAN PLATELET VOLUME 7.9 FL (7.4-10.4); MONOCYTES # (AUTO) 0.6 X10'3 (0-0.9); MONOCYTES % (AUTO) 10.1 % (2-12); NEUTROPHILS # (AUTO) 4.1 X10'3 (1.8-7.7); NEUTROPHILS % (AUTO) 74.3 % (42-75); PLATELET COUNT 240 X10'3 (140-440); RED BLOOD COUNT 4.44 X10'6 (4.20-5.60); RED CELL DISTRIBUTION WIDTH 18.8 % (11.5-14.5); WHITE BLOOD COUNT 5.6 X10'3 (4.5-11.0)
[2023-04-05 19:26] LABS: APTT 35 SECONDS (22-32)
[2023-04-05 19:32] LABS: ALANINE AMINOTRANSFERASE 217 U/L (12-78); ALBUMIN 3.8 G/DL (3.4-5.0); ALKALINE PHOSPHATASE 208 IU/L (46-116); ANION GAP 35 (8-16); ASPARTATE AMINO TRANSFERASE 404 U/L (10-37); BLOOD UREA NITROGEN 10 MG/DL (7-18); BUN/CREATININE RATIO 8.3 (10.0-20.0); CALCIUM 9.6 MG/DL (8.5-10.1); CHLORIDE 82 MMOL/L (99-107); CREATININE 1.21 MG/DL (0.40-0.90); GLUCOSE 382 MG/DL (70-104); LIPASE 533 U/L (73-393); MAGNESIUM 1.4 MG/DL (1.5-2.4); SODIUM 125 MMOL/L (135-145); eGFR 51 ML/MIN
[2023-04-05 19:33] LABS: ALBUMIN/GLOBULIN RATIO 0.7 (1.1-1.5); TOTAL PROTEIN 9.4 G/DL (6.4-8.2)
[2023-04-05 19:34] LABS: POTASSIUM 2.9 MMOL/L (3.5-5.1)
[2023-04-05 19:35] LABS: ETHANOL < 10 MG/DL (<10); TOTAL CARBON DIOXIDE 8.4 MMOL/L (24-32)
[2023-04-05 19:54] LABS: ANISOCYTOSIS 2+; PLATELET ESTIMATE NORMAL
[2023-04-05] MEDS ORDERED: ondansetron/PF 4mg/2ml inj IV ONE (20:05)
[2023-04-05] MEDS ORDERED: ibuprofen 200mg tablet PO ONE (20:05)
--- NOTE | 2023-04-05 21:55 | NUR ---
patient re [id number] pain medication dr. sawyer concerned with patients liver enzymes put re evaluation so dr. sawyer can discuss pain managment with patient
[2023-04-05] MEDS ORDERED: potassium Cl 40MEQ/1/2NS 520ml 520 ML IV ONE (22:05)
[2023-04-05] MEDS ORDERED: magnesium 2GM in 50ml NS 50 ML IV ONE (22:05)
--- NOTE | 2023-04-05 23:10 | NUR ---
called pharmacy for k iv waiting for it to be componded per pharmacy
--- NOTE | 2023-04-05 23:57 | NUR ---
patient placed on hospital bed
[2023-04-06] MEDS ORDERED: HYDROmorphone inj. 0.5 MG/0.5 ML DISP.SYRIN IV ONE
[2023-04-06 00:23] LABS: PHOSPHORUS 3.4 MG/DL (2.3-4.5)
[2023-04-06] MEDS ORDERED: HYDROcodone/acetaminophen 10/325mg tab PO PRN (00:50)
[2023-04-06] MEDS ORDERED: diphenhydrAMINE 25mg capsule PO PRN (00:50)
[2023-04-06] MEDS: potassium Cl 20mEq in NS 1,000 ML IV SCH ×3 (00:50→22:54)
[2023-04-06] MEDS ORDERED: potassium Cl 40MEQ/1/2NS 520ml 520 ML IV PRN (00:50)
[2023-04-06] MEDS ORDERED: dextrose 50%-water 50ml dispensing syringe IV PRN ×4 (00:50→17:15)
[2023-04-06] MEDS ORDERED: LORazepam 2 mg/ml vial IV PRN (00:50)
[2023-04-06] MEDS ORDERED: magnesium Cl slow-release 64mg tablet PO PRN (00:50)
[2023-04-06] MEDS ORDERED: morphine 2 MG/ML inj. syringe IV PRN ×2 (00:50)
[2023-04-06] MEDS ORDERED: ondansetron/PF 4mg/2ml inj IV PRN (00:50)
[2023-04-06] MEDS ORDERED: haloperidol lactate 5mg/ml inj IM PRN (00:50)
[2023-04-06] MEDS ORDERED: magnesium 2GM in 50ml NS 50 ML IV PRN (00:50)
[2023-04-06] MEDS ORDERED: potassium Cl 20 mEq SR tablet PO PRN (00:50)
[2023-04-06] MEDS ORDERED: haloperidol 5mg tablet PO PRN (00:50)
[2023-04-06] MEDS ORDERED: mag hydrox/Alum hydrox/simeth 30ml oral suspension PO PRN (00:50)
[2023-04-06] MEDS ORDERED: magnesium hydroxide 30ml (MOM) UD suspension PO PRN (00:50)
[2023-04-06] MEDS ORDERED: acetaminophen 325mg tablet PO PRN ×2 (00:50)
[2023-04-06] MEDS ORDERED: diphenhydrAMINE 50 mg/ml inj IV PRN (00:50)
[2023-04-06] MEDS ORDERED: bisacodyl 10mg suppository rectal RC PRN (00:50)
[2023-04-06] MEDS ORDERED: acetaminophen 650mg rectal suppository RC PRN (00:50)
[2023-04-06] MEDS ORDERED: ondansetron 4mg rapidly disintigrating tab PO PRN (00:50)
[2023-04-06] MEDS ORDERED: magnesium 4gm in 100ml NS 100 ML IV PRN (00:50)
[2023-04-06 01:25] LABS: HEMOGLOBIN A1C 8.5 % (4.5-6.2)
[2023-04-06 01:25] LABS: ABG OXYGEN SATURATION 98.8 % (94-97); ABG PO2 (T) 162.3 mmHg (75.0-100.0); ALLEN'S TEST POSITIVE; FCOHb 0.3 % (0.0-3.9); FMetHb 0.4 % (0.0-1.5); FO2Hb 98.1 % (94-97); TOTAL HEMOGLOBIN 14.4 G/dl (12.0-16.0)
[2023-04-06] MEDS ORDERED: Insulin Reg/NS 100units/100mL 100 ML IV SCH (01:35)
[2023-04-06 02:20] LABS: GLUCOSE, URINE 500 mg/dl (Neg); KETONES,URINE >=80 mg/dl (Neg); LEUKOCYTE ESTERASE ,URINE NEGATIVE (Neg); NITRITES, URINE NEGATIVE (Neg); OCCULT BLOOD,URINE SMALL (Neg); PH,URINE 5.5 (4.8-8.0); PROTEIN,URINE 100 mg/dl (Neg)
[2023-04-06 02:29] LABS: URINE AMPHETAMINE SCREEN NEGATIVE (Neg); URINE BARBITUATE SCREEN NEGATIVE (Neg); URINE BENZODIAZEPINES SCREEN NEGATIVE (Neg); URINE CANNABINOID SCREEN NEGATIVE (Neg); URINE COCAINE SCREEN NEGATIVE (Neg); URINE METHADONE SCREEN NEGATIVE (Neg); URINE OPIATE SCREEN POSITIVE (Neg); URINE PHENCYCLIDINE SCREEN NEGATIVE (Neg)
[2023-04-06 02:30] LABS: COLOR,URINE DARK YELLOW (Yellow); UA COLLECTION TYPE CLN CATCH MIDSTREAM
[2023-04-06 02:32] LABS: WBC,URINE 0-4 /HPF (0-4)
[2023-04-06 02:33] LABS: CLARITY,URINE SLIGHTLY CLOUDY (Clear); SQUAMOUS EPITHELIAL CELL,UR FEW /LPF (FEW)
[2023-04-06 02:34] LABS: BACTERIA,URINE 2+ /HPF (Neg); COARSE GRANULAR CAST 0-3 /LPF (NEGATIVE); YEAST FEW /HPF (NEGATIVE)
--- NOTE | 2023-04-06 03:08 | NUR ---
per dr. martínez leave insulin at 3units/hr
[2023-04-06] MEDS: HYDROmorphone inj. 0.5 MG/0.5 ML DISP.SYRIN IV PRN ×5 (03:53→20:41)
[2023-04-06] MEDS: dextrose 5%-1/2 normal saline 1,000 ML IV SCH ×2 (05:13→11:56)
--- NOTE | 2023-04-06 07:10 | NUR ---
Patient alert, oriented and in NAD with first contact with patient. Placed on SPO2 monitoring and verified current gtts. Patient provided with ice water as requested and denies further needs at this time. pending inpatient MD to bedside for discontinuation of insulin gttp once CMP labs back.
[2023-04-06 07:41] LABS: ALANINE AMINOTRANSFERASE 179 U/L (12-78); ALBUMIN/GLOBULIN RATIO 0.7 (1.1-1.5); ALKALINE PHOSPHATASE 173 IU/L (46-116); ANION GAP 22 (8-16); ASPARTATE AMINO TRANSFERASE 285 U/L (10-37); BILIRUBIN,TOTAL 3.7 MG/DL (0.1-1.0); BLOOD UREA NITROGEN 7 MG/DL (7-18); BUN/CREATININE RATIO 7.1 (10.0-20.0); CALCIUM 8.4 MG/DL (8.5-10.1); CHLORIDE 96 MMOL/L (99-107); CREATININE 0.98 MG/DL (0.40-0.90); GLUCOSE 134 MG/DL (70-104); MAGNESIUM 1.6 MG/DL (1.5-2.4); POTASSIUM 3.1 MMOL/L (3.5-5.1); SODIUM 131 MMOL/L (135-145); TOTAL PROTEIN 7.5 G/DL (6.4-8.2); eGFR 65 ML/MIN
[2023-04-06] MEDS: docusate sod 100mg capsule PO SCH ×2 (07:43→20:40)
[2023-04-06] MEDS: folic acid 1mg/0.2ml inj IV SCH (07:44)
[2023-04-06 07:48] LABS: TOTAL CARBON DIOXIDE 12.6 MMOL/L (24-32)
[2023-04-06] MEDS: pantoprazole 40MG/NS 100ML BAG 100 ML IV SCH (07:48)
[2023-04-06] MEDS: thiamine 100mg/ml 2ml inj. IV SCH ×3 (07:51→20:40)
[2023-04-06] MEDS: K and/or MAG REPLACEMENT MC SCH ×2 (08:59→20:43)
[2023-04-06] MEDS: potassium Cl 20 mEq SR tablet PO PRN ×2 (09:33→09:34)
[2023-04-06 10:39] VITALS: BP 113/74; PULSE 67; RESP 16; TEMP 97.8; O2SAT 100
--- NOTE | 2023-04-06 10:45 | NUR ---
Patient in room PCU 3009. I have received report from Mark ferguson and had the opportunity to ask questions and assume patient care.
[2023-04-06 11:00] VITALS: BP 113/74; PULSE 67; RESP 14; TEMP 97.8; O2SAT 100
--- NOTE | 2023-04-06 11:18 | NUR ---
BS 162 Patient appears stable report given to corey LAMBERT
[2023-04-06] MEDS: POTASSIUM BICARB 20meq eff tab 20 MEQ TABLET.EFF PO SCH ×2 (12:35→20:40)
[2023-04-06 13:13] LABS: ALBUMIN 2.8 G/DL (3.4-5.0); ANION GAP 14 (8-16); BLOOD UREA NITROGEN 5 MG/DL (7-18); BUN/CREATININE RATIO 5.2 (10.0-20.0); CALCIUM 8.6 MG/DL (8.5-10.1); CHLORIDE 98 MMOL/L (99-107); CREATININE 0.96 MG/DL (0.40-0.90); GLUCOSE 120 MG/DL (70-104); SODIUM 132 MMOL/L (135-145); TOTAL CARBON DIOXIDE 19.7 MMOL/L (24-32); eGFR 67 ML/MIN
[2023-04-06 13:14] LABS: PHOSPHORUS 0.9 MG/DL (2.3-4.5); POTASSIUM 2.6 MMOL/L (3.5-5.1)
--- NOTE | 2023-04-06 13:41 | NUR ---
PAGER ID: [phone] MESSAGE: Chanel Saunders in rm 3009 in DKA Phos is 0.9 and Potassium 2.6. I've replaced 20 meq of Potassium orally. I want to know if it would be appropriate to order Potassium Phos IV to bring levels up? Please advise Johana, [phone]
[2023-04-06] MEDS ORDERED: potassium phosphate inj 30 MMOL in normal saline 250ml IV soln 250 ML IV ONE (14:05)
[2023-04-06 15:00] VITALS: BP 126/78; PULSE 62; RESP 16; TEMP 97.6; O2SAT 100
--- NOTE | 2023-04-06 16:58 | NUR ---
PAGER ID: [phone] MESSAGE: Pt Carriero in 300. Her Anion gap is now 14, and CO2 is 19.2. Pt is ready to eat would like to verify with you that her fluid deficit is corrected. I would like to initiate the hypo/hyperglycemic protocol. Please advise. Johana [phone]
[2023-04-06] MEDS ORDERED: DEXTROSE 15 GM of carb/4 tabs (each vial/BOTTLE has 4 tablets) PO PRN ×2 (17:15)
[2023-04-06] MEDS ORDERED: MESSAGE TO PHARMACY PO ONE (17:15)
[2023-04-06] MEDS ORDERED: glucagon, human recombinant 1mg kit SUBCUT PRN (17:15)
[2023-04-06] MEDS ORDERED: THIA100T66 PO (17:19)
[2023-04-06] MEDS ORDERED: FLUO-1 PO (17:19)
[2023-04-06] MEDS ORDERED: METF-900 PO (17:19)
[2023-04-06] MEDS ORDERED: NALT50TA PO (17:19)
[2023-04-06] MEDS ORDERED: PANT-47 PO (17:20)
[2023-04-06] MEDS ORDERED: ALPR0.5T10 PO (17:22)
[2023-04-06] MEDS ORDERED: INSU100V9 SQ (17:25)
[2023-04-06 18:30] VITALS: BP 105/68; PULSE 67; RESP 16; TEMP 97.7; O2SAT 100
[2023-04-06 20:00] VITALS: RESP 18; O2SAT 100
[2023-04-06] MEDS ORDERED: ALPRAZolam 0.5mg tablet PO SCH (20:34)
[2023-04-06] MEDS: pantoprazole 40mg Tablet.DR PO SCH (20:58)
[2023-04-06] MEDS ORDERED: temazepam 15mg capsule PO PRN (21:00)
[2023-04-06] MEDS ORDERED: INSULIN GLARGINE HUM REC ANLOG 32 UNIT SQ SCH (21:00)
[2023-04-06] MEDS: insulin glargine (Lantus) pen - multi-dose SQ SCH (21:02)
[2023-04-06] MEDS ORDERED: insulin Lispro (HumaLOG) vial - multi-dose SQ SCH (21:25)
[2023-04-06 21:36] LABS: ALBUMIN 3.1 G/DL (3.4-5.0); ANION GAP 19 (8-16); BLOOD UREA NITROGEN 4 MG/DL (7-18); BUN/CREATININE RATIO 4.5 (10.0-20.0); CALCIUM 9.2 MG/DL (8.5-10.1); CHLORIDE 97 MMOL/L (99-107); CREATININE 0.88 MG/DL (0.40-0.90); GLUCOSE 314 MG/DL (70-104); PHOSPHORUS 2.4 MG/DL (2.3-4.5); POTASSIUM 3.6 MMOL/L (3.5-5.1); SODIUM 133 MMOL/L (135-145); TOTAL CARBON DIOXIDE 16.9 MMOL/L (24-32); eGFR 74 ML/MIN
[2023-04-06 22:00] VITALS: BP 103/60; PULSE 70; RESP 19; TEMP 97.5; O2SAT 100
[2023-04-07] VITALS (7 sets, daily range): BP systolic 100–108; BP diastolic 58–73; PULSE 57–78; RESP 12–19; TEMP 97–97.7; O2SAT 97–100
[2023-04-07] MEDS: HYDROmorphone inj. 0.5 MG/0.5 ML DISP.SYRIN IV PRN ×6 (00:54→22:41)
--- NOTE | 2023-04-07 06:38 | NUR ---
Problems reprioritized. Patient report given, questions answered & plan of care reviewed with Denice (FAUSTO).
[2023-04-07] MEDS ORDERED: BUPIVAcaine/PF 2.5 mg/ml (0.25%) 30ml vial ONE (06:47)
[2023-04-07] MEDS ORDERED: methylene blue (5mg/ml) 50mg/10ml ampul IV ONE (06:48)
[2023-04-07 07:20] LABS: BASOPHILS # (AUTO) 0.1 X10'3 (0-0.2); EOSINOPHILS # (AUTO) 0.1 X10'3 (0-0.9); EOSINOPHILS % (AUTO) 1.4 % (0-6); HEMATOCRIT 39.5 % (35.0-45.0); HEMOGLOBIN 13.2 g/dl (12.0-16.0); LYMPHOCYTES # (AUTO) 0.9 X10'3 (1.1-4.8); LYMPHOCYTES % (AUTO) 25.4 % (21-51); MEAN CORPUSCULAR HEMOGLOBIN 34.4 PG (27.0-31.0); MEAN CORPUSCULAR HGB CONC 33.5 g/dL (33.0-36.5); MEAN CORPUSCULAR VOLUME 102.7 FL (78-98); MONOCYTES # (AUTO) 0.5 X10'3 (0-0.9); MONOCYTES % (AUTO) 13.4 % (2-12); NEUTROPHILS % (AUTO) 57.8 % (42-75); PLATELET COUNT 167 X10'3 (140-440); RED BLOOD COUNT 3.85 X10'6 (4.20-5.60); RED CELL DISTRIBUTION WIDTH 20.4 % (11.5-14.5); WHITE BLOOD COUNT 3.5 X10'3 (4.5-11.0)
[2023-04-07] MEDS: POTASSIUM BICARB 20meq eff tab 20 MEQ TABLET.EFF PO SCH ×3 (07:27→21:00)
[2023-04-07] MEDS: thiamine 100mg tablet PO SCH (07:29)
[2023-04-07] MEDS: ALPRAZolam 0.5mg tablet PO SCH ×2 (07:29→20:46)
[2023-04-07] MEDS: multivitamins, therapeutics tablet PO SCH (07:29)
[2023-04-07] MEDS: pantoprazole 40mg Tablet.DR PO SCH ×2 (07:30→20:47)
[2023-04-07] MEDS: levoTHYROXINE 100mcg tablet PO SCH (07:30)
[2023-04-07] MEDS: docusate sod 100mg capsule PO SCH ×2 (07:30→20:46)
[2023-04-07] MEDS: lisinopril 10 MG tablet PO SCH (07:30)
[2023-04-07] MEDS: naltrexone 50mg tablet PO SCH (07:31)
[2023-04-07] MEDS: folic acid 1mg/0.2ml inj IV SCH (07:31)
[2023-04-07] MEDS: FLUoxetine 20mg capsule PO SCH (07:31)
[2023-04-07 07:41] LABS: ALANINE AMINOTRANSFERASE 147 U/L (12-78); ALBUMIN 2.8 G/DL (3.4-5.0); ALBUMIN/GLOBULIN RATIO 0.7 (1.1-1.5); ALKALINE PHOSPHATASE 166 IU/L (46-116); ANION GAP 18 (8-16); ASPARTATE AMINO TRANSFERASE 172 U/L (10-37); BLOOD UREA NITROGEN 5 MG/DL (7-18); BUN/CREATININE RATIO 6.8 (10.0-20.0); CALCIUM 8.6 MG/DL (8.5-10.1); CHLORIDE 100 MMOL/L (99-107); CHOL/HDL RATIO 4.3 (0.00-4.99); CHOLESTEROL 217 MG/DL (0-200); CREATININE 0.73 MG/DL (0.40-0.90); GLUCOSE 252 MG/DL (70-104); HDL CHOLESTEROL 50 MG/DL (35-60); LDL CHOLESTEROL 125 MG/DL (50-100); MAGNESIUM 1.3 MG/DL (1.5-2.4); POTASSIUM 3.4 MMOL/L (3.5-5.1); SODIUM 135 MMOL/L (135-145); TOTAL CARBON DIOXIDE 17.1 MMOL/L (24-32); TRIGLYCERIDES 83 MG/DL (20-135); eGFR > 90 ML/MIN
[2023-04-07] MEDS: pantoprazole 40MG/NS 100ML BAG 100 ML IV SCH (08:00)
[2023-04-07] MEDS: thiamine 100mg/ml 2ml inj. IV SCH ×3 (08:00→20:47)
[2023-04-07] MEDS: K and/or MAG REPLACEMENT MC SCH ×3 (08:00→20:00)
[2023-04-07] MEDS ORDERED: Neutra Phos packet PO PRN (09:10)
[2023-04-07] MEDS ORDERED: insulin regular, human U-100 3ml vial - multi-dose IV PRN (09:10)
[2023-04-07] MEDS ORDERED: potassium CL 20mEq in D5-1/2NS 1,000 ML IV PRN (09:10)
[2023-04-07] MEDS: normal saline 1000ml 1,000 ML IV SCH ×6 (09:10→21:10)
[2023-04-07] MEDS ORDERED: sodium phosphate inj. 15 MMOL in dextrose 5%-water 250 ML IV PRN (09:10)
[2023-04-07] MEDS ORDERED: sodium bicarbonate (8.4%) inj. 100 MEQ in dextrose 5% water 500ml 500 ML IV PRN (09:10)
[2023-04-07] MEDS ORDERED: sodium phosphate inj. 30 MMOL in dextrose 5%-water 250 ML IV PRN (09:10)
[2023-04-07] MEDS ORDERED: sodium bicarbonate (8.4%) inj. 50 MEQ in dextrose 5% water 500ml 250 ML IV PRN (09:10)
[2023-04-07] MEDS ORDERED: potassium Cl 20 mEq SR tablet PO PRN ×2 (09:10)
[2023-04-07] MEDS ORDERED: potassium Cl 40MEQ/1/2NS 520ml 520 ML IV PRN ×2 (09:10)
[2023-04-07 09:17] LABS: PLATELET ESTIMATE NORMAL
[2023-04-07 09:23] LABS: ANISOCYTOSIS 3+; POLYCHROMASIA FEW
[2023-04-07] MEDS: potassium Cl 20mEq in NS 1,000 ML IV SCH (09:28)
[2023-04-07] MEDS: potassium Cl 20 mEq SR tablet PO PRN (09:32)
[2023-04-07] MEDS: Insulin Reg/NS 100units/100mL 100 ML IV SCH (10:00)
[2023-04-07 12:29] LABS: ALANINE AMINOTRANSFERASE 137 U/L (12-78); ALBUMIN 2.6 G/DL (3.4-5.0); ALBUMIN/GLOBULIN RATIO 0.6 (1.1-1.5); ALKALINE PHOSPHATASE 153 IU/L (46-116); ANION GAP 12 (8-16); ASPARTATE AMINO TRANSFERASE 170 U/L (10-37); BILIRUBIN,TOTAL 2.7 MG/DL (0.1-1.0); BLOOD UREA NITROGEN 5 MG/DL (7-18); BUN/CREATININE RATIO 5.1 (10.0-20.0); CALCIUM 8.9 MG/DL (8.5-10.1); CHLORIDE 104 MMOL/L (99-107); CREATININE 0.99 MG/DL (0.40-0.90); GLUCOSE 214 MG/DL (70-104); POTASSIUM 3.3 MMOL/L (3.5-5.1); SODIUM 137 MMOL/L (135-145); TOTAL CARBON DIOXIDE 20.9 MMOL/L (24-32); TOTAL PROTEIN 6.7 G/DL (6.4-8.2); eGFR 64 ML/MIN
[2023-04-07 12:37] LABS: PHOSPHORUS 1.2 MG/DL (2.3-4.5)
--- NOTE | 2023-04-07 12:43 | NUR ---
DM/malnutrition consults: Pt admit for DKA, abdominal pain, jaundice, and OANH with hypokalemia, hypomagnesemia, and hyponatremia. Anion gap closed 04/06 however elevated again. Per EMR pt with T2DM, current A1c 8.5% which is up from 7.6% 12/04 per EMR. Pt would benefit from DM education as appropriate. Pt reports 2-13 lb wt loss with decreased appetite/PO intake per malnutrition risk screen with RN. Pt with documented wt h/o 74.3 kg 06/01/22 (chair scale), 70.45 kg 08/04/22 (no method), and 70.45 kg 03/04/23 (bed scale). Current wt is 70 kg though unsure if it's scaled. If accurate it would appear patient's wt is stable. Pt currently NPO though previously on a CHO controlled diet and eating well, documented with 100% PO intake of two meals. Pt with no documented significant decrease in muscle strength or edema. Per H&P pt appears well developed well nourished. Pt currently lacks a minimum of two criteria for malnutrition though will continue to monitor s/s of malnutrition. Noted pt currently receiving routine Thiamine, Folic acid, and MVI for EtOH hx. Will continue to follow. Recommendations: 1) Advance to CHO controlled diet as medically indicated 2) Continue routine Thiamine, Folic acid, and MVI for EtOH hx with elevated MCV 3) Routine bowel care 4) Scaled weight this admit; subsequent weekly scaled weights 5) DM education as appropriate; T2DM A1c 8.5% up from 7.6% 12/04, admit with DKA Addendum: 04/07/23 at [address] Amended: Links added.
[2023-04-07] MEDS ORDERED: sodium phosphate inj. 30 MMOL in dextrose 5%-water 250 ML IV ONE (13:00)
[2023-04-07] MEDS ORDERED: potassium CL 20mEq in D5-1/2NS 1,000 ML IV SCH (13:55)
[2023-04-07 17:01] LABS: ALANINE AMINOTRANSFERASE 121 U/L (12-78); ALBUMIN 2.5 G/DL (3.4-5.0); ALBUMIN/GLOBULIN RATIO 0.7 (1.1-1.5); ALKALINE PHOSPHATASE 147 IU/L (46-116); ANION GAP 12 (8-16); ASPARTATE AMINO TRANSFERASE 156 U/L (10-37); BILIRUBIN,TOTAL 2.2 MG/DL (0.1-1.0); BLOOD UREA NITROGEN 3 MG/DL (7-18); CALCIUM 8.7 MG/DL (8.5-10.1); CHLORIDE 106 MMOL/L (99-107); CREATININE 0.75 MG/DL (0.40-0.90); GLUCOSE 93 MG/DL (70-104); SODIUM 140 MMOL/L (135-145); TOTAL CARBON DIOXIDE 22.1 MMOL/L (24-32); TOTAL PROTEIN 6.2 G/DL (6.4-8.2); eGFR 88 ML/MIN
[2023-04-07] MEDS: sodium chloride inj. 154 MEQ in Dextrose 10%-water IV solution 961.5 ML IV SCH (17:01)
[2023-04-07 17:04] LABS: PHOSPHORUS 2.6 MG/DL (2.3-4.5)
--- NOTE | 2023-04-07 18:00 | NUR ---
Patient in room PCU 3009. I have received report from Denice LAMBERT and had the opportunity to ask questions and assume patient care.
[2023-04-07 20:23] LABS: ALANINE AMINOTRANSFERASE 120 U/L (12-78); ALBUMIN 2.3 G/DL (3.4-5.0); ALBUMIN/GLOBULIN RATIO 0.6 (1.1-1.5); ALKALINE PHOSPHATASE 133 IU/L (46-116); ANION GAP 13 (8-16); ASPARTATE AMINO TRANSFERASE 141 U/L (10-37); BLOOD UREA NITROGEN 3 MG/DL (7-18); BUN/CREATININE RATIO 4.8 (10.0-20.0); CALCIUM 8.8 MG/DL (8.5-10.1); CHLORIDE 106 MMOL/L (99-107); CREATININE 0.63 MG/DL (0.40-0.90); GLUCOSE 144 MG/DL (70-104); PHOSPHORUS 3.9 MG/DL (2.3-4.5); POTASSIUM 3.5 MMOL/L (3.5-5.1); SODIUM 139 MMOL/L (135-145); TOTAL PROTEIN 6.1 G/DL (6.4-8.2); eGFR > 90 ML/MIN
[2023-04-07] MEDS: HYDROcodone/acetaminophen 5mg/325mg tablet PO PRN (20:47)
[2023-04-07 20:57] LABS: MAGNESIUM 1.1 MG/DL (1.5-2.4)
[2023-04-07] MEDS: insulin glargine (Lantus) pen - multi-dose SQ SCH (21:00)
[2023-04-08] VITALS (7 sets, daily range): BP systolic 88–123; BP diastolic 44–68; PULSE 53–72; RESP 14–18; TEMP 97.6–98.1; O2SAT 100
[2023-04-08] MEDS ORDERED: LORazepam 1 MG tablet PO PRN (00:50)
[2023-04-08] MEDS ORDERED: LORazepam 2 mg/ml vial IV PRN (00:50)
[2023-04-08] MEDS: normal saline 1000ml 1,000 ML IV SCH ×5 (01:10→21:10)
[2023-04-08] MEDS: HYDROcodone/acetaminophen 5mg/325mg tablet PO PRN ×5 (01:27→20:10)
[2023-04-08 01:32] LABS: ALANINE AMINOTRANSFERASE 128 U/L (12-78); ALBUMIN 2.6 G/DL (3.4-5.0); ALBUMIN/GLOBULIN RATIO 0.6 (1.1-1.5); ALKALINE PHOSPHATASE 142 IU/L (46-116); ANION GAP 13 (8-16); ASPARTATE AMINO TRANSFERASE 142 U/L (10-37); BILIRUBIN,TOTAL 2.2 MG/DL (0.1-1.0); BLOOD UREA NITROGEN 3 MG/DL (7-18); BUN/CREATININE RATIO 4.8 (10.0-20.0); CHLORIDE 105 MMOL/L (99-107); CREATININE 0.63 MG/DL (0.40-0.90); GLUCOSE 108 MG/DL (70-104); MAGNESIUM 1.1 MG/DL (1.5-2.4); PHOSPHORUS 3.3 MG/DL (2.3-4.5); POTASSIUM 3.4 MMOL/L (3.5-5.1); SODIUM 140 MMOL/L (135-145); TOTAL CARBON DIOXIDE 22.3 MMOL/L (24-32); TOTAL PROTEIN 6.7 G/DL (6.4-8.2); eGFR > 90 ML/MIN
[2023-04-08 02:19] LABS: BASOPHILS # (AUTO) 0.1 X10'3 (0-0.2); BASOPHILS % (AUTO) 1.8 % (0-1); EOSINOPHILS # (AUTO) 0.1 X10'3 (0-0.9); EOSINOPHILS % (AUTO) 1.4 % (0-6); HEMATOCRIT 36.2 % (35.0-45.0); HEMOGLOBIN 12.6 g/dl (12.0-16.0); LYMPHOCYTES # (AUTO) 1.4 X10'3 (1.1-4.8); MEAN CORPUSCULAR HGB CONC 34.7 g/dL (33.0-36.5); MEAN CORPUSCULAR VOLUME 100.8 FL (78-98); MEAN PLATELET VOLUME 8.2 FL (7.4-10.4); MONOCYTES # (AUTO) 0.6 X10'3 (0-0.9); MONOCYTES % (AUTO) 12.3 % (2-12); NEUTROPHILS # (AUTO) 2.5 X10'3 (1.8-7.7); NEUTROPHILS % (AUTO) 54.5 % (42-75); PLATELET COUNT 206 X10'3 (140-440); RED BLOOD COUNT 3.59 X10'6 (4.20-5.60); RED CELL DISTRIBUTION WIDTH 20.8 % (11.5-14.5); WHITE BLOOD COUNT 4.6 X10'3 (4.5-11.0)
[2023-04-08] MEDS: sodium chloride inj. 154 MEQ in Dextrose 10%-water IV solution 961.5 ML IV SCH ×2 (02:40→11:30)
[2023-04-08] MEDS: HYDROmorphone inj. 0.5 MG/0.5 ML DISP.SYRIN IV PRN ×5 (03:44→22:09)
--- NOTE | 2023-04-08 06:22 | NUR ---
Problems reprioritized. Patient report given, questions answered & plan of care reviewed with Denice LAMBERT.
[2023-04-08 06:35] LABS: HEMOGLOBIN 12.8 g/dl (12.0-16.0); RED CELL DISTRIBUTION WIDTH 20.7 % (11.5-14.5)
[2023-04-08 06:37] LABS: ALBUMIN 2.6 G/DL (3.4-5.0); ANION GAP 12 (8-16); BLOOD UREA NITROGEN 3 MG/DL (7-18); CALCIUM 9.1 MG/DL (8.5-10.1); CHLORIDE 106 MMOL/L (99-107); GLUCOSE 78 MG/DL (70-104); HEMATOCRIT 37.3 % (35.0-45.0); MEAN CORPUSCULAR HEMOGLOBIN 34.7 PG (27.0-31.0); MEAN CORPUSCULAR HGB CONC 34.3 g/dL (33.0-36.5); MEAN CORPUSCULAR VOLUME 101.1 FL (78-98); MEAN PLATELET VOLUME 8.1 FL (7.4-10.4); PHOSPHORUS 3.2 MG/DL (2.3-4.5); PLATELET COUNT 206 X10'3 (140-440); POTASSIUM 3.3 MMOL/L (3.5-5.1); RED BLOOD COUNT 3.69 X10'6 (4.20-5.60); SODIUM 140 MMOL/L (135-145); TOTAL CARBON DIOXIDE 21.8 MMOL/L (24-32); WHITE BLOOD COUNT 4.2 X10'3 (4.5-11.0); eGFR > 90 ML/MIN
[2023-04-08] MEDS: Insulin Reg/NS 100units/100mL 100 ML IV SCH (06:52)
[2023-04-08 07:30] LABS: ANISOCYTOSIS 3+; PLATELET ESTIMATE NORMAL; TOTAL CELLS COUNTED 100
[2023-04-08] MEDS: folic acid 1mg/0.2ml inj IV SCH (07:44)
[2023-04-08] MEDS: pantoprazole 40mg Tablet.DR PO SCH ×2 (07:44→20:10)
[2023-04-08] MEDS: ALPRAZolam 0.5mg tablet PO SCH ×2 (07:45→20:11)
[2023-04-08] MEDS: multivitamins, therapeutics tablet PO SCH (07:45)
[2023-04-08] MEDS: FLUoxetine 20mg capsule PO SCH (07:45)
[2023-04-08] MEDS: naltrexone 50mg tablet PO SCH (07:45)
[2023-04-08] MEDS: docusate sod 100mg capsule PO SCH ×2 (07:45→20:10)
[2023-04-08] MEDS: levoTHYROXINE 100mcg tablet PO SCH (07:45)
[2023-04-08] MEDS: thiamine 100mg/ml 2ml inj. IV SCH ×3 (07:46→20:11)
[2023-04-08] MEDS: thiamine 100mg tablet PO SCH (08:00)
[2023-04-08] MEDS: K and/or MAG REPLACEMENT MC SCH ×4 (08:00→20:00)
[2023-04-08] MEDS: lisinopril 10 MG tablet PO SCH (08:00)
[2023-04-08] MEDS: pantoprazole 40MG/NS 100ML BAG 100 ML IV SCH (08:00)
[2023-04-08] MEDS: POTASSIUM BICARB 20meq eff tab 20 MEQ TABLET.EFF PO SCH ×3 (08:00→20:11)
--- NOTE | 2023-04-08 09:34 | NUR ---
sent to [facility]: [id number] [place]: having trouble keeping bg up. last 3 are 62, 91, 72. pt wants to eat. can we stop dka and start sliding scale? thank you.
[2023-04-08] MEDS ORDERED: DEXTROSE 15 GM of carb/4 tabs (each vial/BOTTLE has 4 tablets) PO PRN ×2 (10:00)
[2023-04-08] MEDS ORDERED: dextrose 50%-water 50ml dispensing syringe IV PRN ×2 (10:00)
[2023-04-08] MEDS ORDERED: MESSAGE TO PHARMACY PO ONE (10:00)
[2023-04-08] MEDS ORDERED: glucagon, human recombinant 1mg kit SUBCUT PRN (10:00)
[2023-04-08 10:44] LABS: ALANINE AMINOTRANSFERASE 138 U/L (12-78); ALBUMIN 2.7 G/DL (3.4-5.0); ALBUMIN/GLOBULIN RATIO 0.6 (1.1-1.5); ALKALINE PHOSPHATASE 149 IU/L (46-116); ANION GAP 13 (8-16); ASPARTATE AMINO TRANSFERASE 168 U/L (10-37); BLOOD UREA NITROGEN 2 MG/DL (7-18); BUN/CREATININE RATIO 3.8 (10.0-20.0); CALCIUM 9.4 MG/DL (8.5-10.1); CHLORIDE 107 MMOL/L (99-107); CREATININE 0.52 MG/DL (0.40-0.90); GLUCOSE 95 MG/DL (70-104); MAGNESIUM 2.8 MG/DL (1.5-2.4); PHOSPHORUS 2.6 MG/DL (2.3-4.5); POTASSIUM 3.8 MMOL/L (3.5-5.1); SODIUM 139 MMOL/L (135-145); TOTAL CARBON DIOXIDE 19.5 MMOL/L (24-32); eGFR > 90 ML/MIN
[2023-04-08] MEDS: insulin Lispro (HumaLOG) vial - multi-dose SQ SCH ×3 (11:37→20:19)
--- NOTE | 2023-04-08 13:45 | NUR ---
F/u for DM consult: Attempted visit with pt at bedside however pt unavailable with curtains pulled back. Will attempt DM education at another time. Addendum: 04/08/23 at [address] Amended: Links added.
[2023-04-08 16:56] LABS: ALANINE AMINOTRANSFERASE 130 U/L (12-78); ALBUMIN 2.4 G/DL (3.4-5.0); ALBUMIN/GLOBULIN RATIO 0.6 (1.1-1.5); ALKALINE PHOSPHATASE 146 IU/L (46-116); ANION GAP 10 (8-16); ASPARTATE AMINO TRANSFERASE 200 U/L (10-37); BILIRUBIN,TOTAL 1.7 MG/DL (0.1-1.0); BLOOD UREA NITROGEN 2 MG/DL (7-18); BUN/CREATININE RATIO 3.3 (10.0-20.0); CALCIUM 9.1 MG/DL (8.5-10.1); CHLORIDE 109 MMOL/L (99-107); CREATININE 0.61 MG/DL (0.40-0.90); GLUCOSE 117 MG/DL (70-104); PHOSPHORUS 2.4 MG/DL (2.3-4.5); POTASSIUM 4.8 MMOL/L (3.5-5.1); SODIUM 141 MMOL/L (135-145); TOTAL CARBON DIOXIDE 21.8 MMOL/L (24-32); TOTAL PROTEIN 6.3 G/DL (6.4-8.2); eGFR > 90 ML/MIN
--- NOTE | 2023-04-08 18:00 | NUR ---
Patient in room PCU 3009. I have received report from FAUSTO Galdamez and had the opportunity to ask questions and assume patient care.
[2023-04-08] MEDS ORDERED: insulin glargine (Lantus) pen - multi-dose SQ SCH ×3 (20:00→21:00)
[2023-04-09] MEDS: HYDROcodone/acetaminophen 5mg/325mg tablet PO PRN ×3 (00:11→08:11)
[2023-04-09 02:00] VITALS: BP 142/92; PULSE 64; RESP 16; TEMP 98.2; O2SAT 99
[2023-04-09] MEDS: HYDROmorphone inj. 0.5 MG/0.5 ML DISP.SYRIN IV PRN ×2 (02:09→05:56)
[2023-04-09 06:00] VITALS: BP 130/90; PULSE 55; RESP 19; TEMP 97.5; O2SAT 99
--- NOTE | 2023-04-09 06:54 | NUR ---
Patient in room PCU 3009. I have received report from FAUSTO RAY, and had the opportunity to ask questions and assume patient care.
[2023-04-09] MEDS: levoTHYROXINE 100mcg tablet PO SCH (07:30)
[2023-04-09] MEDS: normal saline 1000ml 1,000 ML IV SCH (07:33)
[2023-04-09 08:00] VITALS: RESP 19; O2SAT 99
[2023-04-09 08:06] LABS: BASOPHILS # (AUTO) 0.1 X10'3 (0-0.2); HEMOGLOBIN 12.4 g/dl (12.0-16.0); LYMPHOCYTES # (AUTO) 1.2 X10'3 (1.1-4.8); MEAN PLATELET VOLUME 8.6 FL (7.4-10.4); MONOCYTES # (AUTO) 0.4 X10'3 (0-0.9); NEUTROPHILS # (AUTO) 1.8 X10'3 (1.8-7.7)
[2023-04-09 08:08] LABS: BASOPHILS % (AUTO) 2.9 % (0-1); EOSINOPHILS # (AUTO) 0.1 X10'3 (0-0.9); EOSINOPHILS % (AUTO) 1.9 % (0-6); LYMPHOCYTES % (AUTO) 33.5 % (21-51); MEAN CORPUSCULAR HEMOGLOBIN 34.2 PG (27.0-31.0); MEAN CORPUSCULAR HGB CONC 33.6 g/dL (33.0-36.5); MEAN CORPUSCULAR VOLUME 101.6 FL (78-98); MONOCYTES % (AUTO) 11.7 % (2-12); PLATELET COUNT 200 X10'3 (140-440); RED BLOOD COUNT 3.64 X10'6 (4.20-5.60); RED CELL DISTRIBUTION WIDTH 21.2 % (11.5-14.5); WHITE BLOOD COUNT 3.7 X10'3 (4.5-11.0)
[2023-04-09] MEDS: ALPRAZolam 0.5mg tablet PO SCH (08:09)
[2023-04-09] MEDS: POTASSIUM BICARB 20meq eff tab 20 MEQ TABLET.EFF PO SCH (08:09)
[2023-04-09 08:10] VITALS: BP_SYST 130; PULSE 76
[2023-04-09] MEDS: FLUoxetine 20mg capsule PO SCH (08:10)
[2023-04-09] MEDS: lisinopril 10 MG tablet PO SCH (08:10)
[2023-04-09] MEDS: multivitamins, therapeutics tablet PO SCH (08:10)
[2023-04-09 08:11] VITALS: RESP 18
[2023-04-09] MEDS: docusate sod 100mg capsule PO SCH (08:11)
[2023-04-09] MEDS: pantoprazole 40mg Tablet.DR PO SCH (08:11)
[2023-04-09] MEDS: thiamine 100mg tablet PO SCH (08:11)
[2023-04-09] MEDS: insulin Lispro (HumaLOG) vial - multi-dose SQ SCH (09:10)
[2023-04-09] MEDS: naltrexone 50mg tablet PO SCH (09:11)
[2023-04-09 09:14] LABS: ALANINE AMINOTRANSFERASE 131 U/L (12-78); ALBUMIN 2.6 G/DL (3.4-5.0); ALBUMIN/GLOBULIN RATIO 0.6 (1.1-1.5); ALKALINE PHOSPHATASE 142 IU/L (46-116); ANION GAP 11 (8-16); ASPARTATE AMINO TRANSFERASE 150 U/L (10-37); BILIRUBIN,TOTAL 1.6 MG/DL (0.1-1.0); BLOOD UREA NITROGEN 6 MG/DL (7-18); BUN/CREATININE RATIO 12.5 (10.0-20.0); CALCIUM 9.5 MG/DL (8.5-10.1); CHLORIDE 106 MMOL/L (99-107); CREATININE 0.48 MG/DL (0.40-0.90); GLUCOSE 221 MG/DL (70-104); MAGNESIUM 1.5 MG/DL (1.5-2.4); POTASSIUM 4.8 MMOL/L (3.5-5.1); SODIUM 136 MMOL/L (135-145); TOTAL CARBON DIOXIDE 18.7 MMOL/L (24-32); TOTAL PROTEIN 6.7 G/DL (6.4-8.2); eGFR > 90 ML/MIN
--- NOTE | 2023-04-09 11:18 | NUR ---
PT STABLE FOR DISCHARGE PER MD. DISCHARGE AND FOLLOW UP INSTRUCTIONS REVIEWED. APPROPRIATED PAPERWORK SIGNED. TELE BOX REMOVED. PIVS REMOVED WITH TIPS INTACT. BELONGINGS GATHERED AND RETURNED WITH PT. NO NEW MEDS. PT DISCHARGED TO HOME. PT TRANSFERRED TO PRIVATE VEHICLE BY HOSPITAL STAFF.
[2023-04-09] MEDS ORDERED: insulin glargine (Lantus) pen - multi-dose SQ SCH (21:00)
[2023-04-10] MEDS ORDERED: LORazepam 2 mg/ml vial IV PRN (00:50)
[2023-04-10] MEDS ORDERED: LORazepam 1 MG tablet PO PRN (00:50)
[2023-04-10] MEDS ORDERED: folic acid 1mg tablet PO SCH (08:00)
[2023-04-10] MEDS ORDERED: thiamine 100mg tablet PO SCH (08:00)
[2023-04-10 08:13] LABS: ABG PCO2 (T) < 10.0 mmHg (32.0-45.0)
== END 2023-04-09 10:50 | disposition home or self-care (01) | DRG 420 ==
LOC: ER 18:34 → ED HOLD 04-06 00:56 → EDBEDREQ 04-06 09:07 → PCU 3S 04-06 10:27
PROVIDERS: ADMIT Family Medicine; ATTEND Family Medicine
DX: E10.10 Type 1 diabetes mellitus with ketoacidosis without coma (principal); N17.0 Acute kidney failure with tubular necrosis; E10.22 Type 1 diabetes mellitus with diabetic chronic kidney disease; K70.9 Alcoholic liver disease, unspecified; E83.39 Other disorders of phosphorus metabolism; E87.1 Hypo-osmolality and hyponatremia; E83.42 Hypomagnesemia; R74.01 Elevation of levels of liver transaminase levels; E87.6 Hypokalemia; F10.20 Alcohol dependence, uncomplicated; I12.9 Hypertensive chronic kidney disease with stage 1 through stage 4 chronic kidney disease, or unspecified chronic kidney disease; K76.0 Fatty (change of) liver, not elsewhere classified; K86.1 Other chronic pancreatitis; N18.9 Chronic kidney disease, unspecified; Z72.0 Tobacco use; Z79.4 Long term (current) use of insulin; Z79.84 Long term (current) use of oral hypoglycemic drugs; Z90.49 Acquired absence of other specified parts of digestive tract; Z88.8 Allergy status to other drugs, medicaments and biological substances; Z91.018 Allergy to other foods; Z79.899 Other long term (current) drug therapy; Z71.6 Tobacco abuse counseling; Z71.41 Alcohol abuse counseling and surveillance of alcoholic
CPT/HCPCS: 36415; 36600; 71045; 74176; 80048; 80053; 80061; 80305; 80320; 81001; 82803; 82948; 83036; 83690; 83735; 83880; 84100; 85007; 85008; 85018; 85025; 85610; 85730; 87088; 93005; 99285; G0378; J1170; J1815; J2270; J2405; J3411; J3475; J3480; J3490; J7030; J7040; J7050; J7060; Q9968

== ENCOUNTER 2023-04-28 14:58 | Inpatient (IN) | payer MEDICAID ==
[~2023-04-28] VITALS: Ht 160 cm; Wt 71.9 kg
[~2023-04-28 14:58] MED LIST changes: -ALPR0.255 PO; +ALPR0.5T10 PO; -CHLO25CA10 PO; -CITA10TA22 PO; +FLUO-1 PO; -FOLI1TAB27 PO; +INSU100V9 SQ; -LANTUS SQ; +METF-900 PO; +NALT50TA PO; +PANT-47 PO; -PANT40TA54 PO; +THIA100T66 PO; -VERA120T2 PO; -thiamine tablet PO
[2023-04-28] MEDS ORDERED: ringers solution, lacted 1,000 ML IV ONE (15:30)
[2023-04-28] MEDS ORDERED: pantoprazole 40 MG vial IV ONE (15:30)
[2023-04-28] MEDS ORDERED: LORazepam 2 mg/ml vial IV ONE (15:30)
--- NOTE | 2023-04-28 15:30 | NUR ---
Per patient she does not have menstruation because she has IUD and denied possibility of and that she was not sexually active
[2023-04-28] MEDS ORDERED: pantoprazole 40MG/NS 100ML BAG 100 ML IV ONE (15:40)
--- NOTE | 2023-04-28 15:49 | NUR ---
[facility] Steele's instruction
[2023-04-28 16:04] LABS: BASOPHILS # (AUTO) 0.1 X10'3 (0-0.2); BASOPHILS % (AUTO) 0.8 % (0-1); EOSINOPHILS % (AUTO) 0 % (0-6); HEMATOCRIT 41.6 % (35.0-45.0); HEMOGLOBIN 13.5 g/dl (12.0-16.0); LYMPHOCYTES # (AUTO) 0.8 X10'3 (1.1-4.8); LYMPHOCYTES % (AUTO) 8.6 % (21-51); MEAN CORPUSCULAR HEMOGLOBIN 34.3 PG (27.0-31.0); MEAN CORPUSCULAR HGB CONC 32.6 g/dL (33.0-36.5); MEAN CORPUSCULAR VOLUME 105.3 FL (78-98); MONOCYTES # (AUTO) 0.3 X10'3 (0-0.9); MONOCYTES % (AUTO) 3.4 % (2-12); NEUTROPHILS # (AUTO) 8.3 X10'3 (1.8-7.7); NEUTROPHILS % (AUTO) 87.2 % (42-75); PLATELET COUNT 258 X10'3 (140-440); RED BLOOD COUNT 3.94 X10'6 (4.20-5.60); RED CELL DISTRIBUTION WIDTH 18.7 % (11.5-14.5); WHITE BLOOD COUNT 9.5 X10'3 (4.5-11.0)
[2023-04-28 16:14] LABS: ALANINE AMINOTRANSFERASE 125 U/L (12-78); ALBUMIN/GLOBULIN RATIO 0.9 (1.1-1.5); ALKALINE PHOSPHATASE 157 IU/L (46-116); ANION GAP 38 (8-16); ASPARTATE AMINO TRANSFERASE 324 U/L (10-37); BILIRUBIN,TOTAL 2.4 MG/DL (0.1-1.0); BLOOD UREA NITROGEN 8 MG/DL (7-18); BUN/CREATININE RATIO 8.3 (10.0-20.0); CALCIUM 8.6 MG/DL (8.5-10.1); CHLORIDE 93 MMOL/L (99-107); CREATININE 0.96 MG/DL (0.40-0.90); GLUCOSE 313 MG/DL (70-104); LIPASE 79 U/L (73-393); POTASSIUM 3.9 MMOL/L (3.5-5.1); SODIUM 140 MMOL/L (135-145); TOTAL PROTEIN 8.7 G/DL (6.4-8.2); eCRCL 68 ML/MIN; eGFR 67 ML/MIN
[2023-04-28 16:24] LABS: TOTAL CARBON DIOXIDE 8.6 MMOL/L (24-32)
[2023-04-28 16:25] LABS: ANISOCYTOSIS 2+; PLATELET ESTIMATE NORMAL; ROULEAUX 1+
--- NOTE | 2023-04-28 16:27 | NUR ---
PT CO2 8.6 AND MAG 1.0. RN NOTIFIED DR SAVAGE AND JOHN LAMBERT.
--- NOTE | 2023-04-28 16:28 | NUR ---
CIWA (Clinical Shirley Withdrawal Assessment of Alcohol Scale) is 24. Dr. Steele notified and got instruction to give the Ativan IV
[2023-04-28] MEDS ORDERED: magnesium 2GM in 50ml NS 50 ML IV ONE ×2 (16:40→18:30)
[2023-04-28] MEDS ORDERED: VERA120T86 PO (16:41)
[2023-04-28] MEDS ORDERED: NALT50TA PO (16:41)
[2023-04-28] MEDS ORDERED: LEVO100T9 PO (16:41)
[2023-04-28] MEDS ORDERED: ALPR0.5T8 PO (16:41)
[2023-04-28] MEDS ORDERED: METF-900 PO (16:41)
[2023-04-28] MEDS ORDERED: PANT20TA18 PO (16:41)
[2023-04-28] MEDS ORDERED: LANTUS SQ (16:42)
[2023-04-28] MEDS ORDERED: LISI10TA27 PO (16:42)
[2023-04-28] MEDS ORDERED: THIA100T66 PO (16:42)
[2023-04-28] MEDS ORDERED: Insulin Reg/NS 100units/100mL 100 ML IV SCH (16:50)
[2023-04-28] MEDS ORDERED: sodium bicarbonate (8.4%) inj. 100 MEQ in dextrose 5% water 500ml 500 ML IV PRN (16:50)
[2023-04-28] MEDS ORDERED: potassium Cl 40MEQ/1/2NS 520ml 520 ML IV PRN ×3 (16:50)
[2023-04-28] MEDS ORDERED: metoclopramide 5 mg/ml inj IV PRN (16:50)
[2023-04-28] MEDS ORDERED: cyclobenzaprine 10mg tablet PO PRN (16:50)
[2023-04-28] MEDS ORDERED: acetaminophen 325mg tablet PO PRN ×2 (16:50)
[2023-04-28] MEDS ORDERED: magnesium 2GM in 50ml NS 50 ML IV PRN (16:50)
[2023-04-28] MEDS ORDERED: sodium phosphate inj. 30 MMOL in dextrose 5%-water 250 ML IV PRN (16:50)
[2023-04-28] MEDS ORDERED: sodium bicarbonate (8.4%) inj. 50 MEQ in dextrose 5% water 500ml 250 ML IV PRN (16:50)
[2023-04-28] MEDS ORDERED: morphine 2 MG/ML inj. syringe IV PRN (16:50)
[2023-04-28] MEDS ORDERED: haloperidol lactate 5mg/ml inj IM PRN (16:50)
[2023-04-28] MEDS ORDERED: loperamide 2mg capsule PO PRN ×2 (16:50)
[2023-04-28] MEDS ORDERED: magnesium Cl slow-release 64mg tablet PO PRN (16:50)
[2023-04-28] MEDS ORDERED: Neutra Phos packet PO PRN (16:50)
[2023-04-28] MEDS ORDERED: magnesium hydroxide 30ml (MOM) UD suspension PO PRN (16:50)
[2023-04-28] MEDS ORDERED: sodium phosphate inj. 15 MMOL in dextrose 5%-water 250 ML IV PRN (16:50)
[2023-04-28] MEDS ORDERED: insulin regular, human U-100 3ml vial - multi-dose IV PRN (16:50)
[2023-04-28] MEDS ORDERED: HYDROcodone/acetaminophen 5mg/325mg tablet PO PRN (16:50)
[2023-04-28] MEDS ORDERED: thiamine 100mg/ml 2ml inj. IV ONE (16:50)
[2023-04-28] MEDS ORDERED: magnesium 4gm in 100ml NS 100 ML IV PRN (16:50)
[2023-04-28] MEDS ORDERED: ondansetron/PF 4mg/2ml inj IV PRN (16:50)
[2023-04-28] MEDS ORDERED: potassium Cl 20 mEq SR tablet PO PRN ×4 (16:50)
[2023-04-28] MEDS ORDERED: mag hydrox/Alum hydrox/simeth 30ml oral suspension PO PRN ×2 (16:50)
[2023-04-28] MEDS ORDERED: dextrose 50%-water 50ml dispensing syringe IV PRN (16:50)
--- NOTE | 2023-04-28 17:19 | NUR ---
IV Magnesium given faster per Dr. Steele. Dr. Steele runs the first bag faster then another 2 gm IV Magnesium started on faster rate per Dr. Steele's order
[2023-04-28] MEDS: normal saline 1000ml 1,000 ML IV SCH ×4 (17:20→20:56)
[2023-04-28 17:36] LABS: ALBUMIN 3.8 G/DL (3.4-5.0); ANION GAP 33 (8-16); BLOOD UREA NITROGEN 8 MG/DL (7-18); BUN/CREATININE RATIO 8.5 (10.0-20.0); CALCIUM 8.8 MG/DL (8.5-10.1); CHLORIDE 92 MMOL/L (99-107); CREATININE 0.94 MG/DL (0.40-0.90); GLUCOSE 355 MG/DL (70-104); MAGNESIUM 1.7 MG/DL (1.5-2.4); PHOSPHORUS 4.2 MG/DL (2.3-4.5); POTASSIUM 4.6 MMOL/L (3.5-5.1); SODIUM 135 MMOL/L (135-145); eCRCL 70 ML/MIN; eGFR 68 ML/MIN
[2023-04-28 17:39] LABS: TOTAL CARBON DIOXIDE 10.4 MMOL/L (24-32)
[2023-04-28] MEDS: folic acid 1mg/0.2ml inj IV SCH (17:43)
[2023-04-28] MEDS: LORazepam 2 mg/ml vial IV PRN ×4 (17:50→23:39)
[2023-04-28 18:29] LABS: BILIRUBIN,URINE NEGATIVE (Neg); CLARITY,URINE SLIGHTLY CLOUDY (Clear); COLOR,URINE YELLOW (Yellow); GLUCOSE, URINE >=1000 mg/dl (Neg); KETONES,URINE >=80 mg/dl (Neg); LEUKOCYTE ESTERASE ,URINE NEGATIVE (Neg); NITRITES, URINE NEGATIVE (Neg); OCCULT BLOOD,URINE SMALL (Neg); PH,URINE 5.5 (4.8-8.0); PROTEIN,URINE 100 mg/dl (Neg); UROBILINOGEN,URINE 0.2 E.U/dL (0.2-1.0)
[2023-04-28 19:11] LABS: UA COLLECTION TYPE NON-SPECIFIED
[2023-04-28 19:12] LABS: HYALINE CASTS 0-3 /LPF (NEGATIVE); SQUAMOUS EPITHELIAL CELL,UR FEW /LPF (FEW)
[2023-04-28 19:13] LABS: BACTERIA,URINE 1+ /HPF (Neg); RBC,URINE 0-2 /HPF (0-2); WBC,URINE 0-4 /HPF (0-4)
--- NOTE | 2023-04-28 19:46 | NUR ---
bg 189, 2nd bag of fluids started.
[2023-04-28] MEDS: docusate sod 100mg capsule PO SCH (20:00)
[2023-04-28] MEDS ORDERED: K and/or MAG REPLACEMENT MC SCH (20:00)
[2023-04-28] MEDS: potassium CL 20mEq in D5-1/2NS 1,000 ML IV PRN (20:33)
--- NOTE | 2023-04-28 20:57 | NUR ---
PT PLACED ONTO A HOSPITAL BED.
[2023-04-28 21:15] LABS: ALBUMIN 3.4 G/DL (3.4-5.0); ANION GAP 19 (8-16); BLOOD UREA NITROGEN 7 MG/DL (7-18); BUN/CREATININE RATIO 8.4 (10.0-20.0); CALCIUM 7.6 MG/DL (8.5-10.1); CHLORIDE 100 MMOL/L (99-107); CREATININE 0.83 MG/DL (0.40-0.90); GLUCOSE 116 MG/DL (70-104); PHOSPHORUS 2.4 MG/DL (2.3-4.5); POTASSIUM 3.9 MMOL/L (3.5-5.1); SODIUM 137 MMOL/L (135-145); TOTAL CARBON DIOXIDE 17.6 MMOL/L (24-32); eCRCL 79 ML/MIN; eGFR 79 ML/MIN
[2023-04-28 21:25] LABS: MAGNESIUM 1.8 MG/DL (1.5-2.4)
[2023-04-28] MEDS: K and/or MAG REPLACEMENT MC SCH (21:36)
[2023-04-28] MEDS: thiamine 100mg/ml 2ml inj. IV SCH (21:44)
[2023-04-28 23:41] LABS: ALANINE AMINOTRANSFERASE 94 U/L (12-78); ALBUMIN 3.3 G/DL (3.4-5.0); ALBUMIN/GLOBULIN RATIO 0.8 (1.1-1.5); ALKALINE PHOSPHATASE 124 IU/L (46-116); ANION GAP 17 (8-16); ASPARTATE AMINO TRANSFERASE 197 U/L (10-37); BLOOD UREA NITROGEN 6 MG/DL (7-18); CALCIUM 7.7 MG/DL (8.5-10.1); CHLORIDE 102 MMOL/L (99-107); GLUCOSE 93 MG/DL (70-104); SODIUM 138 MMOL/L (135-145); TOTAL CARBON DIOXIDE 19.3 MMOL/L (24-32); TOTAL PROTEIN 7.2 G/DL (6.4-8.2); eCRCL 109 ML/MIN; eGFR > 90 ML/MIN
[2023-04-28] MEDS: morphine 2 MG/ML inj. syringe IV PRN (23:46)
[2023-04-29] MEDS: normal saline 1000ml 1,000 ML IV SCH ×2 (00:50→22:04)
[2023-04-29] MEDS: potassium CL 20mEq in D5-1/2NS 1,000 ML IV PRN (01:05)
[2023-04-29 01:21] LABS: ALANINE AMINOTRANSFERASE 85 U/L (12-78); ALBUMIN 3.1 G/DL (3.4-5.0); ALBUMIN/GLOBULIN RATIO 0.8 (1.1-1.5); ALKALINE PHOSPHATASE 113 IU/L (46-116); ANION GAP 15 (8-16); ASPARTATE AMINO TRANSFERASE 165 U/L (10-37); BILIRUBIN,TOTAL 2.7 MG/DL (0.1-1.0); BLOOD UREA NITROGEN 5 MG/DL (7-18); BUN/CREATININE RATIO 7.4 (10.0-20.0); CALCIUM 7.6 MG/DL (8.5-10.1); CHLORIDE 101 MMOL/L (99-107); CREATININE 0.68 MG/DL (0.40-0.90); GLUCOSE 204 MG/DL (70-104); POTASSIUM 4.2 MMOL/L (3.5-5.1); SODIUM 138 MMOL/L (135-145); TOTAL CARBON DIOXIDE 22.2 MMOL/L (24-32); TOTAL PROTEIN 6.8 G/DL (6.4-8.2); eCRCL 96 ML/MIN; eGFR > 90 ML/MIN
--- NOTE | 2023-04-29 01:47 | NUR ---
spoke with dr knowles regarding pt dka and dehydration resolved with normal lab values per protocol and pt ate turkey sandwich, 1/2 jello and had apple juice with no nausea. per dr knowles, ok to stop insulin drip, and order hyperglycemia management protocol.
[2023-04-29] MEDS: LORazepam 2 mg/ml vial IV PRN ×9 (02:11→21:31)
--- NOTE | 2023-04-29 02:25 | NUR ---
spoke with dr knowles regarding maintenance fluids since dka protocol has stopped. per dr knowles, give D5W 0.45NS with 20meq of K+ at 150 mls/hr for maintenance.
[2023-04-29] MEDS: potassium CL 20mEq in D5-1/2NS 1,000 ML IV SCH ×3 (02:42→13:33)
[2023-04-29 04:01] LABS: BASOPHILS % (AUTO) 0.9 % (0-1); EOSINOPHILS # (AUTO) 0.1 X10'3 (0-0.9); EOSINOPHILS % (AUTO) 1.2 % (0-6); HEMATOCRIT 33.7 % (35.0-45.0); HEMOGLOBIN 11.6 g/dl (12.0-16.0); LYMPHOCYTES # (AUTO) 1.3 X10'3 (1.1-4.8); LYMPHOCYTES % (AUTO) 30.2 % (21-51); MEAN CORPUSCULAR HEMOGLOBIN 34.8 PG (27.0-31.0); MEAN CORPUSCULAR HGB CONC 34.4 g/dL (33.0-36.5); MEAN CORPUSCULAR VOLUME 101.3 FL (78-98); MEAN PLATELET VOLUME 7.8 FL (7.4-10.4); MONOCYTES # (AUTO) 0.3 X10'3 (0-0.9); MONOCYTES % (AUTO) 6.1 % (2-12); NEUTROPHILS # (AUTO) 2.7 X10'3 (1.8-7.7); NEUTROPHILS % (AUTO) 61.6 % (42-75); PLATELET COUNT 119 X10'3 (140-440); RED BLOOD COUNT 3.33 X10'6 (4.20-5.60); RED CELL DISTRIBUTION WIDTH 18.3 % (11.5-14.5); WHITE BLOOD COUNT 4.5 X10'3 (4.5-11.0)
[2023-04-29 04:19] LABS: ALANINE AMINOTRANSFERASE 78 U/L (12-78); ALBUMIN 3.1 G/DL (3.4-5.0); ALBUMIN/GLOBULIN RATIO 0.8 (1.1-1.5); ALKALINE PHOSPHATASE 117 IU/L (46-116); ANION GAP 12 (8-16); ASPARTATE AMINO TRANSFERASE 146 U/L (10-37); BILIRUBIN,TOTAL 3.1 MG/DL (0.1-1.0); BLOOD UREA NITROGEN 5 MG/DL (7-18); BUN/CREATININE RATIO 9.4 (10.0-20.0); CALCIUM 7.8 MG/DL (8.5-10.1); CHLORIDE 102 MMOL/L (99-107); CREATININE 0.53 MG/DL (0.40-0.90); GLUCOSE 246 MG/DL (70-104); MAGNESIUM 1.6 MG/DL (1.5-2.4); PHOSPHORUS 1.4 MG/DL (2.3-4.5); POTASSIUM 4.4 MMOL/L (3.5-5.1); SODIUM 136 MMOL/L (135-145); TOTAL CARBON DIOXIDE 22.3 MMOL/L (24-32); TOTAL PROTEIN 6.9 G/DL (6.4-8.2); eCRCL 124 ML/MIN; eGFR > 90 ML/MIN
[2023-04-29] MEDS: morphine 2 MG/ML inj. syringe IV PRN ×4 (05:26→21:31)
[2023-04-29] MEDS: K and/or MAG REPLACEMENT MC SCH ×2 (08:00→20:00)
[2023-04-29] MEDS: thiamine 100mg/ml 2ml inj. IV SCH ×3 (09:03→20:48)
[2023-04-29] MEDS: enoxaparin 40mg/0.4ml syringe SUBCUT SCH (09:08)
[2023-04-29] MEDS: docusate sod 100mg capsule PO SCH ×2 (09:08→20:48)
[2023-04-29] MEDS: verapamil SR 120mg (sust. release) tab PO SCH (09:09)
[2023-04-29] MEDS: lisinopril 10 MG tablet PO SCH (09:11)
[2023-04-29] MEDS ORDERED: glucagon, human recombinant 1mg kit SUBCUT PRN (10:25)
[2023-04-29] MEDS ORDERED: DEXTROSE 15 GM of carb/4 tabs (each vial/BOTTLE has 4 tablets) PO PRN ×2 (10:25)
[2023-04-29] MEDS ORDERED: dextrose 50%-water 50ml dispensing syringe IV PRN ×2 (10:25)
[2023-04-29] MEDS: folic acid 1mg/0.2ml inj IV SCH (10:46)
[2023-04-29] MEDS: insulin Lispro (HumaLOG) vial - multi-dose SQ SCH ×3 (10:55→21:15)
--- NOTE | 2023-04-29 11:20 | NUR ---
Patient in room 3021 U. I have received report from Valentina LAMBERT and had the opportunity to ask questions and assume patient care. Pt awake and alert, Calm without S/S of withdraw. Requesting morphine IV and Ativan. Morphine 2mg given. Will assess Ativan orders and time last given. Addendum: 04/29/23 at 1125 by Lisa Mendoza RN Amended: Links added.
[2023-04-29 11:22] VITALS: BP 130/79; PULSE 90; RESP 16; TEMP 98.3; O2SAT 99
[2023-04-29 12:00] VITALS: RESP 16; O2SAT 98
[2023-04-29 15:00] VITALS: BP 125/82; PULSE 112; RESP 19; TEMP 98.3; O2SAT 99
[2023-04-29 18:00] VITALS: BP 132/87; PULSE 67; RESP 15; TEMP 98.7; O2SAT 97
--- NOTE | 2023-04-29 18:41 | NUR ---
Problems reprioritized. Patient report given, questions answered & plan of care reviewed with Celestine LAMBERT. Addendum: 04/29/23 at 1842 by Lisa Mendoza RN Amended: Links added.
[2023-04-29 20:00] VITALS: RESP 16; O2SAT 98
[2023-04-29] MEDS: insulin glargine (Lantus) pen - multi-dose SQ SCH (21:14)
[2023-04-29 22:00] VITALS: BP 136/86; PULSE 84; RESP 17; TEMP 97.2; O2SAT 100
[2023-04-30] VITALS (7 sets, daily range): BP systolic 97–151; BP diastolic 70–89; PULSE 75–97; RESP 14–18; TEMP 97–98.2; O2SAT 98–100
[2023-04-30] MEDS: HYDROcodone/acetaminophen 10/325mg tab PO PRN ×5 (01:49→23:34)
[2023-04-30] MEDS: LORazepam 2 mg/ml vial IV PRN ×5 (01:49→23:42)
--- NOTE | 2023-04-30 06:38 | NUR ---
Patient in room PCU 3021. I have received report from Celestine LAMBERT and had the opportunity to ask questions and assume patient care.
[2023-04-30] MEDS: verapamil SR 120mg (sust. release) tab PO SCH (07:20)
[2023-04-30] MEDS: lisinopril 10 MG tablet PO SCH (07:20)
[2023-04-30] MEDS: docusate sod 100mg capsule PO SCH ×2 (07:21→20:00)
[2023-04-30] MEDS: enoxaparin 40mg/0.4ml syringe SUBCUT SCH (07:22)
[2023-04-30 07:34] LABS: BASOPHILS % (AUTO) 0.9 % (0-1); EOSINOPHILS # (AUTO) 0.1 X10'3 (0-0.9); HEMATOCRIT 35.6 % (35.0-45.0); HEMOGLOBIN 12.2 g/dl (12.0-16.0); LYMPHOCYTES # (AUTO) 1.6 X10'3 (1.1-4.8); LYMPHOCYTES % (AUTO) 55.3 % (21-51); MEAN CORPUSCULAR HEMOGLOBIN 35.1 PG (27.0-31.0); MEAN CORPUSCULAR HGB CONC 34.2 g/dL (33.0-36.5); MEAN CORPUSCULAR VOLUME 102.5 FL (78-98); MONOCYTES # (AUTO) 0.1 X10'3 (0-0.9); MONOCYTES % (AUTO) 5.3 % (2-12); NEUTROPHILS % (AUTO) 35.5 % (42-75); PLATELET COUNT 96 X10'3 (140-440); RED BLOOD COUNT 3.48 X10'6 (4.20-5.60); RED CELL DISTRIBUTION WIDTH 17.9 % (11.5-14.5); WHITE BLOOD COUNT 2.8 X10'3 (4.5-11.0)
[2023-04-30] MEDS: normal saline 1000ml 1,000 ML IV SCH ×2 (07:47→18:02)
[2023-04-30 07:48] LABS: ALANINE AMINOTRANSFERASE 79 U/L (12-78); ALBUMIN 3.3 G/DL (3.4-5.0); ALBUMIN/GLOBULIN RATIO 0.8 (1.1-1.5); ALKALINE PHOSPHATASE 121 IU/L (46-116); ANION GAP 10 (8-16); ASPARTATE AMINO TRANSFERASE 139 U/L (10-37); BILIRUBIN,TOTAL 2.9 MG/DL (0.1-1.0); BLOOD UREA NITROGEN 4 MG/DL (7-18); BUN/CREATININE RATIO 7.7 (10.0-20.0); CALCIUM 8.5 MG/DL (8.5-10.1); CHLORIDE 104 MMOL/L (99-107); CREATININE 0.52 MG/DL (0.40-0.90); GLUCOSE 218 MG/DL (70-104); MAGNESIUM 1.5 MG/DL (1.5-2.4); PHOSPHORUS 2.7 MG/DL (2.3-4.5); POTASSIUM 3.9 MMOL/L (3.5-5.1); SODIUM 138 MMOL/L (135-145); TOTAL CARBON DIOXIDE 23.6 MMOL/L (24-32); TOTAL PROTEIN 7.3 G/DL (6.4-8.2); eCRCL 126 ML/MIN; eGFR > 90 ML/MIN
[2023-04-30] MEDS: K and/or MAG REPLACEMENT MC SCH ×2 (08:00→20:00)
[2023-04-30] MEDS: thiamine 100mg/ml 2ml inj. IV SCH (08:14)
[2023-04-30 08:15] LABS: ANISOCYTOSIS 1+; PLATELET ESTIMATE DECREASED; TOTAL CELLS COUNTED 100
[2023-04-30] MEDS: folic acid 1mg/0.2ml inj IV SCH (08:34)
--- NOTE | 2023-04-30 08:57 | NUR ---
Patient called and states she had fallen in the bathroom about 0630 this morning. She reports she slipped on her urine on the floor. States she didn't hurt herself or hit her head. States she just slid and then got back into bed. No new causes of pain. Reminded patient to use her call jalloh and wear the grippy socks. Notified charge nurse Guilherme and discussed interventions in place to prevent another fall.
[2023-04-30] MEDS: insulin Lispro (HumaLOG) vial - multi-dose SQ SCH ×3 (10:20→20:09)
--- NOTE | 2023-04-30 11:09 | NUR ---
Spokew with Dr Gleason about changing Thiamine and folic acid to PO
--- NOTE | 2023-04-30 12:41 | NUR ---
AGREE WITH SALES PERSON AM ASSESSMENT
--- NOTE | 2023-04-30 16:21 | NUR ---
Initial: Pt admit DX DKA, chronic pancreatitis, chronic alcoholism in etoh withdrawal, hypomagnesemia, chronic liver disease, and HTN per EMR. Pt hx T2DM A1C 8.5% prior 04/05/23 visit up from 7.6% 12/14/22 takes metformin BID and Lantus 32 units HS at home per EMR. PO ~53% first 4 carb controlled meals up to ~88% WL today partially meeting needs. Receiving routine thiamine and folic acid for etoh hx. No BM yet though admit 04/28 receiving colace w/ abdominal pain today per EMR. Pt would benefit from DM ed prior to discharge this admit. Will continue to follow. Rec: 1. continue carb controlled diet; encourage PO 2. monitor PO trends for ONS needs 3. routine bowel care 4. weekly wt 5. DM ed prior to discharge; A1C 8.5% 04/05/23 up from prior 7.6% 12/14/22 Addendum: 04/30/23 at [address] Amended: Links added.
--- NOTE | 2023-04-30 18:28 | NUR ---
Problems reprioritized. Patient report given, questions answered & plan of care reviewed with Dilcia AUTO BODY REPAIR TEACHER.
[2023-04-30] MEDS: insulin glargine (Lantus) pen - multi-dose SQ SCH (22:01)
[2023-05-01 02:00] VITALS: BP 142/82; PULSE 76; RESP 16; TEMP 98.1; O2SAT 99
[2023-05-01] MEDS: normal saline 1000ml 1,000 ML IV SCH (04:00)
[2023-05-01] MEDS: HYDROcodone/acetaminophen 10/325mg tab PO PRN (05:01)
[2023-05-01 06:00] VITALS: BP 147/95; PULSE 70; RESP 10; TEMP 97.7; O2SAT 100
--- NOTE | 2023-05-01 06:26 | NUR ---
Patient in room PCU 3021. I have received report from Dilcia and had the opportunity to ask questions and assume patient care.
[2023-05-01 06:48] LABS: EOSINOPHILS # (AUTO) 0.1 X10'3 (0-0.9); EOSINOPHILS % (AUTO) 4.4 % (0-6); HEMATOCRIT 33.6 % (35.0-45.0); HEMOGLOBIN 11.4 g/dl (12.0-16.0); LYMPHOCYTES # (AUTO) 1.4 X10'3 (1.1-4.8); LYMPHOCYTES % (AUTO) 45.9 % (21-51); MEAN CORPUSCULAR HEMOGLOBIN 35.3 PG (27.0-31.0); MEAN CORPUSCULAR VOLUME 103.6 FL (78-98); MEAN PLATELET VOLUME 8.1 FL (7.4-10.4); MONOCYTES # (AUTO) 0.2 X10'3 (0-0.9); MONOCYTES % (AUTO) 5.4 % (2-12); NEUTROPHILS # (AUTO) 1.3 X10'3 (1.8-7.7); NEUTROPHILS % (AUTO) 43.3 % (42-75); PLATELET COUNT 113 X10'3 (140-440); RED BLOOD COUNT 3.24 X10'6 (4.20-5.60); RED CELL DISTRIBUTION WIDTH 18.1 % (11.5-14.5)
[2023-05-01 06:49] LABS: ALANINE AMINOTRANSFERASE 93 U/L (12-78); ALBUMIN 2.9 G/DL (3.4-5.0); ALBUMIN/GLOBULIN RATIO 0.8 (1.1-1.5); ALKALINE PHOSPHATASE 127 IU/L (46-116); ANION GAP 9 (8-16); ASPARTATE AMINO TRANSFERASE 127 U/L (10-37); BILIRUBIN,TOTAL 1.8 MG/DL (0.1-1.0); BLOOD UREA NITROGEN 10 MG/DL (7-18); BUN/CREATININE RATIO 17.5 (10.0-20.0); CALCIUM 9.6 MG/DL (8.5-10.1); CHLORIDE 104 MMOL/L (99-107); CREATININE 0.57 MG/DL (0.40-0.90); GLUCOSE 287 MG/DL (70-104); MAGNESIUM 1.2 MG/DL (1.5-2.4); PHOSPHORUS 5.4 MG/DL (2.3-4.5); POTASSIUM 4.2 MMOL/L (3.5-5.1); SODIUM 136 MMOL/L (135-145); TOTAL CARBON DIOXIDE 23.3 MMOL/L (24-32); TOTAL PROTEIN 6.6 G/DL (6.4-8.2); eCRCL 115 ML/MIN; eGFR > 90 ML/MIN
[2023-05-01 07:58] LABS: TOTAL CELLS COUNTED 100
[2023-05-01 07:59] LABS: ANISOCYTOSIS 2+; PLATELET ESTIMATE DECREASED; POLYCHROMASIA 1+
[2023-05-01 08:00] VITALS: RESP 18; O2SAT 100
[2023-05-01] MEDS ORDERED: folic acid 1mg tablet PO SCH (08:00)
[2023-05-01] MEDS: K and/or MAG REPLACEMENT MC SCH (08:00)
[2023-05-01] MEDS ORDERED: thiamine 100mg tablet PO SCH (08:00)
[2023-05-01] MEDS: verapamil SR 120mg (sust. release) tab PO SCH (08:40)
[2023-05-01] MEDS: lisinopril 10 MG tablet PO SCH (08:41)
[2023-05-01] MEDS: docusate sod 100mg capsule PO SCH (08:41)
[2023-05-01] MEDS: enoxaparin 40mg/0.4ml syringe SUBCUT SCH (08:42)
[2023-05-01] MEDS: LORazepam 2 mg/ml vial IV PRN ×2 (08:53→13:22)
[2023-05-01] MEDS: insulin Lispro (HumaLOG) vial - multi-dose SQ SCH ×2 (10:22→13:51)
[2023-05-01 11:00] VITALS: BP 163/93; PULSE 67; RESP 18; TEMP 98.4; O2SAT 100
--- NOTE | 2023-05-01 13:03 | NUR ---
Diabetes consult: Pt seen at bedside this am for written/verbal diabetes nutrition education. Pt states she knows what to do but has difficulties implementing it. Discussed different meal/snack combination ideas to help with diabetes management. RD contact provided and encouraged to reach out for any nutrition questions or concerns. Addendum: 05/01/23 at [address] Amended: Links added.
--- NOTE | 2023-05-01 14:22 | NUR ---
Patient discharged -I dced her IV and telebox and returned to [facility]. Gave pt discharge paperwork and went over it and answered all questions. Pt was stable and had no c/o pain or discomfort at the time of discharge. Patient left with all her belongings in a private vehicle with her mother driving.
[2023-05-02] MEDS ORDERED: folic acid 1mg tablet PO SCH (08:00)
[2023-05-02] MEDS ORDERED: thiamine 100mg tablet PO SCH (08:00)
== END 2023-05-01 14:08 | disposition home or self-care (01) | DRG 420 ==
LOC: ER 14:59 → ED HOLD 16:56 → PCU 3S 04-29 11:21
PROVIDERS: ADMIT Internal Medicine; ATTEND Internal Medicine
DX: E11.10 Type 2 diabetes mellitus with ketoacidosis without coma (principal); E88.89 Other specified metabolic disorders; K76.89 Other specified diseases of liver; D53.9 Nutritional anemia, unspecified; E83.42 Hypomagnesemia; I10 Essential (primary) hypertension; R74.01 Elevation of levels of liver transaminase levels; F10.239 Alcohol dependence with withdrawal, unspecified; Z79.4 Long term (current) use of insulin; Z79.84 Long term (current) use of oral hypoglycemic drugs; Z79.899 Other long term (current) drug therapy; Z88.8 Allergy status to other drugs, medicaments and biological substances; Z91.018 Allergy to other foods; Z90.49 Acquired absence of other specified parts of digestive tract
CPT/HCPCS: 36415; 80048; 80053; 81001; 82948; 83690; 83735; 84100; 85007; 85008; 85025; 97161; 99285; C9113; G0378; J1630; J1650; J1815; J2060; J2270; J2405; J3411; J3475; J3480; J3490; J7030; J7120

== ENCOUNTER 2023-07-20 11:42 | Inpatient (IN) | payer MEDICAID ==
[~2023-07-20] VITALS: Ht 160 cm; Wt 74.0 kg
[~2023-07-20 11:42] MED LIST changes: -ALPR0.5T10 PO; +ALPR0.5T8 PO; -FLUO-1 PO; -INSU100V9 SQ; +INSU500I SQ; +LANTUS SQ; -LEVO100C4 PO; +LEVO100T9 PO; +LORA-269 PO; -METF-900 PO; -MULT-1085 PO; -PANT-47 PO; +PANT20TA18 PO; +VERA120T86 PO
[2023-07-20] MEDS ORDERED: HYDROmorphone inj. 0.5 MG/0.5 ML DISP.SYRIN IV ONE (12:20)
[2023-07-20] MEDS ORDERED: normal saline 1000ml 1,000 ML IV ONE ×2 (12:20→13:40)
[2023-07-20 12:48] LABS: CLARITY,URINE TURBID (Clear); COLOR,URINE BROWN (Yellow); URINE HCG NEGATIVE (NEG)
[2023-07-20 12:55] LABS: UA COLLECTION TYPE STRAIGHT CATH
[2023-07-20 12:56] LABS: HEMOGLOBIN 11.4 g/dl (12.0-16.0)
[2023-07-20 12:58] LABS: HEMATOCRIT 32.5 % (35.0-45.0); MEAN CORPUSCULAR HEMOGLOBIN 36.4 PG (27.0-31.0); MEAN PLATELET VOLUME 8.1 FL (7.4-10.4); PLATELET COUNT 261 X10'3 (140-440); RED BLOOD COUNT 3.13 X10'6 (4.20-5.60); RED CELL DISTRIBUTION WIDTH 19.5 % (11.5-14.5); WHITE BLOOD COUNT 9.8 X10'3 (4.5-11.0)
[2023-07-20 13:04] LABS: APTT 32 SECONDS (22-32); INR 1.6 INR; PROTHROMBIN TIME 16.4 SECONDS (9.0-12.0)
[2023-07-20 13:04] LABS: BACTERIA,URINE 4+ /HPF (Neg); MUCUS STRANDS NONE SEEN /LPF (Neg); RBC,URINE TNTC /HPF (0-2); SQUAMOUS EPITHELIAL CELL,UR NONE SEEN /LPF (FEW); WBC CLUMPS,URINE MODERATE /HPF (NEGATIVE); WBC,URINE 30-50 /HPF (0-4)
[2023-07-20 13:06] LABS: URINE AMPHETAMINE SCREEN NEGATIVE (Neg); URINE BARBITUATE SCREEN NEGATIVE (Neg); URINE BENZODIAZEPINES SCREEN NEGATIVE (Neg); URINE CANNABINOID SCREEN NEGATIVE (Neg); URINE COCAINE SCREEN NEGATIVE (Neg); URINE METHADONE SCREEN NEGATIVE (Neg); URINE OPIATE SCREEN POSITIVE (Neg); URINE PHENCYCLIDINE SCREEN NEGATIVE (Neg)
[2023-07-20 13:18] LABS: ALANINE AMINOTRANSFERASE 39 U/L (12-78); ALBUMIN 2.2 G/DL (3.4-5.0); ALKALINE PHOSPHATASE 330 IU/L (46-116); ANION GAP 14 (8-16); BLOOD UREA NITROGEN 3 MG/DL (7-18); CHLORIDE 76 MMOL/L (99-107); ETHANOL 213 MG/DL (<10); LIPASE 46 U/L (16-77); PRO BRAIN NATRIURETIC PEPTIDE 208 PG/ML (0-125); TOTAL CARBON DIOXIDE 26.1 MMOL/L (24-32)
[2023-07-20 13:21] LABS: NUCLEATED RED BLOOD CELLS 2 /100WBC (0-0); TOTAL CELLS COUNTED 100
[2023-07-20 13:22] LABS: ANISOCYTOSIS 2+; PLATELET ESTIMATE NORMAL; POLYCHROMASIA 2+; TARGET CELLS 3+
[2023-07-20] MEDS ORDERED: CefTRIAXone/D5W-Rocephin 1gm 50 ML IV ONE (13:25)
[2023-07-20 13:32] LABS: ASPARTATE AMINO TRANSFERASE 197 U/L (10-37); BILIRUBIN,TOTAL 29.2 MG/DL (0.1-1.0); BUN/CREATININE RATIO 4.1 (10.0-20.0); CREATININE 0.73 MG/DL (0.40-0.90); GLUCOSE 355 MG/DL (70-104); eCRCL 89 ML/MIN; eGFR > 90 ML/MIN
[2023-07-20 13:33] LABS: POTASSIUM 2.6 MMOL/L (3.5-5.1); SODIUM 116 MMOL/L (135-145)
[2023-07-20] MEDS ORDERED: magnesium 2GM in 50ml NS 50 ML IV ONE (13:40)
[2023-07-20] MEDS ORDERED: thiamine 100mg/ml 2ml inj. IV ONE (13:40)
[2023-07-20] MEDS ORDERED: potassium Cl 20mEq/100mL bag 100 ML IV SCH (13:40)
[2023-07-20] MEDS ORDERED: folic acid 1mg/0.2ml inj IV ONE (13:40)
[2023-07-20 13:52] LABS: CALCIUM 8.7 MG/DL (8.5-10.1); MAGNESIUM 1.4 MG/DL (1.5-2.4)
[2023-07-20] MEDS ORDERED: potassium Cl 20 mEq SR tablet PO PRN ×2 (13:55)
[2023-07-20] MEDS ORDERED: mag hydrox/Alum hydrox/simeth 30ml oral suspension PO PRN (13:55)
[2023-07-20] MEDS ORDERED: magnesium 2GM in 50ml NS 50 ML IV PRN (13:55)
[2023-07-20] MEDS ORDERED: ondansetron/PF 4mg/2ml inj IV PRN (13:55)
[2023-07-20] MEDS ORDERED: magnesium Cl slow-release 64mg tablet PO PRN (13:55)
[2023-07-20] MEDS ORDERED: magnesium hydroxide 30ml (MOM) UD suspension PO PRN (13:55)
[2023-07-20] MEDS ORDERED: magnesium 4gm in 100ml NS 100 ML IV PRN (13:55)
[2023-07-20] MEDS ORDERED: haloperidol lactate 5mg/ml inj IM PRN (14:00)
[2023-07-20] MEDS ORDERED: haloperidol 5mg tablet PO PRN (14:00)
[2023-07-20] MEDS ORDERED: FOLI1TAB27 PO (14:03)
[2023-07-20 14:06] LABS: ALBUMIN/GLOBULIN RATIO 0.6 (1.1-1.5); TOTAL PROTEIN 6.2 G/DL (6.4-8.2)
[2023-07-20] MEDS ORDERED: dextrose 50%-water 50ml dispensing syringe IV PRN ×2 (14:25)
[2023-07-20] MEDS ORDERED: glucagon, human recombinant 1mg kit SUBCUT PRN (14:25)
[2023-07-20] MEDS ORDERED: DEXTROSE 15 GM of carb/4 tabs (each vial/BOTTLE has 4 tablets) PO PRN (14:25)
[2023-07-20] MEDS ORDERED: MESSAGE TO PHARMACY PO ONE (14:25)
[2023-07-20 14:45] LABS: ALBUMIN 2.2 G/DL (3.4-5.0); ANION GAP 16 (8-16); BLOOD UREA NITROGEN 3 MG/DL (7-18); CALCIUM 8.8 MG/DL (8.5-10.1); CHLORIDE 76 MMOL/L (99-107); TOTAL CARBON DIOXIDE 25.3 MMOL/L (24-32)
[2023-07-20 14:54] LABS: BUN/CREATININE RATIO 5.3 (10.0-20.0); CREATININE 0.57 MG/DL (0.40-0.90); GLUCOSE 323 MG/DL (70-104); eCRCL 114 ML/MIN; eGFR > 90 ML/MIN
[2023-07-20 14:55] LABS: POTASSIUM 2.9 MMOL/L (3.5-5.1); SODIUM 117 MMOL/L (135-145)
--- NOTE | 2023-07-20 14:57 | NUR ---
POTASSIUM RUNNING 10 MEQ AN HOUR THROUGH PERIPHERAL IV.
[2023-07-20 16:51] LABS: ABG BASE EXCESS -2.1 mmol/L (-2.0-2.0); ABG HCO3 21.5 mmol/L (22.0-26.0); ABG OXYGEN SATURATION 91.2 % (94-97); ABG PCO2 (T) 32.6 mmHg (32.0-45.0); ABG PH (T) 7.437 (7.350-7.450); ABG PO2 (T) 62.5 mmHg (75.0-100.0); FCOHb 1.1 % (0.0-3.9); FHHb 8.7 % (0.0-5.0); FMetHb 0.3 % (0.0-1.5); FO2Hb 89.9 % (94-97); MODE ROOM AIR; TOTAL HEMOGLOBIN 10.1 G/dl (12.0-16.0)
[2023-07-20] MEDS: normal saline 1000ml 1,000 ML IV SCH (17:06)
--- NOTE | 2023-07-20 17:06 | NUR ---
DR RIOS AT BEDSIDE.
[2023-07-20] MEDS: insulin Lispro (HumaLOG) vial - multi-dose SQ SCH (18:12)
--- NOTE | 2023-07-20 18:44 | NUR ---
Patient placed on hospital bed for comfort.
[2023-07-20] MEDS: K and/or MAG REPLACEMENT MC SCH (19:46)
[2023-07-20] MEDS: docusate sod 100mg capsule PO SCH (19:47)
--- NOTE | 2023-07-20 19:54 | NUR ---
Patient states she is unable to tolerate oral Potassium, called pharmacy, to make IV potassium bag per order.
[2023-07-20 19:58] LABS: ALBUMIN 1.9 G/DL (3.4-5.0); ANION GAP 14 (8-16); BLOOD UREA NITROGEN 4 MG/DL (7-18); BUN/CREATININE RATIO 7.5 (10.0-20.0); CALCIUM 8.2 MG/DL (8.5-10.1); CHLORIDE 82 MMOL/L (99-107); CREATININE 0.53 MG/DL (0.40-0.90); TOTAL CARBON DIOXIDE 24.4 MMOL/L (24-32); eCRCL 123 ML/MIN; eGFR > 90 ML/MIN
[2023-07-20] MEDS: lactulose 20gm/30ml cup PO SCH (20:01)
[2023-07-20] MEDS: rifaximin 550mg tablet PO SCH (20:01)
[2023-07-20] MEDS: heparin, porcine 5000 units/ml vial SQ SCH (20:01)
[2023-07-20] MEDS: LORazepam 2 mg/ml vial IV PRN ×2 (20:02→22:36)
[2023-07-20] MEDS: thiamine 100mg/ml 2ml inj. IV SCH (20:02)
[2023-07-20 20:08] LABS: OSMOLALITY 285 MOSM/K (280-300)
[2023-07-20 20:10] LABS: GLUCOSE 302 MG/DL (70-104)
[2023-07-20 20:18] LABS: POTASSIUM 2.8 MMOL/L (3.5-5.1); SODIUM 120 MMOL/L (135-145)
[2023-07-20] MEDS: potassium Cl 40MEQ/1/2NS 520ml 520 ML IV PRN (20:18)
[2023-07-20] MEDS: insulin glargine (Lantus) pen - multi-dose SQ SCH (20:30)
--- NOTE | 2023-07-20 20:36 | NUR ---
Patient given ativan per protocol for withdrawl. Denies further needs at this time, call light within reach.
[2023-07-20] MEDS ORDERED: insulin glargine (Lantus) pen - multi-dose SQ SCH (21:00)
--- NOTE | 2023-07-20 21:26 | NUR ---
Patient resting in bed with eyes closed, respirations even and unlabored, no acute distress noted at this time, call light within reach.
--- NOTE | 2023-07-20 22:29 | NUR ---
Patient transportation technician light, states, "I am having so much pain in my back and my stomach." Reviewed eMAR, no orders for pain medicaiton, called and spoke with Dr. Aldrich, new orders received.
[2023-07-20] MEDS: HYDROcodone/acetaminophen 5mg/325mg tablet PO PRN (22:36)
[2023-07-21] VITALS (9 sets, daily range): BP systolic 102–121; BP diastolic 55–83; PULSE 92–109; RESP 13–27; TEMP 97.8–99.5; O2SAT 95–98
[2023-07-21] MEDS: potassium Cl 40MEQ/1/2NS 520ml 520 ML IV PRN (00:59)
[2023-07-21] MEDS: lactulose 20gm/30ml cup PO SCH ×4 (01:33→19:55)
--- NOTE | 2023-07-21 02:45 | NUR ---
Patient in room PCU 3009. I have received report from Virgen MAGALLANES RN and had the opportunity to ask questions and assume patient care.
[2023-07-21 02:54] LABS: HEMOGLOBIN 10.1 g/dl (12.0-16.0); MEAN CORPUSCULAR VOLUME 103.6 FL (78-98); MEAN PLATELET VOLUME 8.4 FL (7.4-10.4); WHITE BLOOD COUNT 8.8 X10'3 (4.5-11.0)
[2023-07-21 02:56] LABS: HEMATOCRIT 28.4 % (35.0-45.0); MEAN CORPUSCULAR HEMOGLOBIN 36.8 PG (27.0-31.0); MEAN CORPUSCULAR HGB CONC 35.5 g/dL (33.0-36.5); PLATELET COUNT 199 X10'3 (140-440); RED BLOOD COUNT 2.74 X10'6 (4.20-5.60); RED CELL DISTRIBUTION WIDTH 19.8 % (11.5-14.5)
[2023-07-21 03:03] LABS: INR 1.6 INR; PROTHROMBIN TIME 16.4 SECONDS (9.0-12.0)
[2023-07-21 03:19] LABS: ALANINE AMINOTRANSFERASE 31 U/L (12-78); ALBUMIN 1.8 G/DL (3.4-5.0); ANION GAP 9 (8-16); BLOOD UREA NITROGEN 4 MG/DL (7-18); BUN/CREATININE RATIO 7.5 (10.0-20.0); CHLORIDE 85 MMOL/L (99-107); CREATININE 0.53 MG/DL (0.40-0.90); MAGNESIUM 1.6 MG/DL (1.5-2.4); TOTAL CARBON DIOXIDE 25.8 MMOL/L (24-32); eCRCL 123 ML/MIN; eGFR > 90 ML/MIN
[2023-07-21 03:20] LABS: HEMOGLOBIN A1C 7.7 % (4.5-6.2)
[2023-07-21 03:41] LABS: ALKALINE PHOSPHATASE 278 IU/L (46-116); ASPARTATE AMINO TRANSFERASE 175 U/L (10-37)
[2023-07-21 03:43] LABS: NUCLEATED RED BLOOD CELLS 1 /100WBC (0-0); TOTAL CELLS COUNTED 100
[2023-07-21 03:49] LABS: ANISOCYTOSIS 2+; GLUCOSE 243 MG/DL (70-104); PLATELET ESTIMATE NORMAL
[2023-07-21 03:50] LABS: ALBUMIN/GLOBULIN RATIO 0.5 (1.1-1.5); POLYCHROMASIA 1+; POTASSIUM 5.1 MMOL/L (3.5-5.1); SPHEROCYTES FEW; STOMATOCYTES 1+; TARGET CELLS 1+; TEAR DROP CELLS FEW; TOTAL PROTEIN 5.2 G/DL (6.4-8.2); TOXIC GRANULATION 1+; TOXIC VACUOLATION 1+
[2023-07-21 04:01] LABS: SODIUM 120 MMOL/L (135-145)
[2023-07-21 04:23] LABS: PHOSPHORUS 0.9 MG/DL (2.3-4.5)
--- NOTE | 2023-07-21 06:15 | NUR ---
Problems reprioritized. Patient report given, questions answered & plan of care reviewed with Krista LAMBERT
[2023-07-21] MEDS ORDERED: pantoprazole 40mg Tablet.DR PO SCH (08:00)
[2023-07-21] MEDS ORDERED: lisinopril 10 MG tablet PO SCH (08:00)
[2023-07-21] MEDS: levoTHYROXINE 100mcg tablet PO SCH (08:05)
[2023-07-21] MEDS: CefTRIAXone/D5W-Rocephin 1gm 50 ML IV SCH (08:05)
[2023-07-21] MEDS ORDERED: pantoprazole 40mg Tablet.DR PO ONE (08:10)
[2023-07-21] MEDS: thiamine 100mg/ml 2ml inj. IV SCH ×3 (08:17→21:36)
[2023-07-21] MEDS: multivitamins, therapeutics tablet PO SCH (08:18)
[2023-07-21] MEDS: heparin, porcine 5000 units/ml vial SQ SCH ×2 (08:19→19:55)
[2023-07-21] MEDS: HYDROcodone/acetaminophen 5mg/325mg tablet PO PRN ×2 (08:19→16:39)
[2023-07-21] MEDS: docusate sod 100mg capsule PO SCH ×2 (08:19→19:55)
[2023-07-21] MEDS: LORazepam 2 mg/ml vial IV PRN (08:20)
[2023-07-21] MEDS: verapamil SR 120mg (sust. release) tab PO SCH (08:20)
[2023-07-21] MEDS: K and/or MAG REPLACEMENT MC SCH ×2 (08:21→19:56)
[2023-07-21] MEDS: normal saline 1000ml 1,000 ML IV SCH ×2 (08:21→19:45)
[2023-07-21] MEDS: rifaximin 550mg tablet PO SCH ×2 (11:08→19:54)
[2023-07-21] MEDS: folic acid 1mg/0.2ml inj IV SCH (11:08)
--- NOTE | 2023-07-21 12:34 | NUR ---
Per EMR pt with T2DM, current A1c 7.7%. Written DM education with RD contact information placed in patient's chart. Noted pt recently seen by ARACELY 05/01 for written and verbal DM education with an A1c of 8.5%. Per H&P pt was on Metformin though recently switched to insulin. Will continue to follow. Addendum: 07/21/23 at [address] Amended: Links added.
[2023-07-21] MEDS ORDERED: sodium phosphate inj. 30 MMOL in dextrose 5%-water 250 ML IV ONE (12:35)
--- NOTE | 2023-07-21 12:38 | NUR ---
Pt with a low Eduardo of 8. Per EMR pt with BLE non-pitting edema with no wounds identified at this time. Pt A/O x 1 and confused per EMR. Will continue to follow. Addendum: 07/21/23 at [address] Amended: Links added.
[2023-07-21] MEDS: sodium chloride 1gm tablet PO SCH ×3 (13:21→22:07)
[2023-07-21] MEDS: predniSONE 20 mg tablet PO SCH (13:21)
[2023-07-21] MEDS: Ursodiol 300mg capsule PO SCH ×2 (13:35→19:54)
[2023-07-21] MEDS: insulin Lispro (HumaLOG) vial - multi-dose SQ SCH ×3 (15:07→22:03)
--- NOTE | 2023-07-21 16:06 | NUR ---
Resident called and made aware pt. has had poor urine OP. She states she would like pt. to use a wick but pt. refuses. Resident would also like pt. bladder scanned.
--- NOTE | 2023-07-21 16:09 | NUR ---
bladder scanner in ICU- called to retrieve
--- NOTE | 2023-07-21 16:32 | NUR ---
Pt. bladder scanned 297ml shown in bladder scan.
--- NOTE | 2023-07-21 18:37 | NUR ---
Gave report to Kyara PAGE
[2023-07-21] MEDS: insulin glargine (Lantus) pen - multi-dose SQ SCH (21:00)
[2023-07-21 23:52] LABS: OSMOLALITY UA 416 MOSM/K (50-1400)
[2023-07-22 00:04] LABS: SODIUM,URINE RANDOM < 15 MEQ/L
[2023-07-22 02:00] VITALS: BP 110/72; PULSE 89; RESP 14; TEMP 97.7; O2SAT 96
[2023-07-22] MEDS: lactulose 20gm/30ml cup PO SCH ×4 (04:26→20:00)
[2023-07-22] MEDS: HYDROcodone/acetaminophen 5mg/325mg tablet PO PRN (04:27)
[2023-07-22] MEDS: LORazepam 2 mg/ml vial IV PRN ×6 (04:41→22:07)
[2023-07-22 06:00] VITALS: BP 97/60; PULSE 92; RESP 16; TEMP 97.9; O2SAT 99
[2023-07-22] MEDS: levoTHYROXINE 100mcg tablet PO SCH (07:58)
[2023-07-22 08:00] VITALS: RESP 15; O2SAT 96
[2023-07-22] MEDS: K and/or MAG REPLACEMENT MC SCH ×2 (08:00→20:00)
[2023-07-22] MEDS: lactose-reduced food (Ensure High Protein) 237ml bottle PO SCH ×3 (08:00→18:02)
[2023-07-22] MEDS ORDERED: LORazepam 2 mg/ml vial ONE (08:00)
[2023-07-22] MEDS: docusate sod 100mg capsule PO SCH ×2 (08:00→19:27)
[2023-07-22 08:37] LABS: INR 1.8 INR; PROTHROMBIN TIME 18.3 SECONDS (9.0-12.0)
[2023-07-22 08:45] LABS: HEMATOCRIT 32.3 % (35.0-45.0); HEMOGLOBIN 11.3 g/dl (12.0-16.0)
[2023-07-22 08:46] LABS: MEAN CORPUSCULAR HGB CONC 34.9 g/dL (33.0-36.5); MEAN CORPUSCULAR VOLUME 105.9 FL (78-98); MEAN PLATELET VOLUME 8.4 FL (7.4-10.4); PLATELET COUNT 167 X10'3 (140-440); RED BLOOD COUNT 3.05 X10'6 (4.20-5.60); RED CELL DISTRIBUTION WIDTH 20.5 % (11.5-14.5)
[2023-07-22 08:50] LABS: ALANINE AMINOTRANSFERASE 29 U/L (12-78); ALBUMIN 1.8 G/DL (3.4-5.0); ALKALINE PHOSPHATASE 299 IU/L (46-116); ANION GAP 10 (8-16); BLOOD UREA NITROGEN 7 MG/DL (7-18); BUN/CREATININE RATIO 11.1 (10.0-20.0); CALCIUM 8.3 MG/DL (8.5-10.1); CHLORIDE 92 MMOL/L (99-107); CREATININE 0.63 MG/DL (0.40-0.90); MAGNESIUM 1.8 MG/DL (1.5-2.4); SODIUM 128 MMOL/L (135-145); TOTAL CARBON DIOXIDE 25.7 MMOL/L (24-32); eCRCL 103 ML/MIN; eGFR > 90 ML/MIN
[2023-07-22] MEDS: normal saline 1000ml 1,000 ML IV SCH (09:05)
[2023-07-22 09:10] LABS: ALBUMIN/GLOBULIN RATIO 0.5 (1.1-1.5); TOTAL PROTEIN 5.1 G/DL (6.4-8.2)
[2023-07-22 09:11] LABS: ASPARTATE AMINO TRANSFERASE 142 U/L (10-37); BILIRUBIN,TOTAL 29.1 MG/DL (0.1-1.0); GLUCOSE 186 MG/DL (70-104)
[2023-07-22 09:17] LABS: PHOSPHORUS 1.2 MG/DL (2.3-4.5); POTASSIUM 2.6 MMOL/L (3.5-5.1)
[2023-07-22] MEDS: CefTRIAXone/D5W-Rocephin 1gm 50 ML IV SCH (09:19)
[2023-07-22 09:25] LABS: ANISOCYTOSIS 3+; NUCLEATED RED BLOOD CELLS 3 /100WBC (0-0); PLATELET ESTIMATE NORMAL; TOTAL CELLS COUNTED 100
[2023-07-22 09:26] LABS: POLYCHROMASIA 2+; STOMATOCYTES 1+; TARGET CELLS 1+; TEAR DROP CELLS FEW
[2023-07-22] MEDS: sodium chloride 1gm tablet PO SCH ×4 (09:33→21:48)
[2023-07-22] MEDS: predniSONE 20 mg tablet PO SCH (09:33)
[2023-07-22] MEDS: thiamine 100mg/ml 2ml inj. IV SCH ×3 (09:33→21:59)
[2023-07-22] MEDS: rifaximin 550mg tablet PO SCH ×2 (10:30→19:26)
[2023-07-22] MEDS: Ursodiol 300mg capsule PO SCH ×2 (10:30→21:48)
[2023-07-22] MEDS: heparin, porcine 5000 units/ml vial SQ SCH ×2 (10:32→19:27)
[2023-07-22 11:00] VITALS: BP 106/71; PULSE 94; RESP 21; TEMP 98.2; O2SAT 100
[2023-07-22] MEDS: verapamil SR 120mg (sust. release) tab PO SCH (11:02)
[2023-07-22] MEDS: POTASSIUM BICARB 20meq eff tab 20 MEQ TABLET.EFF PO SCH ×2 (11:03→15:09)
[2023-07-22] MEDS: multivitamins, therapeutics tablet PO SCH (11:05)
[2023-07-22] MEDS: insulin Lispro (HumaLOG) vial - multi-dose SQ SCH ×2 (11:15→19:37)
[2023-07-22] MEDS: magnesium oxide 400mg tablet PO SCH ×2 (11:22→17:22)
[2023-07-22] MEDS: pantoprazole 40mg Tablet.DR PO SCH (11:23)
[2023-07-22] MEDS ORDERED: potassium phosphate inj 30 MMOL in normal saline 250ml IV soln 250 ML IV ONE (11:35)
[2023-07-22] MEDS ORDERED: potassium phosphate inj 30 MMOL in normal saline 500ml IV soln 500 ML IV ONE (11:44)
[2023-07-22] MEDS: folic acid 1mg/0.2ml inj IV SCH (12:28)
[2023-07-22] MEDS ORDERED: acetaminophen 325mg tablet PO PRN (14:15)
[2023-07-22 18:00] VITALS: BP 95/64; PULSE 95; RESP 14; TEMP 98.1; O2SAT 97
--- NOTE | 2023-07-22 18:38 | NUR ---
Agree with assessment by Vicki LAMBERT
[2023-07-22] MEDS ORDERED: POTASSIUM BICARB 20meq eff tab 20 MEQ TABLET.EFF PO STA (19:15)
[2023-07-22] MEDS: insulin glargine (Lantus) pen - multi-dose SQ SCH (21:57)
[2023-07-22 22:00] VITALS: BP 118/67; PULSE 96; RESP 20; TEMP 96.4; O2SAT 94
[2023-07-23] VITALS (7 sets, daily range): BP systolic 97–108; BP diastolic 50–90; PULSE 88–100; RESP 13–20; TEMP 97–98.5; O2SAT 93–97
[2023-07-23] MEDS: lactulose 20gm/30ml cup PO SCH ×3 (02:00→20:00)
[2023-07-23] MEDS: normal saline 1000ml 1,000 ML IV SCH ×2 (02:30→19:35)
[2023-07-23] MEDS: magnesium oxide 400mg tablet PO SCH ×3 (03:10→16:00)
[2023-07-23] MEDS: POTASSIUM BICARB 20meq eff tab 20 MEQ TABLET.EFF PO SCH ×4 (03:10→20:02)
[2023-07-23 04:58] LABS: HEMOGLOBIN 12.3 g/dl (12.0-16.0); MEAN PLATELET VOLUME 8.2 FL (7.4-10.4)
[2023-07-23 05:01] LABS: INR 1.7 INR; PROTHROMBIN TIME 17.6 SECONDS (9.0-12.0)
[2023-07-23 05:01] LABS: HEMATOCRIT 35.5 % (35.0-45.0); MEAN CORPUSCULAR HEMOGLOBIN 37.2 PG (27.0-31.0); MEAN CORPUSCULAR HGB CONC 34.6 g/dL (33.0-36.5); MEAN CORPUSCULAR VOLUME 107.4 FL (78-98); PLATELET COUNT 197 X10'3 (140-440); RED BLOOD COUNT 3.31 X10'6 (4.20-5.60); RED CELL DISTRIBUTION WIDTH 21.6 % (11.5-14.5); WHITE BLOOD COUNT 12.7 X10'3 (4.5-11.0)
--- NOTE | 2023-07-23 05:04 | NUR ---
AGREE WITH CAMILO ADAME DOCUMENTATION. PATIENT WAS GIVEN IV ATIVAN AND SCHEDULED THIAMINE IV. AVAILABLE FOR QUESTIONS.
[2023-07-23] MEDS: LORazepam 1 MG tablet PO PRN (05:29)
[2023-07-23 05:37] LABS: ALANINE AMINOTRANSFERASE 30 U/L (12-78); ALKALINE PHOSPHATASE 294 IU/L (46-116); ANION GAP 11 (8-16); BLOOD UREA NITROGEN 7 MG/DL (7-18); CALCIUM 8.3 MG/DL (8.5-10.1); CHLORIDE 94 MMOL/L (99-107); CREATININE 0.54 MG/DL (0.40-0.90); SODIUM 131 MMOL/L (135-145); eCRCL 120 ML/MIN; eGFR > 90 ML/MIN
[2023-07-23 05:47] LABS: ALBUMIN/GLOBULIN RATIO 0.5 (1.1-1.5); ASPARTATE AMINO TRANSFERASE 138 U/L (10-37); BILIRUBIN,TOTAL 31.8 MG/DL (0.1-1.0); GLUCOSE 94 MG/DL (70-104); MAGNESIUM 1.7 MG/DL (1.5-2.4); POTASSIUM 3.3 MMOL/L (3.5-5.1); TOTAL PROTEIN 5.9 G/DL (6.4-8.2)
[2023-07-23 05:50] LABS: PHOSPHORUS 0.9 MG/DL (2.3-4.5)
--- NOTE | 2023-07-23 05:54 | NUR ---
paged hospitalist: [id number] Critical Lab result: phosphorous 0.9 --sailaja byrd EXT [phone] for any orders. thank you Addendum: 07/23/23 at 0626 by Sailaja Hatfield LVN orders received for Neutrophos Q8Hx3
[2023-07-23 06:10] LABS: NUCLEATED RED BLOOD CELLS 6 /100WBC (0-0); TOTAL CELLS COUNTED 100
[2023-07-23 06:13] LABS: POIKILOCYTOSIS FEW; POLYCHROMASIA FEW; TARGET CELLS FEW
[2023-07-23 06:14] LABS: ELLIPTOCYTES FEW
--- NOTE | 2023-07-23 06:28 | NUR ---
Patient in room ORTHO 4012. I have received report from Ahsan PAGE and had the opportunity to ask questions and assume patient care.
[2023-07-23 07:04] LABS: PLATELET ESTIMATE NORMAL
[2023-07-23] MEDS: thiamine 100mg/ml 2ml inj. IV SCH ×2 (07:43→13:33)
[2023-07-23] MEDS: folic acid 1mg/0.2ml inj IV SCH (07:43)
[2023-07-23] MEDS: CefTRIAXone/D5W-Rocephin 1gm 50 ML IV SCH (07:44)
[2023-07-23] MEDS: docusate sod 100mg capsule PO SCH ×2 (08:00→20:02)
[2023-07-23] MEDS: K and/or MAG REPLACEMENT MC SCH ×2 (08:08→20:18)
[2023-07-23] MEDS: pantoprazole 40mg Tablet.DR PO SCH (08:16)
[2023-07-23] MEDS: sodium chloride 1gm tablet PO SCH ×4 (08:18→22:39)
[2023-07-23] MEDS: Ursodiol 300mg capsule PO SCH ×2 (08:18→20:02)
[2023-07-23] MEDS: multivitamins, therapeutics tablet PO SCH (08:18)
[2023-07-23] MEDS: rifaximin 550mg tablet PO SCH ×2 (08:18→20:02)
[2023-07-23] MEDS: predniSONE 20 mg tablet PO SCH (08:18)
[2023-07-23] MEDS: levoTHYROXINE 100mcg tablet PO SCH (08:18)
[2023-07-23] MEDS: Neutra Phos packet PO SCH ×3 (08:19→21:00)
[2023-07-23] MEDS: heparin, porcine 5000 units/ml vial SQ SCH ×2 (08:23→20:05)
[2023-07-23] MEDS: lactose-reduced food (Ensure High Protein) 237ml bottle PO SCH ×3 (08:27→18:00)
[2023-07-23] MEDS: verapamil SR 120mg (sust. release) tab PO SCH (09:17)
[2023-07-23] MEDS ORDERED: potassium phosphate inj 30 MMOL in normal saline 500ml IV soln 500 ML IV ONE (12:35)
--- NOTE | 2023-07-23 13:18 | NUR ---
Verbally spoke with resident Cookietaiam to clarify orders that were just received via eMar. Dr. Mixon added a once time potassium and phos to patient medication. This is to be given to patient along with the effer-k and neutra-phos.
[2023-07-23] MEDS: LORazepam 2 mg/ml vial IV PRN ×2 (13:52→19:26)
[2023-07-23] MEDS: HYDROcodone/acetaminophen 5mg/325mg tablet PO PRN ×2 (13:53→19:12)
--- NOTE | 2023-07-23 14:06 | NUR ---
Per patient, they do not wish for the hospitalist doctors to speak with the patient's mother regarding the patient's plan of care/health conditions. Patient stated she would speak with the mother. During the entering of this note, the patient';s family brought in Bj espinoza as the patient does not care for the supplements offered at this facility.
[2023-07-23] MEDS: insulin Lispro (HumaLOG) vial - multi-dose SQ SCH ×2 (14:20→20:00)
--- NOTE | 2023-07-23 15:32 | NUR ---
Following this patient with Donn Ellis This race and sports book writer performed their own assessment. All other aspects of care, medication administration performed by patient's primary nurse Sonya Pop
--- NOTE | 2023-07-23 18:17 | NUR ---
Problems reprioritized. Patient report given, questions answered & plan of care reviewed with sailaja PAGE.
[2023-07-23] MEDS: insulin glargine (Lantus) pen - multi-dose SQ SCH (22:43)
[2023-07-24] VITALS (8 sets, daily range): BP systolic 86–109; BP diastolic 53–79; PULSE 86–106; RESP 13–18; TEMP 97.4–98.5; O2SAT 93–98
[2023-07-24] MEDS: magnesium oxide 400mg tablet PO SCH ×4 (00:03→23:59)
[2023-07-24] MEDS: HYDROcodone/acetaminophen 5mg/325mg tablet PO PRN ×5 (00:12→23:59)
[2023-07-24] MEDS: LORazepam 2 mg/ml vial IV PRN ×2 (05:03→12:43)
--- NOTE | 2023-07-24 06:10 | NUR ---
Patient in room ORTHO 4012. I have received report from Ahsan PAGE and had the opportunity to ask questions and assume patient care.
[2023-07-24 06:30] LABS: INR 1.6 INR
--- NOTE | 2023-07-24 06:36 | NUR ---
report to Sonya PAGE
[2023-07-24 07:01] LABS: WHITE BLOOD COUNT 10.3 X10'3 (4.5-11.0)
[2023-07-24 07:03] LABS: HEMATOCRIT 35.1 % (35.0-45.0); HEMOGLOBIN 11.9 g/dl (12.0-16.0); MEAN CORPUSCULAR HEMOGLOBIN 37.4 PG (27.0-31.0); MEAN PLATELET VOLUME 7.8 FL (7.4-10.4); PLATELET COUNT 168 X10'3 (140-440); RED BLOOD COUNT 3.19 X10'6 (4.20-5.60); RED CELL DISTRIBUTION WIDTH 22.6 % (11.5-14.5)
[2023-07-24] MEDS: DEXTROSE 15 GM of carb/4 tabs (each vial/BOTTLE has 4 tablets) PO PRN ×2 (07:22→07:57)
[2023-07-24 07:24] LABS: ALANINE AMINOTRANSFERASE 32 U/L (12-78); ALBUMIN 1.8 G/DL (3.4-5.0); ALKALINE PHOSPHATASE 253 IU/L (46-116); ANION GAP 9 (8-16); BLOOD UREA NITROGEN 7 MG/DL (7-18); CALCIUM 7.2 MG/DL (8.5-10.1); CHLORIDE 94 MMOL/L (99-107); MAGNESIUM 1.6 MG/DL (1.5-2.4); SODIUM 128 MMOL/L (135-145); TOTAL CARBON DIOXIDE 25.3 MMOL/L (24-32)
[2023-07-24 07:44] LABS: ASPARTATE AMINO TRANSFERASE 126 U/L (10-37); BUN/CREATININE RATIO 12.1 (10.0-20.0); CREATININE 0.58 MG/DL (0.40-0.90); GLUCOSE 68 MG/DL (70-104); POTASSIUM 3.8 MMOL/L (3.5-5.1); eCRCL 112 ML/MIN; eGFR > 90 ML/MIN
[2023-07-24] MEDS: docusate sod 100mg capsule PO SCH ×2 (08:00→21:11)
[2023-07-24] MEDS: lactose-reduced food (Ensure High Protein) 237ml bottle PO SCH ×3 (08:00→18:00)
[2023-07-24] MEDS: K and/or MAG REPLACEMENT MC SCH ×2 (08:00→20:00)
[2023-07-24 08:23] LABS: NUCLEATED RED BLOOD CELLS 4 /100WBC (0-0); TOTAL CELLS COUNTED 100
[2023-07-24 08:29] LABS: ALBUMIN/GLOBULIN RATIO 0.5 (1.1-1.5); TOTAL PROTEIN 5.4 G/DL (6.4-8.2)
[2023-07-24 08:30] LABS: ANISOCYTOSIS 3+; PLATELET ESTIMATE NORMAL
[2023-07-24 08:31] LABS: HYPOCHROMASIA 1+; POLYCHROMASIA 1+
[2023-07-24] MEDS: POTASSIUM BICARB 20meq eff tab 20 MEQ TABLET.EFF PO SCH ×3 (08:56→21:11)
[2023-07-24] MEDS: pantoprazole 40mg Tablet.DR PO SCH (08:57)
[2023-07-24] MEDS: lactulose 20gm/30ml cup PO SCH ×2 (08:57→21:12)
[2023-07-24] MEDS: sodium chloride 1gm tablet PO SCH ×4 (08:57→21:12)
[2023-07-24] MEDS: multivitamins, therapeutics tablet PO SCH (08:57)
[2023-07-24] MEDS: levoTHYROXINE 100mcg tablet PO SCH (08:58)
[2023-07-24] MEDS: verapamil SR 120mg (sust. release) tab PO SCH (08:59)
[2023-07-24] MEDS: rifaximin 550mg tablet PO SCH ×2 (08:59→21:11)
[2023-07-24] MEDS: Ursodiol 300mg capsule PO SCH ×2 (08:59→21:13)
[2023-07-24] MEDS: predniSONE 20 mg tablet PO SCH (09:00)
[2023-07-24] MEDS: heparin, porcine 5000 units/ml vial SQ SCH ×2 (09:02→21:12)
[2023-07-24] MEDS: LORazepam 1 MG tablet PO PRN ×2 (09:11→21:11)
[2023-07-24] MEDS: CefTRIAXone/D5W-Rocephin 1gm 50 ML IV SCH (09:56)
--- NOTE | 2023-07-24 13:36 | NUR ---
PRESSURE ULCER EDUCATION: DEFINITION: A pressure ulcer is an area of skin that breaks down when you stay in one position too long. The constant pressure against the skin reduces the blood flow to that area and the affected tissue dies. CAUSES: "Being bedridden or in a wheelchair "Fragile skin "Having a chronic condition, such as diabetes or vascular disease "Inability to move certain parts of your body without assistance "Older age "Incontinence of urine or stool SYMPTOMS: "A reddened area that DOES NOT turn white when pressed on - this can be the beginning of a pressure ulcer "A blister, deep sore or a crater - these can be advanced pressure ulcers FIRST AID: "Relieve the pressure on this area "Keep the area clean and dry "Call your primary doctor if you see any of the above symptoms "DO NOT massage the area "DO NOT use a donut shaped or ring shaped pillow- these actually interfere with the blood flow and cause complications PREVENTION: "Check for pressure ulcers everyday "Change position at least every two hours to relieve pressure "Use items that help relieve pressure- pillows, sheepskin, foam padding, and powders. "Keep skin clean and dry "Eat healthy well balanced meals "Exercise daily IF YOU SEE ANY OF THESE SYMPTOMS WHILE IN THE HOSPITAL - TELL YOUR NURSE IMMEDIATELY. IF YOU SEE ANY OF THESE SYMPTOMS WHILE AT HOME OR HAVE ANY QUESTIONS OR CONCERNS ABOUT PRESSURE ULCERS - CALL YOUR PRIMARY DOCTOR IMMEDIATELY. Addendum: 07/24/23 at 1336 by Darshan Day RN Amended: Links added.
[2023-07-24] MEDS ORDERED: LORazepam 2 mg/ml vial IV PRN (14:00)
--- NOTE | 2023-07-24 17:54 | NUR ---
2nd day that came on shift with patient BS critical low. Patient BS was 65, glucose given. 15mins later BS 64, repeat glucose. Patient BS then went up to 187 no coverage. Patient lunch BS was 175, no coverage. pt didn't eat lunch. Pt evening BS was 245. I called Dr. Mixon and advised him of what has been going on with patient. Per Dr. Mixon don't give any insulin tonight and then see where she is in the morning.
--- NOTE | 2023-07-24 18:58 | NUR ---
Problems reprioritized. Patient report given, questions answered & plan of care reviewed with Ahsan PAGE.
[2023-07-24] MEDS: insulin glargine (Lantus) pen - multi-dose SQ SCH (21:00)
[2023-07-25] VITALS (7 sets, daily range): BP systolic 97–125; BP diastolic 54–85; PULSE 86–97; RESP 14–20; TEMP 97.6–97.8; O2SAT 93–98
[2023-07-25] MEDS: HYDROcodone/acetaminophen 5mg/325mg tablet PO PRN ×3 (04:49→19:50)
--- NOTE | 2023-07-25 04:54 | NUR ---
Assessment performed by myself. REHABILITATION MANAGER performed his own assessment.
--- NOTE | 2023-07-25 06:30 | NUR ---
Patient in room ORTHO 4012. I have received report from Ahsan PAGE and had the opportunity to ask questions and assume patient care.
--- NOTE | 2023-07-25 06:31 | NUR ---
Report to Sonya PAGE
[2023-07-25 06:38] LABS: HEMOGLOBIN 12.1 g/dl (12.0-16.0); MEAN CORPUSCULAR VOLUME 111.3 FL (78-98); RED CELL DISTRIBUTION WIDTH 24.6 % (11.5-14.5); WHITE BLOOD COUNT 7.8 X10'3 (4.5-11.0)
[2023-07-25 06:41] LABS: HEMATOCRIT 35.9 % (35.0-45.0); MEAN CORPUSCULAR HEMOGLOBIN 37.5 PG (27.0-31.0); MEAN CORPUSCULAR HGB CONC 33.7 g/dL (33.0-36.5); MEAN PLATELET VOLUME 8.2 FL (7.4-10.4); PLATELET COUNT 144 X10'3 (140-440); RED BLOOD COUNT 3.23 X10'6 (4.20-5.60)
[2023-07-25 06:47] LABS: INR 1.5 INR; PROTHROMBIN TIME 15.8 SECONDS (9.0-12.0)
[2023-07-25 07:09] LABS: ALANINE AMINOTRANSFERASE 36 U/L (12-78); ALBUMIN 1.9 G/DL (3.4-5.0); ALKALINE PHOSPHATASE 237 IU/L (46-116); ANION GAP 12 (8-16); BLOOD UREA NITROGEN 7 MG/DL (7-18); BUN/CREATININE RATIO 11.5 (10.0-20.0); CALCIUM 7.1 MG/DL (8.5-10.1); CHLORIDE 93 MMOL/L (99-107); CREATININE 0.61 MG/DL (0.40-0.90); SODIUM 129 MMOL/L (135-145); TOTAL CARBON DIOXIDE 24.4 MMOL/L (24-32); eCRCL 106 ML/MIN; eGFR > 90 ML/MIN
[2023-07-25 07:12] LABS: ANISOCYTOSIS 3+; NUCLEATED RED BLOOD CELLS 1 /100WBC (0-0); PLATELET ESTIMATE NORMAL; TOTAL CELLS COUNTED 100
[2023-07-25 07:13] LABS: GIANT PLATELET FEW; HYPOCHROMASIA 1+; LARGE PLATELETS FEW; POLYCHROMASIA FEW; STOMATOCYTES FEW; TARGET CELLS FEW; TOXIC GRANULATION 1+
[2023-07-25 07:14] LABS: POIKILOCYTOSIS 1+
[2023-07-25 07:15] LABS: ALBUMIN/GLOBULIN RATIO 0.5 (1.1-1.5); ASPARTATE AMINO TRANSFERASE 127 U/L (10-37); BILIRUBIN,TOTAL 30.6 MG/DL (0.1-1.0); GLUCOSE 139 MG/DL (70-104); MAGNESIUM 1.9 MG/DL (1.5-2.4); PHOSPHORUS 1.7 MG/DL (2.3-4.5); POTASSIUM 3.4 MMOL/L (3.5-5.1); TOTAL PROTEIN 5.8 G/DL (6.4-8.2)
[2023-07-25] MEDS: lactose-reduced food (Ensure High Protein) 237ml bottle PO SCH (08:00)
[2023-07-25] MEDS ORDERED: prednisoLONE 15mg/5ml oral solution 5ml cup PO SCH ×2 (08:00→12:12)
[2023-07-25] MEDS: K and/or MAG REPLACEMENT MC SCH ×2 (08:00→20:00)
[2023-07-25] MEDS: LORazepam 1 MG tablet PO PRN (08:11)
[2023-07-25] MEDS: CefTRIAXone/D5W-Rocephin 1gm 50 ML IV SCH (08:24)
--- NOTE | 2023-07-25 08:50 | NUR ---
Patients primary assessment complete. All primary care turned over to PARTITION SETTER. Made PARTITION SETTER aware of need for SCD's Seizure pads, suction, and lab values needing to be addressed with MD. Primary PARTITION SETTER Sonya.
[2023-07-25] MEDS: POTASSIUM BICARB 20meq eff tab 20 MEQ TABLET.EFF PO SCH ×3 (09:15→21:37)
[2023-07-25] MEDS: multivitamins, therapeutics tablet PO SCH (09:18)
[2023-07-25] MEDS: levoTHYROXINE 100mcg tablet PO SCH (09:18)
[2023-07-25] MEDS: sodium chloride 1gm tablet PO SCH ×4 (09:18→21:34)
[2023-07-25] MEDS: lactulose 20gm/30ml cup PO SCH ×2 (09:18→20:00)
[2023-07-25] MEDS: Ursodiol 300mg capsule PO SCH ×2 (09:19→21:37)
[2023-07-25] MEDS: verapamil SR 120mg (sust. release) tab PO SCH (09:19)
[2023-07-25] MEDS: docusate sod 100mg capsule PO SCH ×2 (09:19→21:36)
[2023-07-25] MEDS: magnesium oxide 400mg tablet PO SCH ×2 (09:19→15:38)
[2023-07-25] MEDS: pantoprazole 40mg Tablet.DR PO SCH (09:20)
[2023-07-25] MEDS: rifaximin 550mg tablet PO SCH ×2 (09:20→21:36)
[2023-07-25] MEDS: heparin, porcine 5000 units/ml vial SQ SCH ×2 (09:21→21:36)
[2023-07-25] MEDS ORDERED: potassium phosphate inj 30 MMOL in normal saline 250ml IV soln 250 ML IV ONE (10:40)
--- NOTE | 2023-07-25 11:00 | NUR ---
Spoke with Dr. Mixon about patient BS. He advised that we just watch BS at this time, no treating with insulin at this time.
[2023-07-25] MEDS ORDERED: normal saline 500ml IV soln 500 ML IV ONE (12:15)
--- NOTE | 2023-07-25 12:17 | NUR ---
Verbally spoke with resident Dr. Petersen and she gave the okay to hang NS @20 during the potassium phos then d/c. Also patient Ativan frequency was changed to 0.5mg q4 hr PRN, IV BID was d/c and PO ativan was D/C
[2023-07-25] MEDS: LORazepam 2 mg/ml vial IV PRN ×2 (12:30→22:39)
[2023-07-25 16:24] LABS: HBSAG SCREEN Negative (Negative); HEPATITIS C VIRUS ANTIBODY Non Reactive (Non Reactive)
--- NOTE | 2023-07-25 16:55 | NUR ---
Nutrition consult: Pt admit for acute on chronic liver failure with EtOH cirrhosis, hepatic encephalopathy, UTI, hyponatremia, hypokalemia, and hypomagnesemia. Currently on a CHO controlled diet with poor PO intake that's improving, initially with 0% PO intake however now more consistently with 25% PO intake. Noted pt has been receiving an Ensure High Protein TID though essentially refusing all ONS. Pt seen at bedside with mother present. Pt states appetite is improving and reports roughly 75% PO intake of breakfast and lunch today. Noted pt with Glucerna at bedside. Per mother those were brought in from home as pt likes Glucerna and drinks them at home. RD recommends Ensure Enlive TID for additional kcal and protein however since pt dislikes Ensure and likes Glucerna recommend sending Glucerna TID per pt preferences, d/w CARVER AND CHECKERER SPECIALS who d/w resident, pt now to receive preferred ONS. RD discussed the importance of nutrient intake with emphasis on protein given liver function and discussed additional ONS options. Mother ordered Premier Protein for pt and pt states she will blend them up with other food (i.e. fruit, ice cream, etc) for additional kcal. Food preferences were obtained and d/w dietary, see below. Noted pt with tremors, already receiving a sippy cup. Pt agrees to chopped food and weighted utensils for additional assistance, d/w dietary. Pt denies any difficulty chewing or swallowing. Pt provided with RD contact information and encouraged to reach out if needed. Noted pt only receiving MVI. D/w CARVER AND CHECKERER SPECIALS recommendation for routine Thiamine and Folic acid. CARVER AND CHECKERER SPECIALS d/w resident and vitamins are now ordered in EMR. LBM 07/24, documented with diarrhea, likely r/t routine Lactulose and Colace. Will continue to follow closely and monitor need for further nutrition intervention. Recommendations: 1) Continue CHO controlled diet; chopped food, weighted utensils, and sippy cup TID d/t tremors 2) Chocolate Glucerna TID per pt preference; NO Ensure d/t dislike 3) [place] food preferences: cottage cheese WB, extra pepper TID; NO iced tea (sub coffee), cooked carrots, beef stew, or beef macaroni 4) Continue routine Thiamine, Folic acid, and MVI d/t EtOH hx 5) Bowel care per physician/resident 6) Weekly scaled weights Addendum: 07/25/23 at [address] Amended: Links added.
--- NOTE | 2023-07-25 17:26 | NUR ---
Message: [id number]- Chun C: Pt bs now is 341. pls advise? FUNMILAYO Hassan [phone] Addendum: 07/25/23 at 1740 by Sonya Fonseca LVN SCALPING MACHINE OPERATOR verbally spoke with resident Dr. Petersen and she advises to treat patient with Humalog only. Not Lantus because it is long acting and with this her bs goes to low.
[2023-07-25] MEDS: NUT.TX.GLUC.INTOLER,LAC-FR,SOY (GLUCERNA) 237 ML PO SCH (18:00)
--- NOTE | 2023-07-25 18:22 | NUR ---
Problems reprioritized. Patient report given, questions answered & plan of care reviewed with Ahsan PAGE.
[2023-07-25] MEDS: insulin Lispro (HumaLOG) vial - multi-dose SQ SCH (19:44)
[2023-07-25] MEDS: thiamine 100mg tablet PO SCH (21:36)
[2023-07-26] MEDS: magnesium oxide 400mg tablet PO SCH ×3 (01:13→16:55)
[2023-07-26] MEDS: HYDROcodone/acetaminophen 5mg/325mg tablet PO PRN ×3 (01:13→13:54)
[2023-07-26] MEDS: LORazepam 2 mg/ml vial IV PRN ×2 (04:55→12:56)
--- NOTE | 2023-07-26 06:05 | NUR ---
Patient in room ORTHO 4012. I have received report from Ahsan LAMBERT and had the opportunity to ask questions and assume patient care.
--- NOTE | 2023-07-26 07:24 | NUR ---
performed my own assessment. ENERGY DIRECTOR performed his own assessment. I gave patient IV medications.
[2023-07-26 07:27] VITALS: BP 108/69; PULSE 87; RESP 16; TEMP 97.3; O2SAT 99
[2023-07-26] MEDS: K and/or MAG REPLACEMENT MC SCH (08:00)
[2023-07-26] MEDS: NUT.TX.GLUC.INTOLER,LAC-FR,SOY (GLUCERNA) 237 ML PO SCH ×2 (08:00→12:57)
[2023-07-26] MEDS ORDERED: folic acid/vitamin B complex w/vitamin C 0.8mg tablet PO SCH (08:00)
[2023-07-26 08:25] LABS: INR 1.4 INR; PROTHROMBIN TIME 14.3 SECONDS (9.0-12.0)
[2023-07-26 08:28] LABS: HEMOGLOBIN 12.5 g/dl (12.0-16.0)
[2023-07-26 08:30] LABS: HEMATOCRIT 37.1 % (35.0-45.0); MEAN CORPUSCULAR HEMOGLOBIN 38.1 PG (27.0-31.0); MEAN CORPUSCULAR HGB CONC 33.8 g/dL (33.0-36.5); MEAN CORPUSCULAR VOLUME 112.8 FL (78-98); MEAN PLATELET VOLUME 8.5 FL (7.4-10.4); PLATELET COUNT 152 X10'3 (140-440); RED BLOOD COUNT 3.29 X10'6 (4.20-5.60); RED CELL DISTRIBUTION WIDTH 25.4 % (11.5-14.5)
[2023-07-26 08:32] LABS: ALBUMIN 1.9 G/DL (3.4-5.0); ALKALINE PHOSPHATASE 239 IU/L (46-116); ANION GAP 10 (8-16); BLOOD UREA NITROGEN 6 MG/DL (7-18); CALCIUM 8.2 MG/DL (8.5-10.1); CHLORIDE 94 MMOL/L (99-107); SODIUM 128 MMOL/L (135-145); TOTAL CARBON DIOXIDE 24.3 MMOL/L (24-32)
[2023-07-26 08:36] LABS: ALANINE AMINOTRANSFERASE 39 U/L (12-78); ALBUMIN/GLOBULIN RATIO 0.5 (1.1-1.5); ASPARTATE AMINO TRANSFERASE 112 U/L (10-37); BILIRUBIN,TOTAL 31.9 MG/DL (0.1-1.0); BUN/CREATININE RATIO 10.5 (10.0-20.0); CREATININE 0.57 MG/DL (0.40-0.90); GLUCOSE 219 MG/DL (70-104); MAGNESIUM 1.9 MG/DL (1.5-2.4); PHOSPHORUS 1.7 MG/DL (2.3-4.5); TOTAL PROTEIN 5.8 G/DL (6.4-8.2); eCRCL 114 ML/MIN; eGFR > 90 ML/MIN
[2023-07-26 09:00] VITALS: RESP 16
[2023-07-26] MEDS: insulin Lispro (HumaLOG) vial - multi-dose SQ SCH ×2 (09:03→13:46)
[2023-07-26 09:07] LABS: TOTAL CELLS COUNTED 100
[2023-07-26 09:08] LABS: ANISOCYTOSIS 3+; PLATELET ESTIMATE NORMAL
[2023-07-26] MEDS: lactulose 20gm/30ml cup PO SCH (09:08)
[2023-07-26] MEDS: verapamil SR 120mg (sust. release) tab PO SCH (09:08)
[2023-07-26] MEDS: docusate sod 100mg capsule PO SCH (09:09)
[2023-07-26] MEDS: POTASSIUM BICARB 20meq eff tab 20 MEQ TABLET.EFF PO SCH ×2 (09:09→13:38)
[2023-07-26] MEDS: multivitamins, therapeutics tablet PO SCH (09:09)
[2023-07-26] MEDS: levoTHYROXINE 100mcg tablet PO SCH (09:09)
[2023-07-26] MEDS: sodium chloride 1gm tablet PO SCH ×3 (09:09→16:55)
[2023-07-26] MEDS: Ursodiol 300mg capsule PO SCH (09:10)
[2023-07-26] MEDS: thiamine 100mg tablet PO SCH (09:10)
[2023-07-26] MEDS: rifaximin 550mg tablet PO SCH (09:10)
[2023-07-26] MEDS: pantoprazole 40mg Tablet.DR PO SCH (09:12)
[2023-07-26 09:17] LABS: POLYCHROMASIA FEW; TARGET CELLS FEW
[2023-07-26 09:18] LABS: LARGE PLATELETS FEW; POIKILOCYTOSIS 1+; STOMATOCYTES FEW
[2023-07-26] MEDS: heparin, porcine 5000 units/ml vial SQ SCH (09:19)
[2023-07-26 10:00] VITALS: BP 115/73; PULSE 98; RESP 16; TEMP 98.1; O2SAT 98
--- NOTE | 2023-07-26 10:19 | NUR ---
Paged Radiology for xray orders
[2023-07-26 10:57] VITALS: RESP 16; O2SAT 98
[2023-07-26] MEDS ORDERED: Neutra Phos packet PO SCH (13:00)
[2023-07-26] MEDS ORDERED: CHLO1CAP PO (13:08)
[2023-07-26] MEDS ORDERED: LACT10SO7 PO (14:01)
[2023-07-26] MEDS ORDERED: MULT-25 PO (14:01)
[2023-07-26] MEDS ORDERED: CYAN100T47 PO (14:01)
[2023-07-26] MEDS ORDERED: URSO300C2 PO (14:01)
[2023-07-26] MEDS ORDERED: PRED10TA23 PO (14:26)
[2023-07-26] MEDS ORDERED: ESCI5TAB PO (15:21)
--- NOTE | 2023-07-26 15:22 | NUR ---
Message: Sabra Lockett [phone] Re: Chun [id number] please call re: discrepancy with discharge medication Custom Responses: promotional table spacer Transaction number: [id number]
[2023-07-26 15:44] VITALS: RESP 20; O2SAT 97
--- NOTE | 2023-07-26 16:00 | NUR ---
Student documentation: I have reviewed and agree with all interventions, assessments performed and documented by SN Steff.
--- NOTE | 2023-07-26 16:00 | NUR ---
Message: Sabra Lockett [phone] Re Chun [id number] have question re: discharge Librium medication Custom Responses: promotional table spacer Transaction number: [id number]
[2023-07-26] MEDS ORDERED: ESCITALOPRAM OXALATE 5 MG TABLET PO ONE ×2 (16:10→16:40)
[2023-07-26] MEDS ORDERED: ESCITALOPRAM 10 mg tablet 10 MG TABLET PO ONE (16:45)
--- NOTE | 2023-07-26 16:45 | NUR ---
Patient discharge instructions reviewed with patient. Patient verbalized understanding. Patients IV dc'd cannula intact. Patient states she has all her belongings. Patient was taken to mothers vehicle via wheelchair.
[2023-07-26] MEDS ORDERED: CHLO10CA6 PO ×2 (17:04→17:07)
--- NOTE | 2023-07-26 17:08 | NUR ---
promotional table spacer Page Accepted promotional table spacer Message: Sabra Lockett [phone] Re: Chun [id number] prudence wanted me to page you again pharmacy has not received order. could i call it in to [facility] in [place] for you Custom Responses: promotional table spacer Transaction number: [id number]
--- NOTE | 2023-07-26 17:33 | NUR ---
Spoke to Nini the pharmacist at [facility] in [place]. She will make sure the Librax 5mg-2.5 is canceled and will fill the Librium 10mg now and have ready. I advised the patient is waiting in there at the pharmacy. Called Nicol back and advised the Rx should be getting filled at this time.
== END 2023-07-26 17:00 | disposition home or self-care (01) | DRG 280 ==
LOC: ER 11:42 → ED HOLD 13:57 → PCU 3S 07-21 03:05 → ORTHO 4S 07-22 13:20
PROVIDERS: ADMIT Family Medicine; ATTEND Family Medicine
DX: K70.10 Alcoholic hepatitis without ascites (principal); K70.9 Alcoholic liver disease, unspecified; D68.9 Coagulation defect, unspecified; K72.10 Chronic hepatic failure without coma; E87.1 Hypo-osmolality and hyponatremia; E83.39 Other disorders of phosphorus metabolism; K72.00 Acute and subacute hepatic failure without coma; D53.9 Nutritional anemia, unspecified; E11.65 Type 2 diabetes mellitus with hyperglycemia; I10 Essential (primary) hypertension; K76.82 Hepatic encephalopathy; E87.6 Hypokalemia; F17.210 Nicotine dependence, cigarettes, uncomplicated; K76.0 Fatty (change of) liver, not elsewhere classified; E03.9 Hypothyroidism, unspecified; N39.0 Urinary tract infection, site not specified; E83.42 Hypomagnesemia; F10.10 Alcohol abuse, uncomplicated; F32.A Depression, unspecified; F41.9 Anxiety disorder, unspecified; Z79.899 Other long term (current) drug therapy; Z90.49 Acquired absence of other specified parts of digestive tract; Z88.8 Allergy status to other drugs, medicaments and biological substances; Z91.018 Allergy to other foods; Z79.4 Long term (current) use of insulin
CPT/HCPCS: 36415; 36600; 71045; 76700; 80048; 80053; 80305; 80320; 81001; 81002; 81025; 82140; 82570; 82803; 82948; 83036; 83690; 83735; 83880; 83930; 83935; 84100; 84132; 84133; 84145; 84300; 84484; 85007; 85018; 85025; 85610; 85730; 86803; 87077; 87088; 87186; 87340; 87522; 97116; 97161; 97530; 99285; A6250; C1758; G0378; J0696; J1170; J1644; J1815; J2060; J3411; J3475; J3480; J3490; J7030; J7040; J7050; J7060; J7510; J7512

== ENCOUNTER 2023-08-09 11:22 | Inpatient (IN) | payer MEDICAID ==
[~2023-08-09] VITALS: Ht 160 cm; Wt 75.5 kg
[~2023-08-09 11:22] MED LIST changes: +CHLO10CA6 PO; +CHLO1CAP PO; +CYAN100T47 PO; +ESCI5TAB PO; +FOLI1TAB27 PO; +LACT10SO7 PO; -LISI10TA27 PO; -LORA-269 PO; +MULT-25 PO; -NALT50TA PO; +PRED10TA23 PO; +URSO300C2 PO
[2023-08-09 12:17] LABS: ALANINE AMINOTRANSFERASE 48 U/L (12-78); ALBUMIN 1.6 G/DL (3.4-5.0); ALKALINE PHOSPHATASE 98 IU/L (46-116); ANION GAP 12 (8-16); BILIRUBIN,TOTAL 15.8 MG/DL (0.1-1.0); BLOOD UREA NITROGEN 12 MG/DL (7-18); BUN/CREATININE RATIO 22.2 (10.0-20.0); CHLORIDE 99 MMOL/L (99-107); CREATININE 0.54 MG/DL (0.40-0.90); LIPASE 21 U/L (16-77); SODIUM 129 MMOL/L (135-145); TOTAL CARBON DIOXIDE 18.3 MMOL/L (24-32); eCRCL 120 ML/MIN; eGFR > 90 ML/MIN
[2023-08-09 12:28] LABS: BASOPHILS # (AUTO) 0.2 X10'3 (0-0.2); EOSINOPHILS # (AUTO) 0.1 X10'3 (0-0.9); PLATELET COUNT 244 X10'3 (140-440)
[2023-08-09 12:30] LABS: BASOPHILS % (AUTO) 1.5 % (0-1); EOSINOPHILS % (AUTO) 0.7 % (0-6); HEMATOCRIT 39.5 % (35.0-45.0); HEMOGLOBIN 12.7 g/dl (12.0-16.0); LYMPHOCYTES # (AUTO) 1.1 X10'3 (1.1-4.8); LYMPHOCYTES % (AUTO) 10.4 % (21-51); MEAN CORPUSCULAR HEMOGLOBIN 37.9 PG (27.0-31.0); MEAN CORPUSCULAR HGB CONC 32.2 g/dL (33.0-36.5); MEAN CORPUSCULAR VOLUME 117.8 FL (78-98); MEAN PLATELET VOLUME 10.1 FL (7.4-10.4); MONOCYTES # (AUTO) 0.4 X10'3 (0-0.9); NEUTROPHILS # (AUTO) 8.9 X10'3 (1.8-7.7); NEUTROPHILS % (AUTO) 83.4 % (42-75); RED BLOOD COUNT 3.35 X10'6 (4.20-5.60); RED CELL DISTRIBUTION WIDTH 17.3 % (11.5-14.5); WHITE BLOOD COUNT 10.7 X10'3 (4.5-11.0)
[2023-08-09 13:12] LABS: ALBUMIN/GLOBULIN RATIO 0.4 (1.1-1.5); ASPARTATE AMINO TRANSFERASE 80 U/L (10-37); GLUCOSE 260 MG/DL (70-104); POTASSIUM 3.9 MMOL/L (3.5-5.1); TOTAL PROTEIN 5.7 G/DL (6.4-8.2)
[2023-08-09 15:04] LABS: ACETONE NEGATIVE (NEGATIVE)
[2023-08-09] MEDS ORDERED: iohexol 300mg/ml 100ml inj. ONE (15:07)
[2023-08-09 15:25] LABS: URINE HCG NEGATIVE (NEG)
[2023-08-09] MEDS ORDERED: ondansetron/PF 4mg/2ml inj IV ONE (15:25)
[2023-08-09] MEDS ORDERED: HYDROmorphone 1 mg/ml syringe IV ONE (15:25)
[2023-08-09 15:29] LABS: BILIRUBIN,URINE LARGE (Neg); CLARITY,URINE CLOUDY (Clear); COLOR,URINE BROWN (Yellow); GLUCOSE, URINE 100 mg/dl (Neg); KETONES,URINE TRACE mg/dl (Neg); LEUKOCYTE ESTERASE ,URINE TRACE (Neg); OCCULT BLOOD,URINE NEGATIVE (Neg); PROTEIN,URINE 100 mg/dl (Neg)
[2023-08-09 15:41] LABS: NITRITES, URINE NEGATIVE (Neg); UA COLLECTION TYPE CLN CATCH MIDSTREAM
[2023-08-09 15:49] LABS: BACTERIA,URINE 4+ /HPF (Neg); SQUAMOUS EPITHELIAL CELL,UR MODERATE /LPF (FEW)
[2023-08-09 15:50] LABS: TRANSITIONAL EPI CELLS,URINE MODERATE /HPF; WBC,URINE 30-50 /HPF (0-4)
[2023-08-09 15:51] LABS: HYALINE CASTS 0-3 /LPF (NEGATIVE); WBC CLUMPS,URINE FEW /HPF (NEGATIVE)
[2023-08-09 15:52] LABS: CELLULAR CAST 0-4 /LPF (NEGATIVE)
[2023-08-09 15:53] LABS: RBC,URINE 0-2 /HPF (0-2)
[2023-08-09] MEDS ORDERED: CefTRIAXone/D5W-Rocephin 1gm 50 ML IV STA (17:13)
[2023-08-09] MEDS: HYDROmorphone 1 mg/ml syringe IV PRN ×2 (17:14→21:21)
[2023-08-09] MEDS ORDERED: LORazepam 2 mg/ml vial IV ONE (17:20)
[2023-08-09] MEDS ORDERED: potassium Cl 20 mEq SR tablet PO PRN ×2 (17:55)
[2023-08-09] MEDS: normal saline 1000ml 1,000 ML IV SCH (17:55)
[2023-08-09] MEDS ORDERED: potassium Cl 40MEQ/1/2NS 520ml 520 ML IV PRN (17:55)
[2023-08-09] MEDS ORDERED: magnesium 4gm in 100ml NS 100 ML IV PRN (17:55)
[2023-08-09] MEDS ORDERED: magnesium 2GM in 50ml NS 50 ML IV PRN (17:55)
[2023-08-09] MEDS ORDERED: ondansetron/PF 4mg/2ml inj IV PRN (17:55)
[2023-08-09] MEDS ORDERED: magnesium Cl slow-release 64mg tablet PO PRN (17:55)
[2023-08-09] MEDS ORDERED: morphine 2 MG/ML inj. syringe IV PRN (17:55)
[2023-08-09] MEDS: K and/or MAG REPLACEMENT MC SCH (18:57)
[2023-08-10] VITALS: BP 158/83; PULSE 79; RESP 15; TEMP 97.4; O2SAT 97
[2023-08-10] MEDS: HYDROmorphone 1 mg/ml syringe IV PRN ×5 (00:32→20:34)
[2023-08-10] MEDS: ALPRAZolam 0.5mg tablet PO PRN ×2 (00:34→11:04)
[2023-08-10] MEDS ORDERED: MESSAGE TO PHARMACY PO ONE (00:40)
[2023-08-10] MEDS ORDERED: DEXTROSE 15 GM of carb/4 tabs (each vial/BOTTLE has 4 tablets) PO PRN ×2 (00:40)
[2023-08-10] MEDS ORDERED: glucagon, human recombinant 1mg kit SUBCUT PRN (00:40)
[2023-08-10] MEDS ORDERED: dextrose 50%-water 50ml dispensing syringe IV PRN ×2 (00:40)
[2023-08-10] MEDS: insulin glargine (Lantus) pen - multi-dose SQ SCH ×2 (01:22→21:26)
[2023-08-10] MEDS: chlordiazePOXIDE 5mg capsule PO PRN ×2 (01:24→11:03)
[2023-08-10] MEDS: normal saline 1000ml 1,000 ML IV SCH ×2 (03:55→07:25)
[2023-08-10] MEDS: multivitamins, therapeutics tablet PO SCH (07:14)
[2023-08-10] MEDS: Ursodiol 300mg capsule PO SCH ×2 (07:14→20:33)
[2023-08-10] MEDS: verapamil SR 120mg (sust. release) tab PO SCH (07:14)
[2023-08-10] MEDS: levoTHYROXINE 100mcg tablet PO SCH (07:14)
[2023-08-10] MEDS: thiamine 100mg tablet PO SCH (07:14)
[2023-08-10] MEDS: lactulose 20gm/30ml cup PO SCH ×2 (07:14→20:33)
[2023-08-10] MEDS: CefTRIAXone/D5W-Rocephin 1gm 50 ML IV SCH (07:15)
[2023-08-10] MEDS: folic acid 1mg tablet PO SCH (07:15)
[2023-08-10] MEDS: pantoprazole 40mg Tablet.DR PO SCH (07:15)
[2023-08-10 07:53] LABS: RED BLOOD COUNT 3.06 X10'6 (4.20-5.60)
[2023-08-10 07:55] LABS: HEMATOCRIT 35.8 % (35.0-45.0); HEMOGLOBIN 11.8 g/dl (12.0-16.0); MEAN CORPUSCULAR HEMOGLOBIN 38.5 PG (27.0-31.0); MEAN CORPUSCULAR HGB CONC 32.9 g/dL (33.0-36.5); MEAN PLATELET VOLUME 8.7 FL (7.4-10.4); PLATELET COUNT 266 X10'3 (140-440); RED CELL DISTRIBUTION WIDTH 16.7 % (11.5-14.5); WHITE BLOOD COUNT 9.4 X10'3 (4.5-11.0)
[2023-08-10 07:57] LABS: ALBUMIN 1.5 G/DL (3.4-5.0); ANION GAP 10 (8-16); BLOOD UREA NITROGEN 10 MG/DL (7-18); CALCIUM 8.1 MG/DL (8.5-10.1); CHLORIDE 102 MMOL/L (99-107); MAGNESIUM 1.7 MG/DL (1.5-2.4); SODIUM 134 MMOL/L (135-145); TOTAL CARBON DIOXIDE 22.1 MMOL/L (24-32)
[2023-08-10 08:00] LABS: BUN/CREATININE RATIO 18.9 (10.0-20.0); CREATININE 0.53 MG/DL (0.40-0.90); GLUCOSE 165 MG/DL (70-104); eCRCL 123 ML/MIN; eGFR > 90 ML/MIN
[2023-08-10] MEDS: K and/or MAG REPLACEMENT MC SCH ×2 (08:00→20:00)
[2023-08-10 08:11] LABS: TOTAL CELLS COUNTED 100
[2023-08-10 08:12] LABS: ANISOCYTOSIS 1+; PLATELET ESTIMATE NORMAL
[2023-08-10 08:13] LABS: ELLIPTOCYTES FEW; STOMATOCYTES FEW; TEAR DROP CELLS FEW
[2023-08-10] MEDS: insulin Lispro (HumaLOG) vial - multi-dose SQ SCH ×2 (09:26→15:32)
[2023-08-10] MEDS: HYDROcodone/acetaminophen 5mg/325mg tablet PO PRN ×2 (11:05→15:24)
[2023-08-10] MEDS ORDERED: furosemide 20 MG/2 ML vial IV ONE (14:50)
[2023-08-10 18:00] VITALS: BP 128/79; PULSE 89; RESP 18; TEMP 97.3; O2SAT 99
[2023-08-10 20:00] VITALS: RESP 18; O2SAT 99
[2023-08-10 22:00] VITALS: BP 135/83; PULSE 85; RESP 12; TEMP 97.6; O2SAT 97
[2023-08-11] VITALS (7 sets, daily range): BP systolic 109–121; BP diastolic 66–77; PULSE 82–96; RESP 15–17; TEMP 97.7–99.2; O2SAT 95–100
[2023-08-11] MEDS: HYDROmorphone 1 mg/ml syringe IV PRN ×7 (01:07→23:12)
[2023-08-11 06:28] LABS: BASOPHILS # (AUTO) 0.1 X10'3 (0-0.2); BASOPHILS % (AUTO) 0.7 % (0-1); EOSINOPHILS # (AUTO) 0.1 X10'3 (0-0.9); EOSINOPHILS % (AUTO) 1.2 % (0-6); HEMATOCRIT 35.8 % (35.0-45.0); HEMOGLOBIN 11.6 g/dl (12.0-16.0); LYMPHOCYTES # (AUTO) 1.6 X10'3 (1.1-4.8); LYMPHOCYTES % (AUTO) 14.8 % (21-51); MEAN CORPUSCULAR HEMOGLOBIN 38.1 PG (27.0-31.0); MEAN CORPUSCULAR HGB CONC 32.5 g/dL (33.0-36.5); MEAN CORPUSCULAR VOLUME 117.4 FL (78-98); MEAN PLATELET VOLUME 9.1 FL (7.4-10.4); MONOCYTES # (AUTO) 0.6 X10'3 (0-0.9); MONOCYTES % (AUTO) 5.8 % (2-12); NEUTROPHILS # (AUTO) 8.6 X10'3 (1.8-7.7); NEUTROPHILS % (AUTO) 77.5 % (42-75); PLATELET COUNT 244 X10'3 (140-440); RED BLOOD COUNT 3.05 X10'6 (4.20-5.60); RED CELL DISTRIBUTION WIDTH 16.6 % (11.5-14.5); WHITE BLOOD COUNT 11.1 X10'3 (4.5-11.0)
[2023-08-11 06:33] LABS: ALBUMIN 1.4 G/DL (3.4-5.0); ANION GAP 11 (8-16); BLOOD UREA NITROGEN 9 MG/DL (7-18); BUN/CREATININE RATIO 20.5 (10.0-20.0); CALCIUM 7.8 MG/DL (8.5-10.1); CHLORIDE 101 MMOL/L (99-107); CREATININE 0.44 MG/DL (0.40-0.90); MAGNESIUM 1.7 MG/DL (1.5-2.4); SODIUM 132 MMOL/L (135-145); TOTAL CARBON DIOXIDE 20.3 MMOL/L (24-32); eCRCL 148 ML/MIN; eGFR > 90 ML/MIN
[2023-08-11 06:35] LABS: GLUCOSE 102 MG/DL (70-104); POTASSIUM 3.2 MMOL/L (3.5-5.1)
[2023-08-11] MEDS: multivitamins, therapeutics tablet PO SCH (07:37)
[2023-08-11] MEDS: folic acid 1mg tablet PO SCH (07:37)
[2023-08-11] MEDS: Ursodiol 300mg capsule PO SCH ×2 (07:38→19:14)
[2023-08-11] MEDS: pantoprazole 40mg Tablet.DR PO SCH (07:38)
[2023-08-11] MEDS: levoTHYROXINE 100mcg tablet PO SCH (07:39)
[2023-08-11] MEDS: thiamine 100mg tablet PO SCH (07:40)
[2023-08-11] MEDS: CefTRIAXone/D5W-Rocephin 1gm 50 ML IV SCH (07:40)
[2023-08-11] MEDS: furosemide 20 MG/2 ML vial IV SCH ×2 (07:50→19:14)
[2023-08-11] MEDS: verapamil SR 120mg (sust. release) tab PO SCH (07:50)
[2023-08-11] MEDS: lactulose 20gm/30ml cup PO SCH ×2 (08:00→19:14)
[2023-08-11] MEDS: K and/or MAG REPLACEMENT MC SCH ×2 (08:00→20:00)
[2023-08-11 11:22] LABS: GLUCOSE,BODY FLUID 111 MG/DL; LDH,BODY FLUID 45 U/L
[2023-08-11 11:34] LABS: TOTAL PROTEIN,BODY FLUID < 2.0 G/DL
[2023-08-11 11:36] LABS: LYMPHOCYTES,BODY FLUID 53 %; MONOCYTES,BODY FLUID 17 %; NEUTROPHILS,BODY FLUID 30 %
[2023-08-11 11:38] LABS: BF MESOTHELIAL CELLS MODERATE; BF RBC COUNT 100 /CU MM; BF WBC COUNT 33 /CU MM (0-1000); BFAPPEAR CLEAR; BFCOLOR AMBER; BFSOURCE PERITONEAL FLD; BFVOLUME 60 ML
[2023-08-11] MEDS: POTASSIUM BICARB 20meq eff tab 20 MEQ TABLET.EFF PO PRN ×2 (13:58→20:00)
[2023-08-11] MEDS: chlordiazePOXIDE 5mg capsule PO PRN (16:02)
[2023-08-11] MEDS: insulin glargine (Lantus) pen - multi-dose SQ SCH (23:50)
[2023-08-12] MEDS: HYDROmorphone 1 mg/ml syringe IV PRN ×4 (02:33→14:01)
[2023-08-12 06:00] VITALS: BP 112/72; PULSE 85; RESP 16; TEMP 97.4; O2SAT 98
[2023-08-12 06:55] LABS: BASOPHILS # (AUTO) 0.1 X10'3 (0-0.2); BASOPHILS % (AUTO) 0.7 % (0-1); EOSINOPHILS # (AUTO) 0.2 X10'3 (0-0.9); EOSINOPHILS % (AUTO) 1.4 % (0-6); HEMATOCRIT 37.6 % (35.0-45.0); HEMOGLOBIN 12.5 g/dl (12.0-16.0); LYMPHOCYTES # (AUTO) 1.6 X10'3 (1.1-4.8); LYMPHOCYTES % (AUTO) 14.3 % (21-51); MEAN CORPUSCULAR HEMOGLOBIN 38.5 PG (27.0-31.0); MEAN CORPUSCULAR HGB CONC 33.3 g/dL (33.0-36.5); MEAN CORPUSCULAR VOLUME 115.7 FL (78-98); MEAN PLATELET VOLUME 8.5 FL (7.4-10.4); MONOCYTES # (AUTO) 0.7 X10'3 (0-0.9); MONOCYTES % (AUTO) 5.9 % (2-12); NEUTROPHILS # (AUTO) 8.9 X10'3 (1.8-7.7); NEUTROPHILS % (AUTO) 77.7 % (42-75); PLATELET COUNT 221 X10'3 (140-440); RED BLOOD COUNT 3.25 X10'6 (4.20-5.60); RED CELL DISTRIBUTION WIDTH 15.9 % (11.5-14.5); WHITE BLOOD COUNT 11.5 X10'3 (4.5-11.0)
[2023-08-12 07:00] LABS: ALBUMIN 1.4 G/DL (3.4-5.0); ANION GAP 9 (8-16); BLOOD UREA NITROGEN 9 MG/DL (7-18); CALCIUM 7.9 MG/DL (8.5-10.1); CHLORIDE 98 MMOL/L (99-107); MAGNESIUM 1.5 MG/DL (1.5-2.4); SODIUM 131 MMOL/L (135-145)
[2023-08-12 07:11] LABS: BUN/CREATININE RATIO 15.5 (10.0-20.0); CREATININE 0.58 MG/DL (0.40-0.90); GLUCOSE 117 MG/DL (70-104); eCRCL 112 ML/MIN; eGFR > 90 ML/MIN
[2023-08-12 07:12] LABS: POTASSIUM 3.3 MMOL/L (3.5-5.1)
[2023-08-12] MEDS: furosemide 20 MG/2 ML vial IV SCH (07:27)
[2023-08-12] MEDS: pantoprazole 40mg Tablet.DR PO SCH (07:28)
[2023-08-12] MEDS: Ursodiol 300mg capsule PO SCH (07:28)
[2023-08-12] MEDS: multivitamins, therapeutics tablet PO SCH (07:29)
[2023-08-12] MEDS: folic acid 1mg tablet PO SCH (07:29)
[2023-08-12] MEDS: thiamine 100mg tablet PO SCH (07:29)
[2023-08-12] MEDS: verapamil SR 120mg (sust. release) tab PO SCH (07:29)
[2023-08-12] MEDS: levoTHYROXINE 100mcg tablet PO SCH (07:29)
[2023-08-12] MEDS: CefTRIAXone/D5W-Rocephin 1gm 50 ML IV SCH (07:30)
[2023-08-12] MEDS: lactulose 20gm/30ml cup PO SCH (07:30)
[2023-08-12] MEDS: chlordiazePOXIDE 5mg capsule PO PRN (07:43)
[2023-08-12] MEDS: POTASSIUM BICARB 20meq eff tab 20 MEQ TABLET.EFF PO PRN ×2 (07:43→12:01)
[2023-08-12] MEDS: K and/or MAG REPLACEMENT MC SCH (08:00)
[2023-08-12 09:48] VITALS: BP 118/75; PULSE 93; RESP 15; TEMP 97; O2SAT 95
[2023-08-12 10:00] VITALS: RESP 16; O2SAT 97
[2023-08-12] MEDS: insulin Lispro (HumaLOG) vial - multi-dose SQ SCH (10:11)
[2023-08-12] MEDS ORDERED: CIPR-202 PO ×2 (12:10)
[2023-08-12 14:01] VITALS: RESP 17
== END 2023-08-12 14:13 | disposition home or self-care (01) | DRG 280 ==
LOC: ER 11:22 → ED HOLD 17:57 → ORTHO 4S 21:32
PROVIDERS: ADMIT Internal Medicine; ATTEND Internal Medicine
PROC: BW21ZZZ Computerized Tomography (CT Scan) of Abdomen and Pelvis (ICD-10-PCS; principal; 2023-08-09)
PROC: 0W9G3ZZ Drainage of Peritoneal Cavity, Percutaneous Approach (ICD-10-PCS; 2023-08-11)
DX: K70.31 Alcoholic cirrhosis of liver with ascites (principal); K70.40 Alcoholic hepatic failure without coma; D69.6 Thrombocytopenia, unspecified; N39.0 Urinary tract infection, site not specified; E87.1 Hypo-osmolality and hyponatremia; K70.11 Alcoholic hepatitis with ascites; E03.9 Hypothyroidism, unspecified; E11.9 Type 2 diabetes mellitus without complications; B96.20 Unspecified Escherichia coli [E. coli] as the cause of diseases classified elsewhere; F32.A Depression, unspecified; F41.9 Anxiety disorder, unspecified; I10 Essential (primary) hypertension; K21.9 Gastro-esophageal reflux disease without esophagitis; F10.239 Alcohol dependence with withdrawal, unspecified; Z20.822 Contact with and (suspected) exposure to COVID-19; K76.0 Fatty (change of) liver, not elsewhere classified; Z88.8 Allergy status to other drugs, medicaments and biological substances; Z79.4 Long term (current) use of insulin; Z79.899 Other long term (current) drug therapy; Z91.018 Allergy to other foods; Z90.49 Acquired absence of other specified parts of digestive tract; Z56.0 Unemployment, unspecified; Z80.3 Family history of malignant neoplasm of breast
CPT/HCPCS: 36415; 49083; 74177; 76942; 80048; 80053; 81001; 81025; 82009; 82140; 82945; 82948; 83615; 83690; 83735; 84157; 85007; 85025; 87070; 87075; 87077; 87081; 87088; 87102; 87186; 87811; 89051; 99285; A6250; G0378; J0696; J1170; J1815; J1940; J2060; J2405; J3490; J7030; Q9967

== ENCOUNTER 2023-08-15 12:55 | Inpatient (IN) | payer MEDICAID ==
[~2023-08-15] VITALS: Ht 160 cm; Wt 92.7 kg
[~2023-08-15 12:55] MED LIST changes: -CHLO1CAP PO; +CIPR-202 PO; -ESCI5TAB PO; -PRED10TA23 PO
[2023-08-15 13:48] LABS: BASOPHILS # (AUTO) 0.1 X10'3 (0-0.2); BASOPHILS % (AUTO) 0.5 % (0-1); EOSINOPHILS # (AUTO) 0.1 X10'3 (0-0.9); EOSINOPHILS % (AUTO) 0.7 % (0-6); HEMATOCRIT 39.3 % (35.0-45.0); HEMOGLOBIN 13.1 g/dl (12.0-16.0); LYMPHOCYTES # (AUTO) 1.4 X10'3 (1.1-4.8); LYMPHOCYTES % (AUTO) 10.2 % (21-51); MEAN CORPUSCULAR HEMOGLOBIN 37.9 PG (27.0-31.0); MEAN CORPUSCULAR HGB CONC 33.3 g/dL (33.0-36.5); MEAN CORPUSCULAR VOLUME 113.9 FL (78-98); MEAN PLATELET VOLUME 8.7 FL (7.4-10.4); MONOCYTES # (AUTO) 0.9 X10'3 (0-0.9); MONOCYTES % (AUTO) 6.6 % (2-12); NEUTROPHILS # (AUTO) 11.6 X10'3 (1.8-7.7); PLATELET COUNT 260 X10'3 (140-440); RED BLOOD COUNT 3.46 X10'6 (4.20-5.60); RED CELL DISTRIBUTION WIDTH 15.9 % (11.5-14.5); WHITE BLOOD COUNT 14.2 X10'3 (4.5-11.0)
[2023-08-15 14:04] LABS: ALANINE AMINOTRANSFERASE 33 U/L (12-78); ALBUMIN 1.4 G/DL (3.4-5.0); ALKALINE PHOSPHATASE 105 IU/L (46-116); ANION GAP 12 (8-16); BILIRUBIN,TOTAL 14.2 MG/DL (0.1-1.0); BLOOD UREA NITROGEN 23 MG/DL (7-18); CALCIUM 7.6 MG/DL (8.5-10.1); CHLORIDE 91 MMOL/L (99-107); LIPASE 18 U/L (16-77); SODIUM 125 MMOL/L (135-145); TOTAL CARBON DIOXIDE 22.2 MMOL/L (24-32)
[2023-08-15 14:06] LABS: ALBUMIN/GLOBULIN RATIO 0.3 (1.1-1.5); ASPARTATE AMINO TRANSFERASE 91 U/L (10-37); BUN/CREATININE RATIO 23.2 (10.0-20.0); CREATININE 0.99 MG/DL (0.40-0.90); GLUCOSE 290 MG/DL (70-104); POTASSIUM 4.1 MMOL/L (3.5-5.1); TOTAL PROTEIN 5.7 G/DL (6.4-8.2); eCRCL 66 ML/MIN; eGFR 64 ML/MIN
[2023-08-15] MEDS ORDERED: diphenhydrAMINE 50 mg/ml inj IV ONE (17:05)
[2023-08-15] MEDS ORDERED: morphine 4 MG/ML inj SYRINge IV ONE (17:05)
[2023-08-15 19:26] LABS: URINE HCG NEGATIVE (NEG)
[2023-08-15 19:41] LABS: BILIRUBIN,URINE LARGE (Neg); CLARITY,URINE SLIGHTLY CLOUDY (Clear); COLOR,URINE ORANGE (Yellow); GLUCOSE, URINE 250 mg/dl (Neg); KETONES,URINE TRACE mg/dl (Neg); LEUKOCYTE ESTERASE ,URINE NEGATIVE (Neg); NITRITES, URINE NEGATIVE (Neg); OCCULT BLOOD,URINE NEGATIVE (Neg); PROTEIN,URINE NEGATIVE (Neg); UROBILINOGEN,URINE 0.2 E.U/dL (0.2-1.0)
[2023-08-15 19:45] LABS: UA COLLECTION TYPE CLN CATCH MIDSTREAM
[2023-08-15 19:52] LABS: MUCUS STRANDS MODERATE /LPF (Neg); RBC,URINE 0-2 /HPF (0-2); SQUAMOUS EPITHELIAL CELL,UR MODERATE /LPF (FEW); TRANSITIONAL EPI CELLS,URINE FEW /HPF; WBC,URINE 0-4 /HPF (0-4)
[2023-08-15 19:53] LABS: AMORPHOUS URATES 2+
[2023-08-15 19:55] LABS: BACTERIA,URINE 1+ /HPF (Neg); YEAST FEW /HPF (NEGATIVE)
[2023-08-15] MEDS ORDERED: HYDROmorphone 1 mg/ml syringe IV ONE (19:55)
[2023-08-15] MEDS ORDERED: LIDOcaine 1% W/epiNEPHrine 1:100,000 20ml vial SQ ONE (20:15)
[2023-08-15] MEDS ORDERED: CefTRIAXone/D5W-Rocephin 1gm 50 ML IV ONE (20:40)
[2023-08-15 22:41] LABS: BFAPPEAR HAZY; BFSOURCE OTHER
[2023-08-15 22:42] LABS: BF MESOTHELIAL CELLS MODERATE; BFCOLOR YELLOW; BFVOLUME 18 ML; LYMPHOCYTES,BODY FLUID 44 %; MONOCYTES,BODY FLUID 30 %; NEUTROPHILS,BODY FLUID 26 %; OTHER CELLS,BODY FLUID MACROPHAGES
[2023-08-15 22:47] LABS: BF RBC COUNT 1360 /CU MM; BF WBC COUNT 23 /CU MM (0-1000)
[2023-08-16] MEDS ORDERED: diphenhydrAMINE 50 mg/ml inj IV PRN (03:10)
[2023-08-16] MEDS ORDERED: ondansetron/PF 4mg/2ml inj IV PRN (03:10)
[2023-08-16] MEDS ORDERED: HYDROcodone/acetaminophen 5mg/325mg tablet PO PRN (03:10)
[2023-08-16] MEDS ORDERED: diphenhydrAMINE 25mg capsule PO PRN (03:10)
[2023-08-16] MEDS ORDERED: magnesium hydroxide 30ml (MOM) UD suspension PO PRN (03:10)
[2023-08-16] MEDS ORDERED: acetaminophen 650mg rectal suppository RC PRN (03:10)
[2023-08-16] MEDS ORDERED: acetaminophen 325mg tablet PO PRN ×2 (03:10)
[2023-08-16] MEDS ORDERED: mag hydrox/Alum hydrox/simeth 30ml oral suspension PO PRN (03:10)
[2023-08-16] MEDS ORDERED: morphine 2 MG/ML inj. syringe IV PRN (03:10)
[2023-08-16] MEDS ORDERED: bisacodyl 10mg suppository rectal RC PRN (03:10)
[2023-08-16] MEDS ORDERED: ondansetron 4mg rapidly disintigrating tab PO PRN (03:10)
[2023-08-16] MEDS ORDERED: DEXTROSE 15 GM of carb/4 tabs (each vial/BOTTLE has 4 tablets) PO PRN ×2 (03:55)
[2023-08-16] MEDS ORDERED: MESSAGE TO PHARMACY PO ONE (03:55)
[2023-08-16] MEDS ORDERED: dextrose 50%-water 50ml dispensing syringe IV PRN ×2 (03:55)
[2023-08-16] MEDS ORDERED: glucagon, human recombinant 1mg kit SUBCUT PRN (03:55)
[2023-08-16] MEDS: pantoprazole 40mg Tablet.DR PO SCH (07:42)
[2023-08-16] MEDS: furosemide 10 MG/1 ML 10ml inj IV SCH (07:44)
[2023-08-16] MEDS: docusate sod 100mg capsule PO SCH ×2 (07:51→21:14)
[2023-08-16] MEDS ORDERED: CefTRIAXone/D5W-Rocephin 1gm 50 ML IV SCH (08:00)
[2023-08-16 08:55] LABS: APTT 30 SECONDS (22-32); INR 1.5 INR; PROTHROMBIN TIME 15.8 SECONDS (9.0-12.0)
[2023-08-16] MEDS ORDERED: HYDROmorphone inj. 0.5 MG/0.5 ML DISP.SYRIN IV PRN (08:55)
[2023-08-16 09:15] LABS: MAGNESIUM 1.5 MG/DL (1.5-2.4)
[2023-08-16 09:17] LABS: HEMOGLOBIN A1C 5.4 % (4.5-6.2); PHOSPHORUS 3.6 MG/DL (2.3-4.5)
[2023-08-16] MEDS: piperacillin/tazo 4.5gm/100ml 100 ML IV SCH ×2 (09:57→16:28)
[2023-08-16] MEDS: HYDROmorphone inj. 0.5 MG/0.5 ML DISP.SYRIN IV PRN ×3 (12:19→21:14)
[2023-08-16] MEDS: insulin Lispro (HumaLOG) vial - multi-dose SQ SCH (13:34)
[2023-08-16] MEDS ORDERED: PRED5TAB PO (18:58)
[2023-08-16] MEDS ORDERED: FURO20TA4 PO (18:58)
[2023-08-16] MEDS ORDERED: POTA25TA40 PO (18:58)
[2023-08-16] MEDS ORDERED: MULT-1085 PO (18:58)
[2023-08-16] MEDS ORDERED: ESCI5TAB PO (18:58)
[2023-08-16] MEDS ORDERED: temazepam 15mg capsule PO PRN (21:00)
[2023-08-16] MEDS: insulin glargine (Lantus) pen - multi-dose SQ SCH (21:19)
[2023-08-17] VITALS (9 sets, daily range): BP systolic 105–122; BP diastolic 71–79; PULSE 90–104; RESP 13–20; TEMP 97.2–98.6; O2SAT 96–98
[2023-08-17] MEDS: piperacillin/tazo 4.5gm/100ml 100 ML IV SCH ×3 (00:30→17:12)
[2023-08-17] MEDS: HYDROmorphone inj. 0.5 MG/0.5 ML DISP.SYRIN IV PRN ×5 (00:57→21:30)
[2023-08-17 07:19] LABS: BASOPHILS # (AUTO) 0.1 X10'3 (0-0.2); BASOPHILS % (AUTO) 0.4 % (0-1); EOSINOPHILS # (AUTO) 0.1 X10'3 (0-0.9); EOSINOPHILS % (AUTO) 0.9 % (0-6); HEMATOCRIT 38.1 % (35.0-45.0); HEMOGLOBIN 12.6 g/dl (12.0-16.0); LYMPHOCYTES # (AUTO) 1.6 X10'3 (1.1-4.8); LYMPHOCYTES % (AUTO) 11.5 % (21-51); MEAN CORPUSCULAR HEMOGLOBIN 38.1 PG (27.0-31.0); MEAN CORPUSCULAR VOLUME 115.4 FL (78-98); MEAN PLATELET VOLUME 8.5 FL (7.4-10.4); MONOCYTES # (AUTO) 0.7 X10'3 (0-0.9); NEUTROPHILS # (AUTO) 11.7 X10'3 (1.8-7.7); NEUTROPHILS % (AUTO) 82.2 % (42-75); PLATELET COUNT 177 X10'3 (140-440); RED CELL DISTRIBUTION WIDTH 15.8 % (11.5-14.5); WHITE BLOOD COUNT 14.2 X10'3 (4.5-11.0)
[2023-08-17] MEDS: docusate sod 100mg capsule PO SCH ×2 (07:57→21:21)
[2023-08-17] MEDS: pantoprazole 40mg Tablet.DR PO SCH (07:57)
[2023-08-17] MEDS: furosemide 10 MG/1 ML 10ml inj IV SCH (07:58)
[2023-08-17 08:17] LABS: ALANINE AMINOTRANSFERASE 27 U/L (12-78); ALBUMIN 1.2 G/DL (3.4-5.0); ALKALINE PHOSPHATASE 127 IU/L (46-116); ANION GAP 10 (8-16); ASPARTATE AMINO TRANSFERASE 96 U/L (10-37); BILIRUBIN,TOTAL 12.5 MG/DL (0.1-1.0); BLOOD UREA NITROGEN 22 MG/DL (7-18); BUN/CREATININE RATIO 25.9 (10.0-20.0); CALCIUM 7.6 MG/DL (8.5-10.1); CHLORIDE 96 MMOL/L (99-107); CREATININE 0.85 MG/DL (0.40-0.90); GLUCOSE 226 MG/DL (70-104); SODIUM 127 MMOL/L (135-145); TOTAL CARBON DIOXIDE 21.4 MMOL/L (24-32); eCRCL 76 ML/MIN; eGFR 76 ML/MIN
[2023-08-17 08:18] LABS: ALBUMIN/GLOBULIN RATIO 0.3 (1.1-1.5); POTASSIUM 3.5 MMOL/L (3.5-5.1); TOTAL PROTEIN 5.2 G/DL (6.4-8.2)
[2023-08-17] MEDS ORDERED: LACT10SO3 PO (08:44)
[2023-08-17] MEDS ORDERED: ALPR-623 PO (08:44)
[2023-08-17] MEDS ORDERED: INSU100V5 IJ (08:44)
[2023-08-17] MEDS ORDERED: PANT-47 PO (08:44)
[2023-08-17] MEDS ORDERED: CHLO10CA6 PO (08:49)
[2023-08-17] MEDS ORDERED: URSO300C2 PO (08:49)
[2023-08-17] MEDS ORDERED: CYAN100T47 PO (08:49)
[2023-08-17] MEDS: insulin Lispro (HumaLOG) vial - multi-dose SQ SCH ×3 (09:50→19:16)
[2023-08-17] MEDS ORDERED: multivitamins, therapeutics tablet PO SCH (14:55)
[2023-08-17] MEDS: NUT.TX.GLUC.INTOLER,LAC-FR,SOY (GLUCERNA) 237 ML PO SCH (18:00)
[2023-08-17] MEDS: lactulose 20gm/30ml cup PO SCH (21:19)
[2023-08-17] MEDS: Ursodiol 300mg capsule PO SCH (21:21)
[2023-08-17] MEDS: insulin glargine (Lantus) pen - multi-dose SQ SCH (21:44)
[2023-08-18 02:00] VITALS: BP 115/71; PULSE 93; RESP 12; TEMP 98.4; O2SAT 96
[2023-08-18] MEDS: HYDROmorphone inj. 0.5 MG/0.5 ML DISP.SYRIN IV PRN ×2 (02:48→07:26)
[2023-08-18] MEDS: piperacillin/tazo 4.5gm/100ml 100 ML IV SCH ×2 (02:49→07:47)
[2023-08-18 06:43] LABS: BASOPHILS # (AUTO) 0.1 X10'3 (0-0.2); BASOPHILS % (AUTO) 0.4 % (0-1); EOSINOPHILS # (AUTO) 0.1 X10'3 (0-0.9); EOSINOPHILS % (AUTO) 0.9 % (0-6); HEMATOCRIT 41.1 % (35.0-45.0); HEMOGLOBIN 13.8 g/dl (12.0-16.0); LYMPHOCYTES # (AUTO) 1.7 X10'3 (1.1-4.8); LYMPHOCYTES % (AUTO) 11.8 % (21-51); MEAN CORPUSCULAR HEMOGLOBIN 37.7 PG (27.0-31.0); MEAN CORPUSCULAR HGB CONC 33.6 g/dL (33.0-36.5); MEAN CORPUSCULAR VOLUME 112.4 FL (78-98); MONOCYTES # (AUTO) 0.8 X10'3 (0-0.9); MONOCYTES % (AUTO) 5.8 % (2-12); NEUTROPHILS # (AUTO) 11.5 X10'3 (1.8-7.7); NEUTROPHILS % (AUTO) 81.1 % (42-75); PLATELET COUNT 213 X10'3 (140-440); RED BLOOD COUNT 3.66 X10'6 (4.20-5.60); RED CELL DISTRIBUTION WIDTH 15.5 % (11.5-14.5); WHITE BLOOD COUNT 14.2 X10'3 (4.5-11.0)
[2023-08-18 06:53] LABS: ALANINE AMINOTRANSFERASE 28 U/L (12-78); ALBUMIN 1.4 G/DL (3.4-5.0); ALBUMIN/GLOBULIN RATIO 0.3 (1.1-1.5); ALKALINE PHOSPHATASE 160 IU/L (46-116); ANION GAP 11 (8-16); ASPARTATE AMINO TRANSFERASE 106 U/L (10-37); BILIRUBIN,TOTAL 15.1 MG/DL (0.1-1.0); BLOOD UREA NITROGEN 20 MG/DL (7-18); BUN/CREATININE RATIO 26.7 (10.0-20.0); CHLORIDE 94 MMOL/L (99-107); CREATININE 0.75 MG/DL (0.40-0.90); GLUCOSE 145 MG/DL (70-104); POTASSIUM 3.3 MMOL/L (3.5-5.1); SODIUM 128 MMOL/L (135-145); TOTAL CARBON DIOXIDE 22.9 MMOL/L (24-32); TOTAL PROTEIN 5.9 G/DL (6.4-8.2); eCRCL 87 ML/MIN; eGFR 88 ML/MIN
[2023-08-18 07:00] VITALS: BP 134/90; PULSE 101; RESP 17; TEMP 97.7; O2SAT 100
[2023-08-18] MEDS ORDERED: potassium Cl 40MEQ/1/2NS 520ml 520 ML IV PRN (07:15)
[2023-08-18] MEDS ORDERED: potassium Cl 20 mEq SR tablet PO PRN ×2 (07:15)
[2023-08-18] MEDS ORDERED: magnesium Cl slow-release 64mg tablet PO PRN (07:15)
[2023-08-18] MEDS ORDERED: magnesium 4gm in 100ml NS 100 ML IV PRN (07:15)
[2023-08-18] MEDS ORDERED: magnesium 2GM in 50ml NS 50 ML IV PRN (07:15)
[2023-08-18] MEDS: docusate sod 100mg capsule PO SCH (07:23)
[2023-08-18] MEDS: pantoprazole 40mg Tablet.DR PO SCH (07:24)
[2023-08-18] MEDS: Ursodiol 300mg capsule PO SCH (07:24)
[2023-08-18] MEDS: lactulose 20gm/30ml cup PO SCH (07:24)
[2023-08-18] MEDS: furosemide 10 MG/1 ML 10ml inj IV SCH (07:25)
[2023-08-18] MEDS ORDERED: POTASSIUM BICARB 20meq eff tab 20 MEQ TABLET.EFF PO PRN ×2 (07:31)
[2023-08-18 08:00] VITALS: RESP 17; O2SAT 100
[2023-08-18] MEDS ORDERED: folic acid 1mg tablet PO SCH (08:00)
[2023-08-18] MEDS ORDERED: ESCITALOPRAM 10 mg tablet 10 MG TABLET PO SCH (08:00)
[2023-08-18] MEDS ORDERED: levoTHYROXINE 100mcg tablet PO SCH (08:00)
[2023-08-18] MEDS ORDERED: predniSONE 5mg tablet PO SCH (08:00)
[2023-08-18] MEDS ORDERED: verapamil SR 120mg (sust. release) tab PO SCH (08:00)
[2023-08-18] MEDS ORDERED: thiamine 100mg tablet PO SCH (08:00)
[2023-08-18] MEDS: NUT.TX.GLUC.INTOLER,LAC-FR,SOY (GLUCERNA) 237 ML PO SCH ×2 (08:26→13:15)
[2023-08-18] MEDS: insulin Lispro (HumaLOG) vial - multi-dose SQ SCH ×2 (10:03→14:15)
[2023-08-18 11:00] VITALS: BP 113/72; PULSE 98; RESP 18; TEMP 97.5; O2SAT 96
[2023-08-18] MEDS ORDERED: AMOX500C2 PO (12:40)
[2023-08-18] MEDS ORDERED: SPIR25TA5 PO (12:43)
[2023-08-18] MEDS ORDERED: OXYC-658 PO ×2 (12:46→15:36)
[2023-08-18] MEDS ORDERED: oxyCODONE IR 5mg (immed. release) tablet PO ONE (13:15)
[2023-08-18 14:23] LABS: PLATELET ESTIMATE NORMAL
[2023-08-18 14:24] LABS: SCHISTOCYTES FEW
[2023-08-18 15:00] VITALS: BP 108/63; PULSE 81; RESP 18; TEMP 97.5; O2SAT 96
[2023-08-19] MEDS ORDERED: ESCITALOPRAM 10 mg tablet 10 MG TABLET PO SCH (08:00)
== END 2023-08-18 16:30 | disposition home or self-care (01) | DRG 720 ==
LOC: ER 12:55 → ED HOLD 08-16 03:16 → PCU 3S 08-16 23:30
PROVIDERS: ADMIT Family Medicine; ATTEND Family Medicine
PROC: 0W9G3ZZ Drainage of Peritoneal Cavity, Percutaneous Approach (ICD-10-PCS; principal; 2023-08-16)
DX: A41.9 Sepsis, unspecified organism (principal); E87.20 Acidosis, unspecified; K70.40 Alcoholic hepatic failure without coma; E87.1 Hypo-osmolality and hyponatremia; E88.09 Other disorders of plasma-protein metabolism, not elsewhere classified; N39.0 Urinary tract infection, site not specified; E03.9 Hypothyroidism, unspecified; E86.0 Dehydration; K70.31 Alcoholic cirrhosis of liver with ascites; F41.9 Anxiety disorder, unspecified; I10 Essential (primary) hypertension; F10.20 Alcohol dependence, uncomplicated; F17.200 Nicotine dependence, unspecified, uncomplicated; E87.70 Fluid overload, unspecified; E11.9 Type 2 diabetes mellitus without complications; F32.A Depression, unspecified; T38.0X5A Adverse effect of glucocorticoids and synthetic analogues, initial encounter; Y92.89 Other specified places as the place of occurrence of the external cause; Z90.49 Acquired absence of other specified parts of digestive tract; Z88.8 Allergy status to other drugs, medicaments and biological substances; Z91.018 Allergy to other foods; Z80.3 Family history of malignant neoplasm of breast; Z79.4 Long term (current) use of insulin; Z79.899 Other long term (current) drug therapy
CPT/HCPCS: 36415; 70450; 71045; 74176; 80053; 81001; 81025; 82140; 82948; 83036; 83605; 83690; 83735; 83880; 84100; 84145; 85008; 85025; 85610; 85730; 87015; 87040; 87070; 87075; 87081; 89051; 99285; A6449; G0378; J0696; J1170; J1200; J1815; J1940; J2270; J2405; J2543; J7030; J7512

== ENCOUNTER 2023-09-22 06:44 | Day surgery (SDC) | payer MEDICAID ==
[~2023-09-22] VITALS: Ht 160 cm; Wt 98.7 kg
[2023-09-22] VITALS (9 sets, daily range): BP systolic 106–134; BP diastolic 59–87; PULSE 97–107; RESP 16–18; TEMP 98.1; O2SAT 92–96
[~2023-09-22 06:44] MED LIST changes: +ALPR-623 PO; -ALPR0.5T8 PO; -CIPR-202 PO; +ESCI5TAB PO; +FURO20TA4 PO; +INSU100V5 IJ; +LACT10SO3 PO; -LACT10SO7 PO; +MULT-1085 PO; -MULT-25 PO; +OXYC-658 PO; +PANT-47 PO; -PANT20TA18 PO; +PRED5TAB PO; +SPIR25TA5 PO
[2023-09-22] MEDS ORDERED: FURO80TA3 PO (07:11)
[2023-09-22] MEDS ORDERED: ALPR0.5T8 PO (07:11)
[2023-09-22] MEDS ORDERED: CEPH-585 PO (07:11)
[2023-09-22] MEDS ORDERED: SPIR50TA5 PO (07:11)
[2023-09-22] MEDS ORDERED: POTA25TA35 PO (07:14)
[2023-09-22] MEDS: albumin 25% 100mL bottle x 1 IV PRN ×2 (09:40→09:41)
== END 2023-09-22 10:45 | disposition home or self-care (01) ==
LOC: SSTAY O 06:44
PROVIDERS: ATTEND Radiology Vascular & Interventional Radiology
DX: K70.31 Alcoholic cirrhosis of liver with ascites (principal); K72.10 Chronic hepatic failure without coma; F41.9 Anxiety disorder, unspecified; F32.A Depression, unspecified; E11.22 Type 2 diabetes mellitus with diabetic chronic kidney disease; N18.9 Chronic kidney disease, unspecified; J45.909 Unspecified asthma, uncomplicated; Z86.19 Personal history of other infectious and parasitic diseases; Z98.890 Other specified postprocedural states; Z90.49 Acquired absence of other specified parts of digestive tract; F10.20 Alcohol dependence, uncomplicated; F17.290 Nicotine dependence, other tobacco product, uncomplicated; Z91.018 Allergy to other foods; Z88.8 Allergy status to other drugs, medicaments and biological substances; Z79.899 Other long term (current) drug therapy; Z79.4 Long term (current) use of insulin
CPT/HCPCS: 49083; 82948; C1729; P9047; A6258; A6402

== ENCOUNTER 2023-10-17 09:06 | Day surgery (SDC) | payer MEDICAID ==
[~2023-10-17] VITALS: Ht 160 cm; Wt 82.0 kg
[2023-10-17] VITALS (8 sets, daily range): BP systolic 90–118; BP diastolic 62–77; PULSE 86–103; RESP 14–18; TEMP 98.2; O2SAT 96–98
[~2023-10-17 09:06] MED LIST changes: -ALPR-623 PO; +ALPR0.5T8 PO; +CEPH-585 PO; -CHLO10CA6 PO; -ESCI5TAB PO; -FURO20TA4 PO; +FURO80TA3 PO; -INSU100V5 IJ; -LACT10SO3 PO; +POTA25TA35 PO; -PRED5TAB PO; -SPIR25TA5 PO; +SPIR50TA5 PO
[2023-10-17] MEDS: albumin 25% 100mL bottle x 1 IV PRN (09:47)
== END 2023-10-17 11:35 | disposition short-term general hospital (02) ==
LOC: SSTAY O 09:06
PROVIDERS: ATTEND Radiology Vascular & Interventional Radiology
DX: K70.31 Alcoholic cirrhosis of liver with ascites (principal); K72.10 Chronic hepatic failure without coma; F41.9 Anxiety disorder, unspecified; F32.A Depression, unspecified; E11.22 Type 2 diabetes mellitus with diabetic chronic kidney disease; N18.9 Chronic kidney disease, unspecified; J45.909 Unspecified asthma, uncomplicated; F10.10 Alcohol abuse, uncomplicated; F17.290 Nicotine dependence, other tobacco product, uncomplicated; Z90.49 Acquired absence of other specified parts of digestive tract; Z98.890 Other specified postprocedural states; Z79.899 Other long term (current) drug therapy; Z79.4 Long term (current) use of insulin; Z88.8 Allergy status to other drugs, medicaments and biological substances; Z91.018 Allergy to other foods
CPT/HCPCS: 49083; C1729; P9047; A6258

== ENCOUNTER 2023-10-20 08:32 | Outpatient (CLI) | payer MEDICAID ==
[2023-10-20 09:08] LABS: BASOPHILS % (AUTO) 0.4 % (0-1); EOSINOPHILS # (AUTO) 0.1 X10'3 (0-0.9); EOSINOPHILS % (AUTO) 1.2 % (0-6); HEMATOCRIT 37.3 % (35.0-45.0); HEMOGLOBIN 12.5 g/dl (12.0-16.0); LYMPHOCYTES # (AUTO) 1.4 X10'3 (1.1-4.8); MEAN CORPUSCULAR HEMOGLOBIN 31.7 PG (27.0-31.0); MEAN CORPUSCULAR HGB CONC 33.6 g/dL (33.0-36.5); MEAN CORPUSCULAR VOLUME 94.5 FL (78-98); MONOCYTES # (AUTO) 0.5 X10'3 (0-0.9); NEUTROPHILS # (AUTO) 5.3 X10'3 (1.8-7.7); NEUTROPHILS % (AUTO) 72.4 % (42-75); PLATELET COUNT 314 X10'3 (140-440); RED BLOOD COUNT 3.95 X10'6 (4.20-5.60); RED CELL DISTRIBUTION WIDTH 15.2 % (11.5-14.5); WHITE BLOOD COUNT 7.3 X10'3 (4.5-11.0)
[2023-10-20 12:06] LABS: ALANINE AMINOTRANSFERASE 10 U/L (12-78); ALBUMIN 2.5 G/DL (3.4-5.0); ALBUMIN/GLOBULIN RATIO 0.5 (1.1-1.5); ALKALINE PHOSPHATASE 77 IU/L (46-116); ANION GAP 11 (8-16); ASPARTATE AMINO TRANSFERASE 20 U/L (10-37); BILIRUBIN,TOTAL 3.2 MG/DL (0.1-1.0); BLOOD UREA NITROGEN 13 MG/DL (7-18); BUN/CREATININE RATIO 11.6 (10.0-20.0); CALCIUM 7.9 MG/DL (8.5-10.1); CHLORIDE 95 MMOL/L (99-107); CREATININE 1.12 MG/DL (0.40-0.90); GLUCOSE 199 MG/DL (70-104); SODIUM 132 MMOL/L (135-145); TOTAL CARBON DIOXIDE 26.2 MMOL/L (24-32); TOTAL PROTEIN 7.1 G/DL (6.4-8.2); eGFR 55 ML/MIN
[2023-10-20 12:44] LABS: HEMOGLOBIN A1C 5.8 % (4.5-6.2)
== END 2023-10-20 23:59 | disposition home or self-care (01) ==
LOC: LAB 08:32
PROVIDERS: ATTEND Family Medicine
DX: E11.9 Type 2 diabetes mellitus without complications (principal); R18.8 Other ascites
CPT/HCPCS: 36415; 80053; 83036; 85025

== ENCOUNTER 2023-11-01 07:04 | Day surgery (SDC) | payer MEDICAID ==
[2023-11-01] VITALS (11 sets, daily range): BP systolic 79–132; BP diastolic 46–82; PULSE 75–90; RESP 16; TEMP 98.4; O2SAT 92–99
[~2023-11-01] VITALS: Ht 160 cm; Wt 76.5 kg
[2023-11-01] MEDS ORDERED: normal saline 1000ml 1,000 ML IV PRN (07:45)
[2023-11-01] MEDS ORDERED: OXYC5CAP19 PO (08:33)
[2023-11-01] MEDS ORDERED: BIOT5TAB PO (08:37)
[2023-11-01] MEDS: albumin 25% 100mL bottle x 1 IV PRN (10:51)
== END 2023-11-01 11:46 | disposition home or self-care (01) ==
LOC: SSTAY O 07:04
PROVIDERS: ATTEND Radiology Diagnostic Radiology
DX: R18.8 Other ascites (principal); I12.9 Hypertensive chronic kidney disease with stage 1 through stage 4 chronic kidney disease, or unspecified chronic kidney disease; E11.22 Type 2 diabetes mellitus with diabetic chronic kidney disease; N18.9 Chronic kidney disease, unspecified; E11.10 Type 2 diabetes mellitus with ketoacidosis without coma; E78.1 Pure hyperglyceridemia; E03.9 Hypothyroidism, unspecified; E78.5 Hyperlipidemia, unspecified; J44.9 Chronic obstructive pulmonary disease, unspecified; F41.9 Anxiety disorder, unspecified; F32.A Depression, unspecified; Z79.2 Long term (current) use of antibiotics; Z79.4 Long term (current) use of insulin; Z79.84 Long term (current) use of oral hypoglycemic drugs; Z79.890 Hormone replacement therapy; Z79.891 Long term (current) use of opiate analgesic; Z79.899 Other long term (current) drug therapy; Z90.49 Acquired absence of other specified parts of digestive tract; Z98.890 Other specified postprocedural states; Z80.3 Family history of malignant neoplasm of breast; Z82.49 Family history of ischemic heart disease and other diseases of the circulatory system; Z83.3 Family history of diabetes mellitus
CPT/HCPCS: 49083; C1729; P9047; A6258

== ENCOUNTER 2023-12-14 07:30 | Emergency (ER) | payer MEDICAID ==
[~2023-12-14] VITALS: Ht 160 cm; Wt 59.8 kg
[~2023-12-14 07:30] MED LIST changes: +BIOT5TAB PO; -CEPH-585 PO; -OXYC-658 PO; +OXYC5CAP19 PO; +WHEA98PO PO
[2023-12-14 07:52] VITALS: TEMP 98.4
[2023-12-14 08:41] LABS: BILIRUBIN,URINE NEGATIVE (Neg); CLARITY,URINE SLIGHTLY CLOUDY (Clear); COLOR,URINE YELLOW (Yellow); GLUCOSE, URINE NEGATIVE (Neg); KETONES,URINE NEGATIVE (Neg); LEUKOCYTE ESTERASE ,URINE SMALL (Neg); NITRITES, URINE NEGATIVE (Neg); OCCULT BLOOD,URINE NEGATIVE (Neg); PROTEIN,URINE NEGATIVE (Neg); UROBILINOGEN,URINE 0.2 E.U/dL (0.2-1.0)
[2023-12-14 08:42] LABS: URINE HCG NEGATIVE (NEG)
[2023-12-14 08:52] LABS: UA COLLECTION TYPE CLN CATCH MIDSTREAM
[2023-12-14 08:54] LABS: SQUAMOUS EPITHELIAL CELL,UR MANY /LPF (FEW)
[2023-12-14 08:57] LABS: BACTERIA,URINE 3+ /HPF (Neg); RBC,URINE NONE SEEN /HPF (0-2)
[2023-12-14] MEDS: ondansetron 4mg rapidly disintigrating tab PO ONE (09:13)
[2023-12-14] MEDS: oxyCODONE IR 5mg (immed. release) tablet PO ONE (09:14)
[2023-12-14] MEDS: ketorolac trometh. 30mg/ml inj. IM ONE (09:15)
[2023-12-14 09:46] LABS: BASOPHILS # (AUTO) 0.1 X10'3 (0-0.2); BASOPHILS % (AUTO) 1.1 % (0-1); EOSINOPHILS % (AUTO) 0.3 % (0-6); HEMATOCRIT 39.3 % (35.0-45.0); HEMOGLOBIN 13.5 g/dl (12.0-16.0); LYMPHOCYTES # (AUTO) 1.5 X10'3 (1.1-4.8); LYMPHOCYTES % (AUTO) 21.1 % (21-51); MEAN CORPUSCULAR HEMOGLOBIN 29.7 PG (27.0-31.0); MEAN CORPUSCULAR HGB CONC 34.4 g/dL (33.0-36.5); MEAN CORPUSCULAR VOLUME 86.3 FL (78-98); MEAN PLATELET VOLUME 8.3 FL (7.4-10.4); MONOCYTES # (AUTO) 0.6 X10'3 (0-0.9); MONOCYTES % (AUTO) 8.3 % (2-12); NEUTROPHILS # (AUTO) 4.9 X10'3 (1.8-7.7); NEUTROPHILS % (AUTO) 69.2 % (42-75); PLATELET COUNT 261 X10'3 (140-440); RED BLOOD COUNT 4.55 X10'6 (4.20-5.60); RED CELL DISTRIBUTION WIDTH 13.8 % (11.5-14.5); WHITE BLOOD COUNT 7.1 X10'3 (4.5-11.0)
[2023-12-14] MEDS ORDERED: morphine 10mg/ml inj. IM ONE (10:00)
[2023-12-14 10:03] LABS: ALANINE AMINOTRANSFERASE 16 U/L (12-78); ALBUMIN 3.1 G/DL (3.4-5.0); ALBUMIN/GLOBULIN RATIO 0.6 (1.1-1.5); ALKALINE PHOSPHATASE 109 IU/L (46-116); ANION GAP 11 (8-16); ASPARTATE AMINO TRANSFERASE 15 U/L (10-37); BILIRUBIN,TOTAL 1.9 MG/DL (0.1-1.0); BLOOD UREA NITROGEN 22 MG/DL (7-18); CHLORIDE 93 MMOL/L (99-107); CREATININE 1.16 MG/DL (0.40-0.90); GLUCOSE 230 MG/DL (70-104); POTASSIUM 4.2 MMOL/L (3.5-5.1); SODIUM 130 MMOL/L (135-145); TOTAL PROTEIN 8.6 G/DL (6.4-8.2); eCRCL 56 ML/MIN; eGFR 53 ML/MIN
[2023-12-14] MEDS: HYDROmorphone inj. 0.5 MG/0.5 ML DISP.SYRIN IM ONE (10:24)
[2023-12-14 11:43] LABS: BILIRUBIN,URINE SMALL (Neg); CLARITY,URINE CLOUDY (Clear); COLOR,URINE YELLOW (Yellow); GLUCOSE, URINE NEGATIVE (Neg); KETONES,URINE NEGATIVE (Neg); LEUKOCYTE ESTERASE ,URINE SMALL (Neg); NITRITES, URINE NEGATIVE (Neg); OCCULT BLOOD,URINE NEGATIVE (Neg); PH,URINE 6.5 (4.8-8.0); PROTEIN,URINE NEGATIVE (Neg); UROBILINOGEN,URINE 0.2 E.U/dL (0.2-1.0)
[2023-12-14 11:45] LABS: UA COLLECTION TYPE VOIDED
[2023-12-14 11:48] LABS: SQUAMOUS EPITHELIAL CELL,UR MANY /LPF (FEW); TRANSITIONAL EPI CELLS,URINE FEW /HPF
[2023-12-14 11:49] LABS: BACTERIA,URINE 2+ /HPF (Neg); RBC,URINE 0-2 /HPF (0-2); WBC,URINE 20-30 /HPF (0-4)
[2023-12-14] MEDS ORDERED: ONDA8TAB13 PO (11:57)
[2023-12-14] MEDS ORDERED: SULF1TAB48 PO (11:57)
[2023-12-14] MEDS ORDERED: IBUP-1984 PO (11:57)
[2023-12-14] MEDS ORDERED: OXYC-658 PO (12:07)
[2023-12-14] MEDS: CefTRIAXone 1000mg IM Kit (w/lidocaine diluent) IM ONE (12:33)
[2023-12-14 12:35] VITALS: BP 101/71; PULSE 69; RESP 17; O2SAT 99
== END 2023-12-14 12:24 | disposition home or self-care (01) ==
LOC: ER 07:30
DX: N12 Tubulo-interstitial nephritis, not specified as acute or chronic (principal); I10 Essential (primary) hypertension; E11.9 Type 2 diabetes mellitus without complications; Z91.018 Allergy to other foods; Z88.8 Allergy status to other drugs, medicaments and biological substances; Z79.899 Other long term (current) drug therapy; Z98.890 Other specified postprocedural states; Z90.49 Acquired absence of other specified parts of digestive tract
CPT/HCPCS: 36415; 80053; 81001; 81025; 82948; 85025; 96372; 99284; J1170; J1885; A4353

== ENCOUNTER 2023-12-20 06:44 | Day surgery (SDC) | payer MEDICAID ==
[~2023-12-20] VITALS: Ht 160 cm; Wt 64.6 kg
[~2023-12-20 06:44] MED LIST changes: +IBUP-1984 PO; +ONDA8TAB13 PO; -OXYC5CAP19 PO; +OXYC5CAP22 PO; +SULF1TAB48 PO
[2023-12-20] MEDS ORDERED: normal saline 1000ml 1,000 ML IV PRN (07:10)
[2023-12-20] MEDS ORDERED: DOCU-148 PO (07:12)
[2023-12-20 08:30] VITALS: BP 92/54; PULSE 63; RESP 16; TEMP 99.7; O2SAT 96
[2023-12-20 08:38] VITALS: BP 100/55; PULSE 71; RESP 16; O2SAT 98
[2023-12-20 08:52] VITALS: BP 114/78; PULSE 81; RESP 16; O2SAT 99
[2023-12-20 09:08] VITALS: BP 119/50; PULSE 80; RESP 16; O2SAT 99
[2023-12-20 09:22] VITALS: BP 98/60; PULSE 74; RESP 16; O2SAT 97
[2023-12-20 09:37] VITALS: BP 101/66; PULSE 74; RESP 16; O2SAT 95
[2023-12-20] MEDS: albumin 25% 100mL bottle x 1 IV PRN (09:43)
[2023-12-20 10:29] LABS: BILIRUBIN,URINE NEGATIVE (Neg); CLARITY,URINE CLEAR (Clear); COLOR,URINE YELLOW (Yellow); GLUCOSE, URINE NEGATIVE (Neg); KETONES,URINE NEGATIVE (Neg); LEUKOCYTE ESTERASE ,URINE NEGATIVE (Neg); NITRITES, URINE NEGATIVE (Neg); OCCULT BLOOD,URINE NEGATIVE (Neg); PH,URINE 7.5 (4.8-8.0); PROTEIN,URINE NEGATIVE (Neg); UROBILINOGEN,URINE 0.2 E.U/dL (0.2-1.0)
[2023-12-20 10:34] LABS: UA COLLECTION TYPE NON-SPECIFIED
[2023-12-20 13:23] LABS: IONIZED CALCIUM 1.38 MMOL/L (1.13-1.33)
[2023-12-20] MEDS ORDERED: LORA-269 PO (16:08)
== END 2023-12-20 09:55 | disposition home or self-care (01) ==
LOC: SSTAY O 06:44
PROVIDERS: ATTEND Internal Medicine Critical Care Medicine
DX: K70.31 Alcoholic cirrhosis of liver with ascites (principal)
CPT/HCPCS: 36415; 49083; 81003; 82330; 83970; C1729; P9047; 96360; A6258; A6449

== ENCOUNTER 2023-12-20 12:45 | Emergency (ER) | payer MEDICAID ==
[~2023-12-20] VITALS: Ht 162.6 cm; Wt 61.4 kg
[~2023-12-20 12:45] MED LIST changes: +DOCU-148 PO; +OXYC5CAP19 PO; -OXYC5CAP22 PO
[2023-12-20 13:07] VITALS: BP 195/121; PULSE 81; TEMP 97.8; O2SAT 100
[2023-12-20] MEDS: ondansetron 4mg rapidly disintigrating tab PO ONE (15:06)
[2023-12-20] MEDS: ketorolac trometh. 30mg/ml inj. IM ONE (15:06)
[2023-12-20 15:20] LABS: BASOPHILS % (AUTO) 0.8 % (0-1); EOSINOPHILS % (AUTO) 0.5 % (0-6); HEMATOCRIT 34.1 % (35.0-45.0); HEMOGLOBIN 11.8 g/dl (12.0-16.0); LYMPHOCYTES # (AUTO) 1.6 X10'3 (1.1-4.8); LYMPHOCYTES % (AUTO) 31.2 % (21-51); MEAN CORPUSCULAR HEMOGLOBIN 29.4 PG (27.0-31.0); MEAN CORPUSCULAR HGB CONC 34.6 g/dL (33.0-36.5); MEAN PLATELET VOLUME 7.7 FL (7.4-10.4); MONOCYTES # (AUTO) 0.5 X10'3 (0-0.9); NEUTROPHILS % (AUTO) 58.5 % (42-75); PLATELET COUNT 220 X10'3 (140-440); RED BLOOD COUNT 4.02 X10'6 (4.20-5.60); RED CELL DISTRIBUTION WIDTH 13.4 % (11.5-14.5); WHITE BLOOD COUNT 5.2 X10'3 (4.5-11.0)
[2023-12-20 15:24] LABS: BILIRUBIN,URINE NEGATIVE (Neg); CLARITY,URINE CLEAR (Clear); COLOR,URINE YELLOW (Yellow); GLUCOSE, URINE NEGATIVE (Neg); KETONES,URINE NEGATIVE (Neg); LEUKOCYTE ESTERASE ,URINE NEGATIVE (Neg); NITRITES, URINE NEGATIVE (Neg); OCCULT BLOOD,URINE NEGATIVE (Neg); PROTEIN,URINE NEGATIVE (Neg); UROBILINOGEN,URINE 0.2 E.U/dL (0.2-1.0)
[2023-12-20 15:38] LABS: UA COLLECTION TYPE CLN CATCH MIDSTREAM
[2023-12-20 15:40] VITALS: RESP 20
[2023-12-20] MEDS: HYDROmorphone 1 mg/ml syringe IM STA (15:40)
[2023-12-20 15:42] LABS: ALANINE AMINOTRANSFERASE 12 U/L (12-78); ALBUMIN 3.2 G/DL (3.4-5.0); ALBUMIN/GLOBULIN RATIO 0.7 (1.1-1.5); ALKALINE PHOSPHATASE 89 IU/L (46-116); ANION GAP 12 (8-16); ASPARTATE AMINO TRANSFERASE 14 U/L (10-37); BILIRUBIN,TOTAL 1.4 MG/DL (0.1-1.0); BLOOD UREA NITROGEN 28 MG/DL (7-18); BUN/CREATININE RATIO 15.1 (10.0-20.0); CALCIUM 10.8 MG/DL (8.5-10.1); CHLORIDE 87 MMOL/L (99-107); CREATININE 1.86 MG/DL (0.40-0.90); GLUCOSE 159 MG/DL (70-104); POTASSIUM 4.7 MMOL/L (3.5-5.1); SODIUM 124 MMOL/L (135-145); TOTAL CARBON DIOXIDE 25.1 MMOL/L (24-32); TOTAL PROTEIN 7.9 G/DL (6.4-8.2); eCRCL 36 ML/MIN; eGFR 31 ML/MIN
[2023-12-20 15:56] LABS: LIPASE 11 U/L (16-77)
[2023-12-20 16:00] LABS: BETA HCG,QUANTITATIVE < 1.0 mIU/ml
[2023-12-20] MEDS ORDERED: LORA-269 PO (16:08)
[2023-12-20] MEDS: LORazepam 1 MG tablet PO ONE (16:19)
== END 2023-12-20 17:17 | disposition home or self-care (01) ==
LOC: ER 12:45
DX: M54.6 Pain in thoracic spine (principal); I10 Essential (primary) hypertension; E11.9 Type 2 diabetes mellitus without complications; F17.200 Nicotine dependence, unspecified, uncomplicated; Z91.018 Allergy to other foods; Z88.6 Allergy status to analgesic agent; Z88.8 Allergy status to other drugs, medicaments and biological substances; Z79.899 Other long term (current) drug therapy; Z79.2 Long term (current) use of antibiotics; Z90.49 Acquired absence of other specified parts of digestive tract; Z98.890 Other specified postprocedural states
CPT/HCPCS: 36415; 74176; 80053; 81003; 83690; 84702; 85025; 96372; 99285; J1170; J1885

== ENCOUNTER 2025-01-05 19:42 | Emergency (ER) | payer MEDICAID ==
[~2025-01-05] VITALS: Ht 167.6 cm; Wt 70.5 kg
[~2025-01-05 19:42] MED LIST changes: -IBUP-1984 PO; +LORA-269 PO; +ONDA-245 PO; -ONDA8TAB13 PO; -OXYC5CAP19 PO; +OXYC5CAP22 PO; -SULF1TAB48 PO
--- NOTE | 2025-01-05 20:20 | ELECTROCARDIOGRAPH REPORT ---
[facility] Test Date: 2025-01-05 Test Time: 20:17:33 Pat Name: ADITYA BRAY Department: [facility]- Patient ID: [id number] Room: Gender: F Typewriters Functional Tester: : 1990 Requested By: OBINNA PEARL Order Number: [id number] Reading MD: Dr. Corinna Bailey Measurements Intervals [place]ell Rate: 83 P: -14 ME: 184 QRS: 33 QRSD: 99 T: 23 QT: 401 QTc: 472 Interpretive Statements Sinus rhythm Abnormal R-wave progression, late transition Electronically Signed On 01-06-2025 18:46:[address] Corinna Bailey Please click the below link to view image of tracing.
[2025-01-05 20:30] LABS: ALANINE AMINOTRANSFERASE 205 U/L (12-78); ALBUMIN 3.5 G/DL (3.4-5.0); ALBUMIN/GLOBULIN RATIO 0.9 (1.1-1.5); ALKALINE PHOSPHATASE 204 IU/L (46-116); ANION GAP 16 (8-16); BILIRUBIN,TOTAL 2.7 MG/DL (0.1-1.0); BLOOD UREA NITROGEN 13 MG/DL (7-18); BUN/CREATININE RATIO 14.1 (10.0-20.0); CALCIUM 8.3 MG/DL (8.5-10.1); CHLORIDE 89 MMOL/L (99-107); CREATININE 0.92 MG/DL (0.40-0.90); GLUCOSE 108 MG/DL (70-104); SODIUM 126 MMOL/L (135-145); TOTAL CARBON DIOXIDE 21.2 MMOL/L (24-32); TOTAL PROTEIN 7.3 G/DL (6.4-8.2); eCRCL 79 ML/MIN; eGFR 69 ML/MIN
[2025-01-05 20:31] LABS: LIPASE 34 U/L (16-77)
[2025-01-05 20:32] LABS: ACETAMINOPHEN < 2.0 UG/ML (10-30); ASPARTATE AMINO TRANSFERASE 219 U/L (10-37); ETHANOL 311 MG/DL (<10); POTASSIUM 4.8 MMOL/L (3.5-5.1)
[2025-01-05 21:32] LABS: BASOPHILS # (AUTO) 0.1 X10'3 (0-0.2); BASOPHILS % (AUTO) 2.2 % (0-1); EOSINOPHILS % (AUTO) 1.1 % (0-6); HEMATOCRIT 43.5 % (35.0-45.0); HEMOGLOBIN 15.5 g/dl (12.0-16.0); LYMPHOCYTES # (AUTO) 1.4 X10'3 (1.1-4.8); LYMPHOCYTES % (AUTO) 33.1 % (21-51); MEAN CORPUSCULAR HEMOGLOBIN 31.8 PG (27.0-31.0); MEAN CORPUSCULAR HGB CONC 35.6 g/dL (33.0-36.5); MEAN CORPUSCULAR VOLUME 89.4 FL (78-98); MEAN PLATELET VOLUME 7.6 FL (7.4-10.4); MONOCYTES # (AUTO) 0.4 X10'3 (0-0.9); MONOCYTES % (AUTO) 8.4 % (2-12); NEUTROPHILS # (AUTO) 2.4 X10'3 (1.8-7.7); NEUTROPHILS % (AUTO) 55.2 % (42-75); PLATELET COUNT 169 X10'3 (140-440); RED BLOOD COUNT 4.86 X10'6 (4.20-5.60); RED CELL DISTRIBUTION WIDTH 14.3 % (11.5-14.5); WHITE BLOOD COUNT 4.3 X10'3 (4.5-11.0)
--- NOTE | 2025-01-05 21:57 | Physician Documentation ---
History of Present Illness ~ Chief Complaint: Overdose Stated Complaint: ABDOM PAIN Time Seen by MD: 20:12 OK to notify your PCP?: Yes Primary Medical Doctor: Dr. Andrew JOHNSON Source: patient Mode of Arrival: POV Exam Limitations: no limitations HPI Chanel is a 34-year-old female who came by EMS from home for abdominal pain and drowsiness. Her mother originally called 911 because she was concerned that she may have opiate overdose on her oxycodone, when she found her unresponsive in bed. Mother states that she administered Narcan to the patient which did not help arouse her. This patient has a history of chronic alcohol abuse but had been sober for the past year and a half. She had prior elevated LFTs and received paracentesis last year. She admits to starting drinking heavily vodka and rum over the past 5 days. She denies any SI or HI, the taking any of her oxycodone excess. Her mom states that after the patient was picked up by the ambulance, she counted the bottle of oxycodone and all pills were accounted for none missing. She received Zofran and 1 L normal saline from EMS with a blood sugar of 150 at scene. She is emotionally labile between laughing and crying. Medication Reconciliation Allergies: Coded Allergies: pineapple (Verified Adverse Reaction, Severe, Anaphylaxis, 12/20/23) Pt reports throat closing when consuming pineapple; dietary notified buspirone (Unverified Adverse Reaction, Unknown, 12/20/23) citalopram (Verified Adverse Reaction, Unknown, TREMORS FROM ALCOHOL W ITHDRAWAL WILL NOT GO AWAY, 12/20/23) TREMORS FROM ALCOHOL WITHDRAWAL WILL NOT GO AWAY USUAL, AND HANDS PEELING Scheduled Biotin (Biotin), 1 TAB PO DAILY, (Reported) Cyanocobalamin (Vitamin B-12) (Vitamin B-12), 1 TAB PO DAILY, (Reported) Docusate Sodium (Colace), 1 CAP PO Q12H, (Reported) Folic Acid* (Folic Acid*), 1 TAB PO DAILY, (Reported) Furosemide (Furosemide), 1 TAB PO BID, (Reported) Insulin Glargine,Hum.rec.anlog* (Lantus*), 26 UNITS SQ HS, (Reported) Insulin Regular, Human (Humulin R U-500 Kwikpen), 0 SQ ACHS, (Reported) Levothyroxine Sodium (Levothyroxine Sodium), 1 TAB PO DAILY, (Reported) Lorazepam (Ativan), 1 TAB PO Q8H Multivitamin (Multi Vitamin Daily), 1 EACH PO DAILY, (Reported) Potassium Bicarbonate/Cit AC (Effer-K 25 Meq Tablet Eff), 25 MEQ PO BID, (Reported) Spironolactone (Spironolactone), 2 TAB PO BID, (Reported) Thiamine Hcl (Vitamine B-1), 1 TAB PO DAILY, (Reported) Ursodiol (Ursodiol), 1 CAP PO Q12H, (Reported) Verapamil Hcl (Verapamil Er), 1 TAB PO DAILY, (Reported) Wheat Dextrin (Benefiber), 2 TSP PO DAILY, (Reported) Scheduled PRN Alprazolam (Alprazolam), 0.5 MG PO BID PRN for anxiety, (Reported) Ondansetron 8mg ODT (Ondansetron Odt), 1 TAB PO TID PRN for nausea/vomiting Oxycodone HCl (Oxycodone HCl), 1 CAP PO Q12H PRN for pain, (Reported) Miscellaneous Medications Pantoprazole Sodium (PROTONIX tablet), 40 MG PO, (Reported) Past Medical History Past Medical History: Hypertension, Cholelithiasis, Cirrohsis, Pancreatitis, UTI, Diabetes, Anxiety, Depression Past Surgical History: appendectomy, cholecystectomy Patient History: FH: breast cancer Alcohol Use: Sober Drug Use: none Lives with: Mother, S/O Lives In: Home Occupation: unemployed Past Social History: Chronic alcohol and tobacco use Review of Systems All Other Systems at this time: Reviewed and Negative Physical Exam Vital Signs: RN Vital Signs have been reviewed: Yes, Temperature: 98.1, Heart Rate: 78, Respiratory Rate: 16, BP: 117/76, Pulse Oximetry: 96, Weight: 70.450 Oxygen Flow Rate: 0 Pulse Oximetry Reflects: adequate oxygenation Physical Exam General: Well developed, well nourished, mild distress. HEENT: Atraumatic, normal conjunctiva, mild scleral icterus, moist mucous membranes. Neck: Full range of motion, supple. Respiratory: Lungs clear, no respiratory distress. Chest: No accessory muscle use, nontender. Cardiovascular: Regular rate and rhythm. Gastrointestinal: Soft, nondistended. Bowels sounds present. Tenderness to palpation of left and right upper quadrants. No rebound tenderness or or guarding. Extremities: Normal range of motion, nontender, normal capillary refill, no deformity. Neurologic: Oriented x4. Denies HI or SI. Skin: Normal color, warm and dry. No edema, no ecchymosis Progress Results/Orders Reviewed/noted all lab results: Yes Results/Orders Completed Orders - LILI HIGHP Cbc/Diff (01/05/25 20:18) Dicyclomine Inj (Bentyl Inj) (01/05/25 21:20) Alprazolam Tablet (Xanax Tablet) (01/05/25 21:25) Ondansetron Inj. (Zofran 4mg/2ml Vial) (01/05/25 21:55) Medications Received in ER Medications (Trade) Dose Ordered Sig/Papi Route PRN Reason Start Time Stop Time Status Last Admin Dose Admin (Bentyl inj) 20 mg ONCE ONCE IM 01/05/25 21:20 01/05/25 21:34 DC 01/05/25 22:07 20 MG (Xanax tablet) 0.5 mg ONCE ONCE PO 01/05/25 21:25 01/05/25 21:33 DC 01/05/25 22:03 0.5 MG (Zofran 4mg/2ml vial) 4 mg ONCE ONCE IV 01/05/25 21:55 01/05/25 21:56 DC 01/05/25 22:03 4 MG Vital Signs 01/05/25 01/05/25 01/05/25 01/05/25 19:45 20:06 20:08 21:28 Temp 98.1 Pulse 85 80 78 Resp 16 19 16 B/P (MAP) 133/93 135/85 (102) 117/76 (90) Pulse Ox 100 99 96 O2 Flow Rate 0 0 01/05/25 22:23 Temp 98.1 Pulse 66 Resp 19 B/P (MAP) 117/86 Pulse Ox 100 Laboratory Tests Test 01/05/25 20:09 01/05/25 20:30 01/05/25 20:38 01/05/25 21:58 CBC Comment Sodium Level 126 L Potassium Level 4.8 Chloride Level 89 L Carbon Dioxide Level 21.2 L Anion Gap 16 Blood Urea Nitrogen 13 Creatinine 0.92 H Estimated GFR/1.73 m2 69 BUN/Creatinine Ratio 14.1 Glucose Level 108 H Calcium Level 8.3 L Total Bilirubin 2.7 H Aspartate Amino Transf (AST/SGOT) 219 H Alanine Aminotransferase (ALT/SGPT) 205 H Alkaline Phosphatase 204 H Total Protein 7.3 Albumin 3.5 Globulin 3.8 Albumin/Globulin Ratio 0.9 L Lipase 34 Chemistry Comments Acetaminophen Level < 2.0 L Ethyl Alcohol Level 311 H Glucometer 123 H White Blood Count 4.3 L Red Blood Count 4.86 Hemoglobin 15.5 Hematocrit 43.5 Mean Corpuscular Volume 89.4 Mean Corpuscular Hemoglobin 31.8 H Mean Corpuscular Hemoglobin Concent 35.6 Red Cell Distribution Width 14.3 Platelet Count 169 Mean Platelet Volume 7.6 Neutrophils (%) (Auto) 55.2 Lymphocytes (%) (Auto) 33.1 Monocytes (%) (Auto) 8.4 Eosinophils (%) (Auto) 1.1 Basophils (%) (Auto) 2.2 H Neutrophils # (Auto) 2.4 Lymphocytes # (Auto) 1.4 Monocytes # (Auto) 0.4 Eosinophils # (Auto) 0.0 Basophils # (Auto) 0.1 Urine Specimen Description Non-specified Urine Color Yellow Urine Clarity Clear Urine pH 6.0 Urine Specific [place] <=1.005 Urine Protein Negative Urine Glucose (UA) Negative Urine Ketones Negative Urine Occult Blood Trace-intact Urine Nitrite Negative Urine Bilirubin Negative Urine Urobilinogen 2.0 H Urine Leukocyte Esterase Negative Urine RBC 0-2 Urine WBC None seen Urine Squamous Epithelial Cells Few Urine Bacteria None seen Urine Culture Indicated Not ind Volume Urine Centrifuged 10 ml Urine HCG, Qualitative Negative Urine Comment Urine Opiates Screen Negative Urine Methadone Screen Negative Urine Fentanyl Screen Negative Urine Barbiturates Screen Negative Urine Phencyclidine Screen Negative Urine Amphetamines Screen Negative Urine Benzodiazepines Screen Negative Urine Cocaine Screen Negative Urine Cannabinoids Screen Negative Drug Screen Comment EKG/XRAY/CT/US/VASC/MRI EKG : Additional Comment Electrocardiogram: as interpreted by me; normal sinus rhythm, no axis deviation, no acute ischemia, normal intervals, no pre-excitation pattern. Rate: 83. Medical Decision Making Additional info obtained from: old records Findings Chanel is a 34-year-old female who came by EMS from home for abdominal pain and drowsiness. Her mother originally called 911 because she was concerned that she may have opiate overdose on her oxycodone, when she found her unresponsive in bed. Mother states that she administered Narcan to the patient which did not help arouse her. This patient has a history of chronic alcohol abuse but had been sober for the past year and a half. mother states she had prior elevated LFTs, bilirubin of 30 and received paracentesis last year. She admits to starting drinking heavily vodka and rum over the past 5 days. She denies any SI or HI, the taking any of her oxycodone excess. Her mom states that after the patient was picked up by the ambulance, she counted the bottle of oxycodone and all pills were accounted for none missing. She received Zofran and 1 L normal saline from EMS with a blood sugar of 150 at scene. She is emotionally labile between laughing and crying. She is requesting Dilaudid for pain relief. She is still visibly intoxicated on exam. She has tenderness to palpation of her right and left upper quadrants, otherwise normal abdominal exam. Her EKG was reassuring. On reviewing of her labs her lipase level is normal but she does have elevated AST, ALT and alk-phos. All other labs rule out electrolyte imbalance, infection and anemia. Her urine tox screen was negative for opiates. I consulted with Dr. Landa back on this patient regarding the elevated liver enzymes and her history, and he suggested discharge and Zyprexa and no opioid medications. The patient reports feeling anxious while in the department, After speaking with the patient and her mother she has had issues with Zyprexa in the past and does have a prescription for Xanax 0.5 mg at home which I gave one dose in the emergency department. Prior to discharge she became nauseous and Zofran was ordered and administered. Treated her pain with Bentyl prior to discharge. She was discharged and told to follow up with her primary care provider in the next 3 days. She was educated to refrain from using alcohol and seek rehab services. Mother states that they have a plan in place for her to go to rehab for alcohol abuse. Mother and patient agree to the plan using shared decision-making. Differential Dx:Considerations: Include: Delirium, Drug Overdose-Intentional, Encephalopathy, Hallucinations, Liver failure, Renal failure, Suicidal attempt Departure Disposition: HOME / SELF CARE / HOMELESS Impression: Primary Impression: Abdominal pain Additional Impression: Alcoholic intoxication Condition: Stable Discharge Instructions: Abdominal Pain, Adult, [id number], Alcohol Abuse and Dependence Information, Adult Additional Instructions: Primary care provider in the next 3 days. Return back here for any new or worsening symptoms. Please refrain from alcohol use. Referrals: NO PRIMARY CARE PROVIDER (PCP) Education Educated: Patient, Family Educated regarding: diagnosis, treatment, prognosis, need for follow up Signature Scribe Signature: . Attestation: Scribed for Lili High Rn Allergy by Lili Fonseca NP . 01/06/25 00:58 LILI HIGH PEWTER FINISHER January 05, 2025 21:57
[2025-01-05] MEDS: ALPRAZolam 0.5mg tablet PO ONE (22:03)
[2025-01-05] MEDS: ondansetron/PF 4mg/2ml inj IV ONE (22:03)
[2025-01-05] MEDS: dicyclomine 10mg/ml 2ml ampule IM ONE (22:07)
[2025-01-05 22:23] VITALS: BP 117/86; PULSE 66; RESP 19; TEMP 98.1; O2SAT 100
[2025-01-05 22:33] LABS: URINE HCG NEGATIVE (NEG)
[2025-01-05 22:34] LABS: BILIRUBIN,URINE NEGATIVE (Neg); CLARITY,URINE CLEAR (Clear); COLOR,URINE YELLOW (Yellow); GLUCOSE, URINE NEGATIVE (Neg); KETONES,URINE NEGATIVE (Neg); LEUKOCYTE ESTERASE ,URINE NEGATIVE (Neg); NITRITES, URINE NEGATIVE (Neg); OCCULT BLOOD,URINE TRACE-INTACT (Neg); PROTEIN,URINE NEGATIVE (Neg)
[2025-01-05 22:41] LABS: UA COLLECTION TYPE NON-SPECIFIED
[2025-01-05 22:42] LABS: URINE AMPHETAMINE SCREEN NEGATIVE (Neg); URINE BARBITUATE SCREEN NEGATIVE (Neg); URINE BENZODIAZEPINES SCREEN NEGATIVE (Neg); URINE CANNABINOID SCREEN NEGATIVE (Neg); URINE COCAINE SCREEN NEGATIVE (Neg); URINE METHADONE SCREEN NEGATIVE (Neg); URINE OPIATE SCREEN NEGATIVE (Neg); URINE PHENCYCLIDINE SCREEN NEGATIVE (Neg); WBC,URINE NONE SEEN /HPF (0-4)
[2025-01-05 22:43] LABS: BACTERIA,URINE NONE SEEN /HPF (Neg); RBC,URINE 0-2 /HPF (0-2); SQUAMOUS EPITHELIAL CELL,UR FEW /LPF (FEW)
== END 2025-01-05 22:34 | disposition home or self-care (01) ==
LOC: ER 19:42
DX: R10.11 Right upper quadrant pain (principal); F10.129 Alcohol abuse with intoxication, unspecified; E11.9 Type 2 diabetes mellitus without complications; F32.A Depression, unspecified; F41.9 Anxiety disorder, unspecified; I10 Essential (primary) hypertension; Z90.49 Acquired absence of other specified parts of digestive tract; Y90.9 Presence of alcohol in blood, level not specified
CPT/HCPCS: 36415; 80053; 80305; 80320; 80329; 81001; 81025; 82948; 83690; 85025; 93005; 96372; 96374; 99284; J0500; J2405

== ENCOUNTER 2025-05-26 11:08 | Outpatient (CLI) | payer MEDICAID ==
[2025-05-26 11:34] LABS: MEAN PLATELET VOLUME 8.7 FL (7.4-10.4); RED CELL DISTRIBUTION WIDTH 14.7 % (11.5-14.5)
[2025-05-26 11:58] LABS: TOTAL CARBON DIOXIDE 28.5 MMOL/L (24-32)
[2025-05-26 12:17] LABS: CREATININE 1.20 MG/DL (0.40-0.90); eGFR 51 ML/MIN
== END 2025-05-26 23:59 | disposition home or self-care (01) ==
LOC: LAB 11:08
PROVIDERS: ATTEND Family Medicine
DX: K70.2 Alcoholic fibrosis and sclerosis of liver (principal)
CPT/HCPCS: 36415; 80053; 85025

== ENCOUNTER 2025-06-17 11:17 | Outpatient (CLI) | payer MEDICAID ==
--- NOTE | 2025-06-17 14:06 | RADIOLOGY REPORT ---
CLINICAL HISTORY: RIGHT KNEE INJURY COMPARISON: None TECHNIQUE: Multisequence multiplanar MRI images of the right knee were obtained without contrast. FINDINGS: Cruciate ligaments: ACL and PCL are intact. Extensor mechanism: Quadriceps mechanism and patellar tendon are intact. There is edema in the superolateral aspect of Hoffa's fat pad, may be seen with impingement. Collateral ligaments: Medial and lateral collateral ligaments are intact and otherwise unremarkable. Menisci: No significant degeneration. No evidence of meniscal tear. Cartilage: No focal chondral defect or significant chondromalacia. Bones: Focal marrow edema in the medial tibial plateau with associated small subchondral fracture at the posterior aspect of the medial tibial plateau. Joint fluid: No significant joint effusion. Other: No other significant findings. IMPRESSION: 1. Focal marrow contusion in the medial tibial plateau with associated subchondral fracture. 2. Edema in the superolateral aspect of Hoffa's fat pad, may be seen with impingement.
== END 2025-06-17 23:59 | disposition home or self-care (01) ==
LOC: MRI 11:17
PROVIDERS: ATTEND Family Medicine
DX: S82.141A Displaced bicondylar fracture of right tibia, initial encounter for closed fracture (principal); S80.01XA Contusion of right knee, initial encounter; S89.91XA Unspecified injury of right lower leg, initial encounter; M25.561 Pain in right knee; R60.0 Localized edema; X58.XXXA Exposure to other specified factors, initial encounter; Y93.89 Activity, other specified; Y92.89 Other specified places as the place of occurrence of the external cause; Y99.8 Other external cause status
CPT/HCPCS: 73718

== ENCOUNTER 2025-06-30 13:24 | Outpatient (CLI) | payer MEDICAID | END 2025-06-30 23:59 | disposition home or self-care (01) | LOC: RAD 13:24 | PROVIDERS: ATTEND Family Medicine | DX: R17 Unspecified jaundice (principal); R73.03 Prediabetes; R74.01 Elevation of levels of liver transaminase levels | CPT/HCPCS: 36415; 80076; 83036 ==